=== PATIENT | male | born 1955 | race Caucasian/White ===

== ENCOUNTER 2021-11-27 12:26 | Emergency (ER) | payer BC, SELFPAY ==
[2021-11-27 13:10] VITALS: BP 161/82; PULSE 70; RESP 22; TEMP 36.5; O2SAT 97
--- NOTE | 2021-11-27 13:33 | DI.US.S_ITS ---
PROCEDURE: US PERIPH VENOUS LOW EXTREM LT INDICATIONS: Lt Leg swelling, hx DVT TECHNIQUE: Real-time imaging, as well as color and pulse Doppler interrogation, were performed of the lower extremity deep veins from the inguinal ligament to the popliteal fossa. COMPARISON: None. FINDINGS: There is extensive intraluminal filling defects seen in proximal left superficial femoral vein extending to left popliteal vein with poor compressibility. 5.3 x 2.5 x 2.6 cm fluid collection in posterior medial popliteal fossa is seen. IMPRESSION: 1. Extensive deep venous thrombosis involving left superficial femoral vein to left popliteal vein. 2. Popliteal cyst as above. Dictated by: Virgil Melendrez M.D. on 11/27/2021 at 14:31 Approved by: Virgil Melendrez M.D. on 11/27/2021 at 14:34
--- NOTE | 2021-11-27 15:10 | ED_ITS ---
HPI - Extremity Problem <IZABEL Swift - Last Filed: 11/27/21 20:43> General Chief complaint: Extremity Problem,Nontraumatic Stated complaint: Swollen left leg with pain Time Seen by Provider: 11/27/21 13:33 Source: patient Mode of arrival: Ambulatory History of Present Illness HPI Narrative: 66-year-old male presents to the emergency department with increased swelling of his left leg over the last 3 days with a lump on the medial aspect of his left calf which is warm to touch. He has a history of a DVT in the past in his right leg, he says that was in 2000 and he subsequently developed a pulmonary embolism. At that time he was started on warfarin. He has been on warfarin daily ever since without interruption. He reports he takes 10 mg 1 day and takes 15 mg the next day and alternates every day. He is a patient of [facility] [place], and was trying to transfer to [facility] but his last INR was 1 [facility] ago at the [facility]. 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 He denies any shortness of breath, cough, chest pain, difficulty breathing, fever, or any other symptom. He reports that it is mildly painful on over the medial aspect of his left calf where there is a lump and warmth. Related Data Home Medications Medication Instructions Recorded Confirmed aspirin 81 mg tablet,delayed 81 mg PO QDAY #0 10/16/16 release warfarin 1 mg tablet (Coumadin) 12 mg OR QDAY #0 10/16/16 Previous Rx's Medication Instructions Recorded apixaban 5 mg tablet (Eliquis) 5 mg PO BID 14 Days #28 tab 11/27/21 Allergies Allergy/AdvReac Type Severity Reaction Status Date / Time No Known Drug Allergies Allergy Verified 11/27/21 17:20 Review of Systems <IZABEL Swift - Last Filed: 11/27/21 20:43> Review of Systems Narrative: General: denies fever, chills Head/Neck: denies headache, neck pain Eyes: denies visual changes, eye pain Cardio: denies chest pain, palpitations Respiratory: denies shortness of breath, cough GI: denies abdominal pain, nausea, vomiting, or diarrhea : denies dysuria, hematuria MSK: denies joint pain, muscle weakness Skin: denies rash, itching Neuro: denies numbness, tingling Patient History <IZABEL Swift - Last Filed: 11/27/21 20:43> Social History Smoking Status: Former smoker Smoking Status: Former smoker Exam <IZABEL Swift - Last Filed: 11/27/21 20:43> Narrative Exam Narrative: Independently reviewed vitals signs and nursing notes. General: Awake, alert, nontoxic, no cardiorespiratory distress Head/Neck: Atraumatic, neck full range of motion Eyes: EOMI, conjunctiva normal Nose: nares patent, no rhinorrhea Mouth/Throat: moist mucus membranes, posterior pharynx normal, no oral lesions Cardio: Regular rate and rhythm, left lower extremity with 2+ peripheral edema, redness and erythema over the medial aspect of his left calf, mildly swollen surrounding redness and erythema. Does not appear to be cellulitic. No fl uctuance Respiratory: respirations unlabored without wheezing, stridor, or rales. No retractions. GI: Abdomen soft, nontender MSK: Moves all extremities, neurovascularly intact Skin: Normal capillary refill, no rash Neuro: Normal speech and cognition, normal gait Initial Vital Signs Initial Vital Signs: Vital Signs Temperature 97.7 F 11/27/21 13:10 Pulse Rate 70 11/27/21 13:10 Respiratory Rate 22 11/27/21 13:10 Blood Pressure 161/82 H 11/27/21 13:10 Pulse Oximetry 97 11/27/21 13:10 <Ivan Belcher DO - Last Filed: 12/05/21 04:45> Initial Vital Signs Initial Vital Signs: Vital Signs Temperature 97.7 F 11/27/21 13:10 Pulse Rate 70 11/27/21 13:10 Respiratory Rate 22 11/27/21 13:10 Blood Pressure 161/82 H 11/27/21 13:10 Pulse Oximetry 97 11/27/21 13:10 Scores <IZABEL Swift - Last Filed: 11/27/21 20:43> Wells' Criteria for DVT Active Cancer (Treatment within 6 months): No Bedridden recently >3 days or major surgery within 4 weeks: No Calf Swelling >3cm compared to other leg: Yes Collateral (nonvericose) superficial veins present: Yes Entire leg swollen: Yes Localized tenderness along the deep vein system: Yes Pitting edema, confined to symtomatic leg: Yes Paralysis, paresis, or recent plaster immobilization of ext: No Previously documented DVT: Yes Alternative dx to DVT as likely or more likely: Yes Dylan' criteria for DVT: 4 <Ivan Belcher DO - Last Filed: 12/05/21 04:45> Wells' Criteria for DVT Wells' criteria for DVT: 4 Course <IZABEL Swift - Last Filed: 11/27/21 20:43> Orders Ordered: Discontinued Medications Apixaban (Apixaban 5 Mg Tablet) 5 mg PO NOW ONE Stop: 11/27/21 17:19 Last Admin: 11/27/21 17:29 Dose: 5 mg Documented by: GRZEGORZ Consultations Consultation #1: Consultation with Dr. Wade from Hematology and stopping warfarin, starting patient on Eliquis, patient was given a coupon for this at the pharmacy. He was prescribed 7 days of Eliquis 10 mg twice a day, 5 mg twice a day thereafter, he was also referred to Dr. Wade who will follow up with him in a week. Vital Signs Vital signs: Vital Signs - 8 hr 11/27/21 13:10 11/27/21 15:57 11/27/21 15:58 Temperature 97.7 F Pulse Rate 70 68 Respiratory Rate 22 20 Blood Pressure 161/82 H 161/79 H Pulse Oximetry 97 98 98 11/27/21 16:00 11/27/21 16:30 11/27/21 17:50 Temperature Pulse Rate 68 71 65 Respiratory Rate 20 20 Blood Pressure 150/84 H 152/85 H 160/82 H Pulse Oximetry 99 97 100 <Ivan Belcher DO - Last Filed: 12/05/21 04:45> Orders Ordered: Discontinued Medications Apixaban (Apixaban 5 Mg Tablet) 5 mg PO NOW ONE Stop: 11/27/21 17:19 Last Admin: 11/27/21 17:29 Dose: 5 mg Documented by: GRZEGORZ Vital Signs Vital signs: Vital Signs - 8 hr 11/27/21 13:10 11/27/21 15:57 11/27/21 15:58 Temperature 97.7 F Pulse Rate 70 68 Respiratory Rate 22 20 Blood Pressure 161/82 H 161/79 H Pulse Oximetry 97 98 98 11/27/21 16:00 11/27/21 16:30 11/27/21 17:50 Temperature Pulse Rate 68 71 65 Respiratory Rate 20 20 Blood Pressure 150/84 H 152/85 H 160/82 H Pulse Oximetry 99 97 100 MDM - Extremity (Nontraumatic) <Mary Jane Rachel, [facility] - Last Filed: 11/27/21 20:43> Lab Data Result diagrams: 11/27/21 16:07 11/27/21 16:07 Labs: Lab Results 11/27/21 11/27/21 11/27/21 Range/Units 16:07 16:07 16:07 WBC 6.4 (4.5-11.0) X10^3/uL RBC 4.46 L (4.5-5.9) X10^6/uL Hgb 13.9 (13.5-17.5) g/dL Hct 41.9 (41-53) % MCV 93.8 (80-100) fL MCH 31.2 (26-34) PG MCHC 33.3 (30-36) % RDW 13.9 (11.6-14.8) % Plt Count 249 (150-400) X10^3/uL Neut % (Auto) 62.9 (50-75) % Lymph % (Auto) 24.1 L (25-40) % [place] % (Auto) 9.2 (3-14) % Eos % (Auto) 2.5 (2-4) % Baso % (Auto) 1.3 (0-2) % Neut # (Auto) 4000 (6763-0502) /uL Lymph # (Auto) 1500 (0520-3642) /uL [place] # (Auto) 600 (0-900) /uL Eos # (Auto) 200 (0-450) /uL Baso # (Auto) 100 (0-100) /uL PT 12.7 (10.1-12.7) SECONDS INR 1.1 (0.9-1.3) Sodium 141 (137-145) mmol/L Potassium 4.2 (3.4-5.1) mmol/L Chloride 108 H (98-107) mmol/L Carbon Dioxide 28 (22-32) mmol/L BUN 12 (9-20) mg/dL Creatinine 0.97 (0.66-1.25) mg/dL Estimated GFR > 60.0 (>60) mL/min BUN/Creatinine Ratio 12.4 (6-22) Glucose 104 (80-110) mg/dL Calcium 9.6 (8.4-10.2) mg/dL Imaging Data US - DVT: Radiologist's Impression: PROCEDURE:? US PERIPH VENOUS LOW EXTREM LT ? INDICATIONS:? Lt Leg swelling, hx DVT ? TECHNIQUE:? Real-time imaging, as well as color and pulse Doppler interrogation, were performed of the lower extremity deep veins from the inguinal ligament to the popliteal fossa.? ? COMPARISON:? None. ? FINDINGS:? There is extensive intraluminal filling defects seen in proximal left superficial femoral vein extending to left popliteal vein with poor compressibility.? 5.3 x 2.5 x 2.6 cm fluid collection in posterior medial popliteal fossa is seen. ? IMPRESSION:? 1. Extensive deep venous thrombosis involving left superficial femoral vein to left popliteal vein. 2. Popliteal cyst as above. ? ? Dictated by: Virgil Melendrez M.D. on 11/27/2021 at 14:31 ? ? Approved by: Virgil Melendrez M.D. on 11/27/2021 at 14:34 ? [facility] Narrative Medical decision making narrative: 66-year-old male with history of factor 5 Leiden and protein C deficiency who presents to the emergency department for left lower extremity swelling which started 3 days ago. Patient has a remote history of a DVT and subsequent PE in 2000 for which he was started on warfarin at the time. Patient reports he religiously takes 10 mg of warfarin alternating daily with 15 mg of warfarin, followed by another 10 mg vice versa. The last time he had his INR checked was a month ago at [facility] [place]. 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 Left lower extremity venous Doppler shows extensive DVT involving the left superficial femoral vein down to the left popliteal vein, incidentally a popliteal cyst was also seen. A 5.3 x 2.5 x 2.6 cm fluid collection is visible in the posterior medial popliteal fossa. [facility], his last INR was 3.4 on 10/08/21. Patient denies missing any of his doses of medication. He also endorses that he does not have a regular clinic director who prescribes his medication, he recently moved up here and has not seen anybody up here, and has not established is anticoagulation clinic to follow-up with. Dr. Wade from Hematology was consulted and recommended discontinuing warfarin, starting patient on Eliquis with 10 mg b.i.d. dosing for 7 days followed by 5 mg thereafter and following up with him in the clinic. Patient has a wells DVT score of 4. Patient denies any respiratory symptoms, shortness of breath, difficulty breathing, cough, hemoptysis, or any other cardiopulmonary symptom. All other lab work was unremarkable. Patient understands to follow-up with Dr. Wade, and to return to the emergency department for any new, worsening, or concerning symptoms. Patient is appropriate and amenable to discharge home. Vital signs are stable on repeat examination is unremarkable. Patient has been informed of results. Patient has been given strict return to ER precautions for any new or worsening symptoms. Patient understands to follow up closely with outpatient providers as instructed. Patient understands plan and agrees to discharge home. All questions and concerns answered at this time. <Ivan Belcher, DO - Last Filed: 12/05/21 04:45> Lab Data Labs: Lab Results 11/27/21 11/27/21 11/27/21 Range/Units 16:07 16:07 16:07 WBC 6.4 (4.5-11.0) X10^3/uL RBC 4.46 L (4.5-5.9) X10^6/uL Hgb 13.9 (13.5-17.5) g/dL Hct 41.9 (41-53) % MCV 93.8 (80-100) fL MCH 31.2 (26-34) PG MCHC 33.3 (30-36) % RDW 13.9 (11.6-14.8) % Plt Count 249 (150-400) X10^3/uL Neut % (Auto) 62.9 (50-75) % Lymph % (Auto) 24.1 L (25-40) % [place] % (Auto) 9.2 (3-14) % Eos % (Auto) 2.5 (2-4) % Baso % (Auto) 1.3 (0-2) % Neut # (Auto) 4000 (1077-4016) /uL Lymph # (Auto) 1500 (6624-4623) /uL [place] # (Auto) 600 (0-900) /uL Eos # (Auto) 200 (0-450) /uL Baso # (Auto) 100 (0-100) /uL PT 12.7 (10.1-12.7) SECONDS INR 1.1 (0.9-1.3) Sodium 141 (137-145) mmol/L Potassium 4.2 (3.4-5.1) mmol/L Chloride 108 H (98-107) mmol/L Carbon Dioxide 28 (22-32) mmol/L BUN 12 (9-20) mg/dL Creatinine 0.97 (0.66-1.25) mg/dL Estimated GFR > 60.0 (>60) mL/min BUN/Creatinine Ratio 12.4 (6-22) Glucose 104 (80-110) mg/dL Calcium 9.6 (8.4-10.2) mg/dL Discharge Plan Departure Patient Disposition: Home Clinical Impression: Deep vein thrombosis of lower extremity, Factor 5 Leiden mutation, heterozygous, Deficiency, protein C Activity Restrictions/Additional Instructions: *You have been diagnosed with a large DVT in your left lower extremity. Please stop taking your warfarin. Please start taking Eliquis and get your prescription filled tomorrow morning. Please take 10 mg (2 tablets) twice a day for 7 days followed by 5 mg twice a day thereafter. [facility]. If you have any shortness of breath, cough, worsening of your pain beyond tolerable, weakness, or any other concerning symptom for a pulmonary embolism or stroke please return to the emergency department immediately. *What to do: *Please continue to take your regular medications as directed. [x ] New medication prescriptions sent to your pharmacy: [ [facility]] [ ] New medication written as a paper prescription [ ] No new medications given *Please follow up with your primary care provider in 2-3 days, call for an appointment. Let them know you were seen in the Emergency Department and that we ask that you be seen in follow up. We will electronically transmit a record of today's note if your PCP is in our system *If you do not have a primary care provider please contact the [facility] Resource line at [phone]. They will ask some questions about your medical history and help get you set up with a doctor in the community. *Return to Emergency Department if you should have any new, worsening or concerning symptoms, such as [fever greater than 101F, chills, worsening pain, persistent vomiting or other bothersome symptoms] Prescriptions: New Eliquis 5 mg tablet 5 mg PO BID 14 Days Qty: 28 0RF No Action aspirin 81 MG tablet,delayed release (DR/EC) 81 mg PO QDAY Qty: 0 0RF warfarin [Coumadin] 1 MG tablet 12 mg OR QDAY Qty: 0 0RF Referrals: Ajay Wade MD [Physician] - 3-5 days <Ivan Belcher DO - Last Filed: 12/05/21 04:45> Cosign ED Attending Cosignature Attestation: I was immediately available in the department for consultation. This documentation has been reviewed and I agree with assessment and plan. Supervised by Ivan Belcher DO
[2021-11-27 15:57] VITALS: O2SAT 98
[2021-11-27 15:58] VITALS: BP 161/79; PULSE 68; RESP 20; O2SAT 98
[2021-11-27 16:00] VITALS: BP 150/84; PULSE 68; O2SAT 99
[2021-11-27 16:12] LABS: Add Manual Diff / Slide Review NO; Basophils Absolute Auto 100 /uL (0-100); Basophils Percent Auto 1.3 % (0-2); Eosinophils Absolute Auto 200 /uL (0-450); Eosinophils Percent Auto 2.5 % (2-4); Hematocrit 41.9 % (41-53); Hemoglobin 13.9 g/dL (13.5-17.5); Lymphocytes Absolute Auto 1500 /uL (1100-4500); Lymphocytes Percent Auto 24.1 % (25-40); Mean Corpuscular HGB Conc 33.3 % (30-36); Mean Corpuscular Hemoglobin 31.2 PG (26-34); Mean Corpuscular Volume 93.8 fL (80-100); Monocytes Absolute Auto 600 /uL (0-900); Monocytes Percent Auto 9.2 % (3-14); Neutrophils Absolute Auto 4000 /uL (1500-7000); Neutrophils Percent Auto 62.9 % (50-75); Platelet Count 249 X10^3/uL (150-400); Red Blood Cell Count 4.46 X10^6/uL (4.5-5.9); Red Cell Distribution Width 13.9 % (11.6-14.8); White Blood Cell Count 6.4 X10^3/uL (4.5-11.0)
[2021-11-27 16:23] LABS: INR 1.1 (0.9-1.3); Prothrombin Time 12.7 SECONDS (10.1-12.7)
[2021-11-27 16:27] LABS: BUN Creatinine Ratio 12.4 (6-22); Blood Urea Nitrogen 12 mg/dL (9-20); Calcium 9.6 mg/dL (8.4-10.2); Carbon Dioxide 28 mmol/L (22-32); Chloride 108 mmol/L (98-107); Estimated Glomerular Filt Rate > 60.0 mL/min (>60); Glucose 104 mg/dL (80-110); HEMOLYSIS < 15 (0-50); Potassium 4.2 mmol/L (3.4-5.1); Sodium 141 mmol/L (137-145)
[2021-11-27 16:30] VITALS: BP 152/85; PULSE 71; RESP 20; O2SAT 97
[2021-11-27] MEDS: APIXABAN 5 MG TABLET PO (17:29)
[2021-11-27 17:50] VITALS: BP 160/82; PULSE 65; RESP 20; O2SAT 100
== END 2021-11-27 17:50 | disposition home or self-care (01) ==
PROVIDERS: Emergency Provider Nurse Practitioner Critical Care Medicine
DX: I82.412 Acute embolism and thrombosis of left femoral vein (principal); I82.432 Acute embolism and thrombosis of left popliteal vein; D68.51 Activated protein C resistance
CPT/HCPCS: 80048; 85025; 85610; 93971; 99283; 99284

== ENCOUNTER 2022-05-09 12:26 | Inpatient (IN) | payer BC, SELFPAY ==
[2022-05-09] VITALS (7 sets, daily range): BP systolic 86–119; BP diastolic 58–72; PULSE 71–95; RESP 16–21; TEMP 36.2–36.6; O2SAT 95–98; BMI 29.9; BMI 29.3
--- NOTE | 2022-05-09 12:59 | DI.RAD.S_ITS ---
PROCEDURE: XR CHEST 2V INDICATIONS: shortness of breath TECHNIQUE: 2 views of the chest were acquired. COMPARISON: None. FINDINGS: Surgical changes and devices: None. Lungs and pleura: Lungs are clear. No pleural effusions or pneumothorax. Mediastinum: Mediastinal contours are normal. Heart size is normal. Bones and chest wall: No suspicious bony abnormalities. Soft tissues appear unremarkable. IMPRESSION: No acute cardiopulmonary pathology. Dictated by: Virgil Melendrez M.D. on 05/09/2022 at 13:42 Approved by: Virgil Melendrez M.D. on 05/09/2022 at 13:42
[2022-05-09 13:19] LABS: Add Manual Diff / Slide Review NO; Basophils Absolute Auto 0 /uL (0-100); Basophils Percent Auto 0.4 % (0-2); Eosinophils Absolute Auto 0 /uL (0-450); Eosinophils Percent Auto 0.1 % (2-4); Hematocrit 39.9 % (41-53); Hemoglobin 13.7 g/dL (13.5-17.5); Lymphocytes Absolute Auto 700 /uL (1100-4500); Lymphocytes Percent Auto 6.7 % (25-40); Mean Corpuscular HGB Conc 34.4 % (30-36); Mean Corpuscular Hemoglobin 32.2 PG (26-34); Mean Corpuscular Volume 93.6 fL (80-100); Monocytes Absolute Auto 1000 /uL (0-900); Monocytes Percent Auto 9.5 % (3-14); Neutrophils Absolute Auto 8500 /uL (1500-7000); Neutrophils Percent Auto 83.3 % (50-75); Platelet Count 147 X10^3/uL (150-400); Red Blood Cell Count 4.26 X10^6/uL (4.5-5.9); White Blood Cell Count 10.3 X10^3/uL (4.5-11.0)
[2022-05-09 13:28] LABS: COVID19 -Nasal RAPID Negative (Negative)
[2022-05-09 13:56] LABS: Potassium 5.2 mmol/L (3.4-5.1); Sodium 134 mmol/L (137-145)
[2022-05-09 13:57] LABS: Blood Urea Nitrogen 24 mg/dL (9-20); Carbon Dioxide 21 mmol/L (22-32); Chloride 100 mmol/L (98-107)
[2022-05-09 13:58] LABS: BUN Creatinine Ratio 19.2 (6-22); Estimated Glomerular Filt Rate > 60 mL/min (>60); Glucose 149 mg/dL (80-110)
[2022-05-09 14:00] LABS: Alanine Aminotransferase 43 IU/L (<50); Alkaline Phosphatase 53 U/L (38-126); Aspartate Aminotransferase 25 IU/L (17-59); Bilirubin Total 1.3 mg/dL (0.2-1.3); Calcium 9.1 mg/dL (8.4-10.2)
[2022-05-09 14:01] LABS: Albumin 4.6 g/dL (3.5-5.0); Albumin Globulin Ratio 1.5 (1.0-2.8); Globulin 3.1 g/dL (1.7-4.1); HEMOLYSIS < 15 (0-50); Total Protein 7.7 g/dL (6.3-8.2)
[2022-05-09 14:05] LABS: Lactate (Lactic Acid) 1.7 mmol/L (0.7-2.1)
--- NOTE | 2022-05-09 15:00 | ED_ITS ---
HPI - SOB/Dyspnea General Chief Complaint: Shortness of Breath/Dyspnea Stated Complaint: Extreme Fatigue/Sweaty/Sepsis Time Seen by Provider: 05/09/22 13:52 Source: patient Mode of arrival: Family Vehicle Limitations: no limitations History of Present Illness HPI Narrative: This is a 66-year-old male comes emergency department with complaint of fatigue that started the last 12-24 hours and shortness of breath with exertion. Patient is resting he does not feel short of breath. He denies fevers or chills. No chest pain or pressure. No nausea or vomiting. No swelling in his extremities. No issues with bowel movements itchy diarrhea constipation or black or bloody stools. He noted that he has not really been able to urinate today. Patient states he urinated a little this morning. He does not a sensat ion that he needs to go but states he just has not made more. He denies abdominal, back or flank pain. No suprapubic discomfort. No rash. Patient is on Xarelto for protein C deficiency and prior pulmonary emboli he had a thrombi like to me 20 years ago. He developed a DVT 6 months ago while on warfarin and was transition to Xarelto. He takes medication for hypertension, Flomax and atorvastatin. He does have an IVC filter placed. Prior sinus surgery. No known drug allergies. No tobacco, 3 alcoholic drinks daily, no illicit. Primary care is [place] at [facility]. Related Data Home Medications Medication Instructions Recorded Confirmed rivaroxaban 15 mg tablet (Xarelto) 15 mg PO DAILY 12/12/21 05/09/22 amlodipine 10 mg tablet 1 tab PO DAILY 05/09/22 05/09/22 atorvastatin 80 mg tablet 80 tab PO DAILY 05/09/22 05/09/22 lisinopril 10 mg tablet 1 tab PO DAILY 05/09/22 05/09/22 tamsulosin 0.4 mg capsule 2 cap PO DAILY 05/09/22 05/09/22 venlafaxine 37.5 mg 1 cap PO DAILY 05/09/22 05/09/22 capsule,extended release 24 hr Allergies Allergy/AdvReac Type Severity Reaction Status Date / Time No Known Drug Allergies Allergy Verified 11/27/21 17:20 Review of Systems Review of Systems ROS Unobtainable: All systems reviewed & are unremarkable except as noted in HPI and below Patient History Medical History (Updated 05/09/22 @ 22:25 by Inderjit Torres MD) BPH (benign prostatic hyperplasia) Depression DVT (deep venous thrombosis) History of tongue cancer Hyperlipidemia Hypertension Presence of IVC filter Protein C deficiency Pulmonary embolism Sleep apnea Stroke Surgical History (Updated 05/09/22 @ 22:24 by Inderjit Torres MD) S/P coil embolization of cerebral aneurysm S/P sinus surgery Family History (Updated 05/09/22 @ 22:23 by Inderjit Torres MD) Mother Fall Father Fall Social History household members: spouse Smoking Status: Former smoker alcohol intake: current substance use type: does not use Smoking Status: Former smoker alcohol intake frequency: 0-2 drinks per day Alcohol type: wine Substance Use Type: does not use Exam Narrative Exam Narrative: GENERAL: Alert and oriented x three, mild distress. HEENT: Head normocephalic, atraumatic, EOMI, pupils reactive, face symmetric, moist mucous membranes NECK: Supple, full range of motion CARDIOVASCULAR: Regular rate and rhythm without murmurs, rubs or gallops. RESPIRATORY: Breath sounds equal bilaterally, no wheezes rales or rhonchi. ABDOMEN: Soft, nontender. Normoactive bowel sounds all 4 quadrants. No guarding or rebound, rigidity, no mass : No CVA tenderness EXTREMITIES: Normal range of motion, no clubbing. Patient has bilateral lower extremity swelling. Neurovascularly intact NEUROLOGICAL: Cranial nerves II through XII grossly intact. Moving all extremities SKIN: Warm, dry, no petechiae, no rashes or lesions. Initial Vital Signs Initial Vital Signs: Vital Signs Pulse Rate 86 05/09/22 12:49 Pulse Oximetry 97 05/09/22 12:49 Course Orders Ordered: Amlodipine Besylate (Amlodipine 5 Mg Tablet) 10 mg PO DAILY [facility] Last Admin: 05/10/22 09:51 Dose: 10 mg Documented By: MARÍA Apixaban (Apixaban 5 Mg Tablet) 10 mg PO BID [facility] Stop: 05/22/22 21:01 Last Admin: 05/10/22 10:07 Dose: Not Given Documented By: MARÍA Atorvastatin Calcium (Atorvastatin 20 Mg Tablet) 80 mg PO BEDTIME [facility] Last Admin: 05/10/22 20:36 Dose: 80 mg Documented By: Admin: 05/09/22 23:47 Dose: 80 mg Documented By: KORTNEY Enoxaparin Sodium (Enoxaparin 150 Mg/Ml Syringe) 105 mg SUBCUT BID [facility] Last Admin: 05/10/22 20:36 Dose: 105 mg Documented By: Admin: 05/10/22 09:52 Dose: 105 mg Documented By: TROYF Finasteride (Finasteride 5 Mg Tablet) 5 mg PO DAILY [facility] Last Admin: 05/10/22 09:51 Dose: 5 mg Documented By: TROYF Lisinopril (Lisinopril 10 Mg Tablet) 10 mg PO DAILY [facility] Last Admin: 05/10/22 09:51 Dose: 10 mg Documented By: TROYF Naloxone HCl (Naloxone 0.4 Mg/Ml Vial) 0.2 mg IV Q2MIN PRN PRN Reason: Opiate Reversal Tamsulosin HCl (Tamsulosin 0.4 Mg Capsule) 0.8 mg PO DAILY [facility] Last Admin: 05/10/22 09:51 Dose: 0.8 mg Documented By: MARÍA Venlafaxine HCl (Venlafaxine Er 37.5 Mg Cap) 37.5 mg PO DAILY [facility] Last Admin: 05/10/22 09:51 Dose: 37.5 mg Documented By: TROYF Discontinued Medications Atorvastatin Calcium (Atorvastatin 20 Mg Tablet) 6,400 mg PO DAILY [facility] Enoxaparin Sodium (Enoxaparin 40 Mg/0.4 Ml Syringe) 110 mg 1 mg/kg (110 mg) SUBCUT NOW ONE Stop: 05/09/22 17:12 Last Admin: 05/09/22 17:47 Dose: 110 mg Documented By: CLARISSA Sodium Chloride (Normal Saline 0.9%) 1,000 mls @ 1,000 mls/hr IV BOLUS ONE Stop: 05/09/22 16:15 Last Infusion: 05/09/22 16:42 Dose: 0 mls/hr Documented By: Admin: 05/09/22 15:34 Dose: 1,000 mls/hr Documented By: CLARISSA Phenazopyridine HCl (Phenazopyridine 100 Mg Tablet) 200 mg PO NOW ONE Stop: 05/09/22 18:53 Last Admin: 05/09/22 19:04 Dose: 200 mg Documented By: CLARISSA Vital Signs Vital signs: Vital Signs - 8 hr 05/09/22 13:00 05/09/22 12:49 05/09/22 13:00 Temperature 97.2 F L Pulse Rate 85 86 83 Respiratory Rate 18 18 Blood Pressure 103/63 Pulse Oximetry 96 97 98 Oxygen Delivery Method Room Air 05/09/22 13:30 05/09/22 13:30 05/09/22 14:00 Temperature Pulse Rate 71 Respiratory Rate 18 Blood Pressure 96/63 97/60 Pulse Oximetry 95 Oxygen Delivery Method 05/09/22 14:00 05/09/22 14:30 05/09/22 14:30 Temperature Pulse Rate 74 81 Respiratory Rate 18 21 Blood Pressure 96/60 Pulse Oximetry 97 96 Oxygen Delivery Method 05/09/22 15:00 05/09/22 15:00 Temperature Pulse Rate 82 Respiratory Rate 19 Blood Pressure 86/58 L Pulse Oximetry 98 Oxygen Delivery Method MDM - SOB/Dyspnea Lab Data Result diagrams: 05/10/22 05:20 05/10/22 05:20 Labs: Lab Results 05/09/22 05/09/22 05/09/22 Range/Units 12:45 13:02 13:02 WBC 10.3 (4.5-11.0) X10^3/uL RBC 4.26 L (4.5-5.9) X10^6/uL Hgb 13.7 (13.5-17.5) g/dL Hct 39.9 L (41-53) % MCV 93.6 (80-100) fL MCH 32.2 (26-34) PG MCHC 34.4 (30-36) % RDW 14.0 (11.6-14.8) % Plt Count 147 L (150-400) X10^3/uL Neut % (Auto) 83.3 H (50-75) % Lymph % (Auto) 6.7 L (25-40) % Bell % (Auto) 9.5 (3-14) % Eos % (Auto) 0.1 L (2-4) % Baso % (Auto) 0.4 (0-2) % Neut # (Auto) 8500 H (0110-7686) /uL Lymph # (Auto) 700 L (1329-8680) /uL Bell # (Auto) 1000 H (0-900) /uL Eos # (Auto) 0 (0-450) /uL Baso # (Auto) 0 (0-100) /uL Sodium 134 L (137-145) mmol/L Potassium 5.2 H (3.4-5.1) mmol/L Chloride 100 (98-107) mmol/L Carbon Dioxide 21 L (22-32) mmol/L BUN 24 H (9-20) mg/dL Creatinine 1.25 (0.66-1.25) mg/dL Estimated GFR > 60 (>60) mL/min BUN/Creatinine Ratio 19.2 (6-22) Glucose 149 H (80-110) mg/dL Lactate (0.7-2.1) mmol/L Calcium 9.1 (8.4-10.2) mg/dL Total Bilirubin 1.3 (0.2-1.3) mg/dL AST 25 (17-59) IU/L ALT 43 (<50) IU/L Alkaline Phosphatase 53 (38-126) U/L Total Creatine Kinase (55-170) U/L CK-MB (CK-2) CK-MB (CK-2) Rel Index Troponin I (0.01-0.034) ng/mL NT-Pro-B Natriuret Pep (<125) pg/mL Total Protein 7.7 (6.3-8.2) g/dL Albumin 4.6 (3.5-5.0) g/dL Globulin 3.1 (1.7-4.1) g/dL Albumin/Globulin Ratio 1.5 (1.0-2.8) Urine Color Urine Appearance Urine pH (4.5-8.0) Ur Specific [place] (1.000-1.035) Urine Protein (Negative) Urine Glucose (UA) (Negative) g/dL Urine Ketones (NEGATIVE) Urine Occult Blood (Negative) Urine Nitrate (Negative) Urine Bilirubin (NEGATIVE) Urine Urobilinogen (0.2) E.U./dL Ur Leukocyte Esterase (NEGATIVE) Urine RBC (0-5/HPF) Urine WBC (0-5/HPF) Ur Squamous Epith Cells (0-5/HPF) Urine Bacteria (None) Urine Yeast (None) Ur Culture Indicated? SARS-CoV-2 (PCR) Negative (Negative) 05/09/22 05/09/22 05/09/22 Range/Units 13:02 14:32 15:53 WBC (4.5-11.0) X10^3/uL RBC (4.5-5.9) X10^6/uL Hgb (13.5-17.5) g/dL Hct (41-53) % MCV (80-100) fL MCH (26-34) PG MCHC (30-36) % RDW (11.6-14.8) % Plt Count (150-400) X10^3/uL Neut % (Auto) (50-75) % Lymph % (Auto) (25-40) % Bell % (Auto) (3-14) % Eos % (Auto) (2-4) % Baso % (Auto) (0-2) % Neut # (Auto) (8552-4532) /uL Lymph # (Auto) (7218-8238) /uL Bell # (Auto) (0-900) /uL Eos # (Auto) (0-450) /uL Baso # (Auto) (0-100) /uL Sodium (137-145) mmol/L Potassium (3.4-5.1) mmol/L Chloride (98-107) mmol/L Carbon Dioxide (22-32) mmol/L BUN (9-20) mg/dL Creatinine (0.66-1.25) mg/dL Estimated GFR (>60) mL/min BUN/Creatinine Ratio (6-22) Glucose (80-110) mg/dL Lactate 1.7 (0.7-2.1) mmol/L Calcium (8.4-10.2) mg/dL Total Bilirubin (0.2-1.3) mg/dL AST (17-59) IU/L ALT (<50) IU/L Alkaline Phosphatase (38-126) U/L Total Creatine Kinase 37 L (55-170) U/L CK-MB (CK-2) TNP CK-MB (CK-2) Rel Index TNP Troponin I < 0.012 (0.01-0.034) ng/mL NT-Pro-B Natriuret Pep 86 (<125) pg/mL Total Protein (6.3-8.2) g/dL Albumin (3.5-5.0) g/dL Globulin (1.7-4.1) g/dL Albumin/Globulin Ratio (1.0-2.8) Urine Color Yellow Urine Appearance Clear Urine pH 5.5 (4.5-8.0) Ur Specific [place] 1.020 (1.000-1.035) Urine Protein Trace H (Negative) Urine Glucose (UA) Negative (Negative) g/dL Urine Ketones Negative (NEGATIVE) Urine Occult Blood Trace-intact (Negative) Urine Nitrate Negative (Negative) Urine Bilirubin Negative (NEGATIVE) Urine Urobilinogen 0.2 (0.2) E.U./dL Ur Leukocyte Esterase Negative (NEGATIVE) Urine RBC 0-1/hpf (0-5/HPF) Urine WBC 5-10/hpf H (0-5/HPF) Ur Squamous Epith Cells 1-5 /hpf (0-5/HPF) Urine Bacteria None seen (None) Urine Yeast 5-10/hpf H (None) Ur Culture Indicated? Specimen cultured SARS-CoV-2 (PCR) (Negative) Imaging Data Chest x-ray: Radiologist's Impression: [address] [address] XRay Report Signed Patient: Bill Juares MR#: [id number] : 1955 Acct:[id number] Age/Sex: 66 / M Date of Service: 05/09/22 Loc: ED Accession Number: [id number] ?? Procedure: XR chest 2V Ordering Provider: Melita Goode D.O. PROCEDURE:? XR CHEST 2V ? INDICATIONS:? shortness of breath ? TECHNIQUE:? 2 views of the chest were acquired.? ? COMPARISON:? None. ? FINDINGS:? ? Surgical changes and devices:? None.? ? Lungs and pleura:? Lungs are clear.? No pleural effusions or pneumothorax.? ? Mediastinum:? Mediastinal contours are normal.? Heart size is normal.? ? Bones and chest wall:? No suspicious bony abnormalities.? Soft tissues appear unremarkable.? ? IMPRESSION:? No acute cardiopulmonary pathology. ? ? Dictated by: Virgil Melendrez M.D. on 05/09/2022 at 13:42 ? ? Approved by: Virgil Melendrez M.D. on 05/09/2022 at 13:42?? CT scan - chest: Radiologist's Impression: Close Chest CTA (Signed) Susan Welch - 05/09/22 Chest X-Ray (Signed) Virgil Melendrez - 05/09/22 Launch?Image [address] [address] [address] Scan Report Signed Patient: Bill Juares MR#: [id number] : 1955 Acct:[id number] Age/Sex: 66 / M Date of Service: 05/09/22 Loc: ED Accession Number: [id number] ?? Procedure: CT angio chest PE protocol Ordering Provider: Melita Goode D.O. PROCEDURE:? CT ANGIO CHEST PE PROTOCOL ? INDICATIONS:? sob, low BP, hx of PEs ? TECHNIQUE:? After the administration of intravenous contrast, 2 mm thick sections acquired from the pulmonary apices to the posterior costophrenic angles.? 3-dimensional maximum intensity projection (MIP) coronal and sagittal reformats were then acquired through the thorax.? For radiation dose reduction, the following was used:? automated exposure control, adjustment of mA and/or kV according to patient size.? ? COMPARISON:? None. ? FINDINGS:? Image quality:? Excellent.? ? Pulmonary arteries:? Pulmonary arteries are normal in size.? There is a solitary region of filling defect within a segmental branch of the right lower lobe (series 4/image 84).? No other suspicious filling defects. ? Lungs and pleura:? There is mild centrilobular emphysema with an apical predominance.? Learning there is mild atelectasis within the dependent lung bases bilaterally.? No pleural effusion or pneumothorax. ? Mediastinum:? Heart size is normal, without pericardial effusion.? No findings to suggest right heart strain.? No mediastinal or hilar adenopathy.? Thoracic aorta is normal in caliber and enhancement.? Esophagus is normal in caliber, without hiatal hernia.? ? Bones and chest wall:? No suspicious bony lesions.? Ribs and thoracic spine appear intact throughout.? Thyroid gland is unremarkable.? No axillary or supraclavicular adenopathy.? ? Abdomen:? A low-density 1.3 cm left adrenal gland nodule is present suggesting the presence of a small adrenal adenoma.? There are likely bilateral punctate renal calculi which are incompletely characterized.? Visualized upper abdominal solid organs appear otherwise normal in the early arterial phase of enhancement.? ? IMPRESSION:? ? 1. Segmental pulmonary embolus within a branch of the right lower lobe.? No other filling defects visualized.? No findings to suggest right heart strain. ? These findings were discussed with IZABEL Uriostegui at 3:52 p.m. On May 09, 2022. ? 2. No acute pulmonary findings.? ? ? Dictated by: Susan Welch M.D. on 05/09/2022 at 15:47 ? ? Approved by: Susan Welch M.D. on 05/09/2022 at 15:53?? ECG Data Attestation: I personally reviewed and interpreted this ECG as follows: Interpretation: Sinus rhythm, occasional premature atrial complex. Rate 84 TN 166, QRS is 78 QTC [address]. No acute ST elevation or depression noted. MDM Narrative Medical decision making narrative: This is a 66-year-old male comes emergency department with complaint of fatigue and shortness of breath with exertion that started the last 12 hours. Patient does have a history significant for PE with Jorje elect 20 years ago secondary to protein C deficiency. Patient developed a DVT on warfarin but he states he was not always therapeutic and was transitioned to Xarelto 6 months ago. He does have an IVC filter placed with his prior pulmonary emboli. He has just felt fatigued he has blood pressure as he is not tachycardic. He is on a medication for blood pressure but is unsure if it is a beta-carlito or calcium channel carlito which might be decreasing his ability to have reflux tachycardia. Patient had CT angio found have a right lower lobe segmental pulmonary emboli. He is adamant that he only missed 1 dose so far and this was because he had run out of pharmacy did not have any enough for placement. Patient was persistently hypotensive upon arrival did have some improvement with fluids but still 110-100 systolic. He otherwise does not high risk factors. Discussed with Oncology/Hematology, Dr. Bhatia who recommends Lovenox subQ x1 week and then transition to Eliquis orally and outpatient follow-up for repeat hematology evaluation. Discussed with hospitalist for observation, echo to fully evaluate for any right heart strain although none is appreciated on his imaging or EKG. Patient did have urinary retention he has had issues in the past he is supposed to be on Flomax. He had 700 cc out, UA was obtained shows possible infection but not clearly an urine culture is pending. This is likely unrelated but renal ultrasound was ordered and does not show any acute changes or obstructions. Discharge Plan Departure Patient Disposition: Admitted as Observation Clinical Impression: Pulmonary embolism, Acute urinary retention Admit Date/Time: 05/09/22 19:21 Admit Provider: Inderjit Torres
--- NOTE | 2022-05-09 15:13 | DI.CT.S_ITS ---
PROCEDURE: CT ANGIO CHEST PE PROTOCOL INDICATIONS: sob, low BP, hx of PEs TECHNIQUE: After the administration of intravenous contrast, 2 mm thick sections acquired from the pulmonary apices to the posterior costophrenic angles. 3-dimensional maximum intensity projection (MIP) coronal and sagittal reformats were then acquired through the thorax. For radiation dose reduction, the following was used: automated exposure control, adjustment of mA and/or kV according to patient size. COMPARISON: None. FINDINGS: Image quality: Excellent. Pulmonary arteries: Pulmonary arteries are normal in size. There is a solitary region of filling defect within a segmental branch of the right lower lobe (series 4/image 84). No other suspicious filling defects. Lungs and pleura: There is mild centrilobular emphysema with an apical predominance. Learning there is mild atelectasis within the dependent lung bases bilaterally. No pleural effusion or pneumothorax. Mediastinum: Heart size is normal, without pericardial effusion. No findings to suggest right heart strain. No mediastinal or hilar adenopathy. Thoracic aorta is normal in caliber and enhancement. Esophagus is normal in caliber, without hiatal hernia. Bones and chest wall: No suspicious bony lesions. Ribs and thoracic spine appear intact throughout. Thyroid gland is unremarkable. No axillary or supraclavicular adenopathy. Abdomen: A low-density 1.3 cm left adrenal gland nodule is present suggesting the presence of a small adrenal adenoma. There are likely bilateral punctate renal calculi which are incompletely characterized. Visualized upper abdominal solid organs appear otherwise normal in the early arterial phase of enhancement. IMPRESSION: 1. Segmental pulmonary embolus within a branch of the right lower lobe. No other filling defects visualized. No findings to suggest right heart strain. These findings were discussed with IZABEL Uriostegui at 3:52 p.m. On May 09, 2022. 2. No acute pulmonary findings. Dictated by: Susan Welch M.D. on 05/09/2022 at 15:47 Approved by: Susan Welch M.D. on 05/09/2022 at 15:53
[2022-05-09] MEDS: SODIUM CHLORIDE 0.9% 1,000 ML 1000 ML IV (15:34)
--- NOTE | 2022-05-09 15:34 | DI.US.S_ITS ---
PROCEDURE: US RENAL COMPLETE INDICATIONS: urinary retention TECHNIQUE: Real-time scanning was performed of the kidneys and bladder, with image documentation. COMPARISON: None. FINDINGS: Kidneys: Kidneys are normal in size. Right kidney measures 11.0 cm long; left kidney measures 11.2 cm long. Right renal cortical thickness is 1.5 cm; left renal cortical thickness is 1.1 cm. Renal cortical echotexture is normal. No hydronephrosis or nephrolithiasis. No suspicious solid mass lesions. Bladder: A Cheek catheter is present within the bladder and the bladder is decompressed. Miscellaneous: No free pelvic fluid. IMPRESSION: No hydronephrosis. Dictated by: Susan Welch M.D. on 05/09/2022 at 16:31 Approved by: Susan Welch M.D. on 05/09/2022 at 16:32
[2022-05-09 15:59] LABS: Appearance Urine UA CLEAR; Bilirubin Urine UA NEGATIVE (NEGATIVE); Color Urine UA YELLOW; Glucose Urine UA NEGATIVE (Negative); Ketones Urine UA NEGATIVE (NEGATIVE); Leukocyte Esterase Urine UA NEGATIVE (NEGATIVE); Nitrite Urine UA NEGATIVE (Negative); Occult Blood Urine UA TRACE-INTACT (Negative); Protein Urine UA TRACE (Negative); Urobilinogen Urine UA 0.2 E.U./dL (0.2); pH Urine UA 5.5 (4.5-8.0)
[2022-05-09 16:11] LABS: Bacteria Urine None Seen; RBC Urine 0-1/HPF (0-5/HPF); Squamous Epithelial Cell Urine 1-5 /HPF (0-5/HPF)
[2022-05-09 16:12] LABS: Culture Indicated Urine Specimen Cultured
[2022-05-09 16:13] LABS: WBC Urine 5-10/HPF (0-5/HPF)
[2022-05-09 16:45] LABS: Creatine Kinase 37 U/L (55-170); NT-proBNP (BNP-Adult 18+) 86 pg/mL (<125); Troponin I < 0.012 ng/mL (0.01-0.034)
[2022-05-09] MEDS: ENOXAPARIN 40 MG/0.4 ML SYRINGE 110 MG SUBCUT (17:47)
[2022-05-09] MEDS: PHENAZOPYRIDINE 100 MG TABLET 200 MG PO (19:04)
--- NOTE | 2022-05-09 21:37 | P.HP_ITS ---
History of Present Illness History of Present Illness Date Patient Seen: 05/09/22 Time Patient Seen: 21:37 Chief complaint: Extreme Fatigue/Sweaty/Sepsis Narrative: This is a 66-year-old male with protein C deficiency, recurrent PE/DVT, hypertension, BPH pending TURP, hyperlipidemia and depression who presents with sudden exhaustion beginning last night and persisting today. His CTA of the chest shows a right lower lobe segmental pulmonary embolus. He was hypotensive when he presented, requiring 1 L of IV fluid to recover. He has no shortness of breath, coughing or chest pain. He is not tachypneic. He has had at least 2 prior DVTs, the 1st one 20 years ago when the protein C deficiency was diagnosed and then another one 6 months ago. At that time the Coumadin he had been on was changed to Xarelto. He also has an IVC filter in place. He had his usual Xarelto dose yesterday but says that this morning he did not have his daily dose. His symptoms started last night, however. Per Dr. Bhatia, his digital recruiter the plan will be to change him to Eliquis and to treat him with 1 week of Lovenox. He will need to be monitored inpatient to make sure this is effective and he will need an echocardiogram. He also has BPH with urinary dysfunction and on presentation has a postvoid scan residual of 700 cc requiring catheter placement. 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 Patient History Medical History (Updated 05/09/22 @ 22:25 by Inderjit Torres MD) BPH (benign prostatic hyperplasia) Depression DVT (deep venous thrombosis) History of tongue cancer Hyperlipidemia Hypertension Presence of IVC filter Protein C deficiency Pulmonary embolism Sleep apnea Stroke Surgical History (Updated 05/09/22 @ 22:24 by Inderjit Torres MD) S/P coil embolization of cerebral aneurysm S/P sinus surgery Family & Social History Family History (Updated 05/09/22 @ 22:23 by Inderjit Torres MD) Mother Fall Father Fall Social History: household members spouse Prior Living Arrangements House Safety & Behavioral: Feels Safe in Current Yes Environment Been Physically Hurt or No Threatened By a Person Tobacco & Substance use: Smoking Status Former smoker alcohol intake current alcohol intake frequency 0-2 drinks per day Substance Use Type does not use Meds Home Medications and Allergies Home Medications Medication Instructions Recorded Confirmed Type rivaroxaban 15 mg tablet (Xarelto) 15 mg PO DAILY 12/12/21 05/09/22 History amlodipine 10 mg tablet 1 tab PO DAILY 05/09/22 05/09/22 History atorvastatin 80 mg tablet 80 tab PO DAILY 05/09/22 05/09/22 History lisinopril 10 mg tablet 1 tab PO DAILY 05/09/22 05/09/22 History tamsulosin 0.4 mg capsule 2 cap PO DAILY 05/09/22 05/09/22 History venlafaxine 37.5 mg 1 cap PO DAILY 05/09/22 05/09/22 History capsule,extended release 24 hr Allergies Allergy/AdvReac Type Severity Reaction Status Date / Time No Known Drug Allergies Allergy Verified 11/27/21 17:20 Review of Systems Review of Systems Narrative: Positive for exhaustion/fatigue and difficulty urinating. Negative for fevers, chills, sweats, shortness of breath, coughing, chest pain, abdominal pain, nausea, vomiting, dysuria, rash, seizures, headaches, sore throat, new allergies. Exam Vital Signs (past 8 hours): - 05/09/22 14:00 05/09/22 14:00 05/09/22 14:30 Temperature Pulse Rate 74 Respiratory Rate 18 Blood Pressure 97/60 96/60 Pulse Oximetry 97 Oxygen Flow Rate 05/09/22 14:30 05/09/22 15:00 05/09/22 15:00 Temperature Pulse Rate 81 82 Respiratory Rate 21 19 Blood Pressure 86/58 L Pulse Oximetry 96 98 Oxygen Flow Rate 05/09/22 20:46 Temperature 97.8 F Pulse Rate 95 H Respiratory Rate 16 Blood Pressure 119/72 Pulse Oximetry 97 Oxygen Flow Rate 0 Oxygen Delivery Method Room Air Oxygen Flow Rate 0 Narrative Exam Narrative: He is alert and oriented x3. No apparent distress. His manner of speaking is somewhat ponderous Pupils are equally round and reactive to light and accommodation. Extraocular muscles are intact Sclerae are pink and nonicteric Throat looks normal No lymph nodes are felt head, neck, supraclavicular area There is no thyromegaly JVD is less than 6 cm No carotid bruits are heard Heart is regular rate and rhythm without murmur Lungs are clear to auscultation bilaterally Abdomen is soft, bowel sounds positive, nontender, no organomegaly Extremities have no ankle edema Skin has no rash or jaundice Neurological exam: Cranial nerves 2-12 test intact There is no tremor Motor function is 5/5 except for interface developer strength which is 4/5 bilaterally symmetric. A Cheek catheter is in place. Objective Labs Result Diagrams: 05/09/22 13:02 05/09/22 13:02 Labs: Laboratory Results - last 24 hr 05/09/22 05/09/22 05/09/22 12:45 13:02 13:02 WBC 10.3 RBC 4.26 L Hgb 13.7 Hct 39.9 L MCV 93.6 MCH 32.2 MCHC 34.4 RDW 14.0 Plt Count 147 L Neut % (Auto) 83.3 H Lymph % (Auto) 6.7 L [place] % (Auto) 9.5 Eos % (Auto) 0.1 L Baso % (Auto) 0.4 Neut # (Auto) 8500 H Lymph # (Auto) 700 L [place] # (Auto) 1000 H Eos # (Auto) 0 Baso # (Auto) 0 Sodium 134 L Potassium 5.2 H Chloride 100 Carbon Dioxide 21 L BUN 24 H Creatinine 1.25 Estimated GFR > 60 BUN/Creatinine Ratio 19.2 Glucose 149 H Lactate Calcium 9.1 Total Bilirubin 1.3 AST 25 ALT 43 Alkaline Phosphatase 53 Total Creatine Kinase CK-MB (CK-2) CK-MB (CK-2) Rel Index Troponin I NT-Pro-B Natriuret Pep Total Protein 7.7 Albumin 4.6 Globulin 3.1 Albumin/Globulin Ratio 1.5 Urine Color Urine Appearance Urine pH Ur Specific [place] Urine Protein Urine Glucose (UA) Urine Ketones Urine Occult Blood Urine Nitrate Urine Bilirubin Urine Urobilinogen Ur Leukocyte Esterase Urine RBC Urine WBC Ur Squamous Epith Cells Urine Bacteria Urine Yeast Ur Culture Indicated? SARS-CoV-2 (PCR) Negative 05/09/22 05/09/22 05/09/22 13:02 14:32 15:53 WBC RBC Hgb Hct MCV MCH MCHC RDW Plt Count Neut % (Auto) Lymph % (Auto) [place] % (Auto) Eos % (Auto) Baso % (Auto) Neut # (Auto) Lymph # (Auto) [place] # (Auto) Eos # (Auto) Baso # (Auto) Sodium Potassium Chloride Carbon Dioxide BUN Creatinine Estimated GFR BUN/Creatinine Ratio Glucose Lactate 1.7 Calcium Total Bilirubin AST ALT Alkaline Phosphatase Total Creatine Kinase 37 L CK-MB (CK-2) TNP CK-MB (CK-2) Rel Index TNP Troponin I < 0.012 NT-Pro-B Natriuret Pep 86 Total Protein Albumin Globulin Albumin/Globulin Ratio Urine Color Yellow Urine Appearance Clear Urine pH 5.5 Ur Specific [place] 1.020 Urine Protein Trace H Urine Glucose (UA) Negative Urine Ketones Negative Urine Occult Blood Trace-intact Urine Nitrate Negative Urine Bilirubin Negative Urine Urobilinogen 0.2 Ur Leukocyte Esterase Negative Urine RBC 0-1/hpf Urine WBC 5-10/hpf H Ur Squamous Epith Cells 1-5 /hpf Urine Bacteria None seen Urine Yeast 5-10/hpf H Ur Culture Indicated? Specimen cultured SARS-CoV-2 (PCR) Assessment & Plan Assessment & Plan narrative: This is a 66-year-old male with protein C deficiency, recurrent PE/DVT, hypertension, BPH pending TURP, hyperlipidemia and depression who presents with sudden exhaustion beginning last night and persisting today. His CTA of the chest shows a right lower lobe segmental pulmonary embolus. Acute right lower lobe pulmonary embolus, present on admission. Active. -per ED discussion with Dr. Bhatia patient will be changed from Xarelto to Eliquis and will be on Lovenox for the 1st week. -he will need close monitoring for several days to ensure that this change in treatment is effective and will need an echocardiogram. -he may need repeat coagulopathy evaluation as an outpatient. -he has documented protein C deficiency with IVC filter and recurrent DVT (while on warfarin) diagnosed 6 months ago. Protein C deficiency, present on admission. Chronic. -repeat coagulopathy workup with Hematology as an outpatient -Lovenox and Eliquis planned per Hematology recommendation Benign prostatic hypertrophy with bladder outlet obstruction, present on admission. Active. -patient was unable to urinate and had 700 mL postvoid residual on admission. -renal ultrasound shows no hydronephrosis -the patient is already on high-dose tamsulosin. -add finasteride and follow-up with Urology who he was already establish with locally. -Cheek catheter for now and remove as soon as possible. Hypertension, present on admission. Chronic. -the patient was hypotensive on admission and is pending echocardiogram -lisinopril Hyperlipidemia, present on admission. Chronic. -continue atorvastatin. Depression, present on admission. Chronic. -continue venlafaxine Obstructive sleep apnea, present on admission. Chronic. -CPAP -Lovenox and Eliquis for ongoing coagulopathy -backup decision maker is his Bertha Juares. Time Spent With Patient Critical Care time: I spent a total of [] minutes of critical care time on this patient's care today; this time is exclusive of procedural time. Quality VTE Deep Vein Thrombosis/Pulmonary Embolism Present on Admission: Yes
[2022-05-09] MEDS: ATORVASTATIN 20 MG TABLET 80 MG PO (23:47)
[2022-05-10] VITALS (7 sets, daily range): BP systolic 97–114; BP diastolic 59–75; PULSE 68–100; RESP 16–20; TEMP 36.3–37; O2SAT 97–98
[2022-05-10 05:57] LABS: Add Manual Diff / Slide Review NO; Basophils Absolute Auto 100 /uL (0-100); Basophils Percent Auto 0.6 % (0-2); Eosinophils Absolute Auto 200 /uL (0-450); Hemoglobin 12.5 g/dL (13.5-17.5); Lymphocytes Absolute Auto 1300 /uL (1100-4500); Mean Corpuscular HGB Conc 34.6 % (30-36); Mean Corpuscular Hemoglobin 32.5 PG (26-34); Mean Corpuscular Volume 93.9 fL (80-100); Monocytes Absolute Auto 1000 /uL (0-900); Monocytes Percent Auto 11.5 % (3-14); Neutrophils Absolute Auto 6200 /uL (1500-7000); Neutrophils Percent Auto 70.9 % (50-75); Platelet Count 125 X10^3/uL (150-400); Red Blood Cell Count 3.84 X10^6/uL (4.5-5.9); Red Cell Distribution Width 14.4 % (11.6-14.8); White Blood Cell Count 8.8 X10^3/uL (4.5-11.0)
[2022-05-10 06:01] LABS: BUN Creatinine Ratio 27.8 (6-22); Blood Urea Nitrogen 27 mg/dL (9-20); Calcium 8.7 mg/dL (8.4-10.2); Carbon Dioxide 22 mmol/L (22-32); Chloride 104 mmol/L (98-107); Estimated Glomerular Filt Rate > 60 mL/min (>60); Glucose 114 mg/dL (80-110); HEMOLYSIS < 15 (0-50); Potassium 4.5 mmol/L (3.4-5.1); Sodium 135 mmol/L (137-145)
[2022-05-10] MEDS: TAMSULOSIN 0.4 MG CAPSULE 0.8 MG PO (09:51)
[2022-05-10] MEDS: VENLAFAXINE ER 37.5 MG CAP PO (09:51)
[2022-05-10] MEDS: AMLODIPINE 5 MG TABLET 10 MG PO (09:51)
[2022-05-10] MEDS: lisinopriL 10 MG TABLET PO (09:51)
[2022-05-10] MEDS: FINASTERIDE 5 MG TABLET PO (09:51)
[2022-05-10] MEDS: ENOXAPARIN 150 MG/ML SYRINGE 105 MG SUBCUT ×2 (09:52→20:36)
--- NOTE | 2022-05-10 10:55 | PM.PN.1 ---
Subjective Subjective Interval history: pt has no new compllaints, denies chest pain, shortness of breath Exam Vital Signs (past 8 hours): - 05/10/22 05:00 05/10/22 07:30 05/10/22 09:51 Temperature 97.4 F L 98.6 F Pulse Rate 68 71 71 Respiratory Rate 17 20 Blood Pressure 102/72 114/70 114/70 Pulse Oximetry 98 97 Oxygen Flow Rate 0 0 Oxygen Delivery Method Room Air Oxygen Flow Rate 0 Const General: cooperative and well developed Orientation: alert, awake and oriented x3 HENMT Head: normal to inspection Ears: external ears normal Mouth: oral mucosae normal Eyes Pupils: PERRL EOM: EOM intact bilaterally Neck Neck: normal visual inspection and full ROM Resp Effort & Inspection: normal respiratory effort Auscultation: clear to auscultation bilaterally Cardio Rate: regular rate Rhythm: regular rhythm GI Palpation: soft and no hepatosplenomegaly Auscultation: normal bowel sounds Skin General: no rashes or lesions noted Neuro General: patient alert, patient awake, patient oriented x3, moves all extremities and no focal motor deficits Speech: speech normal Extrem General: normal to inspection, full ROM and no pedal edema Psych Appearance: grossly normal Objective Labs Result Diagrams: 05/10/22 05:20 05/10/22 05:20 Labs: Laboratory Results - last 24 hr 05/09/22 05/09/22 05/09/22 12:45 13:02 13:02 WBC 10.3 RBC 4.26 L Hgb 13.7 Hct 39.9 L MCV 93.6 MCH 32.2 MCHC 34.4 RDW 14.0 Plt Count 147 L Neut % (Auto) 83.3 H Lymph % (Auto) 6.7 L [place] % (Auto) 9.5 Eos % (Auto) 0.1 L Baso % (Auto) 0.4 Neut # (Auto) 8500 H Lymph # (Auto) 700 L [place] # (Auto) 1000 H Eos # (Auto) 0 Baso # (Auto) 0 Sodium 134 L Potassium 5.2 H Chloride 100 Carbon Dioxide 21 L BUN 24 H Creatinine 1.25 Estimated GFR > 60 BUN/Creatinine Ratio 19.2 Glucose 149 H Lactate Calcium 9.1 Total Bilirubin 1.3 AST 25 ALT 43 Alkaline Phosphatase 53 Total Creatine Kinase CK-MB (CK-2) CK-MB (CK-2) Rel Index Troponin I NT-Pro-B Natriuret Pep Total Protein 7.7 Albumin 4.6 Globulin 3.1 Albumin/Globulin Ratio 1.5 Urine Color Urine Appearance Urine pH Ur Specific [place] Urine Protein Urine Glucose (UA) Urine Ketones Urine Occult Blood Urine Nitrate Urine Bilirubin Urine Urobilinogen Ur Leukocyte Esterase Urine RBC Urine WBC Ur Squamous Epith Cells Urine Bacteria Urine Yeast Ur Culture Indicated? SARS-CoV-2 (PCR) Negative 05/09/22 05/09/22 05/09/22 13:02 14:32 15:53 WBC RBC Hgb Hct MCV MCH MCHC RDW Plt Count Neut % (Auto) Lymph % (Auto) [place] % (Auto) Eos % (Auto) Baso % (Auto) Neut # (Auto) Lymph # (Auto) [place] # (Auto) Eos # (Auto) Baso # (Auto) Sodium Potassium Chloride Carbon Dioxide BUN Creatinine Estimated GFR BUN/Creatinine Ratio Glucose Lactate 1.7 Calcium Total Bilirubin AST ALT Alkaline Phosphatase Total Creatine Kinase 37 L CK-MB (CK-2) TNP CK-MB (CK-2) Rel Index TNP Troponin I < 0.012 NT-Pro-B Natriuret Pep 86 Total Protein Albumin Globulin Albumin/Globulin Ratio Urine Color Yellow Urine Appearance Clear Urine pH 5.5 Ur Specific [place] 1.020 Urine Protein Trace H Urine Glucose (UA) Negative Urine Ketones Negative Urine Occult Blood Trace-intact Urine Nitrate Negative Urine Bilirubin Negative Urine Urobilinogen 0.2 Ur Leukocyte Esterase Negative Urine RBC 0-1/hpf Urine WBC 5-10/hpf H Ur Squamous Epith Cells 1-5 /hpf Urine Bacteria None seen Urine Yeast 5-10/hpf H Ur Culture Indicated? Specimen cultured SARS-CoV-2 (PCR) 05/10/22 05/10/22 05:20 05:20 WBC 8.8 RBC 3.84 L Hgb 12.5 L Hct 36.0 L MCV 93.9 MCH 32.5 MCHC 34.6 RDW 14.4 Plt Count 125 L Neut % (Auto) 70.9 Lymph % (Auto) 15.0 L [place] % (Auto) 11.5 Eos % (Auto) 2.0 Baso % (Auto) 0.6 Neut # (Auto) 6200 Lymph # (Auto) 1300 [place] # (Auto) 1000 H Eos # (Auto) 200 Baso # (Auto) 100 Sodium 135 L Potassium 4.5 Chloride 104 Carbon Dioxide 22 BUN 27 H Creatinine 0.97 Estimated GFR > 60 BUN/Creatinine Ratio 27.8 H Glucose 114 H Lactate Calcium 8.7 Total Bilirubin AST ALT Alkaline Phosphatase Total Creatine Kinase CK-MB (CK-2) CK-MB (CK-2) Rel Index Troponin I NT-Pro-B Natriuret Pep Total Protein Albumin Globulin Albumin/Globulin Ratio Urine Color Urine Appearance Urine pH Ur Specific [place] Urine Protein Urine Glucose (UA) Urine Ketones Urine Occult Blood Urine Nitrate Urine Bilirubin Urine Urobilinogen Ur Leukocyte Esterase Urine RBC Urine WBC Ur Squamous Epith Cells Urine Bacteria Urine Yeast Ur Culture Indicated? SARS-CoV-2 (PCR) [facility] Medical History (Updated 05/09/22 @ 22:25 by Inderjit Torres MD) BPH (benign prostatic hyperplasia) Depression DVT (deep venous thrombosis) History of tongue cancer Hyperlipidemia Hypertension Presence of IVC filter Protein C deficiency Pulmonary embolism Sleep apnea Stroke Surgical History (Updated 05/09/22 @ 22:24 by Inderjit Torres MD) S/P coil embolization of cerebral aneurysm S/P sinus surgery Family History (Updated 05/09/22 @ 22:23 by Inderjit Torres MD) Mother Fall Father Fall Social History household members: spouse Smoking Status: Former smoker alcohol intake: current substance use type: does not use Assessment & Plan Assessment & Plan narrative: Acute RLL PE secondary to protein C deficiency h/o IVC filter and recurrent DVT (while on warfarin) diagnosed 6 months ago, then failed Xarelto - was discussed with hematology -recommended to continue lovenox BID -then transfer to [facility] and f/u in outpatient Protein C deficiency Chronic.? - workup with Hematology as an outpatient -continue lovenox BID BPH -continue tamsulosin and Finasteride -continue Cheek for now Hypertension? -continue lisinopril Hyperlipidemia? -continue atorvastatin. Depression? -continue venlafaxine Obstructive sleep apnea? -CPAP -DVT prophylaxis: Lovenox POA Bertha Juares. Time Spent With Patient Critical Care time: I spent a total of [] minutes of critical care time on this patient's care today; this time is exclusive of procedural time. Quality VTE Deep Vein Thrombosis/Pulmonary Embolism Present on Admission: Yes
--- NOTE | 2022-05-10 11:36 | PC.NURSE ---
alert and oriented, conversant. Follows commands. easily makes needs known.
--- NOTE | 2022-05-10 12:59 | CM.DANOTE ---
Initial Discharge Planning Assessment Note: Case received, EMR reviewed and met with patient. Introduced self and role. 66 year old alert and oriented male admitted yesterday evening to care of hospitalist team. PCP: Dani Payne Payer: out of [place] [employer] Patient was admitted with sudden exhaustion persisting. He has h/o protein C deficiency, diagonsed with RLL P.E. (recurrent PE/DVT, IVC filter), has been on anticoagulation, h/o CVA with minimal right sided weakness, urinary retention due to BPH, urinary catheter placed. Patient lives in own home with supportive spouse Bertha. Patient currently works from home at to be. Patient is independent in ADLs. P: Patient wishes to return home upon discharge with prior living arrangements. Care management will continue to follow. GERMAINE Discharge Planning/Care Management CM Discharge Assessment Start: 05/10/22 12:57 Freq: Status: Active Protocol: Document 05/10/22 12:58 (Rec: 05/10/22 12:59 [id number]) Discharge Planning Assessment Assigned Paper Goods Machine Set Up Operator Anna Ramos RN/ADDYP Advance Directives? No History Provided By Patient,Medical Record Prior Living Arrangements House Household Members spouse Type of transporation used prior to Drives own vehicle admit Independent with ADL's Yes Is patient alert and oriented? Yes Needs Assistance With Home Chores / Shopping Barriers to Discharge No Discharge Plan Home Whiteboard Updated in Patient Room with Yes name and ext. # of Paper Goods Machine Set Up Operator Review Status In Process Next Review Type Continued Stay Review
[2022-05-10] MEDS: ATORVASTATIN 20 MG TABLET 80 MG PO (20:36)
--- NOTE | 2022-05-10 22:18 | DI.ECHO.S_ITS ---
[facility] +---------+ Hospital +---------+ : : [address] : : : : [id number] : : : : Phone: [phone]---------+ Echocardiogram Report + + :Name: JHON DEL ANGEL Study Date: 05/10/2022 Height: 75 in : :[facility] ReadingLocation: Weight: 234 lb : : Gender: Male BSA: 2.3 m2 : :: 1955 Age: 66 yrs BP: 109/75 mmHg: :Reason For Study: Pulmonary- Embolism : : Performed By: Myra Kenny : :Referring: JERARDO LING E : + + Interpretation Summary The left ventricle is normal in size and wall thickness. The ejection fraction is estimated to be 60-65%. The right ventricle is normal in size and function. No significant valvular pathology seen. The IVC is of normal diameter and collapses greater than 50% with a sniff. This suggests a low right atrial pressure of 3 mm Hg. The ascending aorta is mildly enlarged. Procedure: A two-dimensional transthoracic echocardiogram with color flow and Doppler was performed. The study quality was technically adequate. There is no prior echocardiogram noted for this patient. The patient was in normal sinus rhythm during the exam. The patient had occasional PACs during the exam. Left Ventricle: The left ventricle is normal in size and wall thickness. There is no thrombus. The ejection fraction is estimated to be 60-65%. There are no obvious focal wall motion abnormalities noted but poor endocardial definition reduces the sensitivity for the detection of such. Diastolic parameters suggest a relaxation abnormality of the left ventricle, consistent with probable normal filling pressures. Right Ventricle: The right ventricle is normal in size and function. Atria: Both atria are normal in size. There is no Doppler evidence for an interatrial shunt. Mitral Valve: There is mild mitral annular calcification. There is no mitral regurgitation noted. Aortic Valve: The aortic valve is trileaflet. The aortic valve opens well. There is no aortic valve stenosis. No aortic regurgitation is present. Tricuspid Valve: The tricuspid valve is not well visualized, but is grossly normal. Pulmonary artery pressures cannot be estimated because of the lack of a measurable TR jet velocity but the IVC suggests a CVP of around 3 mmHg. Pulmonic Valve: The pulmonic valve is not well visualized. There is trace pulmonic regurgitation. Great Vessels: The aortic root is borderline dilated. The ascending aorta is mildly enlarged. The aortic arch could not be visualized. The IVC is of normal diameter and collapses greater than 50% with a sniff. This suggests a low right atrial pressure of 3 mm Hg. Pericardium/ Pleura There is no pericardial effusion. MMode/2D Measurements & Calculations LVIDd: 4.5 cm LVOT diam: 2.4 cm LVIDs: 3.0 cm Ao root diam: 4.2 cm FS: 33.3 % asc Aorta Diam: 4.0 cm IVSd: 0.81 cm LVPWd: 0.67 cm LV nguyen. diameter/BSA (cm/m^2): 1.9 LV sys. diameter/BSA (cm/m^2): 1.3 LA A2 area: 18.4 cm2 RA long axis: 5.6 cm LA A4 area: 19.1 cm2 RA area: 17.0 cm2 LA length (vol): 5.0 cm RA vol: 43.4 ml LA vol: 59.8 ml RA : 18.5 ml/m2 LA vol index: 25.5 ml/m2 IVC diam: 1.1 cm RVD1 (basal): 3.7 cm TAPSE: 1.8 cm Doppler Measurements & Calculations Ao V2 max: 106.3 cm/sec LVOT Max Cali: 111.8 cm/sec Ao V2 mean: 79.4 cm/sec LV V1 max P.0 mmHg Ao max P.5 mmHg LV V1 VTI: 14.5 cm Ao mean P.8 mmHg AMBER(I,D): 4.5 cm2 Ao V2 VTI: 15.1 cm AMBER(V,D): 4.9 cm2 sev ratio: 0.96 AMBER indexed to BSA (cm^2/m^2): 1.9 MV E max cali: 49.3 cm/sec PA V2 max: 80.8 cm/sec MV A max cali: 61.9 cm/sec PA V2 mean: 61.0 cm/sec MV E/A: 0.80 PA mean P.6 mmHg Med Peak E' Cali: 6.2 cm/sec PA pr(Accel): 41.3 mmHg E/E' med: 7.9 Lat Peak E' Cali: 7.4 cm/sec E/E' lat: 6.6 E/e' average: 7.3 MV dec time: 0.39 sec SV(LVOT): 68.0 ml Reading Physician:03:40 PM
[2022-05-11] VITALS (8 sets, daily range): BP systolic 103–122; BP diastolic 66–73; PULSE 74–94; RESP 16; TEMP 36.6–37.1; O2SAT 94–97
[2022-05-11] MEDS: ACETAMINOPHEN 325 MG TABLET 650 MG PO ×2 (01:29→20:48)
--- NOTE | 2022-05-11 01:49 | PC.NURSE ---
Pt complained of pain in legs and back, asked for Tylenol. Called Dr Torres, telephone order given for 650mg Acetaminophen, PRN. Order placed. Will monitor pt for improvement.
[2022-05-11] MEDS: ENOXAPARIN 150 MG/ML SYRINGE 105 MG SUBCUT ×2 (09:55→20:46)
[2022-05-11] MEDS: FINASTERIDE 5 MG TABLET PO (09:56)
[2022-05-11] MEDS: VENLAFAXINE ER 37.5 MG CAP PO (09:56)
[2022-05-11] MEDS: lisinopriL 10 MG TABLET PO (09:56)
[2022-05-11] MEDS: TAMSULOSIN 0.4 MG CAPSULE 0.8 MG PO (09:56)
[2022-05-11] MEDS: AMLODIPINE 5 MG TABLET 10 MG PO (09:57)
--- NOTE | 2022-05-11 10:52 | PM.PN.1 ---
Subjective Subjective Interval history: pt denies chest pain, shortness of breath, c/o mild weakness, did not walk in the room yet Exam Vital Signs (past 8 hours): - 05/11/22 05:00 05/11/22 09:00 05/11/22 09:56 Temperature 98.0 F 97.8 F Pulse Rate 80 91 H 91 H Respiratory Rate 16 16 Blood Pressure 113/73 116/72 116/72 Pulse Oximetry 95 95 Oxygen Flow Rate 0 0 Oxygen Delivery Method Room Air Oxygen Flow Rate 0 Const General: cooperative and well developed Orientation: alert, awake and oriented x3 HENMT Head: normal to inspection Ears: external ears normal Mouth: oral mucosae normal Eyes Pupils: PERRL EOM: EOM intact bilaterally Neck Neck: normal visual inspection and full ROM Resp Effort & Inspection: normal respiratory effort Auscultation: clear to auscultation bilaterally Cardio Rate: regular rate Rhythm: regular rhythm GI Palpation: soft and no hepatosplenomegaly Auscultation: normal bowel sounds Skin General: no rashes or lesions noted Neuro General: patient alert, patient awake, patient oriented x3, moves all extremities and no focal motor deficits Speech: speech normal Extrem General: normal to inspection, full ROM and no pedal edema Psych Appearance: grossly normal Objective Labs Result Diagrams: 05/10/22 05:20 05/10/22 05:20 [facility] Medical History (Updated 05/09/22 @ 22:25 by Inderjit Torres MD) BPH (benign prostatic hyperplasia) Depression DVT (deep venous thrombosis) History of tongue cancer Hyperlipidemia Hypertension Presence of IVC filter Protein C deficiency Pulmonary embolism Sleep apnea Stroke Surgical History (Updated 05/09/22 @ 22:24 by Inderjit Torres MD) S/P coil embolization of cerebral aneurysm S/P sinus surgery Family History (Updated 05/09/22 @ 22:23 by Inderjit Torres MD) Mother Fall Father Fall Social History household members: spouse Smoking Status: Former smoker alcohol intake: current substance use type: does not use Assessment & Plan Assessment & Plan narrative: Acute RLL PE secondary to protein C deficiency h/o IVC filter and recurrent DVT (while on warfarin) diagnosed 6 months ago, then failed Xarelto - per hematology recs needs 1 week lovenox then transfer to [facility] and f/u in outpatient -continue IV therapeutic lovenox BID Protein C deficiency Chronic.? - workup with Hematology as an outpatient -continue lovenox BID BPH -continue tamsulosin and Finasteride -continue Cheek Hypertension? -continue lisinopril Hyperlipidemia? -continue atorvastatin. Depression? -continue venlafaxine Obstructive sleep apnea? -CPAP -DVT prophylaxis: Lovenox POA Bertha Juares. discussed with pt and rn Time Spent With Patient Critical Care time: I spent a total of [] minutes of critical care time on this patient's care today; this time is exclusive of procedural time. Quality VTE Deep Vein Thrombosis/Pulmonary Embolism Present on Admission: Yes
--- NOTE | 2022-05-11 16:25 | CM.DPC ---
Discharge Plan Note: In for PE. Echo done. Clotting disorder, per hospitalist, needs outpatient hematology consult per hospitalist. Has catheter for retention. P: Possible dc home tomorrow with spouse Anna Ramso RN/DCP
[2022-05-11] MEDS: ATORVASTATIN 20 MG TABLET 80 MG PO (20:45)
[2022-05-11] MEDS: SODIUM CHLORIDE 0.9% FLUSH 10 ML IV (20:46)
--- NOTE | 2022-05-11 22:52 | PC.NURSE ---
Patient is alert and oriented. Breath sounds diminished in right mid/lower lobes but patient denies chest pain or SOB and RA sat was 94%. HR irregular and tachy with telemetry reading of afib RVR w/rate of 107. Denied nausea. BT present and is passing flatus. Indwelling catheter is patent and urine is clear yellow. Is able to move himself in bed. Gait not assessed but patient reports he has been out of bed with cane and 1 assist but has only walked in room. Is wearing bilateral calf SCD's. Has 2+ bilateral LE edema. Complained of back and leg discomfort as well as discomfort related to catheter and was medicated with Tylenol and is currently asleep. Fall risk score is high and bed alarm is activated.
[2022-05-12 01:00] VITALS: BP 118/71; PULSE 91; RESP 16; TEMP 36.9; O2SAT 95
[2022-05-12 05:00] VITALS: BP 98/69; PULSE 82; RESP 16; TEMP 36.3; O2SAT 95
[2022-05-12 09:00] VITALS: BP 97/76; PULSE 84; RESP 18; TEMP 36.7; O2SAT 96
[2022-05-12] MEDS: ENOXAPARIN 150 MG/ML SYRINGE 105 MG SUBCUT ×2 (09:45→20:48)
[2022-05-12] MEDS: AMLODIPINE 5 MG TABLET 10 MG PO (09:45)
[2022-05-12] MEDS: SODIUM CHLORIDE 0.9% FLUSH 10 ML IV ×2 (09:46→20:59)
[2022-05-12] MEDS: FINASTERIDE 5 MG TABLET PO (09:46)
[2022-05-12] MEDS: TAMSULOSIN 0.4 MG CAPSULE 0.8 MG PO (09:46)
[2022-05-12] MEDS: VENLAFAXINE ER 37.5 MG CAP PO (09:47)
--- NOTE | 2022-05-12 11:19 | CM.DPC ---
Addendum entered by Carmen Ocampo R.N. 05/12/22 15:56: Confirmed with [facility] Cantrell that meds will not be ready until tomorrow. Confirmed that patient is not discharging today secondary to new onset of afib. Addendum entered by Carmen Ocampo R.N. 05/12/22 12:42: Faxed updated script for Eliquis, and Lovenox. Did follow up with a phone call. chief radiologic technologist stated, her fax ran out of paper, but will give this to the pharmacist. Let her know that progress note had been faxed as well showing why patient needs these medications. Gave her this case checker's number, and she will call back. Original Note: DCP Cont: Spoke to hospitalist, and she is attempting to get patient on Eliquis, versus Xarelto. Stated, the Xarelto does not work, will need to be on the Xarelto, due to his clotting. Had her complete RX, and faxed over to [facility] Cantrell here in [place]. Included latest progress note indicating reason that patient needs to be on this med. Will follow up with a phone call. P: DCP to continue to follow. Sent RX over to [facility]. Carmen Ocampo RN/[employer]
[2022-05-12] MEDS: LIDOCAINE 2% (GLYDO) 6 ML GEL TOP (12:37)
[2022-05-12 13:00] VITALS: BP 104/77; PULSE 91; RESP 20; TEMP 36.7; O2SAT 95
[2022-05-12] MEDS: ACETAMINOPHEN 325 MG TABLET 650 MG PO (14:18)
--- NOTE | 2022-05-12 15:28 | PT.IIE ---
Addendum entered and electronically signed by Justa Patel PT 05/12/22 16:18: After evaluation, LIQUEFACTION AND REGASIFICATION HELPER reported pt's HR had risen to 130's with a fib during ambulation per telemetry. Original Note: Current Diagnoses Other pulmonary embolism without acute cor pulmonale (05/09/22) Surgical History (Last Updated 05/09/22 @ 22:24 by Inderjit Torres MD) S/P coil embolization of cerebral aneurysm S/P sinus surgery Medical History (Last Updated 05/09/22 @ 22:25 by Inderjit Torres MD) BPH (benign prostatic hyperplasia) Depression DVT (deep venous thrombosis) History of tongue cancer Hyperlipidemia Hypertension Presence of IVC filter Protein C deficiency Pulmonary embolism Sleep apnea Stroke Physical Therapy Inpatient Evaluation/Re-Eval M1 PT/OT-IP Prior Functional Status Start: 05/12/22 14:17 Freq: NEEDED Status: Active Protocol: Document 05/12/22 15:28 AW (Rec: 05/12/22 16:17 AW [id number]) Medical Review Prior Functional Status Medical History Reviewed Yes Communication Pt is an effective verbal communicator. Mobility and Gait Pt walks with or without a cane depending on distance, terrain, and whether or not he is having knee pain. 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 He went to acute rehab and then to outpatient therapy. Activities of Daily Living and IADL's Independent with ADL's. Pt drives and manages his own medications. Social History Household Members spouse Living Arrangements House Number of Floors (Floors) One Floor Number of Stairs To Enter/Railing? 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 M2 PT-IP Current Condition Start: 05/12/22 14:17 Freq: NEEDED Status: Active Protocol: Document 05/12/22 15:28 AW (Rec: 05/12/22 16:17 AW [id number]) Physical Therapy Current Condition Current Condition Evaluation Date 05/12/22 Treatment Diagnosis R pulm embolus; history of CVA ; general weakness; impaired mobility/gait Onset Date 05/09/22 M3 PT-IP Subjective Start: 05/12/22 14:17 Freq: NEEDED Status: Active Protocol: Document 05/12/22 15:28 AW (Rec: 05/12/22 16:17 AW [id number]) Subjective Physical Therapy Visit Type Type Initial Evaluation Visit Start Time 15:10 Visit Stop Time 15:28 Total Visit Minutes 18 Notes Pt's spouse was present throughout evaluation Number of YARD JOCKEY Visits 0 Physical Therapy Visit Comments Patient Comments Pt is willing to participate with PT Therapy Pain Assessment Pain When Pain Assessed During Mobility Pain Present Pain Present Denied Pain M4 PT-IP Mobility and Gait Start: 05/12/22 14:17 Freq: NEEDED Status: Active Protocol: Document 05/12/22 15:28 AW (Rec: 05/12/22 16:17 AW [id number]) PT-Bed Mobility Assessment Supine to Sit Supine to Sit Standby Assistance Sit to Supine Sit to Supine Standby Assistance PT-Transfer Assessment Sit to and From Stand Sit to and from Stand Contact Guard Assistance Equipment Transfer Assistive Device Gait Belt,Straight Cane Orthotic/Prosthetic Devices or Brace: No Transfers Transfer Destination Bed,Chair Transfer Technique Stand Step Pivot Transfer Ability Level of Assist Standby Assistance Comments Mobility Comments Pt was lying inbed as PT arrived. SpO2 was 99% on room air. He was able to sit up on the right side of bed, stand, and transfer to chair CGA. He was mildly unsteady without AD . He stood again and ambulated with SPC a total of 50 feet SBA>CGA with increased distance. Pt became significantly SOB and needed to sit on return to the room. SpO2 was 99%. Pt was fatigued and completed sit to supine SBA as ECG tech arrived. Gait Assessment Gait Gait Assistance Required: Standby Assistance,Contact Guard Assist Distance (Feet) 50 Assistive Devices Assistive Device Gait Belt,Straight Cane Orthotic/Prosthetic Devices or Brace: No Gait Deviations General Gait Pattern Decreased Stride Length, Decreased Feet Clearance, Flexed Trunk,Wide Based Gait Factors Limiting Gait Function Factors Limiting Gait Function Decreased Activity Tolerance, Decreased Strength,Poor Balance,Respiratory Distress Comments Gait Comments See mobility comments for details. Stair Climbing Assessment Comments Stair Climbing Comments Not assessed due to poor activity tolerance. PT-Balance Assessment Sitting Balance and Reactions Static Sitting Balance Ability Good Dynamic Sitting Balance Ability Good Standing Balance and Reactions Static Standing Balance Ability Fair Dynamic Standing Balance Ability Fair Device Used pt's own SPC M5 PT-IP Objective Assessments Start: 05/12/22 14:17 Freq: NEEDED Status: Active Protocol: Document 05/12/22 15:28 AW (Rec: 05/12/22 16:17 AW [id number]) Orientation Orientation/Cognition Level of Alertness Alert Orientation Name,Day of Week,Place, Situation Language Function Ability No Deficits Noted Safety Awareness Understands Safety Issues Gross Range of Motion Lower Extremity ROM Assessment Within Functional Limits Strength Lower Extremity Strength Assessment Bilaterally Impaired Hip 4/5 Knee 4+/5 Ankle 4/5 Sensation Assessment Sensation Gross Sensation WNL Muscle Tone Muscle Tone WNL Yes M6 PT-IP Treatment Start: 05/12/22 14:17 Freq: NEEDED Status: Active Protocol: Document 05/12/22 15:28 AW (Rec: 05/12/22 16:17 AW [id number]) Physical Therapy Treatment Education Education Provided Safety Other Treatments Other Treatment Performed Educated pt and his on recommendation for FWW or 4WW at this time to conserve energy, improve safety, and reduce falls risk. M7 PT-IP Assessment and Plan Start: 05/12/22 14:17 Freq: NEEDED Status: Active Protocol: Document 05/12/22 15:28 AW (Rec: 05/12/22 16:17 AW [id number]) PT Summary Assessment and Plan Potential Rehabilitation Potential Good Status of Condition at Evaluation Evolving Summary Impairments Strength,Balance,Transfers, Gait,Activity Tolerance Assessment Summary Bill is a 66 yo man with remote history of CVA currently admitted with RLL pulmonary embolus secondary to protein C deficiency. He is independent to modified independent at baseline with use of SPC. He required SBA to CGA for mobility with FWW at this encounter and was limited by shortness of breath and fatigue. Pt would benefit from use of FWW or 4WW to conserve energy and reduce risk of falls. Will continue to assess for safe discharge plan but PT anticipates he will be safe to discharge home with spouse assist once medically stable. Goals Bed Mobility Goal Independent Transfer Goal Independent,Front Wheeled Walker Gait Goal Independent,Front Wheel Walker Gait Distance 200 Other Goals - up/down 4 steps with unilateral rail SBA - improve gait and transfers to SBA with SPC Days to Meet Goals 3 Frequency of Treatment Frequency Of Treatment Once a Day Treatment Plan Physical Therapy Treatment Plan Bed Mobility Training,Transfer Training,Gait Training, Therapeutic Exercise,Balance Retraining,Discharge Planning, Hot or Cold Pack,Neuromuscular Re-ed Other Recommendations and Next Treatment gait and stair training with Focus FWW or 4WW; training for pt's as needed Recommendations To Nursing Amount of Assist Needed Standby Assistance,1 Person Assist Discharge Recommendations PT Discharge Recommendations Home with Assistance,Home Health Transportation Needs at Discharge Private Vehicle
--- NOTE | 2022-05-12 15:49 | PM.PN.1 ---
Subjective Subjective Interval history: a fib on ecg, sob Exam Vital Signs (past 8 hours): - 05/12/22 09:00 Temperature 98.1 F Pulse Rate 84 Respiratory Rate 18 Blood Pressure 97/76 Pulse Oximetry 96 Oxygen Flow Rate 0 Oxygen Delivery Method Room Air Oxygen Flow Rate 0 Const General: cooperative and well developed Orientation: alert, awake and oriented x3 HENMT Head: normal to inspection Ears: external ears normal Mouth: oral mucosae normal Eyes Pupils: PERRL EOM: EOM intact bilaterally Neck Neck: normal visual inspection and full ROM Resp Effort & Inspection: normal respiratory effort Auscultation: clear to auscultation bilaterally Cardio Other: irregular rhythm GI Palpation: soft and no hepatosplenomegaly Auscultation: normal bowel sounds Skin General: no rashes or lesions noted Neuro General: patient alert, patient awake, patient oriented x3, moves all extremities and no focal motor deficits Speech: speech normal Extrem General: normal to inspection, full ROM and no pedal edema Psych Appearance: grossly normal Objective Labs Result Diagrams: 05/10/22 05:20 05/10/22 05:20 [facility] Medical History (Updated 05/09/22 @ 22:25 by Inderjit Torres MD) BPH (benign prostatic hyperplasia) Depression DVT (deep venous thrombosis) History of tongue cancer Hyperlipidemia Hypertension Presence of IVC filter Protein C deficiency Pulmonary embolism Sleep apnea Stroke Surgical History (Updated 05/09/22 @ 22:24 by Inderjit Torres MD) S/P coil embolization of cerebral aneurysm S/P sinus surgery Family History (Updated 05/09/22 @ 22:23 by Inderjit Torres MD) Mother Fall Father Fall Social History household members: spouse Smoking Status: Former smoker alcohol intake: current substance use type: does not use Assessment & Plan Assessment & Plan narrative: Acute RLL PE secondary to protein C deficiency h/o IVC filter and 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 - workup with Hematology as an outpatient -continue lovenox BID BPH -continue tamsulosin and Finasteride -continue Cheek Hypertension? -continue lisinopril Hyperlipidemia? -continue atorvastatin. Depression? -continue venlafaxine Obstructive sleep apnea? -CPAP -DVT prophylaxis: Lovenox POA Bertha Juares. discussed with pt and rn pt was not discharged today due to new A fib Time Spent With Patient Critical Care time: I spent a total of [] minutes of critical care time on this patient's care today; this time is exclusive of procedural time. Quality VTE Deep Vein Thrombosis/Pulmonary Embolism Present on Admission: Yes
[2022-05-12] MEDS: METOPROLOL TARTRATE 5 MG/5 ML INJ IV (16:19)
[2022-05-12 17:00] VITALS: BP 119/65; PULSE 107; RESP 17; TEMP 37.1; O2SAT 96
[2022-05-12 19:40] VITALS: BP 117/76; PULSE 100; RESP 18; TEMP 37.3; O2SAT 95
[2022-05-12] MEDS: ATORVASTATIN 20 MG TABLET 80 MG PO (20:47)
[2022-05-12] MEDS: METOPROLOL IR 25 MG TABLET PO (20:48)
[2022-05-13] VITALS (9 sets, daily range): BP systolic 102–124; BP diastolic 71–77; PULSE 70–112; RESP 16–18; TEMP 36.6–37.1; O2SAT 94–96
[2022-05-13] MEDS: TAMSULOSIN 0.4 MG CAPSULE 0.8 MG PO (08:43)
[2022-05-13] MEDS: VENLAFAXINE ER 37.5 MG CAP PO (08:43)
[2022-05-13] MEDS: METOPROLOL IR 25 MG TABLET PO ×2 (08:43→21:31)
[2022-05-13] MEDS: FINASTERIDE 5 MG TABLET PO (08:43)
[2022-05-13] MEDS: SODIUM CHLORIDE 0.9% FLUSH 10 ML IV ×2 (08:45→21:38)
--- NOTE | 2022-05-13 10:40 | PT-IP ANOTE ---
Attempted to see pt at 10:40, per RN hold PT d/t pt still in A-fib after ambulating hallway this morning and pending EKG.
[2022-05-13] MEDS: ENOXAPARIN 150 MG/ML SYRINGE 105 MG SUBCUT ×2 (10:44→21:31)
--- NOTE | 2022-05-13 14:17 | PM.PN.1 ---
Subjective Subjective Interval history: c/o shortness of breath on walking Exam Vital Signs (past 8 hours): - 05/13/22 06:40 05/13/22 08:11 05/13/22 10:18 Temperature 97.8 F Pulse Rate 96 H 86 Respiratory Rate 18 Blood Pressure 117/71 102/75 Pulse Oximetry 96 94 Oxygen Flow Rate 0 05/13/22 10:00 05/13/22 13:05 Temperature 98.2 F Pulse Rate 110 H 85 Respiratory Rate 16 Blood Pressure 102/75 116/71 Pulse Oximetry 96 Oxygen Flow Rate 0 Oxygen Delivery Method Room Air Oxygen Flow Rate 0 Const General: cooperative and well developed Orientation: alert, awake and oriented x3 HENMT Head: normal to inspection Ears: external ears normal Mouth: oral mucosae normal Eyes Pupils: PERRL EOM: EOM intact bilaterally Neck Neck: normal visual inspection and full ROM Resp Effort & Inspection: normal respiratory effort Auscultation: clear to auscultation bilaterally Cardio Other: irregular rhythm GI Palpation: soft and no hepatosplenomegaly Auscultation: normal bowel sounds Skin General: no rashes or lesions noted Neuro General: patient alert, patient awake, patient oriented x3, moves all extremities and no focal motor deficits Speech: speech normal Extrem General: normal to inspection, full ROM and no pedal edema Psych Appearance: grossly normal Objective Labs Result Diagrams: 05/10/22 05:20 05/10/22 05:20 COUNTS INCLUDE 234 BEDS AT THE [facility] Medical History (Updated 05/09/22 @ 22:25 by Inderjit Torres MD) BPH (benign prostatic hyperplasia) Depression DVT (deep venous thrombosis) History of tongue cancer Hyperlipidemia Hypertension Presence of IVC filter Protein C deficiency Pulmonary embolism Sleep apnea Stroke Surgical History (Updated 05/09/22 @ 22:24 by Inderjit Torres MD) S/P coil embolization of cerebral aneurysm S/P sinus surgery Family History (Updated 05/09/22 @ 22:23 by Inderjit Torres MD) Mother Fall Father Fall Social History household members: spouse Smoking Status: Former smoker alcohol intake: current substance use type: does not use Assessment & Plan Assessment & Plan narrative: Acute RLL PE secondary to protein C deficiency h/o IVC filter and 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 - workup with Hematology as an outpatient - continue lovenox BID BPH -continue tamsulosin and Finasteride Hypertension? -continue lisinopril Hyperlipidemia? -continue atorvastatin. Depression? -continue venlafaxine Obstructive sleep apnea? -CPAP -DVT prophylaxis: Lovenox POA Bertha Juares. discussed with pt and rn dispo: when stable, rate controlled Time Spent With Patient Critical Care time: I spent a total of [] minutes of critical care time on this patient's care today; this time is exclusive of procedural time. Quality VTE Deep Vein Thrombosis/Pulmonary Embolism Present on Admission: Yes
[2022-05-13] MEDS: ATORVASTATIN 20 MG TABLET 80 MG PO (21:30)
[2022-05-14] VITALS: BP 102/78; PULSE 87; RESP 18; TEMP 37.3; O2SAT 95
[2022-05-14 04:00] VITALS: BP 107/76; PULSE 100; RESP 18; TEMP 36.3; O2SAT 95
[2022-05-14 08:00] VITALS: BP 114/79; PULSE 67; RESP 17; TEMP 36.4; O2SAT 96
[2022-05-14] MEDS: FINASTERIDE 5 MG TABLET PO (09:19)
[2022-05-14] MEDS: METOPROLOL IR 25 MG TABLET 50 MG PO (09:19)
[2022-05-14] MEDS: VENLAFAXINE ER 37.5 MG CAP PO (09:19)
[2022-05-14] MEDS: TAMSULOSIN 0.4 MG CAPSULE 0.8 MG PO (09:20)
[2022-05-14] MEDS: ENOXAPARIN 150 MG/ML SYRINGE 105 MG SUBCUT (09:20)
[2022-05-14] MEDS: SODIUM CHLORIDE 0.9% FLUSH 10 ML IV (09:23)
[2022-05-14] MEDS: lisinopriL 5 MG TABLET 2.5 MG PO (10:02)
--- NOTE | 2022-05-14 10:22 | PT-IP ANOTE ---
Per RN, hold for AM d/t pt w/ A-fib after ambulating to restroom. Will check back in PM.
[2022-05-14 11:14] VITALS: BP 105/68; PULSE 93; RESP 18; TEMP 36.5; O2SAT 97
--- NOTE | 2022-05-14 14:00 | PT.IPTN ---
Current Diagnoses Other pulmonary embolism without acute cor pulmonale (05/09/22) Physical Therapy Treatment Note M2 PT-IP Current Condition Start: 05/12/22 14:17 Freq: NEEDED Status: Active Protocol: Document 05/12/22 15:28 AW (Rec: 05/12/22 16:17 AW [id number]) Physical Therapy Current Condition Current Condition Evaluation Date 05/12/22 Treatment Diagnosis R pulm embolus; history of CVA ; general weakness; impaired mobility/gait Onset Date 05/09/22 M3 PT-IP Subjective Start: 05/12/22 14:17 Freq: NEEDED Status: Active Protocol: Document 05/14/22 13:46 KS (Rec: 05/14/22 14:45 KS [id number]) Subjective Physical Therapy Visit Type Type Treatment Note Visit Start Time 13:46 Visit Stop Time 14:00 Total Visit Minutes 14 Notes Pt's spouse was present throughout evaluation. RN monitored HR during tx. Number of FAMILY SERVICES ASSISTANT Visits 1 Physical Therapy Visit Comments Patient Comments Pt is willing to participate with PT M4 PT-IP Mobility and Gait Start: 05/12/22 14:17 Freq: NEEDED Status: Active Protocol: Document 05/14/22 13:46 KS (Rec: 05/14/22 14:45 KS [id number]) PT-Bed Mobility Assessment Supine to Sit Supine to Sit Standby Assistance Sit to Supine Sit to Supine Standby Assistance Scooting Scooting to Edge of Bed Standby Assistance PT-Transfer Assessment Sit to and From Stand Sit to and from Stand Contact Guard Assistance Equipment Transfer Assistive Device Gait Belt,Straight Cane Orthotic/Prosthetic Devices or Brace: No Transfers Transfer Destination Bed Transfer Technique Pt ambulated w/ SPC. Transfer Ability Level of Assist Standby Assistance,Contact Guard Assistance,1 Person Assistance Comments Mobility Comments Pt in bed upon arrival and agreeable to working w/ therapy. RN agreeable to monitor HR during mobility. Pt SBA for sup<>sit and scooting EOB. Pt sit<>stand w/ SPC And HR mid 90's. He then ambulated ~40 ft around room and quickly became fatigued and stated I gotta sit back down HR following ambulation in 60's and O2 94%. Pt too fatigued to perform stair training, but states he has not had issues ascending stairs into home prior. Pt left in bed w/ all needs in reach. Gait Assessment Gait Gait Assistance Required: Standby Assistance,Contact Guard Assist Distance (Feet) 40 Assistive Devices Assistive Device Gait Belt,Straight Cane Orthotic/Prosthetic Devices or Brace: No Gait Deviations General Gait Pattern Decreased Stride Length, Decreased Feet Clearance, Flexed Trunk,Wide Based Gait Factors Limiting Gait Function Factors Limiting Gait Function Decreased Activity Tolerance, Decreased Strength,Poor Balance,Respiratory Distress Comments Gait Comments Very quick approach to fatigue w/ shortness of breath. HR prior to ambulation reading 90s viz pulse ox, and 60's following. Stair Climbing Assessment Comments Stair Climbing Comments Not assessed due to poor activity tolerance. PT-Balance Assessment Sitting Balance and Reactions Static Sitting Balance Ability Good Dynamic Sitting Balance Ability Good Standing Balance and Reactions Static Standing Balance Ability Fair Dynamic Standing Balance Ability Fair Device Used pt's own SPC M5 PT-IP Objective Assessments Start: 05/12/22 14:17 Freq: NEEDED Status: Active Protocol: Document 05/12/22 15:28 AW (Rec: 05/12/22 16:17 AW [id number]) Orientation Orientation/Cognition Level of Alertness Alert Orientation Name,Day of Week,Place, Situation Language Function Ability No Deficits Noted Safety Awareness Understands Safety Issues Gross Range of Motion Lower Extremity ROM Assessment Within Functional Limits Strength Lower Extremity Strength Assessment Bilaterally Impaired Hip 4/5 Knee 4+/5 Ankle 4/5 Sensation Assessment Sensation Gross Sensation WNL Muscle Tone Muscle Tone WNL Yes M6 PT-IP Treatment Start: 05/12/22 14:17 Freq: NEEDED Status: Active Protocol: Document 05/14/22 13:46 KS (Rec: 05/14/22 14:45 KS [id number]) Physical Therapy Treatment Education Education Provided Safety Other Treatments Other Treatment Performed Reccommend FWW for energy conservation. M7 PT-IP Assessment and Plan Start: 05/12/22 14:17 Freq: NEEDED Status: Active Protocol: Document 05/14/22 13:46 KS (Rec: 05/14/22 14:45 KS [id number]) PT Summary Assessment and Plan Potential Rehabilitation Potential Good Status of Condition at Evaluation Evolving Summary Impairments Strength,Balance,Transfers, Gait,Activity Tolerance Assessment Summary Pt continues to be limited by very poor activity tolerance and SOB. O2 stable in 90's, HR reading 90's prior to mobilization and 60's following ambulation w/ pt reporting high level of fatigue. Able to tolerate only ~40 ft ambulation w/ SPC before needing to get back into bed. Pt may benefit from FWW if going home for energy conservation. Did not assess stairs d/t pt being too fatigued and SOB, however did discuss stairs and pt feels he can complete but very hesitant after seeing level of fatigue following ambulation. Goals Bed Mobility Goal Independent Transfer Goal Independent,Front Wheeled Walker Gait Goal Independent,Front Wheel Walker Gait Distance 200 Other Goals - up/down 4 steps with unilateral rail SBA - improve gait and transfers to SBA with SPC Days to Meet Goals 3 Frequency of Treatment Frequency Of Treatment Once a Day Treatment Plan Physical Therapy Treatment Plan Bed Mobility Training,Transfer Training,Gait Training, Therapeutic Exercise,Balance Retraining,Discharge Planning, Hot or Cold Pack,Neuromuscular Re-ed Other Recommendations and Next Treatment gait and stair training with Focus FWW or 4WW; training for pt's as needed Recommendations To Nursing Amount of Assist Needed Standby Assistance,1 Person Assist Discharge Recommendations PT Discharge Recommendations Home with Assistance,Home Health Transportation Needs at Discharge Private Vehicle
[2022-05-14 16:00] VITALS: BP 107/66; PULSE 94; RESP 16; TEMP 36.4; O2SAT 97
--- NOTE | 2022-05-14 18:48 | PC.NURSE ---
patient worked with PT today and HR was in the 90's when he was ambulating. he was sob at 40ft of ambulation. his O2 remained 94%. at rest 97%. patient aware he needs to get an appointment with PCP. med doses are changed and I gave them instructions. patient demonstrated lovanox self administration. outpatient PT script written by provider. patient has been ambulating SBA w/cane.
--- NOTE | 2022-05-14 20:23 | P.DS_ITS ---
History of Present Illness History of Present Illness Date Patient Seen: 05/09/22 Time Patient Seen: 21:37 Chief complaint: Extreme Fatigue/Sweaty/Sepsis Narrative: Per admitting provider: This is a 66-year-old male with protein C deficiency, recurrent PE/DVT, hyp ertension, BPH pending TURP, hyperlipidemia and depression who presents with sudden exhaustion beginning last night and persisting today. His CTA of the chest shows a right lower lobe segmental pulmonary embolus. He was hypotensive when he presented, requiring 1 L of IV fluid to recover. He has no shortness of breath, coughing or chest pain. He is not tachypneic. He has had at least 2 prior DVTs, the 1st one 20 years ago when the protein C deficiency was diagnosed and then another one 6 months ago. At that time the Coumadin he had been on was changed to Xarelto. He also has an IVC filter in place. He had his usual Xarelto dose yesterday but says that this morning he did not have his daily dose. His symptoms started last night, however. Per Dr. 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 He will need to be monitored inpatient to make sure this is effective and he will need an echocardiogram. He also has BPH with urinary dysfunction and on presentation has a postvoid scan residual of 700 cc requiring catheter placement. 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 Discharge Providers Provider Date of admission: 05/09/22 19:21 Discharge Date: 05/14/22 Primary care physician: Dani Fabian PA-C Consults: 05/12/22 09:23 Consult to Physical Therapy Evaluate & Treat Comment: Physician Instructions: Evaluate and Treat 05/12/22 13:08 Consult to Physician Routine Comment: Consulting Provider: Jane Peters Reason for consultation: phimosis Has provider been notified: Yes 05/12/22 13:13 Consult to Physician Routine Comment: Consulting Provider: Chandrakant Gee Reason for consultation: phimosis Has provider been notified: No Discharge provider: Anselmo Gonzalez MD Summary Hospital Course Discharge Diagnosis: 1. Acute pulmonary embolism 2. Protein C deficiency 3. history of IVC filter 4. history of DVT 5. New atrial fibrillation with RVR 6. BPH 7. HTN 8. Hyperlipidemia 9. Depression 10. VALERIE 11. Acute urinary retention Hospital Course: Mr. Juares was admitted with shortness of breath. He was found to have a PE. He was started on lovenox. He was referred to hematology/oncology. He was previously on coumadin and xarelto but did have VTE through this. He was on lovenox in the hospital but switched to apixaban on discharge. He did develop atrial fibrillation with RVR in the hospital which improved with metoprolol. ECHO was done showing a preserved EF. On day of discharge he was feeling improved. He was able to ambulate, he did develop some shortness of breath and fatigue, but did not desaturate. He was told this is likely to improve with treatment of his PE. He did not develop RVR with ambulation. He was referred to hematology, and should follow up with his PCP within one week. Exam Vital Signs (past 8 hours): - 05/14/22 16:00 Temperature 97.5 F L Pulse Rate 94 H Respiratory Rate 16 Blood Pressure 107/66 Pulse Oximetry 97 Oxygen Flow Rate 0 Oxygen Delivery Method Room Air Oxygen Flow Rate 0 Narrative Exam Narrative: GEN: no acute distress CV: irregular, rate controlled PULM: clear bilaterally EXT: warm and well perfused with no edema Objective Labs Result Diagrams: 05/10/22 05:20 05/10/22 05:20 [facility] Medical History (Updated 05/09/22 @ 22:25 by Inderjit Torres MD) BPH (benign prostatic hyperplasia) Depression DVT (deep venous thrombosis) History of tongue cancer Hyperlipidemia Hypertension Presence of IVC filter Protein C deficiency Pulmonary embolism Sleep apnea Stroke Surgical History (Updated 05/09/22 @ 22:24 by Inderjit Torres MD) S/P coil embolization of cerebral aneurysm S/P sinus surgery Family History (Updated 05/09/22 @ 22:23 by Inderjit Torres MD) Mother Fall Father Fall Social History household members: spouse Smoking Status: Former smoker alcohol intake: current substance use type: does not use Discharge Plan Discharge Plan Patient Disposition: Home Provider Discharge Comment: Mr. Juares was admitted to the hospital shortness of breath and he was found to have a PE. He was placed on lovenox which he will take for one week. He will then be switched to eliquis after this. He also had atrial fibrillation and was started on metoprolol. He should follow up with oncology and his PCP. Discharge orders & Medications Prescriptions: New Eliquis 5 mg tablet 5 mg PO BID Qty: 46 0RF metoprolol tartrate 25 mg Tablet 50 mg PO BID Qty: 60 0RF lisinopril 5 mg Tablet 2.5 mg PO DAILY Qty: 30 0RF apixaban 5 mg tablet 10 mg PO BID Qty: 28 0RF Continued atorvastatin 80 mg tablet 80 tab PO DAILY Label Comments: take 1 tablet by mouth once daily tamsulosin 0.4 mg capsule 2 cap PO DAILY Label Comments: take 2 capsule by mouth every evening venlafaxine 37.5 mg capsule,extended release 24hr 1 cap PO DAILY Label Comments: take 1 capsule by mouth once daily amlodipine 10 mg tablet 1 tab PO DAILY Label Comments: take 1 tablet by mouth once daily Discontinued Xarelto 15 mg Tablet 15 mg PO DAILY Rx Instructions: must administer with evening meal lisinopril 10 mg tablet 1 tab PO DAILY Label Comments: take 1 tablet by mouth once daily Follow up/Referrals: Dani Fabian PA-C [Primary Care Provider] - 1 Week (* Dani fabian PA-C office will call patient to follow up and set up appt. 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
== END 2022-05-14 18:22 | disposition home or self-care (01) | DRG 176 ==
LOC: ED 19:20 → AC 05-10 12:59
PROVIDERS: Admitting Provider Family Medicine; Emergency Provider Emergency Medicine; PCP Physician Assistant; Referring Provider Emergency Medicine; Visit Provider Family Medicine
DX: I26.99 Other pulmonary embolism without acute cor pulmonale (principal); D68.59 Other primary thrombophilia; I69.951 Hemiplegia and hemiparesis following unspecified cerebrovascular disease affecting right dominant side; N40.1 Benign prostatic hyperplasia with lower urinary tract symptoms; R33.8 Other retention of urine; I48.91 Unspecified atrial fibrillation; I10 Essential (primary) hypertension; F32.A Depression, unspecified; G47.33 Obstructive sleep apnea (adult) (pediatric); E78.5 Hyperlipidemia, unspecified; Z86.718 Personal history of other venous thrombosis and embolism; Z20.822 Contact with and (suspected) exposure to COVID-19; Z87.891 Personal history of nicotine dependence; Z79.01 Long term (current) use of anticoagulants
CPT/HCPCS: 36415; 51798; 71046; 71275; 76770; 80048; 80053; 81001; 82550; 83605; 83880; 84484; 85025; 87077; 87086; 87635; 93005; 93010; 93306; 96372; 97162; 97530; 99285; C9803; J1650; Q9967

== ENCOUNTER → 2022-06-04 15:30 | Outpatient (CLI) | payer BC, SELFPAY ==
[2022-05-09 20:40] VITALS: BMI 29.3
--- NOTE | 2022-06-04 15:31 | DI.US.S_ITS ---
PROCEDURE: US SCROTUM INDICATIONS: LOWER URINARY TRACT SYMPTOMS/SPERMATOCELE TECHNIQUE: Real-time scanning was performed of the scrotum and testicles, with image documentation. Color and pulse Doppler interrogation was performed of both testicles. COMPARISON: None. FINDINGS: Right: Testicle is normal in size at 3.8 x 3.0 x 2.4 cm, and homogenous in echotexture. There is a small collection of interest testicular cysts and adjacent tubules, altogether measuring 0.4 x 0.9 x 0.6 cm along the medial mid right testis. There is a cluster of cysts adjacent to the epididymis. Several punctate calcifications in the right epididymal tail. Small right-sided varicocele. Left: Testicle is normal in size at 4.8 x 2.6 x 2.8 cm, and homogeneous in echotexture. There is a tiny intratesticular cyst adjacent to the mediastinum testis measuring 3 mm. The left epididymis was not seen. Along the lateral aspect of the left scrotum, there are several cysts or multi septated cystic mass measuring 5.1 x 5.5 x 3.8 cm and 3.3 x 3.2 x 2.4 cm more superiorly. Cystic mass is largely anechoic without evidence of internal echoes. Doppler: Color and pulse Doppler demonstrate normal and symmetric arterial flow in both testicles. IMPRESSION: 1. Septated, multiloculated, or numerous adjacent cysts in the lateral left scrotum which are largely anechoic. This may represent a multiloculated hydrocele, organizing hematoma, or spermatocele though no spermatozoa are seen. 2. Small , multiloculated right epididymal head cyst/spermatocele. 3. Small bilateral intra testicular cysts, less likely tubular ectasias of rete testes. 4. Small right varicocele. Dictated by: Ericka Colni M.D. on 06/05/2022 at 13:24 Approved by: Ericka Colin M.D. on 06/05/2022 at 14:39
--- NOTE | 2022-06-04 15:31 | DI.US.S_ITS ---
PROCEDURE: US RENAL COMPLETE INDICATIONS: LOWER URINARY TRACT SYMPTOMS/SPERMATOCELE TECHNIQUE: Real-time scanning was performed of the kidneys and bladder, with image documentation. COMPARISON: None. FINDINGS: Kidneys: Kidneys are normal in size. Right kidney measures 11.2 cm long; left kidney measures 11.5 cm long. Right renal cortical thickness is 3.0 cm; left renal cortical thickness is 2.3 cm. Renal cortical echotexture is normal. No hydronephrosis or nephrolithiasis. No suspicious solid mass lesions. 2.3 x 2.0 x 1.8 centimeter left renal cyst. Bladder: Pre-void bladder volume is 531 mL. Post-void residual is 534 mL. Pre-void images demonstrate no intraluminal masses or stones. Bilateral bladder diverticuli. Urinary bladder wall is mildly thickened and irregular. On pre-void images, both the right and left ureteral jets are noted with color Doppler interrogation. (Of note, ureteral jets may not be detectable in up to 25% of cases due to insufficient differences in specific gravity between ureteral and bladder urine). Prostate is mildly enlarged measuring 4.5 x 4.7 x 3.9 centimeters Miscellaneous: No free pelvic fluid. IMPRESSION: 1. No hydronephrosis. 2. Bladder diverticuli. 3. Diffuse urinary bladder wall thickening and irregularity which could be due to chronic cystitis, however infiltrating neoplasm is not excluded by ultrasound imaging. Recommend correlation with urinalysis data and urology consultation. 4. Large postvoid residual urinary bladder volume. Dictated by: Debbie Saldaña MD, PhD on 06/05/2022 at 9:50 Approved by: Debbie Saldaña MD, PhD on 06/05/2022 at 9:54
== END ==
PROVIDERS: PCP Physician Assistant; Referring Provider Urology; Visit Provider Urology
DX: R39.9 Unspecified symptoms and signs involving the genitourinary system (principal); N43.40 Spermatocele of epididymis, unspecified; L72.9 Follicular cyst of the skin and subcutaneous tissue, unspecified; N44.2 Benign cyst of testis; I86.1 Scrotal varices
CPT/HCPCS: 76770; 76870

== ENCOUNTER → 2022-07-29 11:28 | Outpatient (CLI) | payer BC, SELFPAY ==
[2022-05-09 20:40] VITALS: BMI 29.3
[2022-07-29 12:56] LABS: BUN Creatinine Ratio 15.3 (6-22); Blood Urea Nitrogen 17 mg/dL (9-20); Carbon Dioxide 29 mmol/L (22-32); Chloride 103 mmol/L (98-107); Estimated Glomerular Filt Rate > 60 mL/min (>60); Glucose 93 mg/dL (80-110); HEMOLYSIS < 15 (0-50); Potassium 4.3 mmol/L (3.4-5.1); Sodium 139 mmol/L (137-145)
== END ==
PROVIDERS: PCP Physician Assistant; Referring Provider Nurse Practitioner Acute Care; Visit Provider Nurse Practitioner Acute Care
DX: I50.21 Acute systolic (congestive) heart failure (principal)
CPT/HCPCS: 36415; 80048

== ENCOUNTER → 2022-12-17 14:57 | Outpatient (CLI) | payer BC, SELFPAY ==
[2022-05-09 20:40] VITALS: BMI 29.3
[2022-12-17 15:59] LABS: COVID19 -Nasal RAPID Negative (Negative)
== END ==
PROVIDERS: PCP Physician Assistant; Referring Provider Internal Medicine; Visit Provider Internal Medicine
DX: Z20.822 Contact with and (suspected) exposure to COVID-19 (principal)
CPT/HCPCS: 87635; C9803

== ENCOUNTER → 2022-12-18 09:17 | Outpatient (CLI) | payer BC, SELFPAY ==
[2022-05-09 20:40] VITALS: BMI 29.3
--- NOTE | 2022-12-24 09:49 | PM.PFT.1 ---
Pulmonary Function Test Referral & Results Date Patient Seen: 12/18/22 Requesting provider: Alvarado Huang Results: The spirometry demonstrates an FVC of 5.91 L which is 109% of predicted. The FEV1 was measured at 3.81 L which is 94% of predicted. The FEV1/FVC ratio was 65 which is 87% of predicted. Following the administration of bronchodilator there was no appreciable change to above normal numbers. Lung volumes show an SVC of 5.91 L which is 110% of predicted. The diffusing capacity was measured at 21.12 which is 54% of predicted. No hemoglobin value was provided, so no correction for potential anemia could be made, if appropriate. The maximum voluntary ventilation was significantly reduced Interpretation: This study demonstrates probably normal spirometry There is a moderate reduction diffusing capacity suggesting disease at the capillary alveolar level In addition there is a notable reduction in maximum voluntary ventilation which in the absence of abnormalities of spirometry suggest the presence of significant neuromuscular disease Clinical correlation suggested
== END ==
PROVIDERS: PCP Physician Assistant; Referring Provider Internal Medicine Cardiovascular Disease; Visit Provider Internal Medicine Cardiovascular Disease
DX: R06.02 Shortness of breath (principal); Z87.891 Personal history of nicotine dependence; J98.8 Other specified respiratory disorders
CPT/HCPCS: 94060; 94726; 94729

== ENCOUNTER → 2022-12-19 12:27 | Outpatient (CLI) | payer BC, SELFPAY ==
[2022-05-09 20:40] VITALS: BMI 29.3
[2022-12-19 14:03] LABS: BUN Creatinine Ratio 17.6 (6-22); Blood Urea Nitrogen 21 mg/dL (9-20); Calcium 9.1 mg/dL (8.4-10.2); Carbon Dioxide 28 mmol/L (22-32); Chloride 102 mmol/L (98-107); Estimated Glomerular Filt Rate > 60 mL/min (>60); Glucose 93 mg/dL (80-110); HEMOLYSIS < 15 (0-50); Sodium 140 mmol/L (137-145)
== END ==
PROVIDERS: PCP Physician Assistant; Referring Provider Nurse Practitioner Family; Visit Provider Nurse Practitioner Family
DX: I50.21 Acute systolic (congestive) heart failure (principal)
CPT/HCPCS: 36415; 80048

== ENCOUNTER → 2023-02-05 13:21 | Outpatient (CLI) | payer BC, SELFPAY ==
[2022-05-09 20:40] VITALS: BMI 29.3
--- NOTE | 2023-02-05 13:23 | DI.ECHO.S_ITS ---
Version: 1 Study ID: [id number] [address] [place] [address] Name: JHON DEL ANGEL Study Date: 02/05/2023, 1: 38 PM HR: 65 bpm : 1955 BP: 115 / 67 mmHg Gender: Male Height: 74 in Age: 67 Years Weight: 229.004 lb BSA: 2.30 mA? Ordering: CATALINA MARIE Referring: CATALINA MARIE Clinician: MELISSA GRAY Reason For Study: HISTORY OF CARDIAC ARREST History: Summary Statements Normal sinus rhythm. Normal LV size and wall thickness. Normal wall motion and LV systolic function. Ejection fraction is 60-65%. No significant valvular abnormalities. Mild left atrial enlargement, otherwise normal chamber sizes. There is a defibrillator lead traversing the tricuspid valve. Compared to prior study May 10, 2022, defibrillator lead traversing the tricuspid valve is newly described. Otherwise no significant changes have occurred. Procedure: A two-dimensional transthoracic echocardiogram with color flow and Doppler was performed. The study quality was technically adequate. Comparison is made with the echocardiogram of 06/05/2022. The patient was in normal sinus rhythm during the exam. Left Ventricle: The left ventricle is normal in size and wall thickness. Left ventricular systolic function is normal. The ejection fraction is estimated to be 60-65%. Right Ventricle: The right ventricle is normal in size and function. Atria: The left atrium is mildly dilated. The right atrium is normal in size. There is no Doppler evidence for an interatrial shunt. Mitral Valve: There is mild mitral annular calcification. There is mild mitral regurgitation. Aortic Valve: The aortic valve is trileaflet. The aortic valve opens well. There is no aortic valve stenosis. No aortic regurgitation is present. Tricuspid Valve: The tricuspid valve is normal in structure and function. The right ventricular systolic pressure is estimated to be at least 28 mmHg based on an estimated right atrial pressure of 15 mm Hg. Pulmonic Valve: The pulmonic valve is normal in structure and function. There is no pulmonic valvular regurgitation. Great Vessels: The aortic root is borderline dilated. The ascending aorta is mildly enlarged. The IVC is dilated (diameter is greater than 2.1 cm) yet it collapses greater than 50% with a sniff. This suggests a right atrial pressure of 8 mm Hg. Pericardium/ Pleura: There is no pericardial effusion. There is no pleural effusion. 2D and M-Mode Measurements and Calculations LVIDd: 5.2 cm LVOT diam: 2.30 cm LVIDs: 3.2 cm Ao root diam: 4.0 cm IVSd: 1.00 cm asc Aorta Diam: 4.0 cm LVPWd: 1.10 cm LV nguyen. diameter/BSA (cm/m^2): 2.26 LV sys. 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 RA long axis: 6.6 cm LA A2 area: 23.9 optical goods drill operator? LA length (vol): 5.9 cm LA vol: 89.9 ml LA vol index: 39.1 ml/mA? Doppler Measurements and Calculations Ao V2 max: 140.0 cm/sec LVOT Max Cali: 129.0 cm/sec Ao V2 mean: 91.7 cm/sec LV V1 max P.7 mmHg Ao V2 VTI: 24.1 cm LV V1 VTI: 22.7 cm Ao max P.0 mmHg SV(LVOT): 94.3 ml Ao mean P.0 mmHg AMBER(I,D): 3.9 optical goods drill operator? AMBER(V,D): 3.8 optical goods drill operator? AMBER indexed to BSA (cm^2/m^2): 1.70 sev ratio: 0.94 MV E max cali: 77.6 cm/sec MV dec time: 0.26 sec MV A max cali: 65.1 cm/sec MV E/A: 1.19 Med Peak E' Cali: 7.4 cm/sec Lat Peak E' Cali: 8.3 cm/sec E/e' average: 9.9 TR max cali: 235.0 cm/sec PA mean P.00 mmHg TR max P.1 mmHg PA V2 max: 89.4 cm/sec Electronically signed by: Iris Meadows.D. 02/05/2023, 10: 46 PM
== END ==
PROVIDERS: PCP Physician Assistant; Referring Provider Nurse Practitioner Family; Visit Provider Nurse Practitioner Family
DX: I34.81 Nonrheumatic mitral (valve) annulus calcification (principal); I77.89 Other specified disorders of arteries and arterioles; I34.0 Nonrheumatic mitral (valve) insufficiency; I25.119 Atherosclerotic heart disease of native coronary artery with unspecified angina pectoris; R06.02 Shortness of breath; Z86.74 Personal history of sudden cardiac arrest; Z95.810 Presence of automatic (implantable) cardiac defibrillator
CPT/HCPCS: 93306

== ENCOUNTER 2024-11-30 08:15 | Outpatient (RCR) | payer MEDICARE, SELFPAY ==
[2022-05-09 20:40] VITALS: BMI 29.3
--- NOTE | 2024-10-12 14:00 | PT.OIE ---
Current Diagnoses Unilateral primary osteoarthritis, right knee (10/12/24) Past Medical History (Last Updated 05/09/22 @ 22:25 by Inderjit Torres MD) BPH (benign prostatic hyperplasia) Depression DVT (deep venous thrombosis) History of tongue cancer Hyperlipidemia Hypertension Presence of IVC filter Protein C deficiency Pulmonary embolism Sleep apnea Stroke Past Surgical History (Last Updated 05/09/22 @ 22:24 by Inderjit Torres MD) S/P coil embolization of cerebral aneurysm S/P sinus surgery Visit Care Team Role Provider Type Dani Payne PA-C Primary Care Provider Non-Staff Specialty: Medical Address: [address] [place] [address], [place], [address] Email: Susan Lowe PA-C Attending Provider Non-Staff Referring Provider Specialty: General Surgery Address: [address] [place] [address], [id number] Email: Physical Therapy Initial Evaluation PT-OP-A Visit Information Start: 10/06/24 07:40 Freq: Status: Active Protocol: Document 10/12/24 12:54 MB (Rec: 10/12/24 13:59 MB [id number]) Out-Patient Physical Therapy Visit Information Visit Information Visit Type Initial Evaluation Visit Note Medicare AARP Progress note by 11/11/24 Visit Start Time 12:56 Visit Stop Time 13:36 Visit Number 1 Number of ESTHETICIAN PERMANENT MAKEUP ARTIST Visits 0 Evaluation Information Evaluation Date 10/12/24 Precautions Precautions R medial partial knee replacement 09/26/24, defibrillator, on blood thinners, recent AVM, cardiac stents, monitor HR and BP with biking/cardio work PT-OP-B Current Condition Start: 10/06/24 07:40 Freq: Status: Active Protocol: Document 10/12/24 12:54 MB (Rec: 10/12/24 13:59 MB [id number]) Current Condition History of Current Condition Onset Date Right medial partial knee replacement 09/26/24 Current Complaints Post-op PT, right knee stiffness and 6/10 pain History of Current Condition PMH includes stroke in 2019 that affected his right side, in 2021, he had a cardiac arrest and they implanted a defibrillator, recent gamma knife procedure for AVM and he reports ongoing left sided paresthesia. Previous cardiac stents. He got a call from warehouse pricing and inventory clerk after they monitored defibrillator and they increased a few of his medications. He was not asked to go in for a check-up. Before knee surgery, pt was using cane in right hand. He lives in [place] with his and he gets most medical care at [facility] because warehouse pricing and inventory clerk is there. Pt is wearing thigh high compression on right leg and has long pants on. Treatment Goals Patient/Caregiver Goals To get back to walks with , in [facility] and near [place], to increase right knee range and decrease stiffness. PT-OP-C Subjective Start: 10/06/24 07:40 Freq: Status: Active Protocol: Document 10/12/24 12:54 MB (Rec: 10/12/24 13:59 MB [id number]) OP-PT Subjective Patient Comments Patient Comments See history of current condition Patient Questionnaires Lower Extremity Functional Scale LEFS Score 34 LEFS Impairment 40 to 59% Impaired (Score 32- 47) PT-OP-G Mobility & Gait Start: 10/06/24 07:40 Freq: Status: Active Protocol: Document 10/12/24 12:54 MB (Rec: 10/12/24 13:59 MB [id number]) OP Gait Assessment Comments Gait Comments Antalgic gait favoring the right leg and pt enters with walking stick/cane in right hand and ed to switch to left hand to allow support and pt con't with antalgic pattern with slow marixa and step-to pattern with long step-length PT-OP-J Posture/Palpation/Skin Start: 10/06/24 07:40 Freq: Status: Active Protocol: Document 10/12/24 12:54 MB (Rec: 10/12/24 13:59 MB [id number]) Posture Evaluation Comments Posture Comments Standing posture without cane: left shoulder is much lower than the right and thoracic convexity to the left, rounded shoulders, forward head, reduced lumbar lordosis and flattened lumbar and lumbosacral spinal curvature, right iliac crest higher than the left, more knee varus on the left and forefoot WB, less WB on the right in standing. In supine, right leg is more swollen than the left, vertical incision scab grossly 4.5 and small incision scars lower on toth, ecchymosis on the lower leg and skin dry and flaky and ed pt about keeping skin moist with lotion PT-OP-K Range of Motion Start: 10/06/24 07:40 Freq: Status: Active Protocol: Document 10/12/24 12:54 MB (Rec: 10/12/24 13:59 MB [id number]) Knee Goniometric Range of Motion Knee Left Knee ROM WFL No Patient Position Supine Comments 10-122 deg Right Knee ROM WFL No Patient Position Supine Comments 0-95 deg PT-OP-M Strength Start: 10/06/24 07:40 Freq: Status: Active Protocol: Document 10/12/24 12:54 MB (Rec: 10/12/24 13:59 MB [id number]) Hip Strength Hip Manual Muscle Testing Left Flexion (L2) 5 Normal Abduction 5 Normal Right Flexion (L2) 4+ Good+ Abduction 4+ Good+ Knee Strength Knee Manual Muscle Testing Left Flexion (S2) 5 Normal Extension (L3) 5 Normal Right Flexion (S2) 3- Fair- Extension (L3) 2+ Poor+ Ankle/Foot Strength Ankle and Foot Manual Muscle Testing Left Dorsiflexion (L4) 5 Normal Right Dorsiflexion (L4) 4+ Good+ Toe Strength Toe Manual Muscle Testing Left Great Toe Extension 5 Normal Right Great Toe Extension 4+ Good+ PT-OP-Q Treatments Start: 10/06/24 07:40 Freq: Status: Active Protocol: Document 10/12/24 12:54 MB (Rec: 10/12/24 13:59 MB [id number]) Therapeutic Exercises Supine Exercises Pelvic realignment exercises Supine Exercise Name HEP and HO Side bilateral Reps/Minutes 5 reps, 3 sec hold all exercises in order Comments Feet together ball squeeze, knee opp ankle iso, thigh press down iso TKR exercises Supine Exercise Name HEP and HO Side bilateral Comments B APs, GS, right quad set, HS Self-Care/Home Management Treatment Education Patient Education Body Mechanics,Home Exercise Program,Joint Protection,Pain Management Other Education Con't icing, pillow between knees if on side sleeping, moisturize leg, gait training with walker to work on step- through PT-OP-T Assessment and Plan Start: 10/06/24 07:40 Freq: Status: Active Protocol: Document 10/12/24 12:54 MB (Rec: 10/12/24 13:59 MB [id number]) Physical Therapy Assessment Rehab Potential Rehabilitation Potential Good Evaluation Complexity Number of Personal Factors/Comorbidities 1-2 Number of Body Systems Impaired 3 Clinical Presentation at Evaluation Evolving Impairments Impairments Activity Tolerance,Balance, Coordination,Edema,Functional Activities,Functional Mobility ,Gait,Integument,Pain,Posture, ROM,Sensation,Soft Tissue Mobility,Strength,Transfers Goals 5 Impairment R hip and knee weakness Longterm Goal (LTG) Pt will present with at least 4+/5 strength right hip flexion and abduction and knee flexion and extension to improve gait and balance. LTG Duration 12 weeks 4 Impairment Reduced right knee ROM post-op Longterm Goal (LTG) Pt will present with improved AROM right knee in supine from at least 5-120 deg to improve functional range for transfers and gait. LTG Duration 12 weeks 3 Impairment Lack of HEP Longterm Goal (LTG) Pt will perform progressive HEP with I including pelvic realignment, flexibility, strengthening, balance and gait activities to improve range and function. LTG Duration 12 weeks 2 Impairment Impaired gait School Guard Goal (LTG) Pt will gait train at least 1500 feet in 6 minutes with LRAD to improve community ambulation. Pt will not likely reach age norm of 1716 feet in 6 minutes d/t cardiac history. LTG Duration 12 weeks 1 Impairment LEF score reflects over 57% impairment School Guard Goal (LTG) Pt will present with a LEF score reflecting no more than 30% impairment to improve pain and quality of life. LTG Duration 12 weeks Assessment Summary Assessment Pt is a 69 y/o male presenting 16 days post-op right partial TKR with pt reports of medial femoral and tibial replacement. Op report not sent and PT could not hold for extended time to be connected for report when PT attempted to call surgeon office. PT reports history of stroke affecting right side and recent AVM and history of ND and stenting. This may limit cardiac ability with upright biking and increased gait marixa. Pt presents with decreased ROM B knees, greater on the right, R LE edema and ecchymosis and right LE weakness. His gait pattern is antalgic with cane. He will benefit from PT to improve range, flexibility, balance and strength. Pt also presents with severe spinal curvature changes and pelvic obliquities and will try to address pelvic alignment in PT to promote lower extremity function. PT sets PT plan for a little longer at 12 weeks d/ t medical history including cardiac co-morbidities, history of stroke and postural changes. Physical Therapy Plan Frequency and Duration Frequency of Treatment 2x/Week Duration of treatment (weeks) 12 Plan of Care Start Date 10/12/24 Plan of Care End Date 01/12/25 Therapeutic Interventions Therapeutic Interventions Balance Training,Canalithic Repositioning,Gait Training, Home Exercise Program,Joint Mobilizations,Manual Therapy, Neuromuscular Re-education, Patient/Caregiver Education, Self-Care/Home Management,Soft Tissue Mobilization,Taping, Therapeutic Activities, Therapeutic Exercises Modalities Cold Pack/Ice Massage,Hot Packs Next Visit Focus/Plan Next Note Type Treatment Note Next Visit Plan Review pelvic realignment exercises, attempt recumbent bike for knee ROM vs recumbent stepper and monitor cardiac response, initiate manual assessment and work, attempt SLR and STS exercises
--- NOTE | 2024-10-12 14:00 | PT.OPPOC ---
Physical, Occupational & Speech Therapy At [facility] Current Diagnoses Unilateral primary osteoarthritis, right knee (10/12/24) Visit Care Team Role Provider Type Dani Payne PA-C Primary Care Provider Non-Staff Specialty: Medical Address: [address] [place] [address], [place], [address] Email: Susan Lowe PA-C Attending Provider Non-Staff Referring Provider Specialty: General Surgery Address: [address] [place] [address], [id number] Email: Plan Of Care PT-OP-B Current Condition Start: 10/06/24 07:40 Freq: Status: Active Protocol: Document 10/12/24 12:54 MB (Rec: 10/12/24 13:59 MB [id number]) Current Condition History of Current Condition Onset Date Right medial partial knee replacement 09/26/24 Current Complaints Post-op PT, right knee stiffness and 6/10 pain History of Current Condition PMH includes stroke in 2019 that affected his right side, in 2021, he had a cardiac arrest and they implanted a defibrillator, recent gamma knife procedure for AVM and he reports ongoing left sided paresthesia. Previous cardiac stents. He got a call from flatwork catcher after they monitored defibrillator and they increased a few of his medications. He was not asked to go in for a check-up. Before knee surgery, pt was using cane in right hand. He lives in [place] with his and he gets most medical care at [facility] because flatwork catcher is there. Pt is wearing thigh high compression on right leg and has long pants on. Treatment Goals Patient/Caregiver Goals To get back to walks with , in [facility] and near [place], to increase right knee range and decrease stiffness. PT-OP-T Assessment and Plan Start: 10/06/24 07:40 Freq: Status: Active Protocol: Document 10/12/24 12:54 MB (Rec: 10/12/24 13:59 MB [id number]) Physical Therapy Assessment Rehab Potential Rehabilitation Potential Good Evaluation Complexity Number of Personal Factors/Comorbidities 1-2 Number of Body Systems Impaired 3 Clinical Presentation at Evaluation Evolving Impairments Impairments Activity Tolerance,Balance, Coordination,Edema,Functional Activities,Functional Mobility ,Gait,Integument,Pain,Posture, ROM,Sensation,Soft Tissue Mobility,Strength,Transfers Goals 5 Impairment R hip and knee weakness Partner Alliance Manager Goal (LTG) Pt will present with at least 4+/5 strength right hip flexion and abduction and knee flexion and extension to improve gait and balance. LTG Duration 12 weeks 4 Impairment Reduced right knee ROM post-op Partner Alliance Manager Goal (LTG) Pt will present with improved AROM right knee in supine from at least 5-120 deg to improve functional range for transfers and gait. LTG Duration 12 weeks 3 Impairment Lack of HEP Custodial Goal (LTG) Pt will perform progressive HEP with I including pelvic realignment, flexibility, strengthening, balance and gait activities to improve range and function. LTG Duration 12 weeks 2 Impairment Impaired gait Custodial Goal (LTG) Pt will gait train at least 1500 feet in 6 minutes with LRAD to improve community ambulation. Pt will not likely reach age norm of 1716 feet in 6 minutes d/t cardiac history. LTG Duration 12 weeks 1 Impairment LEF score reflects over 57% impairment Partner Alliance Manager Goal (LTG) Pt will present with a LEF score reflecting no more than 30% impairment to improve pain and quality of life. LTG Duration 12 weeks Assessment Summary Assessment Pt is a 69 y/o male presenting 16 days post-op right partial TKR with pt reports of medial femoral and tibial replacement. Op report not sent and PT could not hold for extended time to be connected for report when PT attempted to call surgeon office. PT reports history of stroke affecting right side and recent AVM and history of FL and stenting. This may limit cardiac ability with upright biking and increased gait marixa. Pt presents with decreased ROM B knees, greater on the right, R LE edema and ecchymosis and right LE weakness. His gait pattern is antalgic with cane. He will benefit from PT to improve range, flexibility, balance and strength. Pt also presents with severe spinal curvature changes and pelvic obliquities and will try to address pelvic alignment in PT to promote lower extremity function. PT sets PT plan for a little longer at 12 weeks d/ t medical history including cardiac co-morbidities, history of stroke and postural changes. Physical Therapy Plan Frequency and Duration Frequency of Treatment 2x/Week Duration of treatment (weeks) 12 Plan of Care Start Date 10/12/24 Plan of Care End Date 01/12/25 Therapeutic Interventions Therapeutic Interventions Balance Training,Canalithic Repositioning,Gait Training, Home Exercise Program,Joint Mobilizations,Manual Therapy, Neuromuscular Re-education, Patient/Caregiver Education, Self-Care/Home Management,Soft Tissue Mobilization,Taping, Therapeutic Activities, Therapeutic Exercises Modalities Cold Pack/Ice Massage,Hot Packs Next Visit Focus/Plan Next Note Type Treatment Note Next Visit Plan Review pelvic realignment exercises, attempt recumbent bike for knee ROM vs recumbent stepper and monitor cardiac response, initiate manual assessment and work, attempt SLR and STS exercises Plan of Care Dates Plan of Care Start Date 10/12/24 Plan of Care End Date 01/12/25 Electronically Signed by: Belia Bean, PT 10/12/24 1400 If you are in agreement with this Plan of Care, please return a signed and dated copy. I have reviewed this Plan of Care and certify that the skilled therapy services above are required to meet the patient?s needs. Physician Signature Date Printed Name and Credentials Clinical Instructor Signature Printed Name and Credentials
--- NOTE | 2024-10-19 13:40 | PT.OTN ---
Current Diagnoses Unilateral primary osteoarthritis, right knee (10/19/24) Physical Therapy Treatment Note PT-OP-A Visit Information Start: 10/06/24 07:40 Freq: Status: Active Protocol: Document 10/19/24 13:02 MB (Rec: 10/19/24 13:26 MB [id number]) Out-Patient Physical Therapy Visit Information Visit Information Visit Type Treatment Note Visit Note Medicare AARP Progress note by 11/11/24 Visit Start Time 13:02 Visit Stop Time 13:42 Visit Number 2 Number of BOX LINER Visits 0 Evaluation Information Evaluation Date 10/12/24 Precautions Precautions R medial partial knee replacement 09/26/24, defibrillator, on blood thinners, recent AVM, cardiac stents, monitor HR and BP with biking/cardio work PT-OP-B Current Condition Start: 10/06/24 07:40 Freq: Status: Active Protocol: Document 10/12/24 12:54 MB (Rec: 10/12/24 13:59 MB [id number]) Current Condition History of Current Condition Onset Date Right medial partial knee replacement 09/26/24 Current Complaints Post-op PT, right knee stiffness and 6/10 pain History of Current Condition PMH includes stroke in 2019 that affected his right side, in 2021, he had a cardiac arrest and they implanted a defibrillator, recent gamma knife procedure for AVM and he reports ongoing left sided paresthesia. Previous cardiac stents. He got a call from clinical data analyst after they monitored defibrillator and they increased a few of his medications. He was not asked to go in for a check-up. Before knee surgery, pt was using cane in right hand. He lives in [place] with his and he gets most medical care at [facility] because clinical data analyst is there. Pt is wearing thigh high compression on right leg and has long pants on. Treatment Goals Patient/Caregiver Goals To get back to walks with , in [facility] and near [place], to increase right knee range and decrease stiffness. PT-OP-C Subjective Start: 10/06/24 07:40 Freq: Status: Active Protocol: Document 10/19/24 13:02 MB (Rec: 10/19/24 13:26 MB [id number]) OP-PT Subjective Patient Comments Patient Comments Pt started driving today as his is sick. He is feeling okay. PT-OP-G Mobility & Gait Start: 10/06/24 07:40 Freq: Status: Active Protocol: Document 10/12/24 12:54 MB (Rec: 10/12/24 13:59 MB [id number]) OP Gait Assessment Comments Gait Comments Antalgic gait favoring the right leg and pt enters with walking stick/cane in right hand and ed to switch to left hand to allow support and pt con't with antalgic pattern with slow marixa and step-to pattern with long step-length PT-OP-J Posture/Palpation/Skin Start: 10/06/24 07:40 Freq: Status: Active Protocol: Document 10/12/24 12:54 MB (Rec: 10/12/24 13:59 MB [id number]) Posture Evaluation Comments Posture Comments Standing posture without cane: left shoulder is much lower than the right and thoracic convexity to the left, rounded shoulders, forward head, reduced lumbar lordosis and flattened lumbar and lumbosacral spinal curvature, right iliac crest higher than the left, more knee varus on the left and forefoot WB, less WB on the right in standing. In supine, right leg is more swollen than the left, vertical incision scab grossly 4.5 and small incision scars lower on toth, ecchymosis on the lower leg and skin dry and flaky and ed pt about keeping skin moist with lotion PT-OP-K Range of Motion Start: 10/06/24 07:40 Freq: Status: Active Protocol: Document 10/12/24 12:54 MB (Rec: 10/12/24 13:59 MB [id number]) Knee Goniometric Range of Motion Knee Left Knee ROM WFL No Patient Position Supine Comments 10-122 deg Right Knee ROM WFL No Patient Position Supine Comments 0-95 deg PT-OP-M Strength Start: 10/06/24 07:40 Freq: Status: Active Protocol: Document 10/12/24 12:54 MB (Rec: 10/12/24 13:59 MB [id number]) Hip Strength Hip Manual Muscle Testing Left Flexion (L2) 5 Normal Abduction 5 Normal Right Flexion (L2) 4+ Good+ Abduction 4+ Good+ Knee Strength Knee Manual Muscle Testing Left Flexion (S2) 5 Normal Extension (L3) 5 Normal Right Flexion (S2) 3- Fair- Extension (L3) 2+ Poor+ Ankle/Foot Strength Ankle and Foot Manual Muscle Testing Left Dorsiflexion (L4) 5 Normal Right Dorsiflexion (L4) 4+ Good+ Toe Strength Toe Manual Muscle Testing Left Great Toe Extension 5 Normal Right Great Toe Extension 4+ Good+ PT-OP-Q Treatments Start: 10/06/24 07:40 Freq: Status: Active Protocol: Document 10/19/24 13:02 MB (Rec: 10/19/24 13:26 MB [id number]) Cardio Equipment Bicycle (Upright) Duration (Minutes) 10 Resistance 5-8 Seat Position 9 Therapeutic Exercises Supine Exercises SLR, opp leg bent Supine Exercise Name HEP and HO Side bilateral Reps/Minutes Several reps Comments [place] leg bent, cues to slow down and count slowly up and down Pelvic realignment exercises Supine Exercise Name Performed today for review, cues to make sure feet are even Side bilateral Equipment Used Blue ball Reps/Minutes 5 reps, 3 sec hold all exercises in order Comments Feet together ball squeeze, knee opp ankle iso, thigh press down iso TKR exercises Supine Exercise Name Quick review today Side bilateral Comments B APs, GS, right quad set, HS Manual Therapy Treatment Consent Patient gave verbal consent for manual Yes treatment Other Other Manual Treatments Pt supine with head and legs supported and use of therapy cream: STM right quads, hamstrings, adductors and PFs, TrP right rectus femoris. Pt with pitting edema right calf and discoloration toth and he reports history of edema and blood clots and so monitor response to manual work. PT-OP-T Assessment and Plan Start: 10/06/24 07:40 Freq: Status: Active Protocol: Document 10/19/24 13:02 MB (Rec: 10/19/24 13:26 MB [id number]) Physical Therapy Assessment Rehab Potential Rehabilitation Potential Good Evaluation Complexity Number of Personal Factors/Comorbidities 1-2 Number of Body Systems Impaired 3 Clinical Presentation at Evaluation Evolving Impairments Impairments Activity Tolerance,Balance, Coordination,Edema,Functional Activities,Functional Mobility ,Gait,Integument,Pain,Posture, ROM,Sensation,Soft Tissue Mobility,Strength,Transfers Goals 5 Impairment R hip and knee weakness Vinyl Top Installer Goal (LTG) Pt will present with at least 4+/5 strength right hip flexion and abduction and knee flexion and extension to improve gait and balance. LTG Duration 12 weeks 4 Impairment Reduced right knee ROM post-op Vinyl Top Installer Goal (LTG) Pt will present with improved AROM right knee in supine from at least 5-120 deg to improve functional range for transfers and gait. LTG Duration 12 weeks 3 Impairment Lack of HEP Vinyl Top Installer Goal (LTG) Pt will perform progressive HEP with I including pelvic realignment, flexibility, strengthening, balance and gait activities to improve range and function. LTG Duration 12 weeks 2 Impairment Impaired gait Vinyl Top Installer Goal (LTG) Pt will gait train at least 1500 feet in 6 minutes with LRAD to improve community ambulation. Pt will not likely reach age norm of 1716 feet in 6 minutes d/t cardiac history. LTG Duration 12 weeks 1 Impairment LEF score reflects over 57% impairment Vinyl Top Installer Goal (LTG) Pt will present with a LEF score reflecting no more than 30% impairment to improve pain and quality of life. LTG Duration 12 weeks Assessment Summary Assessment Progressed to upright bike and SLR and con't to need to check for form. It is possible that seat height on bike needs to go up to 10. Con't progression per below. Physical Therapy Plan Frequency and Duration Frequency of Treatment 2x/Week Duration of treatment (weeks) 12 Plan of Care Start Date 10/12/24 Plan of Care End Date 01/12/25 Therapeutic Interventions Therapeutic Interventions Balance Training,Canalithic Repositioning,Gait Training, Home Exercise Program,Joint Mobilizations,Manual Therapy, Neuromuscular Re-education, Patient/Caregiver Education, Self-Care/Home Management,Soft Tissue Mobilization,Taping, Therapeutic Activities, Therapeutic Exercises Modalities Cold Pack/Ice Massage,Hot Packs Next Visit Focus/Plan Next Note Type Treatment Note Next Visit Plan Start upright bike seat height 9. Review SLR Progress knee exercises including SLS and STS, [place] stretch, hamstring stretch with AP, TFL and hip rotator stretches and standing calf stretches
--- NOTE | 2024-10-25 11:26 | PT.OTN ---
Current Diagnoses Unilateral primary osteoarthritis, right knee (10/25/24) Physical Therapy Treatment Note PT-OP-A Visit Information Start: 10/06/24 07:40 Freq: Status: Active Protocol: Document 10/25/24 10:46 MB (Rec: 10/25/24 11:23 MB [id number]) Out-Patient Physical Therapy Visit Information Visit Information Visit Type Treatment Note Visit Note Medicare AARP Progress note by 11/11/24 Visit Start Time 10:46 Visit Stop Time 11:26 Visit Number 3 Number of UPPER CUTTER MACHINE Visits 0 Evaluation Information Evaluation Date 10/12/24 Precautions Precautions R medial partial knee replacement 09/26/24, defibrillator, on blood thinners, recent AVM, cardiac stents, monitor HR and BP with biking/cardio work PT-OP-B Current Condition Start: 10/06/24 07:40 Freq: Status: Active Protocol: Document 10/12/24 12:54 MB (Rec: 10/12/24 13:59 MB [id number]) Current Condition History of Current Condition Onset Date Right medial partial knee replacement 09/26/24 Current Complaints Post-op PT, right knee stiffness and 6/10 pain History of Current Condition PMH includes stroke in 2019 that affected his right side, in 2021, he had a cardiac arrest and they implanted a defibrillator, recent gamma knife procedure for AVM and he reports ongoing left sided paresthesia. Previous cardiac stents. He got a call from mate fishing vessel after they monitored defibrillator and they increased a few of his medications. He was not asked to go in for a check-up. Before knee surgery, pt was using cane in right hand. He lives in [place] with his and he gets most medical care at [facility] because mate fishing vessel is there. Pt is wearing thigh high compression on right leg and has long pants on. Treatment Goals Patient/Caregiver Goals To get back to walks with , in [facility] and near [place], to increase right knee range and decrease stiffness. PT-OP-C Subjective Start: 10/06/24 07:40 Freq: Status: Active Protocol: Document 10/25/24 10:46 MB (Rec: 10/25/24 11:23 MB [id number]) OP-PT Subjective Patient Comments Patient Comments Pt did well over the holiday and he did his exercises. PT-OP-G Mobility & Gait Start: 10/06/24 07:40 Freq: Status: Active Protocol: Document 10/12/24 12:54 MB (Rec: 10/12/24 13:59 MB [id number]) OP Gait Assessment Comments Gait Comments Antalgic gait favoring the right leg and pt enters with walking stick/cane in right hand and ed to switch to left hand to allow support and pt con't with antalgic pattern with slow marixa and step-to pattern with long step-length PT-OP-J Posture/Palpation/Skin Start: 10/06/24 07:40 Freq: Status: Active Protocol: Document 10/12/24 12:54 MB (Rec: 10/12/24 13:59 MB [id number]) Posture Evaluation Comments Posture Comments Standing posture without cane: left shoulder is much lower than the right and thoracic convexity to the left, rounded shoulders, forward head, reduced lumbar lordosis and flattened lumbar and lumbosacral spinal curvature, right iliac crest higher than the left, more knee varus on the left and forefoot WB, less WB on the right in standing. In supine, right leg is more swollen than the left, vertical incision scab grossly 4.5 and small incision scars lower on toth, ecchymosis on the lower leg and skin dry and flaky and ed pt about keeping skin moist with lotion PT-OP-K Range of Motion Start: 10/06/24 07:40 Freq: Status: Active Protocol: Document 10/12/24 12:54 MB (Rec: 10/12/24 13:59 MB [id number]) Knee Goniometric Range of Motion Knee Left Knee ROM WFL No Patient Position Supine Comments 10-122 deg Right Knee ROM WFL No Patient Position Supine Comments 0-95 deg PT-OP-M Strength Start: 10/06/24 07:40 Freq: Status: Active Protocol: Document 10/12/24 12:54 MB (Rec: 10/12/24 13:59 MB [id number]) Hip Strength Hip Manual Muscle Testing Left Flexion (L2) 5 Normal Abduction 5 Normal Right Flexion (L2) 4+ Good+ Abduction 4+ Good+ Knee Strength Knee Manual Muscle Testing Left Flexion (S2) 5 Normal Extension (L3) 5 Normal Right Flexion (S2) 3- Fair- Extension (L3) 2+ Poor+ Ankle/Foot Strength Ankle and Foot Manual Muscle Testing Left Dorsiflexion (L4) 5 Normal Right Dorsiflexion (L4) 4+ Good+ Toe Strength Toe Manual Muscle Testing Left Great Toe Extension 5 Normal Right Great Toe Extension 4+ Good+ PT-OP-Q Treatments Start: 10/06/24 07:40 Freq: Status: Active Protocol: Document 10/25/24 10:46 MB (Rec: 10/25/24 11:23 MB [id number]) Cardio Equipment Bicycle (Upright) Duration (Minutes) 10 Resistance 8 Seat Position 9 Therapeutic Exercises Supine Exercises [place] stretch Supine Exercise Name HEP and HO Side bilateral Reps/Minutes 30-45 sec Comments [place] knee to chest SLR, opp leg bent Side right Reps/Minutes Several reps Comments Cues to perform slowly and smoothly Sitting Exercises STS Sitting Exercise Name HEP and HO Comments 30 sec STS: 7; ed to perform twice a day Standing Exercises Gastroc and soleus stretches and active DF Standing Exercise Name HEP and HO Side bilateral Reps/Minutes 1 rep each, 20 sec hold each leg, 10 reps DF AROM Manual Therapy Treatment Consent Patient gave verbal consent for manual Yes treatment Other Other Manual Treatments Pt supine with head and legs supported: STM right quads, hamstrings, adductors, PFs, TrP right vastus lateralis, MWM with pressure proximal gastroc and pt performing AP PT-OP-T Assessment and Plan Start: 10/06/24 07:40 Freq: Status: Active Protocol: Document 10/25/24 10:46 MB (Rec: 10/25/24 11:23 MB [id number]) Physical Therapy Assessment Rehab Potential Rehabilitation Potential Good Evaluation Complexity Number of Personal Factors/Comorbidities 1-2 Number of Body Systems Impaired 3 Clinical Presentation at Evaluation Evolving Impairments Impairments Activity Tolerance,Balance, Coordination,Edema,Functional Activities,Functional Mobility ,Gait,Integument,Pain,Posture, ROM,Sensation,Soft Tissue Mobility,Strength,Transfers Goals 5 Impairment R hip and knee weakness Chcf Goal (LTG) Pt will present with at least 4+/5 strength right hip flexion and abduction and knee flexion and extension to improve gait and balance. LTG Duration 12 weeks 4 Impairment Reduced right knee ROM post-op Chcf Goal (LTG) Pt will present with improved AROM right knee in supine from at least 5-120 deg to improve functional range for transfers and gait. LTG Duration 12 weeks 3 Impairment Lack of HEP Chcf Goal (LTG) Pt will perform progressive HEP with I including pelvic realignment, flexibility, strengthening, balance and gait activities to improve range and function. LTG Duration 12 weeks 2 Impairment Impaired gait Rug Scratcher Goal (LTG) Pt will gait train at least 1500 feet in 6 minutes with LRAD to improve community ambulation. Pt will not likely reach age norm of 1716 feet in 6 minutes d/t cardiac history. LTG Duration 12 weeks 1 Impairment LEF score reflects over 57% impairment Chcf Goal (LTG) Pt will present with a LEF score reflecting no more than 30% impairment to improve pain and quality of life. LTG Duration 12 weeks Assessment Summary Assessment Pt con't to use cane and would like to progress off the cane in future treatments. Progressed STS and flexibility today. Con't per plan below. Physical Therapy Plan Frequency and Duration Frequency of Treatment 2x/Week Duration of treatment (weeks) 12 Plan of Care Start Date 10/12/24 Plan of Care End Date 01/12/25 Therapeutic Interventions Therapeutic Interventions Balance Training,Canalithic Repositioning,Gait Training, Home Exercise Program,Joint Mobilizations,Manual Therapy, Neuromuscular Re-education, Patient/Caregiver Education, Self-Care/Home Management,Soft Tissue Mobilization,Taping, Therapeutic Activities, Therapeutic Exercises Modalities Cold Pack/Ice Massage,Hot Packs Next Visit Focus/Plan Next Note Type Treatment Note Next Visit Plan Start upright bike seat height 9. Con't manual work. Progress knee exercises including hamstring stretch with AP, TFL and hip rotator stretches, balance such as SLS . Progress strengthening in standing and work on walking pattern, hopefully getting rid of cane, 6MWT
--- NOTE | 2024-10-28 15:16 | PT.OTN ---
Current Diagnoses Unilateral primary osteoarthritis, right knee (10/28/24) Physical Therapy Treatment Note PT-OP-A Visit Information Start: 10/06/24 07:40 Freq: Status: Active Protocol: Document 10/28/24 14:36 SP (Rec: 10/28/24 16:18 SP [id number]) Out-Patient Physical Therapy Visit Information Visit Information Visit Type Treatment Note Visit Note Medicare AARP Progress note by 11/11/24 Visit Start Time 14:36 Visit Stop Time 15:16 Visit Number 4 Number of DISTRICT WIRE CHIEF Visits 1 Evaluation Information Evaluation Date 10/12/24 Precautions Precautions R medial partial knee replacement 09/26/24, defibrillator, on blood thinners, recent AVM, cardiac stents, monitor HR and BP with biking/cardio work PT-OP-B Current Condition Start: 10/06/24 07:40 Freq: Status: Active Protocol: Document 10/12/24 12:54 MB (Rec: 10/12/24 13:59 MB [id number]) Current Condition History of Current Condition Onset Date Right medial partial knee replacement 09/26/24 Current Complaints Post-op PT, right knee stiffness and 6/10 pain History of Current Condition PMH includes stroke in 2019 that affected his right side, in 2021, he had a cardiac arrest and they implanted a defibrillator, recent gamma knife procedure for AVM and he reports ongoing left sided paresthesia. Previous cardiac stents. He got a call from global sales director after they monitored defibrillator and they increased a few of his medications. He was not asked to go in for a check-up. Before knee surgery, pt was using cane in right hand. He lives in [place] with his and he gets most medical care at [facility] because global sales director is there. Pt is wearing thigh high compression on right leg and has long pants on. Treatment Goals Patient/Caregiver Goals To get back to walks with , in [facility] and near [place], to increase right knee range and decrease stiffness. PT-OP-C Subjective Start: 10/06/24 07:40 Freq: Status: Active Protocol: Document 10/28/24 14:36 SP (Rec: 10/28/24 16:18 SP [id number]) OP-PT Subjective Patient Comments Patient Comments Pt reports has follow up with ortho 11/09. PT-OP-G Mobility & Gait Start: 10/06/24 07:40 Freq: Status: Active Protocol: Document 10/12/24 12:54 MB (Rec: 10/12/24 13:59 MB [id number]) OP Gait Assessment Comments Gait Comments Antalgic gait favoring the right leg and pt enters with walking stick/cane in right hand and ed to switch to left hand to allow support and pt con't with antalgic pattern with slow marixa and step-to pattern with long step-length PT-OP-J Posture/Palpation/Skin Start: 10/06/24 07:40 Freq: Status: Active Protocol: Document 10/12/24 12:54 MB (Rec: 10/12/24 13:59 MB [id number]) Posture Evaluation Comments Posture Comments Standing posture without cane: left shoulder is much lower than the right and thoracic convexity to the left, rounded shoulders, forward head, reduced lumbar lordosis and flattened lumbar and lumbosacral spinal curvature, right iliac crest higher than the left, more knee varus on the left and forefoot WB, less WB on the right in standing. In supine, right leg is more swollen than the left, vertical incision scab grossly 4.5 and small incision scars lower on toth, ecchymosis on the lower leg and skin dry and flaky and ed pt about keeping skin moist with lotion PT-OP-K Range of Motion Start: 10/06/24 07:40 Freq: Status: Active Protocol: Document 10/28/24 14:36 SP (Rec: 10/28/24 16:18 SP [id number]) Knee Goniometric Range of Motion Knee Right Knee ROM WFL No Patient Position Supine Comments 10/28/24 AROM: 0-118deg post manual PT-OP-M Strength Start: 10/06/24 07:40 Freq: Status: Active Protocol: Document 10/12/24 12:54 MB (Rec: 10/12/24 13:59 MB [id number]) Hip Strength Hip Manual Muscle Testing Left Flexion (L2) 5 Normal Abduction 5 Normal Right Flexion (L2) 4+ Good+ Abduction 4+ Good+ Knee Strength Knee Manual Muscle Testing Left Flexion (S2) 5 Normal Extension (L3) 5 Normal Right Flexion (S2) 3- Fair- Extension (L3) 2+ Poor+ Ankle/Foot Strength Ankle and Foot Manual Muscle Testing Left Dorsiflexion (L4) 5 Normal Right Dorsiflexion (L4) 4+ Good+ Toe Strength Toe Manual Muscle Testing Left Great Toe Extension 5 Normal Right Great Toe Extension 4+ Good+ PT-OP-Q Treatments Start: 10/06/24 07:40 Freq: Status: Active Protocol: Document 10/28/24 14:36 SP (Rec: 10/28/24 16:18 SP [id number]) Cardio Equipment Bicycle (Upright) Duration (Minutes) 10 Resistance 8 Seat Position 9 (6 min)> 8 (4 min) Other 53 RPMs Therapeutic Exercises Supine Exercises Stretching Supine Exercise Name HS- added toHEP /c HO, Trialed hip rotation:pirifirmis and fig 4- disc knee Side right Equipment Used strap Reps/Minutes HS /c AP Comments Cued TKE 20 APs [place] stretch Supine Exercise Name Reviewed today Side bilateral Reps/Minutes 30-45 sec Comments [place] knee to chest SLR, opp leg bent Supine Exercise Name Reviewed Side right Reps/Minutes x10 reps Comments Improved slowly and smoothly, cued no higher than top crew sock maintainTKE Sitting Exercises STS Sitting Exercise Name Reviewed today Equipment Used 20> 18 table, hands front Reps/Minutes 7 reps (BID) before tired Comments cues hip hinge slower descend Standing Exercises Gastroc and soleus stretches and active DF Standing Exercise Name HEP and HO Side bilateral Equipment Used contact upper window ledge Reps/Minutes 1 rep each, 20 sec hold each leg, 10 reps DF AROM Comments gastroc then Soleus, DF AROM, cued not wt shfit pelvis back Gait Training Gait Activity gait Device Used no AD Distance/Duration around gym and 170 ft around clinic Treatment Focus TKE RLE stance time, midline, heel toe, foot alignment Comments Cues for upight posture, quad engagement TKE [place] stance time , heel toe, R foot little more EV neutral (improved correction), arm swing. Improved knee extension and ankle mobility with distance. End tx use of cane, noted leaning on it in RUE provided ed only use balance contact support fir midline. Manual Therapy Treatment Consent Patient gave verbal consent for manual Yes treatment Other Other Manual Treatments Pt supine with head and legs supported: STM right quads, hamstrings, calf, adductors, ended retro grade massage compression ankle toward thigh , decrease swelling foot/ankle . Self-Care/Home Management Treatment Education Patient Education Body Mechanics,Posture,Safety Other Education Continue ed: elevate RLE for swelling return with CP and APs. Gait: cues end tx for decreased leaning onto SPC in LUE, use for contact balance. PT-OP-T Assessment and Plan Start: 10/06/24 07:40 Freq: Status: Active Protocol: Document 10/28/24 14:36 SP (Rec: 10/28/24 16:18 SP [id number]) Physical Therapy Assessment Goals 5 Impairment R hip and knee weakness Correction Goal (LTG) Pt will present with at least 4+/5 strength right hip flexion and abduction and knee flexion and extension to improve gait and balance. LTG Duration 12 weeks 4 Impairment Reduced right knee ROM post-op Correction Goal (LTG) Pt will present with improved AROM right knee in supine from at least 5-120 deg to improve functional range for transfers and gait. 10/28/24: 0-118 deg AROM LTG Duration 12 weeks progressing 10/28/24 3 Impairment Lack of HEP Gun Numberer Goal (LTG) Pt will perform progressive HEP with I including pelvic realignment, flexibility, strengthening, balance and gait activities to improve range and function. LTG Duration 12 weeks 2 Impairment Impaired gait Gun Numberer Goal (LTG) Pt will gait train at least 1500 feet in 6 minutes with LRAD to improve community ambulation. Pt will not likely reach age norm of 1716 feet in 6 minutes d/t cardiac history. LTG Duration 12 weeks 1 Impairment LEF score reflects over 57% impairment Gun Numberer Goal (LTG) Pt will present with a LEF score reflecting no more than 30% impairment to improve pain and quality of life. LTG Duration 12 weeks Assessment Summary Assessment Pt improved gait mechanics post manual with cuing posture , heel toe and R foot EV neutral and TKE during stance time R>L LE improved gait phases with no AD during tx. Ed not leaning into cane in LUE longer distances when leaving just contact stability with good form through demonstrated. Progressed active HS with AP this tx for decrease posterior chain tightness. Physical Therapy Plan Frequency and Duration Frequency of Treatment 2x/Week Duration of treatment (weeks) 12 Plan of Care Start Date 10/12/24 Plan of Care End Date 01/12/25 Therapeutic Interventions Therapeutic Interventions Balance Training,Canalithic Repositioning,Gait Training, Home Exercise Program,Joint Mobilizations,Manual Therapy, Neuromuscular Re-education, Patient/Caregiver Education, Self-Care/Home Management,Soft Tissue Mobilization,Taping, Therapeutic Activities, Therapeutic Exercises Modalities Cold Pack/Ice Massage,Hot Packs Next Visit Focus/Plan Next Note Type Treatment Note Next Visit Plan Start upright bike seat height 9. Con't manual work. Next: Progress knee exercises reassess tolerance hip rotator stretches, balance such as SLS, recheck walking pattern with/out SPC. Progress strengthening in standing, hopefully getting rid of cane, 6MWT
--- NOTE | 2024-11-02 13:42 | PT.OTN ---
Current Diagnoses Unilateral primary osteoarthritis, right knee (11/02/24) Physical Therapy Treatment Note PT-OP-A Visit Information Start: 10/06/24 07:40 Freq: Status: Active Protocol: Document 11/02/24 13:03 MB (Rec: 11/02/24 13:42 MB [id number]) Out-Patient Physical Therapy Visit Information Visit Information Visit Type Treatment Note Visit Note Medicare AARP Progress note by 11/11/24 Visit Start Time 13:03 Visit Stop Time 13:43 Visit Number 5 Number of INSULATION CUTTER AND FORMER Visits 0 Evaluation Information Evaluation Date 10/12/24 Precautions Precautions R medial partial knee replacement 09/26/24, defibrillator, on blood thinners, recent AVM, cardiac stents, monitor HR and BP with biking/cardio work PT-OP-B Current Condition Start: 10/06/24 07:40 Freq: Status: Active Protocol: Document 10/12/24 12:54 MB (Rec: 10/12/24 13:59 MB [id number]) Current Condition History of Current Condition Onset Date Right medial partial knee replacement 09/26/24 Current Complaints Post-op PT, right knee stiffness and 6/10 pain History of Current Condition PMH includes stroke in 2019 that affected his right side, in 2021, he had a cardiac arrest and they implanted a defibrillator, recent gamma knife procedure for AVM and he reports ongoing left sided paresthesia. Previous cardiac stents. He got a call from collar padder blindstitch after they monitored defibrillator and they increased a few of his medications. He was not asked to go in for a check-up. Before knee surgery, pt was using cane in right hand. He lives in [place] with his and he gets most medical care at [facility] because collar padder blindstitch is there. Pt is wearing thigh high compression on right leg and has long pants on. Treatment Goals Patient/Caregiver Goals To get back to walks with , in [facility] and near [place], to increase right knee range and decrease stiffness. PT-OP-C Subjective Start: 10/06/24 07:40 Freq: Status: Active Protocol: Document 11/02/24 13:03 MB (Rec: 11/02/24 13:42 MB [id number]) OP-PT Subjective Patient Comments Patient Comments Pt reports that his right knee is doing better but his left knee is bothering him more. He arrives with SPC in right hand. He is walking some without the cane at home. He has ortho and PCP appointments soon. He is going to ask for a vascular consult. PT-OP-G Mobility & Gait Start: 10/06/24 07:40 Freq: Status: Active Protocol: Document 10/12/24 12:54 MB (Rec: 10/12/24 13:59 MB [id number]) OP Gait Assessment Comments Gait Comments Antalgic gait favoring the right leg and pt enters with walking stick/cane in right hand and ed to switch to left hand to allow support and pt con't with antalgic pattern with slow marixa and step-to pattern with long step-length PT-OP-J Posture/Palpation/Skin Start: 10/06/24 07:40 Freq: Status: Active Protocol: Document 10/12/24 12:54 MB (Rec: 10/12/24 13:59 MB [id number]) Posture Evaluation Comments Posture Comments Standing posture without cane: left shoulder is much lower than the right and thoracic convexity to the left, rounded shoulders, forward head, reduced lumbar lordosis and flattened lumbar and lumbosacral spinal curvature, right iliac crest higher than the left, more knee varus on the left and forefoot WB, less WB on the right in standing. In supine, right leg is more swollen than the left, vertical incision scab grossly 4.5 and small incision scars lower on toth, ecchymosis on the lower leg and skin dry and flaky and ed pt about keeping skin moist with lotion PT-OP-K Range of Motion Start: 10/06/24 07:40 Freq: Status: Active Protocol: Document 10/28/24 14:36 SP (Rec: 10/28/24 16:18 SP [id number]) Knee Goniometric Range of Motion Knee Right Knee ROM WFL No Patient Position Supine Comments 10/28/24 AROM: 0-118deg post manual PT-OP-M Strength Start: 10/06/24 07:40 Freq: Status: Active Protocol: Document 10/12/24 12:54 MB (Rec: 10/12/24 13:59 MB [id number]) Hip Strength Hip Manual Muscle Testing Left Flexion (L2) 5 Normal Abduction 5 Normal Right Flexion (L2) 4+ Good+ Abduction 4+ Good+ Knee Strength Knee Manual Muscle Testing Left Flexion (S2) 5 Normal Extension (L3) 5 Normal Right Flexion (S2) 3- Fair- Extension (L3) 2+ Poor+ Ankle/Foot Strength Ankle and Foot Manual Muscle Testing Left Dorsiflexion (L4) 5 Normal Right Dorsiflexion (L4) 4+ Good+ Toe Strength Toe Manual Muscle Testing Left Great Toe Extension 5 Normal Right Great Toe Extension 4+ Good+ PT-OP-Q Treatments Start: 10/06/24 07:40 Freq: Status: Active Protocol: Document 11/02/24 13:03 MB (Rec: 11/02/24 13:42 [id number]) Cardio Equipment Bicycle (Upright) Duration (Minutes) 11 Resistance 7-8 Seat Position 9 Therapeutic Exercises Supine Exercises Hip abduction clam with band Supine Exercise Name HEP and HO Side bilateral Resistance Green TB Reps/Minutes 10 reps Comments Feet together, cues for pelvic tilt and abd draw in Hip rotator stretch Supine Exercise Name HEP and HO Side bilateral Reps/Minutes Several reps for practice Comments Cues to hold 30-45 sec at home Stretching Comments Reviewed today SLR, opp leg bent Side bilateral Comments A few reps on each leg today Sitting Exercises STS Sitting Exercise Name Added green TB around knees Equipment Used Green TB Comments Several reps Gait Training Gait Activity gait Comments Worked on arm swing, heel strike and normal larger stride s for pt; ascend and descend standard height and shorter steps with reciprocal gait and B rails descend, slower gait and pain in left knee with descent PT-OP-T Assessment and Plan Start: 10/06/24 07:40 Freq: Status: Active Protocol: Document 11/02/24 13:03 MB (Rec: 11/02/24 13:42 [id number]) Physical Therapy Assessment Rehab Potential Rehabilitation Potential Good Evaluation Complexity Number of Personal Factors/Comorbidities 1-2 Number of Body Systems Impaired 3 Clinical Presentation at Evaluation Evolving Impairments Impairments Activity Tolerance,Balance, Coordination,Edema,Functional Activities,Functional Mobility ,Gait,Integument,Pain,Posture, ROM,Sensation,Soft Tissue Mobility,Strength,Transfers Goals 5 Impairment R hip and knee weakness Wire Steward Goal (LTG) Pt will present with at least 4+/5 strength right hip flexion and abduction and knee flexion and extension to improve gait and balance. LTG Duration 12 weeks 4 Impairment Reduced right knee ROM post-op Wire Steward Goal (LTG) Pt will present with improved AROM right knee in supine from at least 5-120 deg to improve functional range for transfers and gait. LTG Duration 12 weeks 3 Impairment Lack of HEP Detention Goal (LTG) Pt will perform progressive HEP with I including pelvic realignment, flexibility, strengthening, balance and gait activities to improve range and function. LTG Duration 12 weeks 2 Impairment Impaired gait Wire Steward Goal (LTG) Pt will gait train at least 1500 feet in 6 minutes with LRAD to improve community ambulation. Pt will not likely reach age norm of 1716 feet in 6 minutes d/t cardiac history. LTG Duration 12 weeks 1 Impairment LEF score reflects over 57% impairment Detention Goal (LTG) Pt will present with a LEF score reflecting no more than 30% impairment to improve pain and quality of life. LTG Duration 12 weeks Assessment Summary Assessment Pt reports left knee issues and that he might need a left TKR. This is a complicating factor for right knee rehab as far as weaning from the cane and improving balance. Physical Therapy Plan Frequency and Duration Frequency of Treatment 2x/Week Duration of treatment (weeks) 12 Plan of Care Start Date 10/12/24 Plan of Care End Date 01/12/25 Therapeutic Interventions Therapeutic Interventions Balance Training,Canalithic Repositioning,Gait Training, Home Exercise Program,Joint Mobilizations,Manual Therapy, Neuromuscular Re-education, Patient/Caregiver Education, Self-Care/Home Management,Soft Tissue Mobilization,Taping, Therapeutic Activities, Therapeutic Exercises Modalities Cold Pack/Ice Massage,Hot Packs Next Visit Focus/Plan Next Note Type Treatment Note Next Visit Plan Start upright bike seat height 9. Con't manual work. Considser balance such as SLS, hip extension and abduction and LAQ with ankle weights ( [place]), recheck walking pattern with/out SPC, hopefully getting rid of cane, 6MWT
--- NOTE | 2024-11-04 14:30 | PT.OTN ---
Current Diagnoses Unilateral primary osteoarthritis, right knee (11/04/24) Physical Therapy Treatment Note PT-OP-A Visit Information Start: 10/06/24 07:40 Freq: Status: Active Protocol: Document 11/04/24 13:50 SP (Rec: 11/04/24 14:51 SP [id number]) Out-Patient Physical Therapy Visit Information Visit Information Visit Type Treatment Note Visit Note Medicare AARP Progress note by 11/11/24 Visit Start Time 13:50 Visit Stop Time 14:30 Visit Number 6 Number of PATIENT OFFICE REP Visits 1 Evaluation Information Evaluation Date 10/12/24 Precautions Precautions R medial partial knee replacement 09/26/24, defibrillator, on blood thinners, recent AVM, cardiac stents, monitor HR and BP with biking/cardio work PT-OP-B Current Condition Start: 10/06/24 07:40 Freq: Status: Active Protocol: Document 10/12/24 12:54 MB (Rec: 10/12/24 13:59 MB [id number]) Current Condition History of Current Condition Onset Date Right medial partial knee replacement 09/26/24 Current Complaints Post-op PT, right knee stiffness and 6/10 pain History of Current Condition PMH includes stroke in 2019 that affected his right side, in 2021, he had a cardiac arrest and they implanted a defibrillator, recent gamma knife procedure for AVM and he reports ongoing left sided paresthesia. Previous cardiac stents. He got a call from grocery carrier after they monitored defibrillator and they increased a few of his medications. He was not asked to go in for a check-up. Before knee surgery, pt was using cane in right hand. He lives in [place] with his and he gets most medical care at [facility] because grocery carrier is there. Pt is wearing thigh high compression on right leg and has long pants on. Treatment Goals Patient/Caregiver Goals To get back to walks with , in [facility] and near [place], to increase right knee range and decrease stiffness. PT-OP-C Subjective Start: 10/06/24 07:40 Freq: Status: Active Protocol: Document 11/04/24 13:50 SP (Rec: 11/04/24 14:51 SP [id number]) OP-PT Subjective Patient Comments Patient Comments Pt stated has follow up with Dr Ramachandran on Nov 10. PT-OP-G Mobility & Gait Start: 10/06/24 07:40 Freq: Status: Active Protocol: Document 10/12/24 12:54 MB (Rec: 10/12/24 13:59 MB [id number]) OP Gait Assessment Comments Gait Comments Antalgic gait favoring the right leg and pt enters with walking stick/cane in right hand and ed to switch to left hand to allow support and pt con't with antalgic pattern with slow marixa and step-to pattern with long step-length PT-OP-J Posture/Palpation/Skin Start: 10/06/24 07:40 Freq: Status: Active Protocol: Document 10/12/24 12:54 MB (Rec: 10/12/24 13:59 MB [id number]) Posture Evaluation Comments Posture Comments Standing posture without cane: left shoulder is much lower than the right and thoracic convexity to the left, rounded shoulders, forward head, reduced lumbar lordosis and flattened lumbar and lumbosacral spinal curvature, right iliac crest higher than the left, more knee varus on the left and forefoot WB, less WB on the right in standing. In supine, right leg is more swollen than the left, vertical incision scab grossly 4.5 and small incision scars lower on toth, ecchymosis on the lower leg and skin dry and flaky and ed pt about keeping skin moist with lotion PT-OP-K Range of Motion Start: 10/06/24 07:40 Freq: Status: Active Protocol: Document 10/28/24 14:36 SP (Rec: 10/28/24 16:18 SP [id number]) Knee Goniometric Range of Motion Knee Right Knee ROM WFL No Patient Position Supine Comments 10/28/24 AROM: 0-118deg post manual PT-OP-M Strength Start: 10/06/24 07:40 Freq: Status: Active Protocol: Document 10/12/24 12:54 MB (Rec: 10/12/24 13:59 MB [id number]) Hip Strength Hip Manual Muscle Testing Left Flexion (L2) 5 Normal Abduction 5 Normal Right Flexion (L2) 4+ Good+ Abduction 4+ Good+ Knee Strength Knee Manual Muscle Testing Left Flexion (S2) 5 Normal Extension (L3) 5 Normal Right Flexion (S2) 3- Fair- Extension (L3) 2+ Poor+ Ankle/Foot Strength Ankle and Foot Manual Muscle Testing Left Dorsiflexion (L4) 5 Normal Right Dorsiflexion (L4) 4+ Good+ Toe Strength Toe Manual Muscle Testing Left Great Toe Extension 5 Normal Right Great Toe Extension 4+ Good+ PT-OP-Q Treatments Start: 10/06/24 07:40 Freq: Status: Active Protocol: Document 11/04/24 13:50 SP (Rec: 11/04/24 14:51 SP [id number]) Cardio Equipment Bicycle (Upright) Duration (Minutes) 11 Resistance 8 Seat Position 8 Other 55 RPMs Therapeutic Exercises Sitting Exercises [place] LAQ Sitting Exercise Name added to HEP /c [place] HO Side bilateral Resistance AROM Reps/Minutes 20 reps alternating, slower pacing pause ext Comments cued TKE tolerant range L>R, quad engagement end feel STS Sitting Exercise Name /c TB Resistance Green 3#TB at thighs Equipment Used mesh chair Reps/Minutes x10 reps Comments reports little discomfort L knee, R knee fine Standing Exercises step ups Standing Exercise Name assessed in PT Equipment Used 6step, assess 1 step mgt home enterance Reps/Minutes 10 reps each LE leading Comments no UE support required, little discomfort L knee fine R, good stability. [place]ago Hip Extension Standing Exercise Name future [place]ago HS Curl Standing Exercise Name added to HEP /c [place] HO Side bilateral Resistance AROM Reps/Minutes x20 alternating Comments cued TKE stance LE, ROM pnfree OTAGO Abduction Standing Exercise Name added to HEP /c [place] HO Side bilateral Resistance aROM Reps/Minutes x20 alternating Comments Cued posture, TKE stance LE hip abd engagment, not SB Gastroc and soleus stretches and active DF Standing Exercise Name HEP and HO Side bilateral Equipment Used stair rail Reps/Minutes 1 rep 20 sec hold each leg, 10 reps DF AROM Comments gastroc then Soleus, DF AROM, cued not wt shfit pelvis back Gait Training Gait Activity gait Description End tx today post ex and manual. Device Used no AD Distance/Duration around gym and 170 ft around clinic Comments Gait: Worked on arm swing, heel toe, TKE stance time, normal larger stride Stair mgt: ascend and descend standard height reciprocal gait and B light rails descend , reports pain in left knee with descent Manual Therapy Treatment Consent Patient gave verbal consent for manual Yes treatment Other Other Manual Treatments Pt supine with head and legs supported: STM right quads, hamstrings, calf,ended retro grade massage compression ankle toward thigh, decrease swelling foot/ankle. R Tibfemoral A<>Ps, Tibfib PA PT-OP-T Assessment and Plan Start: 10/06/24 07:40 Freq: Status: Active Protocol: Document 11/04/24 13:50 SP (Rec: 11/04/24 14:51 SP [id number]) Physical Therapy Assessment Goals 5 Impairment R hip and knee weakness [employer] Library Clerk Goal (LTG) Pt will present with at least 4+/5 strength right hip flexion and abduction and knee flexion and extension to improve gait and balance. LTG Duration 12 weeks 4 Impairment Reduced right knee ROM post-op [employer] Library Clerk Goal (LTG) Pt will present with improved AROM right knee in supine from at least 5-120 deg to improve functional range for transfers and gait. 11/04/24: R knee AROM flexion 120 deg LTG Duration 12 weeks progressing 11/04/24 3 Impairment Lack of HEP [employer] Library Clerk Goal (LTG) Pt will perform progressive HEP with I including pelvic realignment, flexibility, strengthening, balance and gait activities to improve range and function. 11/04/24: added [place] HS curl, abd, STS, HS curl AROM LTG Duration 12 weeks progressing 11/04/24 2 Impairment Impaired gait [employer] Library Clerk Goal (LTG) Pt will gait train at least 1500 feet in 6 minutes with LRAD to improve community ambulation. Pt will not likely reach age norm of 1716 feet in 6 minutes d/t cardiac history. LTG Duration 12 weeks 1 Impairment LEF score reflects over 57% impairment Long-Term Goal (LTG) Pt will present with a LEF score reflecting no more than 30% impairment to improve pain and quality of life. LTG Duration 12 weeks Assessment Summary Assessment Pt reported L knee discomfort 3/10 during LAQ end feel ext and eccentric flexion descending stairs needing UE support. Cues for taller posturing back alignment during standing AROM ther ex, demonstrates improved TKE stance time alternating progression for home HEP. Pt demonstrates increased ROM 120 deg flexion measured end tx supine. Physical Therapy Plan Frequency and Duration Frequency of Treatment 2x/Week Duration of treatment (weeks) 12 Plan of Care Start Date 10/12/24 Plan of Care End Date 01/12/25 Therapeutic Interventions Therapeutic Interventions Balance Training,Canalithic Repositioning,Gait Training, Home Exercise Program,Joint Mobilizations,Manual Therapy, Neuromuscular Re-education, Patient/Caregiver Education, Self-Care/Home Management,Soft Tissue Mobilization,Taping, Therapeutic Activities, Therapeutic Exercises Modalities Cold Pack/Ice Massage,Hot Packs Next Visit Focus/Plan Next Note Type Treatment Note Next Visit Plan Continue warm up upright bike seat height 8>7. Con't manual work. Progress balance such as SLS, hip extension, review abduction and LAQ with ankle weights next (Kiana), recheck 6MWT next tx /s cane.
--- NOTE | 2024-11-09 15:39 | PT.OTN ---
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 Visits 0 Evaluation Information Evaluation Date 10/12/24 Precautions Precautions R medial partial knee replacement 09/26/24, defibrillator, on blood thinners, recent AVM, cardiac stents, monitor HR and BP with biking/cardio work PT-OP-B Current Condition Start: 10/06/24 07:40 Freq: Status: Active Protocol: Document 10/12/24 12:54 MB (Rec: 10/12/24 13:59 MB [id number]) Current Condition History of Current Condition Onset Date Right medial partial knee replacement 09/26/24 Current Complaints Post-op PT, right knee stiffness and 6/10 pain History of Current Condition PMH includes stroke in 2019 that affected his right side, in 2021, he had a cardiac arrest and they implanted a defibrillator, recent gamma knife procedure for AVM and he reports ongoing left sided paresthesia. Previous cardiac stents. He got a call from medical malpractice paralegal after they monitored defibrillator and they increased a few of his medications. He was not asked to go in for a check-up. Before knee surgery, pt was using cane in right hand. He lives in [place] with his and he gets most medical care at [facility] because medical malpractice paralegal is there. Pt is wearing thigh high compression on right leg and has long pants on. Treatment Goals Patient/Caregiver Goals To get back to walks with , in [facility] and near [place], to increase right knee range and decrease stiffness. PT-OP-C Subjective Start: 10/06/24 07:40 Freq: Status: Active Protocol: Document 11/09/24 13:47 MB (Rec: 11/09/24 14:30 MB [id number]) OP-PT Subjective Patient Comments Patient Comments Right knee is doing good and left knee is really giving him a hard time. He is using knee high compression hose. PT-OP-G Mobility & Gait Start: 10/06/24 07:40 Freq: Status: Active Protocol: Document 10/12/24 12:54 MB (Rec: 10/12/24 13:59 MB [id number]) OP Gait Assessment Comments Gait Comments Antalgic gait favoring the right leg and pt enters with walking stick/cane in right hand and ed to switch to left hand to allow support and pt con't with antalgic pattern with slow marixa and step-to pattern with long step-length PT-OP-J Posture/Palpation/Skin Start: 10/06/24 07:40 Freq: Status: Active Protocol: Document 10/12/24 12:54 MB (Rec: 10/12/24 13:59 MB [id number]) Posture Evaluation Comments Posture Comments Standing posture without cane: left shoulder is much lower than the right and thoracic convexity to the left, rounded shoulders, forward head, reduced lumbar lordosis and flattened lumbar and lumbosacral spinal curvature, right iliac crest higher than the left, more knee varus on the left and forefoot WB, less WB on the right in standing. In supine, right leg is more swollen than the left, vertical incision scab grossly 4.5 and small incision scars lower on toth, ecchymosis on the lower leg and skin dry and flaky and ed pt about keeping skin moist with lotion PT-OP-K Range of Motion Start: 10/06/24 07:40 Freq: Status: Active Protocol: Document 10/28/24 14:36 SP (Rec: 10/28/24 16:18 SP [id number]) Knee Goniometric Range of Motion Knee Right Knee ROM WFL No Patient Position Supine Comments 10/28/24 AROM: 0-118deg post manual PT-OP-M Strength Start: 10/06/24 07:40 Freq: Status: Active Protocol: Document 10/12/24 12:54 MB (Rec: 10/12/24 13:59 MB [id number]) Hip Strength Hip Manual Muscle Testing Left Flexion (L2) 5 Normal Abduction 5 Normal Right Flexion (L2) 4+ Good+ Abduction 4+ Good+ Knee Strength Knee Manual Muscle Testing Left Flexion (S2) 5 Normal Extension (L3) 5 Normal Right Flexion (S2) 3- Fair- Extension (L3) 2+ Poor+ Ankle/Foot Strength Ankle and Foot Manual Muscle Testing Left Dorsiflexion (L4) 5 Normal Right Dorsiflexion (L4) 4+ Good+ Toe Strength Toe Manual Muscle Testing Left Great Toe Extension 5 Normal Right Great Toe Extension 4+ Good+ PT-OP-Q Treatments Start: 10/06/24 07:40 Freq: Status: Active Protocol: Document 11/09/24 13:47 MB (Rec: 11/09/24 14:30 MB [id number]) Cardio Equipment Bicycle (Upright) Duration (Minutes) 15 Resistance 8 Seat Position 8 Therapeutic Exercises Supine Exercises AROM knee assessment Comments Right knee: 7-113 deg; left knee: 14-115 deg Other Exercises HEP review on progress note Other Exercise Name Performed this in review on progress note Gait Training Gait Activity 6MWT Comments Pt gait trains 881 feet in 6 minutes with cane in right hand and PT lowers it during gait training, his left hand tends to make a claw position and he has increasing antalgic pattern with left knee and he walks stiff-legged and because he is favoring left leg, his right knee flexion and heel strike is also limited and this affects his overall functional range gait Comments Pt arrives with walking stick in right hand and it is tall and limits his stride-length and knee flexion. Attempted to find rollator that is tall enough to help gait pattern but clinic does not have one. Ed pt on benefits of 4WRW to work on gait pattern Self-Care/Home Management Treatment Education Other Education Ed pt on benefits of thigh high compression hose as opposed to knee high compression s/p right knee replacement PT-OP-T Assessment and Plan Start: 10/06/24 07:40 Freq: Status: Active Protocol: Document 11/09/24 13:47 MB (Rec: 11/09/24 14:30 MB [id number]) Physical Therapy Assessment Rehab Potential Rehabilitation Potential Good Evaluation Complexity Number of Personal Factors/Comorbidities 1-2 Number of Body Systems Impaired 3 Clinical Presentation at Evaluation Evolving Impairments Impairments Activity Tolerance,Balance, Coordination,Edema,Functional Activities,Functional Mobility ,Gait,Integument,Pain,Posture, ROM,Sensation,Soft Tissue Mobility,Strength,Transfers Goals 5 Impairment R hip and knee weakness Customs Agent Goal (LTG) Pt will present with at least 4+/5 strength right hip flexion and abduction and knee flexion and extension to improve gait and balance. 11/09/24: Right hip flexion and abduction 4+/5; right knee flexion 3+/5, right knee extension 4/5; left hip flexion, abduction, knee flexion and extension all 4+ to 5/5 LTG Duration 12 weeks 4 Impairment Reduced right knee ROM post-op Customs Agent Goal (LTG) Pt will present with improved AROM right knee in supine from at least 5-120 deg to improve functional range for transfers and gait. 11/09/24: Right knee: 7-113 deg; left knee: 14-115 deg LTG Duration 12 weeks 3 Impairment Lack of HEP Customs Agent Goal (LTG) Pt will perform progressive HEP with I including pelvic realignment, flexibility, strengthening, balance and gait activities to improve range and function. 11/09/24: Pt is performing pelvic realignment exercises, hip abduction, STS with band around knees, SLR, hamstring stretch, standing calf stretch , hip rotator stretch LTG Duration 12 weeks 2 Impairment Impaired gait Alf Goal (LTG) Pt will gait train at least 1500 feet in 6 minutes with LRAD to improve community ambulation. Pt will not likely reach age norm of 1716 feet in 6 minutes d/t cardiac history. 11/09: Pt gait trains 881 feet in 6 minutes with SPC in right hand and antalgic gait favoring the left knee LTG Duration 12 weeks 1 Impairment LEF score reflects over 57% impairment Alf Goal (LTG) Pt will present with a LEF score reflecting no more than 30% impairment to improve pain and quality of life. 11/09/24: LEF score reflects 61.25% impairment and pt reports his left knee is really bothering him and this likely influences functional reports LTG Duration 12 weeks Assessment Summary Assessment Pt is slowly progressing towards goals. His range has not improved as much as PT would like at this point in therapy course but this is likely d/t left knee issues and he is carrying a walking stick/cane in right hand to support left knee and he favors his left knee with gait , shortening gait stride, speed, step-through and consquently, knee flexion and heel strike. With 6MWT, his gait distance is much shorter than what is expected for his age group and this is d/t left knee pain and stroke changes. His gait is antalgic as well. His LE strength is improving, though he con't with right hamstring weakness. Pt is talking about getting left TKR at the beginning of 2024 and PT encourages pt to complete at least a month more of PT to get right knee as strong as possible before left knee surgery. Finding the balance/ sweet spot of rehabilitating exercises that maximize right knee function but do not exacerbate left knee will con' t to be a challenge. Did educate pt in benefits of going to [employer] to get a rollator help work on reciprocal gait, better exercise, functional right knee range without exacerbating left knee. Physical Therapy Plan Frequency and Duration Frequency of Treatment 2x/Week Duration of treatment (weeks) 12 Plan of Care Start Date 10/12/24 Plan of Care End Date 01/12/25 Therapeutic Interventions Therapeutic Interventions Balance Training,Canalithic Repositioning,Gait Training, Home Exercise Program,Joint Mobilizations,Manual Therapy, Neuromuscular Re-education, Patient/Caregiver Education, Self-Care/Home Management,Soft Tissue Mobilization,Taping, Therapeutic Activities, Therapeutic Exercises Modalities Cold Pack/Ice Massage,Hot Packs Next Visit Focus/Plan Next Note Type Treatment Note Next Visit Plan Continue warm up upright bike seat height 8. Con't manual work. Progress balance such as SLS, hip extension, review abduction and LAQ with ankle weights next (Otago). If he gets a 4WRW, recommend 6MWT with it. Consider bridge with band around knees for hamstring and hip strengthening, or other bridge sequence.
--- NOTE | 2024-11-15 09:46 | PT.OTN ---
Current Diagnoses Unilateral primary osteoarthritis, right knee (11/15/24) Physical Therapy Treatment Note PT-OP-A Visit Information Start: 10/06/24 07:40 Freq: Status: Active Protocol: Document 11/15/24 09:08 SP (Rec: 11/15/24 09:52 SP [id number]) Out-Patient Physical Therapy Visit Information Visit Information Visit Type Treatment Note Visit Note Medicare AARP Progress note by 12/10/24 Visit Start Time 09:08 Visit Stop Time 09:46 Visit Number 8 Number of FIXTURE FABRICATOR REPAIRER Visits 1 Evaluation Information Evaluation Date 10/12/24 Precautions Precautions R medial partial knee replacement 09/26/24, defibrillator, on blood thinners, recent AVM, cardiac stents, monitor HR and BP with biking/cardio work PT-OP-B Current Condition Start: 10/06/24 07:40 Freq: Status: Active Protocol: Document 10/12/24 12:54 MB (Rec: 10/12/24 13:59 MB [id number]) Current Condition History of Current Condition Onset Date Right medial partial knee replacement 09/26/24 Current Complaints Post-op PT, right knee stiffness and 6/10 pain History of Current Condition PMH includes stroke in 2019 that affected his right side, in 2021, he had a cardiac arrest and they implanted a defibrillator, recent gamma knife procedure for AVM and he reports ongoing left sided paresthesia. Previous cardiac stents. He got a call from assembly machine feeder after they monitored defibrillator and they increased a few of his medications. He was not asked to go in for a check-up. Before knee surgery, pt was using cane in right hand. He lives in [place] with his and he gets most medical care at [facility] because assembly machine feeder is there. Pt is wearing thigh high compression on right leg and has long pants on. Treatment Goals Patient/Caregiver Goals To get back to walks with , in [facility] and near [place], to increase right knee range and decrease stiffness. PT-OP-C Subjective Start: 10/06/24 07:40 Freq: Status: Active Protocol: Document 11/15/24 09:08 SP (Rec: 11/15/24 09:52 SP [id number]) OP-PT Subjective Patient Comments Patient Comments Pt reports R knee is feeling stronger getting around. Awaiting return call from orthopedic about setting up surgery on his L knee helps pain reduction with mobility more lately. He reports more when wakes up and sits to long intiatially gets up. PT-OP-G Mobility & Gait Start: 10/06/24 07:40 Freq: Status: Active Protocol: Document 10/12/24 12:54 MB (Rec: 10/12/24 13:59 MB [id number]) OP Gait Assessment Comments Gait Comments Antalgic gait favoring the right leg and pt enters with walking stick/cane in right hand and ed to switch to left hand to allow support and pt con't with antalgic pattern with slow marixa and step-to pattern with long step-length PT-OP-J Posture/Palpation/Skin Start: 10/06/24 07:40 Freq: Status: Active Protocol: Document 10/12/24 12:54 MB (Rec: 10/12/24 13:59 MB [id number]) Posture Evaluation Comments Posture Comments Standing posture without cane: left shoulder is much lower than the right and thoracic convexity to the left, rounded shoulders, forward head, reduced lumbar lordosis and flattened lumbar and lumbosacral spinal curvature, right iliac crest higher than the left, more knee varus on the left and forefoot WB, less WB on the right in standing. In supine, right leg is more swollen than the left, vertical incision scab grossly 4.5 and small incision scars lower on toth, ecchymosis on the lower leg and skin dry and flaky and ed pt about keeping skin moist with lotion PT-OP-K Range of Motion Start: 10/06/24 07:40 Freq: Status: Active Protocol: Document 10/28/24 14:36 SP (Rec: 10/28/24 16:18 SP [id number]) Knee Goniometric Range of Motion Knee Right Knee ROM WFL No Patient Position Supine Comments 10/28/24 AROM: 0-118deg post manual PT-OP-M Strength Start: 10/06/24 07:40 Freq: Status: Active Protocol: Document 10/12/24 12:54 MB (Rec: 10/12/24 13:59 MB [id number]) Hip Strength Hip Manual Muscle Testing Left Flexion (L2) 5 Normal Abduction 5 Normal Right Flexion (L2) 4+ Good+ Abduction 4+ Good+ Knee Strength Knee Manual Muscle Testing Left Flexion (S2) 5 Normal Extension (L3) 5 Normal Right Flexion (S2) 3- Fair- Extension (L3) 2+ Poor+ Ankle/Foot Strength Ankle and Foot Manual Muscle Testing Left Dorsiflexion (L4) 5 Normal Right Dorsiflexion (L4) 4+ Good+ Toe Strength Toe Manual Muscle Testing Left Great Toe Extension 5 Normal Right Great Toe Extension 4+ Good+ PT-OP-Q Treatments Start: 10/06/24 07:40 Freq: Status: Active Protocol: Document 11/15/24 09:08 SP (Rec: 11/15/24 09:52 SP [id number]) Cardio Equipment Bicycle (Upright) Duration (Minutes) 8 Resistance 8 Seat Position 8 Other 54 RPMs Therapeutic Exercises Supine Exercises Stretching Supine Exercise Name HS Side bilateral Equipment Used strap on foot Reps/Minutes 60 SH Comments Reviewed today, cued range can maintain TKE TKR exercises Supine Exercise Name QS Side bilateral Equipment Used roll under ankle Reps/Minutes 10 SH x10 Comments Ed slow gentle quad set, improved inhibit calf & HS & glut Sitting Exercises Otago LAQ Sitting Exercise Name review [place] HO Side bilateral Resistance 2# leg wt Reps/Minutes 20 reps alternating, slower pacing pause ext Comments cued TKE tolerant range L>R, quad engagement end feel STS Sitting Exercise Name added [place] STS Equipment Used table Reps/Minutes x10 reps Comments reports no pain, cued slower hip hinge descend sit Standing Exercises [place] Hip Extension Standing Exercise Name added to HEP /c HO Side bilateral Resistance 2# leg wt Equipment Used elevated table contact Reps/Minutes 20 alternating [place] HS Curl Standing Exercise Name reviewed [place] HO Side bilateral Resistance AROM> 2# leg wt Reps/Minutes x20 alternating Comments cued TKE stance LE, ROM pnfree OTAGO Abduction Standing Exercise Name reveiwed /c [place] HO Side bilateral Resistance aROM Reps/Minutes x20 alternating Comments Cued posture, TKE stance LE hip abd engagment, not SB Gastroc and soleus stretches and active DF Standing Exercise Name HEP and HO Side bilateral Equipment Used elevated table Reps/Minutes 1 rep 20 sec hold each leg, 10 reps DF AROM Comments gastroc then Soleus, DF AROM, cued not wt shfit pelvis back Manual Therapy Treatment Consent Patient gave verbal consent for manual Yes treatment Other Other Manual Treatments Pt comfort positioning with head and legs supported: STM right quads supine, hamstrings & calf prone,ended retro grade massage compression ankle toward thigh, decrease swelling foot/ankle. Hooklying : R Tibfemoral A<>Ps, Tibfib PA Self-Care/Home Management Treatment Education Patient Education Home Exercise Program,Joint Protection,Safety Other Education Ed performance heel slides, LAQ before get up to prepare ROM before mobility. Discussed bringing 4WW next tx to assess height and use out walks, states isn't tall enough for him, recommended borrowing from [employer], will stop by today/Fri for taller one, understood good posture, gait mechanics form improvement support. Discussed CP for R knee swellign reduction and QS knee hand supine and sit for extension progression, verbalized will continue incorporation. PT-OP-T Assessment and Plan Start: 10/06/24 07:40 Freq: Status: Active Protocol: Document 11/15/24 09:08 SP (Rec: 11/15/24 09:52 SP [id number]) Physical Therapy Assessment Goals 5 Impairment R hip and knee weakness Telesales Agent Goal (LTG) Pt will present with at least 4+/5 strength right hip flexion and abduction and knee flexion and extension to improve gait and balance. 11/09/24: Right hip flexion and abduction 4+/5; right knee flexion 3+/5, right knee extension 4/5; left hip flexion, abduction, knee flexion and extension all 4+ to 5/5 LTG Duration 12 weeks 4 Impairment Reduced right knee ROM post-op Shelter Goal (LTG) Pt will present with improved AROM right knee in supine from at least 5-120 deg to improve functional range for transfers and gait. 11/09/24: Right knee: 7-113 deg; left knee: 14-115 deg LTG Duration 12 weeks 3 Impairment Lack of HEP Shelter Goal (LTG) Pt will perform progressive HEP with I including pelvic realignment, flexibility, strengthening, balance and gait activities to improve range and function. 11/09/24: Pt is performing pelvic realignment exercises, hip abduction, STS with band around knees, SLR, hamstring stretch, standing calf stretch , hip rotator stretch LTG Duration 12 weeks 2 Impairment Impaired gait Shelter Goal (LTG) Pt will gait train at least 1500 feet in 6 minutes with LRAD to improve community ambulation. Pt will not likely reach age norm of 1716 feet in 6 minutes d/t cardiac history. 11/09: Pt gait trains 881 feet in 6 minutes with SPC in right hand and antalgic gait favoring the left knee LTG Duration 12 weeks 1 Impairment LEF score reflects over 57% impairment Shelter Goal (LTG) Pt will present with a LEF score reflecting no more than 30% impairment to improve pain and quality of life. 11/09/24: LEF score reflects 61.25% impairment and pt reports his left knee is really bothering him and this likely influences functional reports LTG Duration 12 weeks Assessment Summary Assessment Pt improved form with cues for TKE stance time and mobility during [place] HEP, added extension today, cues for TKE kicking back. Good tolerance to added leg wt during HEP. Cues for slow/gentle QS and prop up lower leg for progression carryover knee extension and CP /c elevation for swelling reduction. Discussed acquiring proper height 4WW for outdoor walks proper alignment, will stop by [employer]. Physical Therapy Plan Frequency and Duration Frequency of Treatment 2x/Week Duration of treatment (weeks) 12 Plan of Care Start Date 10/12/24 Plan of Care End Date 01/12/25 Therapeutic Interventions Therapeutic Interventions Balance Training,Canalithic Repositioning,Gait Training, Home Exercise Program,Joint Mobilizations,Manual Therapy, Neuromuscular Re-education, Patient/Caregiver Education, Self-Care/Home Management,Soft Tissue Mobilization,Taping, Therapeutic Activities, Therapeutic Exercises Modalities Cold Pack/Ice Massage,Hot Packs Next Visit Focus/Plan Next Note Type Treatment Note Next Visit Plan Continue warm up upright bike seat height 8. Con't manual work. Progress balance such as SLS, hip extension, review abduction and LAQ with ankle weights next ([place]). If he gets a 4WRW, recommend 6MWT with it. Consider bridge with band around knees for hamstring and hip strengthening, or other bridge sequence.
--- NOTE | 2024-11-17 11:28 | PT.OTN ---
Current Diagnoses Unilateral primary osteoarthritis, right knee (11/17/24) Physical Therapy Treatment Note PT-OP-A Visit Information Start: 10/06/24 07:40 Freq: Status: Active Protocol: Document 11/17/24 10:48 SP (Rec: 11/17/24 12:04 SP [id number]) Out-Patient Physical Therapy Visit Information Visit Information Visit Type Treatment Note Visit Note Medicare AARP Progress note by 12/10/24 Visit Start Time 10:48 Visit Stop Time 11:28 Visit Number 9 (3/10 visits with PN) Number of METAL FABRICATING INSPECTOR Visits 2 Evaluation Information Evaluation Date 10/12/24 Precautions Precautions R medial partial knee replacement 09/26/24, defibrillator, on blood thinners, recent AVM, cardiac stents, monitor HR and BP with biking/cardio work PT-OP-B Current Condition Start: 10/06/24 07:40 Freq: Status: Active Protocol: Document 10/12/24 12:54 MB (Rec: 10/12/24 13:59 MB [id number]) Current Condition History of Current Condition Onset Date Right medial partial knee replacement 09/26/24 Current Complaints Post-op PT, right knee stiffness and 6/10 pain History of Current Condition PMH includes stroke in 2019 that affected his right side, in 2021, he had a cardiac arrest and they implanted a defibrillator, recent gamma knife procedure for AVM and he reports ongoing left sided paresthesia. Previous cardiac stents. He got a call from school secretary after they monitored defibrillator and they increased a few of his medications. He was not asked to go in for a check-up. Before knee surgery, pt was using cane in right hand. He lives in [place] with his and he gets most medical care at [facility] because school secretary is there. Pt is wearing thigh high compression on right leg and has long pants on. Treatment Goals Patient/Caregiver Goals To get back to walks with , in [facility] and near [place], to increase right knee range and decrease stiffness. PT-OP-C Subjective Start: 10/06/24 07:40 Freq: Status: Active Protocol: Document 11/17/24 10:48 SP (Rec: 11/17/24 12:04 SP [id number]) OP-PT Subjective Patient Comments Patient Comments Pt reports forgot his 4WW in 's car before she left for parents home. Also forgot SPC home but improved R LE stance time and balance arrival today. He stated felt good after last tx. Pt reports his low back gets sore within 10 min standing washing dishes, what can do to help this? PT-OP-G Mobility & Gait Start: 10/06/24 07:40 Freq: Status: Active Protocol: Document 10/12/24 12:54 MB (Rec: 10/12/24 13:59 MB [id number]) OP Gait Assessment Comments Gait Comments Antalgic gait favoring the right leg and pt enters with walking stick/cane in right hand and ed to switch to left hand to allow support and pt con't with antalgic pattern with slow marixa and step-to pattern with long step-length PT-OP-J Posture/Palpation/Skin Start: 10/06/24 07:40 Freq: Status: Active Protocol: Document 10/12/24 12:54 MB (Rec: 10/12/24 13:59 MB [id number]) Posture Evaluation Comments Posture Comments Standing posture without cane: left shoulder is much lower than the right and thoracic convexity to the left, rounded shoulders, forward head, reduced lumbar lordosis and flattened lumbar and lumbosacral spinal curvature, right iliac crest higher than the left, more knee varus on the left and forefoot WB, less WB on the right in standing. In supine, right leg is more swollen than the left, vertical incision scab grossly 4.5 and small incision scars lower on toth, ecchymosis on the lower leg and skin dry and flaky and ed pt about keeping skin moist with lotion PT-OP-K Range of Motion Start: 10/06/24 07:40 Freq: Status: Active Protocol: Document 10/28/24 14:36 SP (Rec: 10/28/24 16:18 SP [id number]) Knee Goniometric Range of Motion Knee Right Knee ROM WFL No Patient Position Supine Comments 10/28/24 AROM: 0-118deg post manual PT-OP-M Strength Start: 10/06/24 07:40 Freq: Status: Active Protocol: Document 10/12/24 12:54 MB (Rec: 10/12/24 13:59 MB [id number]) Hip Strength Hip Manual Muscle Testing Left Flexion (L2) 5 Normal Abduction 5 Normal Right Flexion (L2) 4+ Good+ Abduction 4+ Good+ Knee Strength Knee Manual Muscle Testing Left Flexion (S2) 5 Normal Extension (L3) 5 Normal Right Flexion (S2) 3- Fair- Extension (L3) 2+ Poor+ Ankle/Foot Strength Ankle and Foot Manual Muscle Testing Left Dorsiflexion (L4) 5 Normal Right Dorsiflexion (L4) 4+ Good+ Toe Strength Toe Manual Muscle Testing Left Great Toe Extension 5 Normal Right Great Toe Extension 4+ Good+ PT-OP-Q Treatments Start: 10/06/24 07:40 Freq: Status: Active Protocol: Document 11/17/24 10:48 SP (Rec: 11/17/24 12:04 SP [id number]) Cardio Equipment Bicycle (Upright) Duration (Minutes) 10 Resistance 8 Seat Position 8 Other 54 RPMs Therapeutic Exercises Supine Exercises Bridge Supine Exercise Name added to HEP /c HO Resistance /c #2 teal band at thighs Reps/Minutes 5 reps lift/lower, 5 SH x5 reps Comments cued TA and glut fac lift, hold, slower pace lower Hip abduction clam with band Supine Exercise Name 1. abd 2. bridge TKR exercises Supine Exercise Name QS Side bilateral Equipment Used roll under ankle Reps/Minutes 10 SH x10 Comments gentle PA with QS pressure, improved extenstion 4 deg post manual then QS. Sitting Exercises [place] LAQ Sitting Exercise Name review [place] HO Side bilateral Resistance 2# leg wt Reps/Minutes 20 reps alternating, slower pacing pause 1 sec ext Comments Improved range TKE tolerant range with reps, improved quad fac STS Sitting Exercise Name reviewed [facility] STS Equipment Used table 20 Reps/Minutes x10 reps Comments reports no pain, improved form slow hip hinge descend sit Standing Exercises Lumbar flexion sink stretch Standing Exercise Name trialed in PT QL stretch- declined HO Equipment Used grasp sink support Reps/Minutes 60 sec total Comments cued/ed hip hinge/lean back lumbar distraction then lat tilt 1- good stretc Muscle rolling ball wall Standing Exercise Name added to HEP declined HO: ES Side left Equipment Used tennis ball wall Reps/Minutes 30 sec Comments good feedback response, self massage OTAGO Heel Toe Raises Standing Exercise Name added to HEP on [place] HO Side bilateral Resistance aROM Equipment Used table support Reps/Minutes 20 reps alternating Comments improved [place] Hip Extension Standing Exercise Name reviewed HEP /c HO Side bilateral Resistance 2# leg wt Equipment Used elevated table contact Reps/Minutes 20 alternating Comments cued head up, taller posture Ot[place] HS Curl Standing Exercise Name reviewed [place] HO Side bilateral Resistance 2# leg wt Reps/Minutes x20 alternating Comments cued TKE stance LE, ROM pnfree OTAGO Abduction Standing Exercise Name reveiwed /c [place] HO Side bilateral Resistance 2# leg wt Reps/Minutes x20 alternating Comments Cued posture, TKE stance LE hip abd engagment, not SB Manual Therapy Treatment Consent Patient gave verbal consent for manual Yes treatment Other Other Manual Treatments Pt comfort positioning with head and legs supported: STM right quads supine, HS, calf Hooklying: R Tibfemoral A<>Ps during quad set and in flexion , Tibfib PA in flexion Neuro Re-Education Treatment Balance Activities OTAGO Details 1. tandem (add OTAGO HO) 2. SLS Comments tandem near stairs rail: R ft fwd- 5> 20 sec /c postural cues, even BLE WB /c little more knee ext awareness . L ft fwd- 30 sec SLS: Next tx. Self-Care/Home Management Treatment Education Patient Education Body Mechanics,Home Exercise Program,Joint Protection,Pain Management,Posture,Safety Other Education Ed for postural and PPT neutral alignment needed during standing ther ex and performing dishes put 1 foot on under sink shelf for lumbar alignment change and TA draw in with improvement performed under table frame, does help. Ed continue perform knee hang supine &sitting for progression extension support stance time stabiltiy during gait. PT-OP-T Assessment and Plan Start: 10/06/24 07:40 Freq: Status: Active Protocol: Document 11/17/24 10:48 SP (Rec: 11/17/24 12:04 SP [id number]) Physical Therapy Assessment Goals 5 Impairment R hip and knee weakness Long-Term Goal (LTG) Pt will present with at least 4+/5 strength right hip flexion and abduction and knee flexion and extension to improve gait and balance. 11/09/24: Right hip flexion and abduction 4+/5; right knee flexion 3+/5, right knee extension 4/5; left hip flexion, abduction, knee flexion and extension all 4+ to 5/5 LTG Duration 12 weeks 4 Impairment Reduced right knee ROM post-op Senior Sales Administrator Goal (LTG) Pt will present with improved AROM right knee in supine from at least 5-120 deg to improve functional range for transfers and gait. 11/09/24: Right knee: 7-113 deg; left knee: 14-115 deg 11/17/24: post manual R knee 4 -116 deg. LTG Duration 12 weeks 3 Impairment Lack of HEP Senior Sales Administrator Goal (LTG) Pt will perform progressive HEP with I including pelvic realignment, flexibility, strengthening, balance and gait activities to improve range and function. 11/09/24: Pt is performing pelvic realignment exercises, hip abduction, STS with band around knees, SLR, hamstring stretch, standing calf stretch , hip rotator stretch LTG Duration 12 weeks 2 Impairment Impaired gait Senior Sales Administrator Goal (LTG) Pt will gait train at least 1500 feet in 6 minutes with LRAD to improve community ambulation. Pt will not likely reach age norm of 1716 feet in 6 minutes d/t cardiac history. 11/09: Pt gait trains 881 feet in 6 minutes with SPC in right hand and antalgic gait favoring the left knee LTG Duration 12 weeks 1 Impairment LEF score reflects over 57% impairment Long-Term Goal (LTG) Pt will present with a LEF score reflecting no more than 30% impairment to improve pain and quality of life. 11/09/24: LEF score reflects 61.25% impairment and pt reports his left knee is really bothering him and this likely influences functional reports LTG Duration 12 weeks Assessment Summary Assessment Pt improved R knee AROM post manual 4-116 deg. Progressed LE strengthening with cues for TKE awareness: LAQ, HRTR, hip ABD and Ext standing and HS glut fac TB bridges added today. Educational cues for neutral PPT with upright postural awareness and TA draw if needed support back better response corrections to allow back health doing dishes. Introduced lumbar flexion QL sink stretch and self massage ES using tennsi ball at wall to support decreased L lumbar tension with good feeback response. Pt demonstrates improved stability during OTAGO tandem balance time after cuing education upright posture, TKE and even WB into front and back foot, tends to lean into back foot. DIscussed bringing HOs next tx to be sure wrote on OTAGO HOs new added: HR, STS, tandem stance. Physical Therapy Plan Frequency and Duration Frequency of Treatment 2x/Week Duration of treatment (weeks) 12 Plan of Care Start Date 10/12/24 Plan of Care End Date 01/12/25 Therapeutic Interventions Therapeutic Interventions Balance Training,Canalithic Repositioning,Gait Training, Home Exercise Program,Joint Mobilizations,Manual Therapy, Neuromuscular Re-education, Patient/Caregiver Education, Self-Care/Home Management,Soft Tissue Mobilization,Taping, Therapeutic Activities, Therapeutic Exercises Modalities Cold Pack/Ice Massage,Hot Packs Next Visit Focus/Plan Next Note Type Treatment Note Next Visit Plan Continue warm up upright bike seat height 8. Con't manual work. Progress balance such as SLS; review bridge band, hip ext, abduction and LAQ with ankle weights next ([place]). If he gets a 4WRW Fri, recommend 6MWT with it.
--- NOTE | 2024-11-22 11:26 | PT.OTN ---
Current Diagnoses Unilateral primary osteoarthritis, right knee (11/22/24) Physical Therapy Treatment Note PT-OP-A Visit Information Start: 10/06/24 07:40 Freq: Status: Active Protocol: Document 11/22/24 10:47 MB (Rec: 11/22/24 11:26 MB [id number]) Out-Patient Physical Therapy Visit Information Visit Information Visit Type Treatment Note Visit Note Medicare AARP Progress note by 12/10/24 Visit Start Time 10:47 Visit Stop Time 11:27 Visit Number 10 Number of IT SERVICE MANAGER Visits 0 Evaluation Information Evaluation Date 10/12/24 Precautions Precautions R medial partial knee replacement 09/26/24, defibrillator, on blood thinners, recent AVM, cardiac stents, monitor HR and BP with biking/cardio work PT-OP-B Current Condition Start: 10/06/24 07:40 Freq: Status: Active Protocol: Document 10/12/24 12:54 MB (Rec: 10/12/24 13:59 MB [id number]) Current Condition History of Current Condition Onset Date Right medial partial knee replacement 09/26/24 Current Complaints Post-op PT, right knee stiffness and 6/10 pain History of Current Condition PMH includes stroke in 2019 that affected his right side, in 2021, he had a cardiac arrest and they implanted a defibrillator, recent gamma knife procedure for AVM and he reports ongoing left sided paresthesia. Previous cardiac stents. He got a call from prepress stripper after they monitored defibrillator and they increased a few of his medications. He was not asked to go in for a check-up. Before knee surgery, pt was using cane in right hand. He lives in [place] with his and he gets most medical care at [facility] because prepress stripper is there. Pt is wearing thigh high compression on right leg and has long pants on. Treatment Goals Patient/Caregiver Goals To get back to walks with , in [facility] and near [place], to increase right knee range and decrease stiffness. PT-OP-C Subjective Start: 10/06/24 07:40 Freq: Status: Active Protocol: Document 11/22/24 10:47 MB (Rec: 11/22/24 11:26 MB [id number]) OP-PT Subjective Patient Comments Patient Comments Pt forgot his SPC. He is walking with the 4WRW outside. His left TKR is scheduled for January 25, 2025. He is not performing his exercises as much as he should. PT-OP-G Mobility & Gait Start: 10/06/24 07:40 Freq: Status: Active Protocol: Document 10/12/24 12:54 MB (Rec: 10/12/24 13:59 MB [id number]) OP Gait Assessment Comments Gait Comments Antalgic gait favoring the right leg and pt enters with walking stick/cane in right hand and ed to switch to left hand to allow support and pt con't with antalgic pattern with slow marixa and step-to pattern with long step-length PT-OP-J Posture/Palpation/Skin Start: 10/06/24 07:40 Freq: Status: Active Protocol: Document 10/12/24 12:54 MB (Rec: 10/12/24 13:59 MB [id number]) Posture Evaluation Comments Posture Comments Standing posture without cane: left shoulder is much lower than the right and thoracic convexity to the left, rounded shoulders, forward head, reduced lumbar lordosis and flattened lumbar and lumbosacral spinal curvature, right iliac crest higher than the left, more knee varus on the left and forefoot WB, less WB on the right in standing. In supine, right leg is more swollen than the left, vertical incision scab grossly 4.5 and small incision scars lower on toth, ecchymosis on the lower leg and skin dry and flaky and ed pt about keeping skin moist with lotion PT-OP-K Range of Motion Start: 10/06/24 07:40 Freq: Status: Active Protocol: Document 10/28/24 14:36 SP (Rec: 10/28/24 16:18 SP [id number]) Knee Goniometric Range of Motion Knee Right Knee ROM WFL No Patient Position Supine Comments 10/28/24 AROM: 0-118deg post manual PT-OP-M Strength Start: 10/06/24 07:40 Freq: Status: Active Protocol: Document 10/12/24 12:54 MB (Rec: 10/12/24 13:59 MB [id number]) Hip Strength Hip Manual Muscle Testing Left Flexion (L2) 5 Normal Abduction 5 Normal Right Flexion (L2) 4+ Good+ Abduction 4+ Good+ Knee Strength Knee Manual Muscle Testing Left Flexion (S2) 5 Normal Extension (L3) 5 Normal Right Flexion (S2) 3- Fair- Extension (L3) 2+ Poor+ Ankle/Foot Strength Ankle and Foot Manual Muscle Testing Left Dorsiflexion (L4) 5 Normal Right Dorsiflexion (L4) 4+ Good+ Toe Strength Toe Manual Muscle Testing Left Great Toe Extension 5 Normal Right Great Toe Extension 4+ Good+ PT-OP-Q Treatments Start: 10/06/24 07:40 Freq: Status: Active Protocol: Document 11/22/24 10:47 MB (Rec: 11/22/24 11:26 MB [id number]) Cardio Equipment Bicycle (Upright) Duration (Minutes) 10 Resistance 8 Seat Position 8 Manual Therapy Treatment Consent Patient gave verbal consent for manual Yes treatment Other Other Manual Treatments Pt side lying with head and legs supported: B rib recoil and STM and positional release QL, TFL, vastus lateralis and paraspinals. TrP left QL, a lot of manual work distal right vastus lateralis near distal attachment, TrP right vastus lateralis and rectus femoris PT-OP-T Assessment and Plan Start: 10/06/24 07:40 Freq: Status: Active Protocol: Document 11/22/24 10:47 MB (Rec: 11/22/24 11:26 MB [id number]) Physical Therapy Assessment Goals 5 Impairment R hip and knee weakness Sofa Inspector Goal (LTG) Pt will present with at least 4+/5 strength right hip flexion and abduction and knee flexion and extension to improve gait and balance. 11/09/24: Right hip flexion and abduction 4+/5; right knee flexion 3+/5, right knee extension 4/5; left hip flexion, abduction, knee flexion and extension all 4+ to 5/5 LTG Duration 12 weeks 4 Impairment Reduced right knee ROM post-op Alf Goal (LTG) Pt will present with improved AROM right knee in supine from at least 5-120 deg to improve functional range for transfers and gait. 11/09/24: Right knee: 7-113 deg; left knee: 14-115 deg 11/17/24: post manual R knee 4 -116 deg. LTG Duration 12 weeks 3 Impairment Lack of HEP Sofa Inspector Goal (LTG) Pt will perform progressive HEP with I including pelvic realignment, flexibility, strengthening, balance and gait activities to improve range and function. 11/09/24: Pt is performing pelvic realignment exercises, hip abduction, STS with band around knees, SLR, hamstring stretch, standing calf stretch , hip rotator stretch LTG Duration 12 weeks 2 Impairment Impaired gait Sofa Inspector Goal (LTG) Pt will gait train at least 1500 feet in 6 minutes with LRAD to improve community ambulation. Pt will not likely reach age norm of 1716 feet in 6 minutes d/t cardiac history. 11/09: Pt gait trains 881 feet in 6 minutes with SPC in right hand and antalgic gait favoring the left knee LTG Duration 12 weeks 1 Impairment LEF score reflects over 57% impairment Alf Goal (LTG) Pt will present with a LEF score reflecting no more than 30% impairment to improve pain and quality of life. 11/09/24: LEF score reflects 61.25% impairment and pt reports his left knee is really bothering him and this likely influences functional reports LTG Duration 12 weeks Assessment Summary Assessment Manual work today and plan is pretty similar for upcoming visits. Good response to manual work immediately after treatment and con't to monitor . Physical Therapy Plan Frequency and Duration Frequency of Treatment 2x/Week Duration of treatment (weeks) 12 Plan of Care Start Date 10/12/24 Plan of Care End Date 01/12/25 Therapeutic Interventions Therapeutic Interventions Balance Training,Canalithic Repositioning,Gait Training, Home Exercise Program,Joint Mobilizations,Manual Therapy, Neuromuscular Re-education, Patient/Caregiver Education, Self-Care/Home Management,Soft Tissue Mobilization,Taping, Therapeutic Activities, Therapeutic Exercises Modalities Cold Pack/Ice Massage,Hot Packs Next Visit Focus/Plan Next Note Type Treatment Note Next Visit Plan Continue warm up upright bike seat height 8. Progress balance such as SLS; review bridge band, hip ext, abduction and LAQ with ankle weights next ([place]), 6MWT if he brings in rollator, ongoing manual work
--- NOTE | 2024-11-24 08:58 | PT.OTN ---
Current Diagnoses Unilateral primary osteoarthritis, right knee (11/24/24) Physical Therapy Treatment Note PT-OP-A Visit Information Start: 10/06/24 07:40 Freq: Status: Active Protocol: Document 11/24/24 08:18 SP (Rec: 11/24/24 09:04 SP [id number]) Out-Patient Physical Therapy Visit Information Visit Information Visit Type Treatment Note Visit Note Medicare AARP Progress note by 12/10/24 Visit Start Time 08:18 Visit Stop Time 08:56 Visit Number 11 Number of INSTRUCTOR SUBSTITUTE COSMETOLOGY Visits 1 Evaluation Information Evaluation Date 10/12/24 Precautions Precautions R medial partial knee replacement 09/26/24, defibrillator, on blood thinners, recent AVM, cardiac stents, monitor HR and BP with biking/cardio work PT-OP-B Current Condition Start: 10/06/24 07:40 Freq: Status: Active Protocol: Document 10/12/24 12:54 MB (Rec: 10/12/24 13:59 MB [id number]) Current Condition History of Current Condition Onset Date Right medial partial knee replacement 09/26/24 Current Complaints Post-op PT, right knee stiffness and 6/10 pain History of Current Condition PMH includes stroke in 2020 that affected his right side, in 2021, he had a cardiac arrest and they implanted a defibrillator, recent gamma knife procedure for AVM and he reports ongoing left sided paresthesia. Previous cardiac stents. He got a call from glass furnace tender after they monitored defibrillator and they increased a few of his medications. He was not asked to go in for a check-up. Before knee surgery, pt was using cane in right hand. He lives in [place] with his and he gets most medical care at [facility] because glass furnace tender is there. Pt is wearing thigh high compression on right leg and has long pants on. Treatment Goals Patient/Caregiver Goals To get back to walks with , in [facility] and near [place], to increase right knee range and decrease stiffness. PT-OP-C Subjective Start: 10/06/24 07:40 Freq: Status: Active Protocol: Document 11/24/24 08:18 SP (Rec: 11/24/24 09:04 SP [id number]) OP-PT Subjective Patient Comments Patient Comments Pt reports more compliant with exercises standing curl, ext, abd excises and walked 2 laps around block with 4WW and standing HS stretch when out walk since last tx. He stated manual helped lessened tightness after last tx. PT-OP-G Mobility & Gait Start: 10/06/24 07:40 Freq: Status: Active Protocol: Document 10/12/24 12:54 MB (Rec: 10/12/24 13:59 MB [id number]) OP Gait Assessment Comments Gait Comments Antalgic gait favoring the right leg and pt enters with walking stick/cane in right hand and ed to switch to left hand to allow support and pt con't with antalgic pattern with slow marixa and step-to pattern with long step-length PT-OP-J Posture/Palpation/Skin Start: 10/06/24 07:40 Freq: Status: Active Protocol: Document 10/12/24 12:54 MB (Rec: 10/12/24 13:59 MB [id number]) Posture Evaluation Comments Posture Comments Standing posture without cane: left shoulder is much lower than the right and thoracic convexity to the left, rounded shoulders, forward head, reduced lumbar lordosis and flattened lumbar and lumbosacral spinal curvature, right iliac crest higher than the left, more knee varus on the left and forefoot WB, less WB on the right in standing. In supine, right leg is more swollen than the left, vertical incision scab grossly 4.5 and small incision scars lower on toth, ecchymosis on the lower leg and skin dry and flaky and ed pt about keeping skin moist with lotion PT-OP-K Range of Motion Start: 10/06/24 07:40 Freq: Status: Active Protocol: Document 10/28/24 14:36 SP (Rec: 10/28/24 16:18 SP [id number]) Knee Goniometric Range of Motion Knee Right Knee ROM WFL No Patient Position Supine Comments 10/28/24 AROM: 0-118deg post manual PT-OP-M Strength Start: 10/06/24 07:40 Freq: Status: Active Protocol: Document 10/12/24 12:54 MB (Rec: 10/12/24 13:59 MB [id number]) Hip Strength Hip Manual Muscle Testing Left Flexion (L2) 5 Normal Abduction 5 Normal Right Flexion (L2) 4+ Good+ Abduction 4+ Good+ Knee Strength Knee Manual Muscle Testing Left Flexion (S2) 5 Normal Extension (L3) 5 Normal Right Flexion (S2) 3- Fair- Extension (L3) 2+ Poor+ Ankle/Foot Strength Ankle and Foot Manual Muscle Testing Left Dorsiflexion (L4) 5 Normal Right Dorsiflexion (L4) 4+ Good+ Toe Strength Toe Manual Muscle Testing Left Great Toe Extension 5 Normal Right Great Toe Extension 4+ Good+ PT-OP-Q Treatments Start: 10/06/24 07:40 Freq: Status: Active Protocol: Document 11/24/24 08:18 SP (Rec: 11/24/24 09:04 SP [id number]) Cardio Equipment Bicycle (Upright) Duration (Minutes) 10 Resistance 8 Seat Position 8 Other 54 RPMs Therapeutic Exercises Supine Exercises Bridge Supine Exercise Name reviewed HEP Resistance #2 teal band at thighs Reps/Minutes 10reps lift/lower, 5 SH Comments Good form, no pain, tiring Hip rotator stretch Supine Exercise Name reviewed Side bilateral Equipment Used towel support, ankle over opp knee bent Reps/Minutes 45 sec hold Comments good posterolateral hip stretch [place] stretch Supine Exercise Name Reviewed today Side bilateral Equipment Used towel support: [place] knee to chest Reps/Minutes 30-45 sec Comments ed use towel suppor: stretch response Sitting Exercises [place] LAQ Sitting Exercise Name review [place] HO Side bilateral Resistance 2# leg wt Reps/Minutes 20 reps alternating, slower pacing pause 1 sec ext Comments cued scoot full back in chair, improved quad fac Standing Exercises OTAGO Heel Toe Raises Standing Exercise Name Reviewed HEP Side bilateral Resistance AROM Equipment Used contact taller window ledge Reps/Minutes 20 reps alternating Comments cued slower pacing, OK toe lift no rock back- improved form [place] Hip Extension Standing Exercise Name reviewed HEP Side bilateral Resistance 2# leg wt Equipment Used contact taller window ledge Reps/Minutes 20 alternating Comments cued head up, taller posture, improved TKE correction [place] HS Curl Standing Exercise Name reviewed HEP Side bilateral Resistance 2# leg wt Equipment Used contact taller window ledge Reps/Minutes x20 alternating Comments cued TKE stance LE, ROM pnfree OTAGO Abduction Standing Exercise Name reveiwed /c [place] HO Side bilateral Resistance 2# leg wt Equipment Used contact taller window ledge Reps/Minutes x20 alternating Comments Cued posture, TKE stance LE hip abd engagment, not SB Gait Training Gait Activity dynamic gait Comments Hallway: finger glide wall- fwd tandem, regular stepping backward, fwd EC- improved lessened finger glide tandem with 2nd set Neuro Re-Education Treatment Balance Activities OTAGO Details 1. tandem 2. SLS- add to OTAGO HEP HO next tx Comments tandem near stairs rail: R ft fwd- 30 sec /c postural L ft fwd- 7, 30 sec SLS: RLE 5 sec, LLE 9 sec cued wt shift COG over SHERRY, TKE PT-OP-T Assessment and Plan Start: 10/06/24 07:40 Freq: Status: Active Protocol: Document 11/24/24 08:18 SP (Rec: 11/24/24 09:04 SP [id number]) Physical Therapy Assessment Goals 5 Impairment R hip and knee weakness Project Architect Goal (LTG) Pt will present with at least 4+/5 strength right hip flexion and abduction and knee flexion and extension to improve gait and balance. 11/09/24: Right hip flexion and abduction 4+/5; right knee flexion 3+/5, right knee extension 4/5; left hip flexion, abduction, knee flexion and extension all 4+ to 5/5 LTG Duration 12 weeks 4 Impairment Reduced right knee ROM post-op Project Architect Goal (LTG) Pt will present with improved AROM right knee in supine from at least 5-120 deg to improve functional range for transfers and gait. 11/09/24: Right knee: 7-113 deg; left knee: 14-115 deg 11/17/24: post manual R knee 4 -116 deg. LTG Duration 12 weeks 3 Impairment Lack of HEP Project Architect Goal (LTG) Pt will perform progressive HEP with I including pelvic realignment, flexibility, strengthening, balance and gait activities to improve range and function. 11/09/24: Pt is performing pelvic realignment exercises, hip abduction, STS with band around knees, SLR, hamstring stretch, standing calf stretch , hip rotator stretch LTG Duration 12 weeks 2 Impairment Impaired gait Intermediate Goal (LTG) Pt will gait train at least 1500 feet in 6 minutes with LRAD to improve community ambulation. Pt will not likely reach age norm of 1716 feet in 6 minutes d/t cardiac history. 11/09: Pt gait trains 881 feet in 6 minutes with SPC in right hand and antalgic gait favoring the left knee LTG Duration 12 weeks 1 Impairment LEF score reflects over 57% impairment Project Architect Goal (LTG) Pt will present with a LEF score reflecting no more than 30% impairment to improve pain and quality of life. 11/09/24: LEF score reflects 61.25% impairment and pt reports his left knee is really bothering him and this likely influences functional reports LTG Duration 12 weeks Assessment Summary Assessment Pt improved stability during tandem and Lessened UE contact during LE wt ex with cues for head up wt shift more front foot even WB BLE up to 30 sec each LE today. Was ablet to lessen finger contact wall tandem with postural cues and head up scap fac. Slows down EC and retro stepping, needs finger contact at this time. Able to progress bridge holds with no adverse affects. Discussed bring 4ww and [place] HOs to remind tandem and SLS add next tx for home carryover . Physical Therapy Plan Frequency and Duration Frequency of Treatment 2x/Week Duration of treatment (weeks) 12 Plan of Care Start Date 10/12/24 Plan of Care End Date 01/12/25 Therapeutic Interventions Therapeutic Interventions Balance Training,Canalithic Repositioning,Gait Training, Home Exercise Program,Joint Mobilizations,Manual Therapy, Neuromuscular Re-education, Patient/Caregiver Education, Self-Care/Home Management,Soft Tissue Mobilization,Taping, Therapeutic Activities, Therapeutic Exercises Modalities Cold Pack/Ice Massage,Hot Packs Next Visit Focus/Plan Next Note Type Treatment Note Next Visit Plan Continue warm up upright bike seat height 8. Continue balance tandem, SLS; bridge band, hip ext, abduction and LAQ with ankle weights next ([place]), 6MWT if he brings in rollator, ongoing manual work
--- NOTE | 2024-11-28 08:55 | PT.OTN ---
Current Diagnoses Unilateral primary osteoarthritis, right knee (11/28/24) Physical Therapy Treatment Note PT-OP-A Visit Information Start: 10/06/24 07:40 Freq: Status: Active Protocol: Document 11/28/24 08:15 SP (Rec: 11/28/24 09:12 SP [id number]) Out-Patient Physical Therapy Visit Information Visit Information Visit Type Treatment Note Visit Note Medicare AARP Progress note by 12/10/24 Visit Start Time 08:15 Visit Stop Time 08:55 Visit Number 12 Number of BUSINESS OBJECTS DEVELOPER Visits 2 Evaluation Information Evaluation Date 10/12/24 Precautions Precautions R medial partial knee replacement 09/26/24, defibrillator, on blood thinners, recent AVM, cardiac stents, monitor HR and BP with biking/cardio work PT-OP-B Current Condition Start: 10/06/24 07:40 Freq: Status: Active Protocol: Document 10/12/24 12:54 MB (Rec: 10/12/24 13:59 MB [id number]) Current Condition History of Current Condition Onset Date Right medial partial knee replacement 09/26/24 Current Complaints Post-op PT, right knee stiffness and 6/10 pain History of Current Condition PMH includes stroke in 2019 that affected his right side, in 2021, he had a cardiac arrest and they implanted a defibrillator, recent gamma knife procedure for AVM and he reports ongoing left sided paresthesia. Previous cardiac stents. He got a call from sales recruiter after they monitored defibrillator and they increased a few of his medications. He was not asked to go in for a check-up. Before knee surgery, pt was using cane in right hand. He lives in [place] with his and he gets most medical care at [facility] because sales recruiter is there. Pt is wearing thigh high compression on right leg and has long pants on. Treatment Goals Patient/Caregiver Goals To get back to walks with , in [facility] and near [place], to increase right knee range and decrease stiffness. PT-OP-C Subjective Start: 10/06/24 07:40 Freq: Status: Active Protocol: Document 11/28/24 08:15 SP (Rec: 11/28/24 09:12 SP [id number]) OP-PT Subjective Patient Comments Patient Comments Pt reports is able to bend and get items off the floor now. He reports still pressure on his knees to get onto floor still not fully back to normal , eg water the tree. Has other knee surgery set up for January . His ANJUM's house has lots stairs and has been managing use HR. PT-OP-G Mobility & Gait Start: 10/06/24 07:40 Freq: Status: Active Protocol: Document 10/12/24 12:54 MB (Rec: 10/12/24 13:59 MB [id number]) OP Gait Assessment Comments Gait Comments Antalgic gait favoring the right leg and pt enters with walking stick/cane in right hand and ed to switch to left hand to allow support and pt con't with antalgic pattern with slow marixa and step-to pattern with long step-length PT-OP-J Posture/Palpation/Skin Start: 10/06/24 07:40 Freq: Status: Active Protocol: Document 10/12/24 12:54 MB (Rec: 10/12/24 13:59 MB [id number]) Posture Evaluation Comments Posture Comments Standing posture without cane: left shoulder is much lower than the right and thoracic convexity to the left, rounded shoulders, forward head, reduced lumbar lordosis and flattened lumbar and lumbosacral spinal curvature, right iliac crest higher than the left, more knee varus on the left and forefoot WB, less WB on the right in standing. In supine, right leg is more swollen than the left, vertical incision scab grossly 4.5 and small incision scars lower on toth, ecchymosis on the lower leg and skin dry and flaky and ed pt about keeping skin moist with lotion PT-OP-K Range of Motion Start: 10/06/24 07:40 Freq: Status: Active Protocol: Document 10/28/24 14:36 SP (Rec: 10/28/24 16:18 SP [id number]) Knee Goniometric Range of Motion Knee Right Knee ROM WFL No Patient Position Supine Comments 10/28/24 AROM: 0-118deg post manual PT-OP-M Strength Start: 10/06/24 07:40 Freq: Status: Active Protocol: Document 10/12/24 12:54 MB (Rec: 10/12/24 13:59 MB [id number]) Hip Strength Hip Manual Muscle Testing Left Flexion (L2) 5 Normal Abduction 5 Normal Right Flexion (L2) 4+ Good+ Abduction 4+ Good+ Knee Strength Knee Manual Muscle Testing Left Flexion (S2) 5 Normal Extension (L3) 5 Normal Right Flexion (S2) 3- Fair- Extension (L3) 2+ Poor+ Ankle/Foot Strength Ankle and Foot Manual Muscle Testing Left Dorsiflexion (L4) 5 Normal Right Dorsiflexion (L4) 4+ Good+ Toe Strength Toe Manual Muscle Testing Left Great Toe Extension 5 Normal Right Great Toe Extension 4+ Good+ PT-OP-Q Treatments Start: 10/06/24 07:40 Freq: Status: Active Protocol: Document 11/28/24 08:15 SP (Rec: 11/28/24 09:12 SP [id number]) Cardio Equipment Bicycle (Upright) Duration (Minutes) 10 Resistance 8 Seat Position 8 Other 54 RPMs Therapeutic Exercises Supine Exercises Bridge Supine Exercise Name reviewed HEP Resistance #2>3 [place]osh[place] greeb band at thighs Reps/Minutes 10reps lift/lower, 5 SH Comments Good form, no pain, tiring Hip rotator stretch Supine Exercise Name reviewed Side bilateral Equipment Used towel support, ankle over opp knee bent Reps/Minutes 30 sec hold Comments good posterolateral hip stretch Sitting Exercises [place] LAQ Sitting Exercise Name review [place] HO Side bilateral Resistance 2# leg wt Reps/Minutes 30 reps alternating, slower pacing pause 1 sec ext Comments cued scoot full back in chair, improved quad fac Standing Exercises OTAGO Heel Toe Raises Standing Exercise Name Reviewed HEP Side bilateral Resistance AROM Equipment Used contact elevated table Reps/Minutes 20 reps alternating Comments cued slower pacing, OK toe lift no rock back- improved form [place] Hip Extension Standing Exercise Name reviewed HEP Side bilateral Resistance 2# leg wt Equipment Used contact elevated table Reps/Minutes 30 alternating Comments cued head up, taller posture, improved TKE correction and less UE support [place] HS Curl Standing Exercise Name reviewed HEP Side bilateral Resistance 2# leg wt Equipment Used contact elevated table Reps/Minutes x30 alternating Comments cued TKE stance LE, ROM pnfree OTAGO Abduction Standing Exercise Name reveiwed /c [place] HO Side bilateral Resistance 2# leg wt Equipment Used contact elevated table Reps/Minutes x30 alternating Comments Cued posture, TKE stance LE hip abd engagment, not SB Gastroc and soleus stretches and active DF Standing Exercise Name HEP and HO Side bilateral Equipment Used elevated table Reps/Minutes 30 sec hold each and front knee mobiltiy, DF/PF Gait Training Gait Activity dynamic gait Comments Hallway: finger glide wall- fwd tandem, regular stepping backward, fwd/bwd EC, 2 sets 4 stairs 1 hand glide rail, receiprocal stepping over hurdles, uneven mat (add pods under future). gait Device Used 4WW Distance/Duration 2 laps around clinic Treatment Focus stride, foot clearance, posture, gait patterning Comments L foot caught floor x3, cues upright posture, knee flexion /c DF foot for safety allow clearance. Ed borrow taller 4WW from [employer] for outdoor gait, provided posture HO for awareness poundage play on body. Manual Therapy Treatment Consent Patient gave verbal consent for manual Yes treatment Other Other Manual Treatments Pt hooklying relaxed supported : R knee STMs to R VL, VM, quad, HS, calf, peroneals. Tibfib PA, Tibfemoral P<>A, R ankle Talocrual PA. AROM R knee 128 * flexion Neuro Re-Education Treatment Balance Activities OTA Details 1. tandem 2. SLS- add to OTAGO HEP HO next tx Comments tandem near stairs rail: R & L ft fwd 30 sec total, cotnact table approx 10 sec at time SLS: RLE 3 sec at time, total 15 sec sesar LLE 5 sec at time, 15 sec total sesar. *Cues for head up/upright posture, rhomboid & core fac for increased stabiltiy Self-Care/Home Management Treatment Education Patient Education Safety Other Education Continued ed borrow another taller 4WW for support posture , foot clearance, improved endurance. Verbalized will contant [employer] tomorror to borrow. PT-OP-T Assessment and Plan Start: 10/06/24 07:40 Freq: Status: Active Protocol: Document 11/28/24 08:15 SP (Rec: 11/28/24 09:12 SP [id number]) Physical Therapy Assessment Goals 5 Impairment R hip and knee weakness Football Scout Goal (LTG) Pt will present with at least 4+/5 strength right hip flexion and abduction and knee flexion and extension to improve gait and balance. 11/09/24: Right hip flexion and abduction 4+/5; right knee flexion 3+/5, right knee extension 4/5; left hip flexion, abduction, knee flexion and extension all 4+ to 5/5 LTG Duration 12 weeks 4 Impairment Reduced right knee ROM post-op Prison Goal (LTG) Pt will present with improved AROM right knee in supine from at least 5-120 deg to improve functional range for transfers and gait. 11/09/24: Right knee: 7-113 deg; left knee: 14-115 deg 11/17/24: post manual R knee 4 -116 deg. LTG Duration 12 weeks 3 Impairment Lack of HEP Prison Goal (LTG) Pt will perform progressive HEP with I including pelvic realignment, flexibility, strengthening, balance and gait activities to improve range and function. 11/09/24: Pt is performing pelvic realignment exercises, hip abduction, STS with band around knees, SLR, hamstring stretch, standing calf stretch , hip rotator stretch LTG Duration 12 weeks 2 Impairment Impaired gait Prison Goal (LTG) Pt will gait train at least 1500 feet in 6 minutes with LRAD to improve community ambulation. Pt will not likely reach age norm of 1716 feet in 6 minutes d/t cardiac history. 11/09: Pt gait trains 881 feet in 6 minutes with SPC in right hand and antalgic gait favoring the left knee LTG Duration 12 weeks 1 Impairment LEF score reflects over 57% impairment Prison Goal (LTG) Pt will present with a LEF score reflecting no more than 30% impairment to improve pain and quality of life. 11/09/24: LEF score reflects 61.25% impairment and pt reports his left knee is really bothering him and this likely influences functional reports LTG Duration 12 weeks Assessment Summary Assessment Pt improved tolerance increased resisted reps and decreased amount UE WB pressure this tx. Decreased stationary balance time during tandem & SLS, cues for taller posture, industrial pharmacist contact table. Progressed dynamic gait finger on wall and stepping over hurdles and uneven mat today CGA, cues for TKE allow improved midline posture over LE. Suggested pt borrow another 4WW to allow improved posture and LE clearance. Had 2 instances L foot caught floor. Pt in agrreement will look into taller 4WW. Physical Therapy Plan Frequency and Duration Frequency of Treatment 2x/Week Duration of treatment (weeks) 12 Plan of Care Start Date 10/12/24 Plan of Care End Date 01/12/25 Therapeutic Interventions Therapeutic Interventions Balance Training,Canalithic Repositioning,Gait Training, Home Exercise Program,Joint Mobilizations,Manual Therapy, Neuromuscular Re-education, Patient/Caregiver Education, Self-Care/Home Management,Soft Tissue Mobilization,Taping, Therapeutic Activities, Therapeutic Exercises Modalities Cold Pack/Ice Massage,Hot Packs Next Visit Focus/Plan Next Note Type Treatment Note Next Visit Plan Continue warm up upright bike seat height 8. Continue balance tandem, SLS; bridge band, weights: hip ext, abduction and LAQ ([place]), Assess if acquired taller 4WW 6MWT, ongoing manual work
--- NOTE | 2024-11-30 08:58 | PT.OTN ---
Current Diagnoses Unilateral primary osteoarthritis, right knee (11/30/24) Physical Therapy Treatment Note PT-OP-A Visit Information Start: 10/06/24 07:40 Freq: Status: Active Protocol: Document 11/30/24 08:15 MB (Rec: 11/30/24 08:33 MB [id number]) Out-Patient Physical Therapy Visit Information Visit Information Visit Type Discharge Summary Visit Note Medicare AARP Progress note by 12/10/24 Visit Start Time 08:15 Visit Stop Time 08:55 Visit Number 13 Number of CARDIAC CARE NURSE Visits 0 Evaluation Information Evaluation Date 10/12/24 Precautions Precautions R medial partial knee replacement 09/26/24, defibrillator, on blood thinners, recent AVM, cardiac stents, monitor HR and BP with biking/cardio work PT-OP-B Current Condition Start: 10/06/24 07:40 Freq: Status: Active Protocol: Document 10/12/24 12:54 MB (Rec: 10/12/24 13:59 MB [id number]) Current Condition History of Current Condition Onset Date Right medial partial knee replacement 09/26/24 Current Complaints Post-op PT, right knee stiffness and 6/10 pain History of Current Condition PMH includes stroke in 2019 that affected his right side, in 2021, he had a cardiac arrest and they implanted a defibrillator, recent gamma knife procedure for AVM and he reports ongoing left sided paresthesia. Previous cardiac stents. He got a call from front end developer designer after they monitored defibrillator and they increased a few of his medications. He was not asked to go in for a check-up. Before knee surgery, pt was using cane in right hand. He lives in [place] with his and he gets most medical care at [facility] because front end developer designer is there. Pt is wearing thigh high compression on right leg and has long pants on. Treatment Goals Patient/Caregiver Goals To get back to walks with , in [facility] and near [place], to increase right knee range and decrease stiffness. PT-OP-C Subjective Start: 10/06/24 07:40 Freq: Status: Active Protocol: Document 11/30/24 08:15 MB (Rec: 11/30/24 08:33 MB [id number]) OP-PT Subjective Patient Comments Patient Comments Pt states that his right knee is doing great and he left knee is doing worse. PT-OP-G Mobility & Gait Start: 10/06/24 07:40 Freq: Status: Active Protocol: Document 10/12/24 12:54 MB (Rec: 10/12/24 13:59 MB [id number]) OP Gait Assessment Comments Gait Comments Antalgic gait favoring the right leg and pt enters with walking stick/cane in right hand and ed to switch to left hand to allow support and pt con't with antalgic pattern with slow marixa and step-to pattern with long step-length PT-OP-J Posture/Palpation/Skin Start: 10/06/24 07:40 Freq: Status: Active Protocol: Document 10/12/24 12:54 MB (Rec: 10/12/24 13:59 MB [id number]) Posture Evaluation Comments Posture Comments Standing posture without cane: left shoulder is much lower than the right and thoracic convexity to the left, rounded shoulders, forward head, reduced lumbar lordosis and flattened lumbar and lumbosacral spinal curvature, right iliac crest higher than the left, more knee varus on the left and forefoot WB, less WB on the right in standing. In supine, right leg is more swollen than the left, vertical incision scab grossly 4.5 and small incision scars lower on toth, ecchymosis on the lower leg and skin dry and flaky and ed pt about keeping skin moist with lotion PT-OP-K Range of Motion Start: 10/06/24 07:40 Freq: Status: Active Protocol: Document 10/28/24 14:36 SP (Rec: 10/28/24 16:18 SP [id number]) Knee Goniometric Range of Motion Knee Right Knee ROM WFL No Patient Position Supine Comments 10/28/24 AROM: 0-118deg post manual PT-OP-M Strength Start: 10/06/24 07:40 Freq: Status: Active Protocol: Document 10/12/24 12:54 MB (Rec: 10/12/24 13:59 MB [id number]) Hip Strength Hip Manual Muscle Testing Left Flexion (L2) 5 Normal Abduction 5 Normal Right Flexion (L2) 4+ Good+ Abduction 4+ Good+ Knee Strength Knee Manual Muscle Testing Left Flexion (S2) 5 Normal Extension (L3) 5 Normal Right Flexion (S2) 3- Fair- Extension (L3) 2+ Poor+ Ankle/Foot Strength Ankle and Foot Manual Muscle Testing Left Dorsiflexion (L4) 5 Normal Right Dorsiflexion (L4) 4+ Good+ Toe Strength Toe Manual Muscle Testing Left Great Toe Extension 5 Normal Right Great Toe Extension 4+ Good+ PT-OP-Q Treatments Start: 10/06/24 07:40 Freq: Status: Active Protocol: Document 11/30/24 08:15 MB (Rec: 11/30/24 08:33 MB [id number]) Cardio Equipment Bicycle (Upright) Duration (Minutes) 25 Resistance 8 Seat Position 8 Therapeutic Exercises Supine Exercises Bridge Comments Verbally reviewed today AROM knee assessment Comments Performed today and see goals Hip abduction clam with band Comments Verbally reviewed today Hip rotator stretch Comments Verbally reviewed today [place] stretch Comments Verbally reviewed today SLR, opp leg bent Comments Verbally reviewed today Pelvic realignment exercises Comments Verbally reviewe today TKR exercises Supine Exercise Name Ed does not need to perform now, only after left TKR Sitting Exercises [place] LAQ Sitting Exercise Name Verbally reviewed today STS Sitting Exercise Name Verbally reviewed today, to perform with [place] exercises Standing Exercises OTAGO Heel Toe Raises Standing Exercise Name Verbally reviewed today, to use 2# ankle weight [place] Hip Extension Standing Exercise Name Verbally reviewed today, to use 2# ankle weight [place] HS Curl Standing Exercise Name Verbally reviewed today, to use 2# ankle weight OTAGO Abduction Standing Exercise Name Verbally reviewed today, to use 2# ankle weight Gastroc and soleus stretches and active DF Standing Exercise Name Verbally reviewed today and to con't Other Exercises HEP review on progress note Comments Performed in detail, went through all handouts on d/c Gait Training Gait Activity 6MWT Comments Performed today without AD and see goals for comments PT-OP-T Assessment and Plan Start: 10/06/24 07:40 Freq: Status: Active Protocol: Document 11/30/24 08:15 MB (Rec: 11/30/24 08:33 MB [id number]) Physical Therapy Assessment Goals 5 Impairment R hip and knee weakness Mechanical Maintenance Instructor Goal (LTG) Pt will present with at least 4+/5 strength right hip flexion and abduction and knee flexion and extension to improve gait and balance. 11/09/24: Right hip flexion and abduction 4+/5; right knee flexion 3+/5, right knee extension 4/5; left hip flexion, abduction, knee flexion and extension all 4+ to 5/5 11/30/24: Right hip flexion 3+/5 , right hip abduction 4+/5, right knee flexion 4+/5, right knee extension 4+/5; left hip flexion, hip abduction, knee flexion and extension 03/27 LTG Duration 12 weeks 4 Impairment Reduced right knee ROM post-op Mechanical Maintenance Instructor Goal (LTG) Pt will present with improved AROM right knee in supine from at least 5-120 deg to improve functional range for transfers and gait. 11/09/24: Right knee: 7-113 deg; left knee: 14-115 deg 11/17/24: post manual R knee 4 -116 deg. 11/30/24: AROM right knee 10-107 deg; left 9-121 deg LTG Duration 12 weeks 3 Impairment Lack of HEP Longterm Goal (LTG) Pt will perform progressive HEP with I including pelvic realignment, flexibility, strengthening, balance and gait activities to improve range and function. 11/09/24: Pt is performing pelvic realignment exercises, hip abduction, STS with band around knees, SLR, hamstring stretch, standing calf stretch , hip rotator stretch 11/30/24: Pt is performing progressive exercises at home, reviewed all exercises today and took out repetitive exercises and ed pt that he does not have to perform post- op exercises at this time, only after L TKR. Pt will start 2# ankle weights for [place]. LTG Duration 12 weeks 2 Impairment Impaired gait Mechanical Maintenance Instructor Goal (LTG) Pt will gait train at least 1500 feet in 6 minutes with LRAD to improve community ambulation. Pt will not likely reach age norm of 1716 feet in 6 minutes d/t cardiac history. 11/09: Pt gait trains 881 feet in 6 minutes with SPC in right hand and antalgic gait favoring the left knee 11/30/24: Pt gait trains 953 feet in 6 minutes without AD LTG Duration 12 weeks 1 Impairment LEF score reflects over 57% impairment Mechanical Maintenance Instructor Goal (LTG) Pt will present with a LEF score reflecting no more than 30% impairment to improve pain and quality of life. 11/09/24: LEF score reflects 61.25% impairment and pt reports his left knee is really bothering him and this likely influences functional reports 11/30/24: LEF score is improved and reflects 43.75% impairment LTG Duration 12 weeks Assessment Summary Assessment Pt has made a great effort with PT and has progressed towards goals. Range and strength goals have been limited with painful left knee that will be replaced in January. He has maximized HEP and will join the gym and perform stationary bike, he understands post-op exercises and use of AD, ready to d/c OPPT. Physical Therapy Plan Frequency and Duration Frequency of Treatment 2x/Week Duration of treatment (weeks) 12 Plan of Care Start Date 10/12/24 Plan of Care End Date 01/12/25 Therapeutic Interventions Therapeutic Interventions Balance Training,Canalithic Repositioning,Gait Training, Home Exercise Program,Joint Mobilizations,Manual Therapy, Neuromuscular Re-education, Patient/Caregiver Education, Self-Care/Home Management,Soft Tissue Mobilization,Taping, Therapeutic Activities, Therapeutic Exercises Modalities Cold Pack/Ice Massage,Hot Packs
== END 2024-12-01 13:26 | disposition home or self-care (01) ==
LOC: PHYS 08:15
PROVIDERS: PCP Physician Assistant; Referring Provider Physician Assistant; Visit Provider Physician Assistant
DX: M17.11 Unilateral primary osteoarthritis, right knee (principal)
CPT/HCPCS: 97110; 97112; 97116; 97140; 97161; 97535

== ENCOUNTER 2025-03-31 10:45 | Outpatient (RCR) | payer MEDICARE, SELFPAY ==
[2022-05-09 20:40] VITALS: BMI 29.3
--- NOTE | 2025-01-30 09:25 | PT.OIE ---
Current Diagnoses Unilateral primary osteoarthritis, left knee (01/30/25) Past Medical History (Last Updated 05/09/22 @ 22:25 by Inderjit Torres MD) BPH (benign prostatic hyperplasia) Depression DVT (deep venous thrombosis) History of tongue cancer Hyperlipidemia Hypertension Presence of IVC filter Protein C deficiency Pulmonary embolism Sleep apnea Stroke Past Surgical History (Last Updated 05/09/22 @ 22:24 by Inderjit Torres MD) S/P coil embolization of cerebral aneurysm S/P sinus surgery Visit Care Team Role Provider Type Dani Payne PA-C Family Provider Non-Staff Primary Care Provider Specialty: Medical Address: [address] [place] [address], [place], [address] Email: Susan Lowe PA-C Attending Provider Non-Staff Referring Provider Specialty: General Surgery Address: [address] [place] [address], [place], [address] Email: Physical Therapy Initial Evaluation PT-OP-A Visit Information Start: 01/29/25 08:43 Freq: Status: Active Protocol: Document 01/30/25 08:28 MB (Rec: 01/30/25 09:25 MB [id number]) Out-Patient Physical Therapy Visit Information Visit Information Visit Type Initial Evaluation Visit Note Medicare [facility] Pt arrives late to initial evaluation Visit Start Time 08:28 Visit Stop Time 09:18 Visit Number 1 Number of LOOM CONTROL CHAIN BUILDER Visits 0 Evaluation Information Evaluation Date 01/30/25 Precautions Precautions Pt is on two blood thinners and has significant cardiac history as well as stroke PT-OP-B Current Condition Start: 01/29/25 08:43 Freq: Status: Active Protocol: Document 01/30/25 08:28 MB (Rec: 01/30/25 09:25 MB [id number]) Current Condition History of Current Condition Onset Date 01/23/25 Left medial UKA Current Complaints Left knee pain and trouble walking History of Current Condition Pt arrives to clinic with cane in right hand and he is limping severely. Pt uses the walker in the house. Pt has 2 steps to enter home without rail. 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 Treatment Goals Patient/Caregiver Goals To improve pain and walking PT-OP-C Subjective Start: 01/29/25 08:43 Freq: Status: Active Protocol: Document 01/30/25 08:28 MB (Rec: 01/30/25 09:25 MB [id number]) OP-PT Subjective Patient Comments Patient Comments See history of current condition. Patient Questionnaires Lower Extremity Functional Scale LEFS Score 26 LEFS Impairment 60 to 79% Impaired (Score 17- 31) PT-OP-G Mobility & Gait Start: 01/29/25 08:43 Freq: Status: Active Protocol: Document 01/30/25 08:28 MB (Rec: 01/30/25 09:25 MB [id number]) OP Gait Assessment Comments Gait Comments Pt arrives with walking stick/ wooden cane that is too tall in right and and he presents with flexion at hips, trunk and knees and antalgic/limping step-to gait with decreased step-length and foot clearance . Obtained RW and cued pt to perform better step-through gait and upright posture and ed to use RW at all times currently PT-OP-K Range of Motion Start: 01/29/25 08:43 Freq: Status: Active Protocol: Document 01/30/25 08:28 MB (Rec: 01/30/25 09:25 MB [id number]) Knee Goniometric Range of Motion Knee Left Knee ROM WFL No Patient Position Supine Comments LLE edema in compression hose and dressing and bandage still on wound and PT can see under hose Limited extension with range 18-79 deg Right Knee ROM WFL No Patient Position Supine Comments 5-113 deg PT-OP-M Strength Start: 01/29/25 08:43 Freq: Status: Active Protocol: Document 01/30/25 08:28 MB (Rec: 01/30/25 09:25 MB [id number]) Hip Strength Hip Manual Muscle Testing Left Flexion (L2) 3+ Fair+ Extension (S1) 3+ Fair+ Abduction 3+ Fair+ Right Flexion (L2) 4+ Good+ Extension (S1) 4 Good Abduction 4+ Good+ Knee Strength Knee Manual Muscle Testing Left Flexion (S2) 4 Good Extension (L3) 4 Good Comments Can lift leg off plinth in SLR position but is painful, slow and limited and lacking some knee extension Right Flexion (S2) 5 Normal Extension (L3) 5 Normal Ankle/Foot Strength Ankle and Foot Manual Muscle Testing Left Dorsiflexion (L4) 5 Normal Comments Stranding PF MMT not performed today d/t pain and presentation post-op Right Dorsiflexion (L4) 5 Normal Comments Stranding PF MMT not performed today d/t pain and presentation post-op Toe Strength Toe Manual Muscle Testing Left Great Toe Flexion 5 Normal Right Great Toe Flexion 5 Normal PT-OP-Q Treatments Start: 01/29/25 08:43 Freq: Status: Active Protocol: Document 01/30/25 08:28 MB (Rec: 01/30/25 09:25 [id number]) Therapeutic Exercises Supine Exercises Post-op knee exercises Supine Exercise Name HEP: Pt already has from last surgery Side bilateral Reps/Minutes Several reps on each leg, to focus on LLE Comments APs, QS, GS and HS Self-Care/Home Management Treatment Education Patient Education Body Mechanics,Fall Risk,Home Exercise Program,Joint Protection,Pain Management Other Education Ongoing ed to ice more than twice a day, con't with compression hose, do post-op exercises, use RW and walk frequently with better posture and step-through PT-OP-T Assessment and Plan Start: 01/29/25 08:43 Freq: Status: Active Protocol: Document 01/30/25 08:28 MB (Rec: 01/30/25 09:25 [id number]) Physical Therapy Assessment Rehab Potential Rehabilitation Potential Good Evaluation Complexity Number of Personal Factors/Comorbidities 1-2 Number of Body Systems Impaired 3 Clinical Presentation at Evaluation Evolving Impairments Impairments Activity Tolerance,Balance, Coordination,Edema,Functional Activities,Functional Mobility ,Gait,Integument,Pain,Posture, ROM,Soft Tissue Mobility, Strength Goals 5 Impairment Lack of HEP Chief Engineer Waterworks Goal (LTG) Pt will perform HEP with I including ROM, flexibility, strengthening, balance and gait exercises to improve pain and to meet other goals. LTG Duration 8 weeks 4 Impairment Decreased left knee ROM Chief Engineer Waterworks Goal (LTG) Pt will perform left knee AROM in supine equal to right to improve functional transfers and marixa. LTG Duration 8 weeks 3 Impairment Evidence of imbalance Chief Engineer Waterworks Goal (LTG) Pt will perform TUG in no more than 9 sec to decrease fall risk. LTG Duration 8 weeks 2 Impairment Impaired and slow gait Chief Engineer Waterworks Goal (LTG) Pt will gait train at least 1700 feet in 6 minutes with or without LRAD to improve community ambulation. LTG Duration 8 weeks 1 Impairment LEF score reflects 67.5% impairment Skilled Nursing Goal (LTG) Pt will present with LEF score reflecting no more than 30% impairment to improve functional mobility and quality of life. LTG Duration 8 weeks Assessment Summary Assessment Pt is a 69 y/o male returning to PT after left UKC. Pt presents with slow and antalgic step-to gait with walking stick/cane in right hand and PT obtains clinic walker and his posture, step- length and step-through and marixa improve. Ed pt to only use his RW at this time and to work on walking pattern. Pt presents with LLE edema and he wears his thigh high compression to assessment. BP and HR in LUE in supine: 131/ 81, 68. Pt presents with decreased range and strength in LLE. He will benefit from PT to improve range, strength, balance, gait and function. Pt does have a significant cardiac history and is on blood thinners. Will con't to monitor any symptoms during exercise. Ed pt that PT will push him a little harder with good gait quality and balance this treatment course now that he has had both knees operated upon. Physical Therapy Plan Frequency and Duration Frequency of Treatment 2x/Week Duration of treatment (weeks) 8 Plan of Care Start Date 01/30/25 Plan of Care End Date 04/01/25 Therapeutic Interventions Therapeutic Interventions Balance Training,Canalithic Repositioning,Coordination Training,Gait Training,Home Exercise Program,Joint Mobilizations,Manual Therapy, Neuromuscular Re-education, Patient/Caregiver Education, Self-Care/Home Management, Sensory Integration,Soft Tissue Mobilization,Taping, Therapeutic Activities, Therapeutic Exercises Modalities Cold Pack/Ice Massage,Electric Stimulation,Ultrasound Next Visit Focus/Plan Next Note Type Treatment Note Next Visit Plan Pt to bring in HEP folder from last knee treatment course to start reviewing and add back exercises. Initiate manual work. Look at pelvis alignment .
--- NOTE | 2025-01-30 09:25 | PT.OIE ---
Current Diagnoses Unilateral primary osteoarthritis, left knee (01/30/25) Past Medical History (Last Updated 05/09/22 @ 22:25 by Inderjit Torres MD) BPH (benign prostatic hyperplasia) Depression DVT (deep venous thrombosis) History of tongue cancer Hyperlipidemia Hypertension Presence of IVC filter Protein C deficiency Pulmonary embolism Sleep apnea Stroke Past Surgical History (Last Updated 05/09/22 @ 22:24 by Inderjit Torres MD) S/P coil embolization of cerebral aneurysm S/P sinus surgery Visit Care Team Role Provider Type Dani Payne PA-C Family Provider Non-Staff Primary Care Provider Specialty: Medical Address: [address] [place] [address], [place], [address] Email: Susan Lowe PA-C Attending Provider Non-Staff Referring Provider Specialty: General Surgery Address: [address] [place] [address], [place], [address] Email: Physical Therapy Initial Evaluation PT-OP-A Visit Information Start: 01/29/25 08:43 Freq: Status: Active Protocol: Document 01/30/25 08:28 MB (Rec: 01/30/25 09:25 MB [id number]) Out-Patient Physical Therapy Visit Information Visit Information Visit Type Initial Evaluation Visit Note Medicare [facility] Pt arrives late to initial evaluation Visit Start Time 08:28 Visit Stop Time 09:18 Visit Number 1 Number of WINDER CONTORT OPERATOR Visits 0 Evaluation Information Evaluation Date 01/30/25 Precautions Precautions Pt is on two blood thinners and has significant cardiac history as well as stroke PT-OP-B Current Condition Start: 01/29/25 08:43 Freq: Status: Active Protocol: Document 01/30/25 08:28 MB (Rec: 01/30/25 09:25 MB [id number]) Current Condition History of Current Condition Onset Date 01/23/25 Left medial UKA Current Complaints Left knee pain and trouble walking History of Current Condition Pt arrives to clinic with cane in right hand and he is limping severely. Pt uses the walker in the house. Pt has 2 steps to enter home without rail. 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 Treatment Goals Patient/Caregiver Goals To improve pain and walking PT-OP-C Subjective Start: 01/29/25 08:43 Freq: Status: Active Protocol: Document 01/30/25 08:28 MB (Rec: 01/30/25 09:25 MB [id number]) OP-PT Subjective Patient Comments Patient Comments See history of current condition. Patient Questionnaires Lower Extremity Functional Scale LEFS Score 26 LEFS Impairment 60 to 79% Impaired (Score 17- 31) PT-OP-G Mobility & Gait Start: 01/29/25 08:43 Freq: Status: Active Protocol: Document 01/30/25 08:28 MB (Rec: 01/30/25 09:25 MB [id number]) OP Gait Assessment Comments Gait Comments Pt arrives with walking stick/ wooden cane that is too tall in right and and he presents with flexion at hips, trunk and knees and antalgic/limping step-to gait with decreased step-length and foot clearance . Obtained RW and cued pt to perform better step-through gait and upright posture and ed to use RW at all times currently PT-OP-K Range of Motion Start: 01/29/25 08:43 Freq: Status: Active Protocol: Document 01/30/25 08:28 MB (Rec: 01/30/25 09:25 MB [id number]) Knee Goniometric Range of Motion Knee Left Knee ROM WFL No Patient Position Supine Comments LLE edema in compression hose and dressing and bandage still on wound and PT can see under hose Limited extension with range 18-79 deg Right Knee ROM WFL No Patient Position Supine Comments 5-113 deg PT-OP-M Strength Start: 01/29/25 08:43 Freq: Status: Active Protocol: Document 01/30/25 08:28 MB (Rec: 01/30/25 09:25 MB [id number]) Hip Strength Hip Manual Muscle Testing Left Flexion (L2) 3+ Fair+ Extension (S1) 3+ Fair+ Abduction 3+ Fair+ Right Flexion (L2) 4+ Good+ Extension (S1) 4 Good Abduction 4+ Good+ Knee Strength Knee Manual Muscle Testing Left Flexion (S2) 4 Good Extension (L3) 4 Good Comments Can lift leg off plinth in SLR position but is painful, slow and limited and lacking some knee extension Right Flexion (S2) 5 Normal Extension (L3) 5 Normal Ankle/Foot Strength Ankle and Foot Manual Muscle Testing Left Dorsiflexion (L4) 5 Normal Comments Stranding PF MMT not performed today d/t pain and presentation post-op Right Dorsiflexion (L4) 5 Normal Comments Stranding PF MMT not performed today d/t pain and presentation post-op Toe Strength Toe Manual Muscle Testing Left Great Toe Flexion 5 Normal Right Great Toe Flexion 5 Normal PT-OP-Q Treatments Start: 01/29/25 08:43 Freq: Status: Active Protocol: Document 01/30/25 08:28 MB (Rec: 01/30/25 09:25 [id number]) Therapeutic Exercises Supine Exercises Post-op knee exercises Supine Exercise Name HEP: Pt already has from last surgery Side bilateral Reps/Minutes Several reps on each leg, to focus on LLE Comments APs, QS, GS and HS Self-Care/Home Management Treatment Education Patient Education Body Mechanics,Fall Risk,Home Exercise Program,Joint Protection,Pain Management Other Education Ongoing ed to ice more than twice a day, con't with compression hose, do post-op exercises, use RW and walk frequently with better posture and step-through PT-OP-T Assessment and Plan Start: 01/29/25 08:43 Freq: Status: Active Protocol: Document 01/30/25 08:28 MB (Rec: 01/30/25 09:25 [id number]) Physical Therapy Assessment Rehab Potential Rehabilitation Potential Good Evaluation Complexity Number of Personal Factors/Comorbidities 1-2 Number of Body Systems Impaired 3 Clinical Presentation at Evaluation Evolving Impairments Impairments Activity Tolerance,Balance, Coordination,Edema,Functional Activities,Functional Mobility ,Gait,Integument,Pain,Posture, ROM,Soft Tissue Mobility, Strength Goals 5 Impairment Lack of HEP Furniture Assembler Goal (LTG) Pt will perform HEP with I including ROM, flexibility, strengthening, balance and gait exercises to improve pain and to meet other goals. LTG Duration 8 weeks 4 Impairment Decreased left knee ROM Furniture Assembler Goal (LTG) Pt will perform left knee AROM in supine equal to right to improve functional transfers and marixa. LTG Duration 8 weeks 3 Impairment Evidence of imbalance Furniture Assembler Goal (LTG) Pt will perform TUG in no more than 9 sec to decrease fall risk. LTG Duration 8 weeks 2 Impairment Impaired and slow gait Furniture Assembler Goal (LTG) Pt will gait train at least 1700 feet in 6 minutes with or without LRAD to improve community ambulation. LTG Duration 8 weeks 1 Impairment LEF score reflects 67.5% impairment Correction Goal (LTG) Pt will present with LEF score reflecting no more than 30% impairment to improve functional mobility and quality of life. LTG Duration 8 weeks Assessment Summary Assessment Pt is a 69 y/o male returning to PT after left UKC. Pt presents with slow and antalgic step-to gait with walking stick/cane in right hand and PT obtains clinic walker and his posture, step- length and step-through and marixa improve. Ed pt to only use his RW at this time and to work on walking pattern. Pt presents with LLE edema and he wears his thigh high compression to assessment. BP and HR in LUE in supine: 131/ 81, 68. Pt presents with decreased range and strength in LLE. He will benefit from PT to improve range, strength, balance, gait and function. Pt does have a significant cardiac history and is on blood thinners. Will con't to monitor any symptoms during exercise. Ed pt that PT will push him a little harder with good gait quality and balance this treatment course now that he has had both knees operated upon. Physical Therapy Plan Frequency and Duration Frequency of Treatment 2x/Week Duration of treatment (weeks) 8 Plan of Care Start Date 01/30/25 Plan of Care End Date 04/01/25 Therapeutic Interventions Therapeutic Interventions Balance Training,Canalithic Repositioning,Coordination Training,Gait Training,Home Exercise Program,Joint Mobilizations,Manual Therapy, Neuromuscular Re-education, Patient/Caregiver Education, Self-Care/Home Management, Sensory Integration,Soft Tissue Mobilization,Taping, Therapeutic Activities, Therapeutic Exercises Modalities Cold Pack/Ice Massage,Electric Stimulation,Ultrasound Next Visit Focus/Plan Next Note Type Treatment Note Next Visit Plan Pt to bring in HEP folder from last knee treatment course to start reviewing and add back exercises. Initiate manual work. Look at pelvis alignment .
--- NOTE | 2025-01-30 09:26 | PT.OPPOC ---
Physical, Occupational & Speech Therapy At [facility] Current Diagnoses Unilateral primary osteoarthritis, left knee (01/30/25) Visit Care Team Role Provider Type Dani Payne PA-C Family Provider Non-Staff Primary Care Provider Specialty: Medical Address: [address] [facility], [place], [address] Email: Susan Lowe PA-C Attending Provider Non-Staff Referring Provider Specialty: General Surgery Address: [address] [place], [address] Email: Plan Of Care PT-OP-B Current Condition Start: 01/29/25 08:43 Freq: Status: Active Protocol: Document 01/30/25 08:28 MB (Rec: 01/30/25 09:25 MB [id number]) Current Condition History of Current Condition Onset Date 01/23/25 Left medial UKA Current Complaints Left knee pain and trouble walking History of Current Condition Pt arrives to clinic with cane in right hand and he is limping severely. Pt uses the walker in the house. Pt has 2 steps to enter home without rail. 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 Treatment Goals Patient/Caregiver Goals To improve pain and walking PT-OP-T Assessment and Plan Start: 01/29/25 08:43 Freq: Status: Active Protocol: Document 01/30/25 08:28 MB (Rec: 01/30/25 09:25 MB [id number]) Physical Therapy Assessment Rehab Potential Rehabilitation Potential Good Evaluation Complexity Number of Personal Factors/Comorbidities 1-2 Number of Body Systems Impaired 3 Clinical Presentation at Evaluation Evolving Impairments Impairments Activity Tolerance,Balance, Coordination,Edema,Functional Activities,Functional Mobility ,Gait,Integument,Pain,Posture, ROM,Soft Tissue Mobility, Strength Goals 5 Impairment Lack of HEP Rehabilitation Center Manager Goal (LTG) Pt will perform HEP with I including ROM, flexibility, strengthening, balance and gait exercises to improve pain and to meet other goals. LTG Duration 8 weeks 4 Impairment Decreased left knee ROM Half-Way Goal (LTG) Pt will perform left knee AROM in supine equal to right to improve functional transfers and marixa. LTG Duration 8 weeks 3 Impairment Evidence of imbalance Rehabilitation Center Manager Goal (LTG) Pt will perform TUG in no more than 9 sec to decrease fall risk. LTG Duration 8 weeks 2 Impairment Impaired and slow gait Half-Way Goal (LTG) Pt will gait train at least 1700 feet in 6 minutes with or without LRAD to improve community ambulation. LTG Duration 8 weeks 1 Impairment LEF score reflects 67.5% impairment Half-Way Goal (LTG) Pt will present with LEF score reflecting no more than 30% impairment to improve functional mobility and quality of life. LTG Duration 8 weeks Assessment Summary Assessment Pt is a 69 y/o male returning to PT after left UKC. Pt presents with slow and antalgic step-to gait with walking stick/cane in right hand and PT obtains clinic walker and his posture, step- length and step-through and marixa improve. Ed pt to only use his RW at this time and to work on walking pattern. Pt presents with LLE edema and he wears his thigh high compression to assessment. BP and HR in LUE in supine: 131/ 81, 68. Pt presents with decreased range and strength in LLE. He will benefit from PT to improve range, strength, balance, gait and function. Pt does have a significant cardiac history and is on blood thinners. Will con't to monitor any symptoms during exercise. Ed pt that PT will push him a little harder with good gait quality and balance this treatment course now that he has had both knees operated upon. Physical Therapy Plan Frequency and Duration Frequency of Treatment 2x/Week Duration of treatment (weeks) 8 Plan of Care Start Date 01/30/25 Plan of Care End Date 04/01/25 Therapeutic Interventions Therapeutic Interventions Balance Training,Canalithic Repositioning,Coordination Training,Gait Training,Home Exercise Program,Joint Mobilizations,Manual Therapy, Neuromuscular Re-education, Patient/Caregiver Education, Self-Care/Home Management, Sensory Integration,Soft Tissue Mobilization,Taping, Therapeutic Activities, Therapeutic Exercises Modalities Cold Pack/Ice Massage,Electric Stimulation,Ultrasound Next Visit Focus/Plan Next Note Type Treatment Note Next Visit Plan Pt to bring in HEP folder from last knee treatment course to start reviewing and add back exercises. Initiate manual work. Look at pelvis alignment . Plan of Care Dates Plan of Care Start Date 01/30/25 Plan of Care End Date 04/01/25 Electronically Signed by: Belia Bean, KIERAN 01/30/25 0926 If you are in agreement with this Plan of Care, please return a signed and dated copy. I have reviewed this Plan of Care and certify that the skilled therapy services above are required to meet the patient?s needs. Physician Signature Date Printed Name and Credentials Clinical Instructor Signature Printed Name and Credentials
--- NOTE | 2025-02-03 09:27 | PT.OTN ---
Current Diagnoses Unilateral primary osteoarthritis, left knee (02/03/25) Physical Therapy Treatment Note PT-OP-A Visit Information Start: 01/29/25 08:43 Freq: Status: Active Protocol: Document 02/03/25 08:34 SP (Rec: 02/03/25 09:48 SP [id number]) Out-Patient Physical Therapy Visit Information Visit Information Visit Type Initial Evaluation Visit Note Medicare AARP Pt arrives late to initial evaluation Visit Start Time 08:35 Visit Stop Time 09:27 Visit Number 2 Number of BELT MOLDER Visits 1 Evaluation Information Evaluation Date 01/30/25 Precautions Precautions Pt is on two blood thinners and has significant cardiac history as well as stroke PT-OP-B Current Condition Start: 01/29/25 08:43 Freq: Status: Active Protocol: Document 01/30/25 08:28 MB (Rec: 01/30/25 09:25 MB [id number]) Current Condition History of Current Condition Onset Date 01/23/25 Left medial UKA Current Complaints Left knee pain and trouble walking History of Current Condition Pt arrives to clinic with cane in right hand and he is limping severely. Pt uses the walker in the house. Pt has 2 steps to enter home without rail. 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 Treatment Goals Patient/Caregiver Goals To improve pain and walking PT-OP-C Subjective Start: 01/29/25 08:43 Freq: Status: Active Protocol: Document 02/03/25 08:34 SP (Rec: 02/03/25 09:48 SP [id number]) OP-PT Subjective Patient Comments Patient Comments Pt is trying to ice L knee 4- 6x/day per PT recommendation. Arrives with FWW low and compression stockings on B knees with report only been doing ice and APs. He sees candy forming machine operator Mon for foot maintence (nail clipping), Ortho follow up Tues. PT-OP-G Mobility & Gait Start: 01/29/25 08:43 Freq: Status: Active Protocol: Document 01/30/25 08:28 MB (Rec: 01/30/25 09:25 MB [id number]) OP Gait Assessment Comments Gait Comments Pt arrives with walking stick/ wooden cane that is too tall in right and and he presents with flexion at hips, trunk and knees and antalgic/limping step-to gait with decreased step-length and foot clearance . Obtained RW and cued pt to perform better step-through gait and upright posture and ed to use RW at all times currently PT-OP-K Range of Motion Start: 01/29/25 08:43 Freq: Status: Active Protocol: Document 01/30/25 08:28 MB (Rec: 01/30/25 09:25 MB [id number]) Knee Goniometric Range of Motion Knee Left Knee ROM WFL No Patient Position Supine Comments LLE edema in compression hose and dressing and bandage still on wound and PT can see under hose Limited extension with range 18-79 deg Right Knee ROM WFL No Patient Position Supine Comments 5-113 deg PT-OP-M Strength Start: 01/29/25 08:43 Freq: Status: Active Protocol: Document 01/30/25 08:28 MB (Rec: 01/30/25 09:25 MB [id number]) Hip Strength Hip Manual Muscle Testing Left Flexion (L2) 3+ Fair+ Extension (S1) 3+ Fair+ Abduction 3+ Fair+ Right Flexion (L2) 4+ Good+ Extension (S1) 4 Good Abduction 4+ Good+ Knee Strength Knee Manual Muscle Testing Left Flexion (S2) 4 Good Extension (L3) 4 Good Comments Can lift leg off plinth in SLR position but is painful, slow and limited and lacking some knee extension Right Flexion (S2) 5 Normal Extension (L3) 5 Normal Ankle/Foot Strength Ankle and Foot Manual Muscle Testing Left Dorsiflexion (L4) 5 Normal Comments Stranding PF MMT not performed today d/t pain and presentation post-op Right Dorsiflexion (L4) 5 Normal Comments Stranding PF MMT not performed today d/t pain and presentation post-op Toe Strength Toe Manual Muscle Testing Left Great Toe Flexion 5 Normal Right Great Toe Flexion 5 Normal PT-OP-Q Treatments Start: 01/29/25 08:43 Freq: Status: Active Protocol: Document 02/03/25 08:34 SP (Rec: 02/03/25 09:48 SP [id number]) Therapeutic Exercises Supine Exercises Active HS stretch Supine Exercise Name REviewed /c HO Side left Equipment Used strap on foot Reps/Minutes 15 AP Comments cued not push into pain, reports pretty tight, little comfortable Pelvic Realignment Ex Supine Exercise Name Reviewed: isometric adduction, pelvic lift, isometric HS /c HO Side bilateral Reps/Minutes 3 SH x5 reps each Comments cued breath allowance Post-op knee exercises Supine Exercise Name REviewed: QS, GS, Heel slide with strap, APs, added knee hang sitting &pic Side left Equipment Used /c HOs Reps/Minutes QS (13>10 deg) & GS 5 Sh x10, heel slide /c strap 92 deg x10 , AP x15 Comments Uncomfortable QS & end feel flexion but doable for progr. range Sitting Exercises knee hang Sitting Exercise Name verbal added knee hang - written on his HOs Side left Equipment Used prop foot up in ottoman/coffee table Reps/Minutes 2x30 SH, BID Comments ed passive support extension Standing Exercises Heel Raises Standing Exercise Name verbal review /c HO, is performing on own Side bilateral Resistance AROM Equipment Used rail support Reps/Minutes 10 Comments not performed, stated feels ok to do calf stretch Standing Exercise Name verbal review /c HO, is performing on own Side bilateral Reps/Minutes 30 sec x2 Comments not performed Gait Training Gait Activity 4WW Device Used 4WW Level of Assistance Mod I Distance/Duration 140 ft 1 lap Treatment Focus proper knee ankle gait phases Comments Improved L knee flexion/DF, cued little slower pacing. Discussion access proper height at [employer] today. FWW Device Used FWW Treatment Focus knee ROM/patterning normalize gait Comments adjusted FWW height 5 knotches proper height, discussed acquiring skis/tennis balls for back legs, ease glide. Improved patterning and posture. Used PT FWW 2nd lap due to hard plastic back legs bottoms. Manual Therapy Treatment Other Other Manual Treatments P PT-OP-T Assessment and Plan Start: 01/29/25 08:43 Freq: Status: Active Protocol: Document 02/03/25 08:34 SP (Rec: 02/03/25 09:48 SP [id number]) Physical Therapy Assessment Goals 5 Impairment Lack of HEP Farm Butcher Goal (LTG) Pt will perform HEP with I including ROM, flexibility, strengthening, balance and gait exercises to improve pain and to meet other goals. LTG Duration 8 weeks 4 Impairment Decreased left knee ROM [facility] Living Goal (LTG) Pt will perform left knee AROM in supine equal to right to improve functional transfers and marixa. LTG Duration 8 weeks 3 Impairment Evidence of imbalance Farm Butcher Goal (LTG) Pt will perform TUG in no more than 9 sec to decrease fall risk. LTG Duration 8 weeks 2 Impairment Impaired and slow gait [facility] Goal (LTG) Pt will gait train at least 1700 feet in 6 minutes with or without LRAD to improve community ambulation. LTG Duration 8 weeks 1 Impairment LEF score reflects 67.5% impairment [facility] Goal (LTG) Pt will present with LEF score reflecting no more than 30% impairment to improve functional mobility and quality of life. LTG Duration 8 weeks Assessment Summary Assessment Tx focused on adjustment proper personal FWW height, discussion don tennis balls/ ski for ease glide locomotion and higher 4WW at [employer] today. Used PT FWW and 4WW gait 1 laps around clinic with cuing for L knee & ankle ROM mobility, improved with distance. Reviewed previous HEP including post-op with cuing for mindful range tolerance ext (AROM) and flexion (assisted with strap support), progressed L knee 10 -92 deg today. Physical Therapy Plan Frequency and Duration Frequency of Treatment 2x/Week Duration of treatment (weeks) 8 Plan of Care Start Date 01/30/25 Plan of Care End Date 04/01/25 Therapeutic Interventions Therapeutic Interventions Balance Training,Canalithic Repositioning,Coordination Training,Gait Training,Home Exercise Program,Joint Mobilizations,Manual Therapy, Neuromuscular Re-education, Patient/Caregiver Education, Self-Care/Home Management, Sensory Integration,Soft Tissue Mobilization,Taping, Therapeutic Activities, Therapeutic Exercises Modalities Cold Pack/Ice Massage,Electric Stimulation,Ultrasound Next Visit Focus/Plan Next Note Type Treatment Note Next Visit Plan Continue HEP (QS, GS, AP, supported HS, pelvis alignment , added knee hang seated). Initiate manual work. Check post op appt response, progress HEP standing calf stretch and HR visual performance. Look at FWW back legs and proper height 4WW next arrival.
--- NOTE | 2025-02-08 13:37 | PT.OTN ---
Current Diagnoses Unilateral primary osteoarthritis, left knee (02/08/25) Physical Therapy Treatment Note PT-OP-A Visit Information Start: 01/29/25 08:43 Freq: Status: Active Protocol: Document 02/08/25 12:59 MB (Rec: 02/08/25 13:32 MB [id number]) Out-Patient Physical Therapy Visit Information Visit Information Visit Type Treatment Note Visit Note Medicare AARP Progress note by 03/02/25 Visit Start Time 12:59 Visit Stop Time 13:39 Visit Number 3 Number of TIN CAN FEEDER Visits 0 Evaluation Information Evaluation Date 01/30/25 Precautions Precautions Pt is on two blood thinners and has significant cardiac history as well as stroke PT-OP-B Current Condition Start: 01/29/25 08:43 Freq: Status: Active Protocol: Document 01/30/25 08:28 MB (Rec: 01/30/25 09:25 MB [id number]) Current Condition History of Current Condition Onset Date 01/23/25 Left medial UKA Current Complaints Left knee pain and trouble walking History of Current Condition Pt arrives to clinic with cane in right hand and he is limping severely. Pt uses the walker in the house. Pt has 2 steps to enter home without rail. 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 Treatment Goals Patient/Caregiver Goals To improve pain and walking PT-OP-C Subjective Start: 01/29/25 08:43 Freq: Status: Active Protocol: Document 02/08/25 12:59 MB (Rec: 02/08/25 13:32 MB [id number]) OP-PT Subjective Patient Comments Patient Comments Pt is icing and using his RW. He brings in exercises from previous PT course. PT-OP-G Mobility & Gait Start: 01/29/25 08:43 Freq: Status: Active Protocol: Document 01/30/25 08:28 MB (Rec: 01/30/25 09:25 MB [id number]) OP Gait Assessment Comments Gait Comments Pt arrives with walking stick/ wooden cane that is too tall in right and and he presents with flexion at hips, trunk and knees and antalgic/limping step-to gait with decreased step-length and foot clearance . Obtained RW and cued pt to perform better step-through gait and upright posture and ed to use RW at all times currently PT-OP-K Range of Motion Start: 01/29/25 08:43 Freq: Status: Active Protocol: Document 01/30/25 08:28 MB (Rec: 01/30/25 09:25 MB [id number]) Knee Goniometric Range of Motion Knee Left Knee ROM WFL No Patient Position Supine Comments LLE edema in compression hose and dressing and bandage still on wound and PT can see under hose Limited extension with range 18-79 deg Right Knee ROM WFL No Patient Position Supine Comments 5-113 deg PT-OP-M Strength Start: 01/29/25 08:43 Freq: Status: Active Protocol: Document 01/30/25 08:28 MB (Rec: 01/30/25 09:25 MB [id number]) Hip Strength Hip Manual Muscle Testing Left Flexion (L2) 3+ Fair+ Extension (S1) 3+ Fair+ Abduction 3+ Fair+ Right Flexion (L2) 4+ Good+ Extension (S1) 4 Good Abduction 4+ Good+ Knee Strength Knee Manual Muscle Testing Left Flexion (S2) 4 Good Extension (L3) 4 Good Comments Can lift leg off plinth in SLR position but is painful, slow and limited and lacking some knee extension Right Flexion (S2) 5 Normal Extension (L3) 5 Normal Ankle/Foot Strength Ankle and Foot Manual Muscle Testing Left Dorsiflexion (L4) 5 Normal Comments Stranding PF MMT not performed today d/t pain and presentation post-op Right Dorsiflexion (L4) 5 Normal Comments Stranding PF MMT not performed today d/t pain and presentation post-op Toe Strength Toe Manual Muscle Testing Left Great Toe Flexion 5 Normal Right Great Toe Flexion 5 Normal PT-OP-Q Treatments Start: 01/29/25 08:43 Freq: Status: Active Protocol: Document 02/08/25 12:59 MB (Rec: 02/08/25 13:32 MB [id number]) Cardio Equipment Bicycle (Upright) Duration (Minutes) 10 Resistance 8 Seat Position 8 Therapeutic Exercises Supine Exercises SLR Supine Exercise Name Pt already has handout, re- added to this session's program Side bilateral Comments Focused on LLE, opp knee bent, pelvic tilt and tummy tight [place] stretch Supine Exercise Name Pt already has handout, re- added to this session's program Side bilateral Comments 1 minute each side and opp knee bent Active HS stretch Comments Reviewed handouts today Pelvic Realignment Ex Comments Reviewed handouts today Post-op knee exercises Comments Reviewed handouts today Manual Therapy Treatment Consent Patient gave verbal consent for manual Yes treatment Other Other Manual Treatments Pt supine with head and legs supported: STM and positional release left vastus lateralis, rectus femoris, medial hamstrings, gastroc soleus, left TFL PT-OP-T Assessment and Plan Start: 01/29/25 08:43 Freq: Status: Active Protocol: Document 02/08/25 12:59 MB (Rec: 02/08/25 13:32 MB [id number]) Physical Therapy Assessment Rehab Potential Rehabilitation Potential Good Evaluation Complexity Number of Personal Factors/Comorbidities 1-2 Number of Body Systems Impaired 3 Clinical Presentation at Evaluation Evolving Impairments Impairments Activity Tolerance,Balance, Coordination,Edema,Functional Activities,Functional Mobility ,Gait,Integument,Pain,Posture, ROM,Soft Tissue Mobility, Strength Goals 5 Impairment Lack of HEP [facility] Goal (LTG) Pt will perform HEP with I including ROM, flexibility, strengthening, balance and gait exercises to improve pain and to meet other goals. LTG Duration 8 weeks 4 Impairment Decreased left knee ROM [facility] Goal (LTG) Pt will perform left knee AROM in supine equal to right to improve functional transfers and marixa. LTG Duration 8 weeks 3 Impairment Evidence of imbalance Jute Bag Sewer Goal (LTG) Pt will perform TUG in no more than 9 sec to decrease fall risk. LTG Duration 8 weeks 2 Impairment Impaired and slow gait Jute Bag Sewer Goal (LTG) Pt will gait train at least 1700 feet in 6 minutes with or without LRAD to improve community ambulation. LTG Duration 8 weeks 1 Impairment LEF score reflects 67.5% impairment Jute Bag Sewer Goal (LTG) Pt will present with LEF score reflecting no more than 30% impairment to improve functional mobility and quality of life. LTG Duration 8 weeks Assessment Summary Assessment Progressed exercises today and initiated manual work. Con't progression and eventually, gait training without AD. Physical Therapy Plan Frequency and Duration Frequency of Treatment 2x/Week Duration of treatment (weeks) 8 Plan of Care Start Date 01/30/25 Plan of Care End Date 04/01/25 Therapeutic Interventions Therapeutic Interventions Balance Training,Canalithic Repositioning,Coordination Training,Gait Training,Home Exercise Program,Joint Mobilizations,Manual Therapy, Neuromuscular Re-education, Patient/Caregiver Education, Self-Care/Home Management, Sensory Integration,Soft Tissue Mobilization,Taping, Therapeutic Activities, Therapeutic Exercises Modalities Cold Pack/Ice Massage,Electric Stimulation,Ultrasound Next Visit Focus/Plan Next Note Type Treatment Note Next Visit Plan Upright bike seat height 8 to warm-up Ongoing manual work LLE Next exercises to re-add from previous plan: hip rotator stretch, hook lying clam with band around knees, STS, [place] Progress gait without AD, 6MWT , FGA and exercises
--- NOTE | 2025-02-10 08:17 | PT.OTN ---
Current Diagnoses Unilateral primary osteoarthritis, left knee (02/10/25) Physical Therapy Treatment Note PT-OP-A Visit Information Start: 01/29/25 08:43 Freq: Status: Active Protocol: Document 02/10/25 07:31 SP (Rec: 02/10/25 08:19 SP [id number]) Out-Patient Physical Therapy Visit Information Visit Information Visit Type Treatment Note Visit Note Medicare AARP Progress note by 03/02/25 Visit Start Time 07:34 Visit Stop Time 08:17 Visit Number 4 Number of POSTAL TRANSPORTATION CLERK Visits 1 Evaluation Information Evaluation Date 01/30/25 Precautions Precautions Pt is on two blood thinners and has significant cardiac history as well as stroke PT-OP-B Current Condition Start: 01/29/25 08:43 Freq: Status: Active Protocol: Document 01/30/25 08:28 MB (Rec: 01/30/25 09:25 MB [id number]) Current Condition History of Current Condition Onset Date 01/23/25 Left medial UKA Current Complaints Left knee pain and trouble walking History of Current Condition Pt arrives to clinic with cane in right hand and he is limping severely. Pt uses the walker in the house. Pt has 2 steps to enter home without rail. 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 Treatment Goals Patient/Caregiver Goals To improve pain and walking PT-OP-C Subjective Start: 01/29/25 08:43 Freq: Status: Active Protocol: Document 02/10/25 07:31 SP (Rec: 02/10/25 08:19 SP [id number]) OP-PT Subjective Patient Comments Patient Comments Pt reports his L knee was more sore yesterday and into today at arrival. His follow up this past Tu with ortho went well, next is Mar 07, the PA was pleased with his progress and incision healing well and removed stitches in lower region with little leakage has bandaid covering but not concerning. Also saw Primary for his Medicare annual exam including hearing and was told seems ok, blood work and urine testing good. Next colonoscopy up coming in couple weeks, has been few years. Was cancelled couple times due to + covid and AVM. PT-OP-G Mobility & Gait Start: 01/29/25 08:43 Freq: Status: Active Protocol: Document 01/30/25 08:28 MB (Rec: 01/30/25 09:25 MB [id number]) OP Gait Assessment Comments Gait Comments Pt arrives with walking stick/ wooden cane that is too tall in right and and he presents with flexion at hips, trunk and knees and antalgic/limping step-to gait with decreased step-length and foot clearance . Obtained RW and cued pt to perform better step-through gait and upright posture and ed to use RW at all times currently PT-OP-K Range of Motion Start: 01/29/25 08:43 Freq: Status: Active Protocol: Document 01/30/25 08:28 MB (Rec: 01/30/25 09:25 MB [id number]) Knee Goniometric Range of Motion Knee Left Knee ROM WFL No Patient Position Supine Comments LLE edema in compression hose and dressing and bandage still on wound and PT can see under hose Limited extension with range 18-79 deg Right Knee ROM WFL No Patient Position Supine Comments 5-113 deg PT-OP-M Strength Start: 01/29/25 08:43 Freq: Status: Active Protocol: Document 01/30/25 08:28 MB (Rec: 01/30/25 09:25 MB [id number]) Hip Strength Hip Manual Muscle Testing Left Flexion (L2) 3+ Fair+ Extension (S1) 3+ Fair+ Abduction 3+ Fair+ Right Flexion (L2) 4+ Good+ Extension (S1) 4 Good Abduction 4+ Good+ Knee Strength Knee Manual Muscle Testing Left Flexion (S2) 4 Good Extension (L3) 4 Good Comments Can lift leg off plinth in SLR position but is painful, slow and limited and lacking some knee extension Right Flexion (S2) 5 Normal Extension (L3) 5 Normal Ankle/Foot Strength Ankle and Foot Manual Muscle Testing Left Dorsiflexion (L4) 5 Normal Comments Stranding PF MMT not performed today d/t pain and presentation post-op Right Dorsiflexion (L4) 5 Normal Comments Stranding PF MMT not performed today d/t pain and presentation post-op Toe Strength Toe Manual Muscle Testing Left Great Toe Flexion 5 Normal Right Great Toe Flexion 5 Normal PT-OP-Q Treatments Start: 01/29/25 08:43 Freq: Status: Active Protocol: Document 02/10/25 07:31 SP (Rec: 02/10/25 08:19 SP [id number]) Cardio Equipment Bicycle (Upright) Duration (Minutes) 10 Resistance 8 Seat Position 8 Therapeutic Exercises Supine Exercises Clamshell Supine Exercise Name readded to HEP: with TB Side bilateral Resistance TB #2 teal at lower thighs Reps/Minutes 2x10 Comments good form, no issues Hip Rotation Stretch Supine Exercise Name Readded to HEP: IR Side bilateral Equipment Used with strap vs BUEs support knee Reps/Minutes 30 SH x2 Comments cued breath, draw knee toward opp shoulder SLR Supine Exercise Name reviewed performance Side bilateral Resistance AROM /c TKE cues slow pacing to maintain ext Reps/Minutes x10 each LE Comments Focused on LLE , opp knee bent , pelvic tilt and tummy tight Active HS stretch Side left Equipment Used with strap on foot Reps/Minutes 3x 15 AP Post-op knee exercises Supine Exercise Name QS and heel slide: 2-118 deg AROM Comments AROM assessment Sitting Exercises STS Sitting Exercise Name readded to HEP Equipment Used 23 height table no UE support Reps/Minutes x5 Comments cued full TKE and glut engagement full stand, good control sit Manual Therapy Treatment Consent Patient gave verbal consent for manual Yes treatment Other Other Manual Treatments Pt supine with head and legs supported: STM and positional release left vastus lateralis, rectus femoris, medial hamstrings, gastroc soleus, left TFL PT-OP-T Assessment and Plan Start: 01/29/25 08:43 Freq: Status: Active Protocol: Document 02/10/25 07:31 SP (Rec: 02/10/25 08:19 SP [id number]) Physical Therapy Assessment Goals 5 Impairment Lack of HEP Care Home Goal (LTG) Pt will perform HEP with I including ROM, flexibility, strengthening, balance and gait exercises to improve pain and to meet other goals. LTG Duration 8 weeks 4 Impairment Decreased left knee ROM Care Home Goal (LTG) Pt will perform left knee AROM in supine equal to right to improve functional transfers and marixa. 02/10/25: 2-118 deg L knee AROM . LTG Duration 8 weeks progressing 02/10/25 3 Impairment Evidence of imbalance Care Home Goal (LTG) Pt will perform TUG in no more than 9 sec to decrease fall risk. LTG Duration 8 weeks 2 Impairment Impaired and slow gait Care Home Goal (LTG) Pt will gait train at least 1700 feet in 6 minutes with or without LRAD to improve community ambulation. LTG Duration 8 weeks 1 Impairment LEF score reflects 67.5% impairment Brass Burnisher Goal (LTG) Pt will present with LEF score reflecting no more than 30% impairment to improve functional mobility and quality of life. LTG Duration 8 weeks Progress Towards Goals Progress Comments Progression in supine AROM L knee: 2- 118 deg Assessment Summary Assessment Pt good tolerance to manual, less tension into L knee flexion progressed range 2-118 deg AROM. His progression return to stretching HEP for knee and hip mobility and strengthening resisted clamshell and STS for stability gait tolerated well, no issues. Suggested to patient to acquire tennis balls vs skis for back leg FWW , lifts back leg and walks FWW dueto rubber bottom very resistive. Physical Therapy Plan Frequency and Duration Frequency of Treatment 2x/Week Duration of treatment (weeks) 8 Plan of Care Start Date 01/30/25 Plan of Care End Date 04/01/25 Therapeutic Interventions Therapeutic Interventions Balance Training,Canalithic Repositioning,Coordination Training,Gait Training,Home Exercise Program,Joint Mobilizations,Manual Therapy, Neuromuscular Re-education, Patient/Caregiver Education, Self-Care/Home Management, Sensory Integration,Soft Tissue Mobilization,Taping, Therapeutic Activities, Therapeutic Exercises Modalities Cold Pack/Ice Massage,Electric Stimulation,Ultrasound Next Visit Focus/Plan Next Note Type Treatment Note Next Visit Plan Upright bike seat height 8 to warm-up Ongoing manual work LLE Next check gait FWW wtih tennis balls/skis vs trial trek poles. Recheck HEP: hip rotator stretch, hook lying clam with band around knees, STS; future add [place] Progress gait without AD, 6MWT , FGA and exercises
--- NOTE | 2025-02-15 14:26 | PT.OTN ---
Current Diagnoses Unilateral primary osteoarthritis, left knee (02/15/25) Physical Therapy Treatment Note PT-OP-A Visit Information Start: 01/29/25 08:43 Freq: Status: Active Protocol: Document 02/15/25 13:46 SP (Rec: 02/15/25 14:30 SP [id number]) Out-Patient Physical Therapy Visit Information Visit Information Visit Type Treatment Note Visit Note Medicare AARP Progress note by 03/02/25 (appt 03/01/25) Visit Start Time 13:46 Visit Stop Time 14:26 Visit Number 5 Number of SEARCH ENGINE MARKETING STRATEGIST Visits 2 Evaluation Information Evaluation Date 01/30/25 Precautions Precautions Pt is on two blood thinners and has significant cardiac history as well as stroke PT-OP-B Current Condition Start: 01/29/25 08:43 Freq: Status: Active Protocol: Document 01/30/25 08:28 MB (Rec: 01/30/25 09:25 MB [id number]) Current Condition History of Current Condition Onset Date 01/23/25 Left medial UKA Current Complaints Left knee pain and trouble walking History of Current Condition Pt arrives to clinic with cane in right hand and he is limping severely. Pt uses the walker in the house. Pt has 2 steps to enter home without rail. 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 Treatment Goals Patient/Caregiver Goals To improve pain and walking PT-OP-C Subjective Start: 01/29/25 08:43 Freq: Status: Active Protocol: Document 02/15/25 13:46 SP (Rec: 02/15/25 14:30 SP [id number]) OP-PT Subjective Patient Comments Patient Comments Pt reports has L knee while jt pain with initially stand and step when sitting and 1st wakes up in the am or durign the night. He continues arrive with rubber knobs on back leg FWWvs suggestion skis or tennis balls for normalizing receiprocal gait progression. PT-OP-G Mobility & Gait Start: 01/29/25 08:43 Freq: Status: Active Protocol: Document 01/30/25 08:28 MB (Rec: 01/30/25 09:25 MB [id number]) OP Gait Assessment Comments Gait Comments Pt arrives with walking stick/ wooden cane that is too tall in right and and he presents with flexion at hips, trunk and knees and antalgic/limping step-to gait with decreased step-length and foot clearance . Obtained RW and cued pt to perform better step-through gait and upright posture and ed to use RW at all times currently PT-OP-K Range of Motion Start: 01/29/25 08:43 Freq: Status: Active Protocol: Document 01/30/25 08:28 MB (Rec: 01/30/25 09:25 MB [id number]) Knee Goniometric Range of Motion Knee Left Knee ROM WFL No Patient Position Supine Comments LLE edema in compression hose and dressing and bandage still on wound and PT can see under hose Limited extension with range 18-79 deg Right Knee ROM WFL No Patient Position Supine Comments 5-113 deg PT-OP-M Strength Start: 01/29/25 08:43 Freq: Status: Active Protocol: Document 01/30/25 08:28 MB (Rec: 01/30/25 09:25 MB [id number]) Hip Strength Hip Manual Muscle Testing Left Flexion (L2) 3+ Fair+ Extension (S1) 3+ Fair+ Abduction 3+ Fair+ Right Flexion (L2) 4+ Good+ Extension (S1) 4 Good Abduction 4+ Good+ Knee Strength Knee Manual Muscle Testing Left Flexion (S2) 4 Good Extension (L3) 4 Good Comments Can lift leg off plinth in SLR position but is painful, slow and limited and lacking some knee extension Right Flexion (S2) 5 Normal Extension (L3) 5 Normal Ankle/Foot Strength Ankle and Foot Manual Muscle Testing Left Dorsiflexion (L4) 5 Normal Comments Stranding PF MMT not performed today d/t pain and presentation post-op Right Dorsiflexion (L4) 5 Normal Comments Stranding PF MMT not performed today d/t pain and presentation post-op Toe Strength Toe Manual Muscle Testing Left Great Toe Flexion 5 Normal Right Great Toe Flexion 5 Normal PT-OP-Q Treatments Start: 01/29/25 08:43 Freq: Status: Active Protocol: Document 02/15/25 13:46 SP (Rec: 02/15/25 14:30 SP [id number]) Cardio Equipment Bicycle (Upright) Duration (Minutes) 10 Resistance 8 Seat Position 8 Therapeutic Exercises Supine Exercises Hip Rotation Stretch Supine Exercise Name Reviewed: ER and IR Side bilateral Resistance ankle over opp knee Equipment Used UEs support knee Reps/Minutes 5 breathes (30 SH) Comments cued breath, draw knee toward opp shoulder, press away Active HS stretch Side left Equipment Used with strap on foot Reps/Minutes 3x 15 AP Post-op knee exercises Supine Exercise Name Heel slide Side left Reps/Minutes x10 reps Comments ed perform before get up and walk Sitting Exercises STS Sitting Exercise Name readded to HEP Equipment Used 23 height table no UE support , 21 x Reps/Minutes x10 Comments cued x1 full stand and good hip hinge slow sit Other Exercises shaheen stepping Other Exercise Name assist AROM: fwd and Lateral Equipment Used 1 rail support Reps/Minutes 4 hurdles receiprocal stepping Gait Training Gait Activity 6MWT Device Used 4WW (PT's) Distance/Duration 820 ft Treatment Focus baseline assessment Comments cue L foot clearance, occ scuff heard. trek poles Device Used cherelle Comments 30 ft cues for proper patterning Manual Therapy Treatment Consent Patient gave verbal consent for manual Yes treatment Other Other Manual Treatments Pt supine with head and legs supported: R LE STM and positional release left vastus lateralis, rectus femoris, medial hamstrings, gastroc soleus, left TFL PT-OP-T Assessment and Plan Start: 01/29/25 08:43 Freq: Status: Active Protocol: Document 02/15/25 13:46 SP (Rec: 02/15/25 14:30 SP [id number]) Physical Therapy Assessment Goals 5 Impairment Lack of HEP Fdc Goal (LTG) Pt will perform HEP with I including ROM, flexibility, strengthening, balance and gait exercises to improve pain and to meet other goals. LTG Duration 8 weeks 4 Impairment Decreased left knee ROM Construction Quality Control Manager Goal (LTG) Pt will perform left knee AROM in supine equal to right to improve functional transfers and marixa. 02/10/25: 2-118 deg L knee AROM . LTG Duration 8 weeks progressing 02/10/25 3 Impairment Evidence of imbalance Fdc Goal (LTG) Pt will perform TUG in no more than 9 sec to decrease fall risk. LTG Duration 8 weeks 2 Impairment Impaired and slow gait Fdc Goal (LTG) Pt will gait train at least 1700 feet in 6 minutes with or without LRAD to improve community ambulation. 3/26/25: 820 ft with 4WW in 6 min LTG Duration 8 weeks progressing 02/15/25 1 Impairment LEF score reflects 67.5% impairment Construction Quality Control Manager Goal (LTG) Pt will present with LEF score reflecting no more than 30% impairment to improve functional mobility and quality of life. LTG Duration 8 weeks Assessment Summary Assessment Pt tolerated progression endurance 820 ft use of 4WW for support in 6 min. Trialed gait with trek poles short distance to assess ready for LRAD, cues for patterning, will continue in future. Tolerated STS without UE support decreased surface 20 (height of bed) and shaheen stepping for functional AROM, light 1 rail contact. Physical Therapy Plan Frequency and Duration Frequency of Treatment 2x/Week Duration of treatment (weeks) 8 Plan of Care Start Date 01/30/25 Plan of Care End Date 04/01/25 Therapeutic Interventions Therapeutic Interventions Balance Training,Canalithic Repositioning,Coordination Training,Gait Training,Home Exercise Program,Joint Mobilizations,Manual Therapy, Neuromuscular Re-education, Patient/Caregiver Education, Self-Care/Home Management, Sensory Integration,Soft Tissue Mobilization,Taping, Therapeutic Activities, Therapeutic Exercises Modalities Cold Pack/Ice Massage,Electric Stimulation,Ultrasound Next Visit Focus/Plan Next Note Type Treatment Note Next Visit Plan Upright bike seat height 8 to warm-up Ongoing manual work LLE Next check gait FWW wtih tennis balls/skisf or normalize gait patterning& posture. Recheck HEP: hip rotator stretch, hook lying clam with band around knees, STS no UE support; future add [place] Progress gait without AD, 6MWT , FGA and exercises
--- NOTE | 2025-02-20 09:00 | PT.OTN ---
Current Diagnoses Unilateral primary osteoarthritis, left knee (02/20/25) Physical Therapy Treatment Note PT-OP-A Visit Information Start: 01/29/25 08:43 Freq: Status: Active Protocol: Document 02/20/25 08:17 SP (Rec: 02/20/25 09:04 SP [id number]) Out-Patient Physical Therapy Visit Information Visit Information Visit Type Treatment Note Visit Note Medicare AARP Progress note by 03/02/25 (appt 03/01/25) Visit Start Time 08:17 Visit Stop Time 09:00 Visit Number 6 Number of SIDE PANEL HANGER Visits 3 Evaluation Information Evaluation Date 01/30/25 Precautions Precautions Pt is on two blood thinners and has significant cardiac history as well as stroke PT-OP-B Current Condition Start: 01/29/25 08:43 Freq: Status: Active Protocol: Document 01/30/25 08:28 MB (Rec: 01/30/25 09:25 MB [id number]) Current Condition History of Current Condition Onset Date 01/23/25 Left medial UKA Current Complaints Left knee pain and trouble walking History of Current Condition Pt arrives to clinic with cane in right hand and he is limping severely. Pt uses the walker in the house. Pt has 2 steps to enter home without rail. 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 Treatment Goals Patient/Caregiver Goals To improve pain and walking PT-OP-C Subjective Start: 01/29/25 08:43 Freq: Status: Active Protocol: Document 02/20/25 08:17 SP (Rec: 02/20/25 09:04 SP [id number]) OP-PT Subjective Patient Comments Patient Comments Pt reports states better when 1st get up not as painful. Is compliant with heel slide and LAQ before gets up seems to help. He reports sleeping on his side doesn't work to well so sleeps on his back, challenging with CPAP due to continued snoring. PT-OP-G Mobility & Gait Start: 01/29/25 08:43 Freq: Status: Active Protocol: Document 01/30/25 08:28 MB (Rec: 01/30/25 09:25 MB [id number]) OP Gait Assessment Comments Gait Comments Pt arrives with walking stick/ wooden cane that is too tall in right and and he presents with flexion at hips, trunk and knees and antalgic/limping step-to gait with decreased step-length and foot clearance . Obtained RW and cued pt to perform better step-through gait and upright posture and ed to use RW at all times currently PT-OP-K Range of Motion Start: 01/29/25 08:43 Freq: Status: Active Protocol: Document 01/30/25 08:28 MB (Rec: 01/30/25 09:25 MB [id number]) Knee Goniometric Range of Motion Knee Left Knee ROM WFL No Patient Position Supine Comments LLE edema in compression hose and dressing and bandage still on wound and PT can see under hose Limited extension with range 18-79 deg Right Knee ROM WFL No Patient Position Supine Comments 5-113 deg PT-OP-M Strength Start: 01/29/25 08:43 Freq: Status: Active Protocol: Document 01/30/25 08:28 MB (Rec: 01/30/25 09:25 MB [id number]) Hip Strength Hip Manual Muscle Testing Left Flexion (L2) 3+ Fair+ Extension (S1) 3+ Fair+ Abduction 3+ Fair+ Right Flexion (L2) 4+ Good+ Extension (S1) 4 Good Abduction 4+ Good+ Knee Strength Knee Manual Muscle Testing Left Flexion (S2) 4 Good Extension (L3) 4 Good Comments Can lift leg off plinth in SLR position but is painful, slow and limited and lacking some knee extension Right Flexion (S2) 5 Normal Extension (L3) 5 Normal Ankle/Foot Strength Ankle and Foot Manual Muscle Testing Left Dorsiflexion (L4) 5 Normal Comments Stranding PF MMT not performed today d/t pain and presentation post-op Right Dorsiflexion (L4) 5 Normal Comments Stranding PF MMT not performed today d/t pain and presentation post-op Toe Strength Toe Manual Muscle Testing Left Great Toe Flexion 5 Normal Right Great Toe Flexion 5 Normal PT-OP-Q Treatments Start: 01/29/25 08:43 Freq: Status: Active Protocol: Document 02/20/25 08:17 SP (Rec: 02/20/25 09:04 SP [id number]) Cardio Equipment Bicycle (Upright) Duration (Minutes) 10 Resistance 8 Seat Position 8 Therapeutic Exercises Sitting Exercises [place] LAQ Sitting Exercise Name added to HEP /c HO Side bilateral Resistance 2# leg wt Reps/Minutes 20 alternating Comments cues for full extension slower pacing STS Sitting Exercise Name [place] Sit/Stand Equipment Used 18 mesh chair Reps/Minutes 4 reps arms across chest Comments cued x1 full stand and good hip hinge slow sit Standing Exercises [place] calf raises Standing Exercise Name added to HEP /c HO Side bilateral Resistance 2# leg wt Equipment Used rail support Reps/Minutes 20 reps [place] Extension Standing Exercise Name added to HEP /c HO Side bilateral Resistance 2# leg wt Equipment Used rail support Reps/Minutes 20 alternating [place] Abduction Standing Exercise Name added to HEP /c HO Side bilateral Resistance 2# leg wt Equipment Used rail support Reps/Minutes 20 alternating [place] HS curl Standing Exercise Name added to HEP /c HO Side bilateral Resistance 2# leg wt Equipment Used rail support Reps/Minutes 20 alternating Other Exercises shaheen stepping Other Exercise Name fwd (receiprocal stepping), Lateral Equipment Used no rail Reps/Minutes 6 hurdles - 3 laps each direction Comments support functional AROM Gait Training Gait Activity 6MWT Device Used Walldress pole Distance/Duration 819 ft Comments occcue L foot clearance and TKE during advancement, occ scuff heard . Manual Therapy Treatment Consent Patient gave verbal consent for manual Yes treatment Other Other Manual Treatments Pt supine with head and legs supported: R LE STM and positional release left vastus lateralis, rectus femoris, medial hamstrings, gastroc soleus, Mobes:A<>P tibia glides on femur and patellar glide med/lat/sup/inferior. Self-Care/Home Management Treatment Education Patient Education Body Mechanics Other Education Education use pillows between knees sidesleeping. ANd trail bibi/ anchor CPAP hose over head to allow side sleeping support for quality sleep. PT-OP-T Assessment and Plan Start: 01/29/25 08:43 Freq: Status: Active Protocol: Document 02/20/25 08:17 SP (Rec: 02/20/25 09:04 SP [id number]) Physical Therapy Assessment Goals 5 Impairment Lack of HEP Yield Clerk Goal (LTG) Pt will perform HEP with I including ROM, flexibility, strengthening, balance and gait exercises to improve pain and to meet other goals. LTG Duration 8 weeks 4 Impairment Decreased left knee ROM Yield Clerk Goal (LTG) Pt will perform left knee AROM in supine equal to right to improve functional transfers and marixa. 02/10/25: 2-118 deg L knee AROM . LTG Duration 8 weeks progressing 02/10/25 3 Impairment Evidence of imbalance Senior Care Goal (LTG) Pt will perform TUG in no more than 9 sec to decrease fall risk. LTG Duration 8 weeks 2 Impairment Impaired and slow gait Senior Care Goal (LTG) Pt will gait train at least 1700 feet in 6 minutes with or without LRAD to improve community ambulation. 02/15/25: 820 ft with 4WW in 6 min LTG Duration 8 weeks progressing 02/15/25 1 Impairment LEF score reflects 67.5% impairment Yield Clerk Goal (LTG) Pt will present with LEF score reflecting no more than 30% impairment to improve functional mobility and quality of life. LTG Duration 8 weeks Assessment Summary Assessment Pt tolerated progression in strength [place] exercises, provided HO. He was able to progress primarily no AD gait 819 ft 6MWT PRN trek pole in beginning. Discussed can discontinue use of FWW on level surfaces. Did purchase skis for back legs and lifts pushing, can be trip hazard. He states uses 1 trek pole walking his and gume's dog approx 1 block. Physical Therapy Plan Frequency and Duration Frequency of Treatment 2x/Week Duration of treatment (weeks) 8 Plan of Care Start Date 01/30/25 Plan of Care End Date 04/01/25 Therapeutic Interventions Therapeutic Interventions Balance Training,Canalithic Repositioning,Coordination Training,Gait Training,Home Exercise Program,Joint Mobilizations,Manual Therapy, Neuromuscular Re-education, Patient/Caregiver Education, Self-Care/Home Management, Sensory Integration,Soft Tissue Mobilization,Taping, Therapeutic Activities, Therapeutic Exercises Modalities Cold Pack/Ice Massage,Electric Stimulation,Ultrasound Next Visit Focus/Plan Next Note Type Treatment Note Next Visit Plan Upright bike seat height 8 to warm-up Ongoing manual work LLE Check height of his trek pole. Continue [place] HEP added and stretching PRN HEP: hip rotator stretch, hook lying clam with band around knees. Continue gait without AD, 6MWT for strength and endurance, FGA and exercises
--- NOTE | 2025-02-27 08:59 | PT.OTN ---
Current Diagnoses Unilateral primary osteoarthritis, left knee (02/27/25) Physical Therapy Treatment Note PT-OP-A Visit Information Start: 01/29/25 08:43 Freq: Status: Active Protocol: Document 02/27/25 08:14 MB (Rec: 02/27/25 08:59 MB Desktop) Out-Patient Physical Therapy Visit Information Visit Information Visit Type Progress Note Visit Note Medicare AARP Next progress note by 03/29 Visit Start Time 08:14 Visit Stop Time 08:54 Visit Number 7 Number of CIRCLE BEVELER Visits 0 Evaluation Information Evaluation Date 01/30/25 Precautions Precautions Pt is on two blood thinners and has significant cardiac history as well as stroke PT-OP-B Current Condition Start: 01/29/25 08:43 Freq: Status: Active Protocol: Document 01/30/25 08:28 MB (Rec: 01/30/25 09:25 MB [id number]) Current Condition History of Current Condition Onset Date 01/23/25 Left medial UKA Current Complaints Left knee pain and trouble walking History of Current Condition Pt arrives to clinic with cane in right hand and he is limping severely. Pt uses the walker in the house. Pt has 2 steps to enter home without rail. 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 Treatment Goals Patient/Caregiver Goals To improve pain and walking PT-OP-C Subjective Start: 01/29/25 08:43 Freq: Status: Active Protocol: Document 02/27/25 08:14 MB (Rec: 02/27/25 08:59 MB Desktop) OP-PT Subjective Patient Comments Patient Comments Pt is feeling better and is walking without AD. He is doing his exercises. Walking his ANJUM's dog is going okay. He is also walking his own dog . PT-OP-G Mobility & Gait Start: 01/29/25 08:43 Freq: Status: Active Protocol: Document 01/30/25 08:28 MB (Rec: 01/30/25 09:25 MB [id number]) OP Gait Assessment Comments Gait Comments Pt arrives with walking stick/ wooden cane that is too tall in right and and he presents with flexion at hips, trunk and knees and antalgic/limping step-to gait with decreased step-length and foot clearance . Obtained RW and cued pt to perform better step-through gait and upright posture and ed to use RW at all times currently PT-OP-K Range of Motion Start: 01/29/25 08:43 Freq: Status: Active Protocol: Document 01/30/25 08:28 MB (Rec: 01/30/25 09:25 MB [id number]) Knee Goniometric Range of Motion Knee Left Knee ROM WFL No Patient Position Supine Comments LLE edema in compression hose and dressing and bandage still on wound and PT can see under hose Limited extension with range 18-79 deg Right Knee ROM WFL No Patient Position Supine Comments 5-113 deg PT-OP-M Strength Start: 01/29/25 08:43 Freq: Status: Active Protocol: Document 01/30/25 08:28 MB (Rec: 01/30/25 09:25 MB [id number]) Hip Strength Hip Manual Muscle Testing Left Flexion (L2) 3+ Fair+ Extension (S1) 3+ Fair+ Abduction 3+ Fair+ Right Flexion (L2) 4+ Good+ Extension (S1) 4 Good Abduction 4+ Good+ Knee Strength Knee Manual Muscle Testing Left Flexion (S2) 4 Good Extension (L3) 4 Good Comments Can lift leg off plinth in SLR position but is painful, slow and limited and lacking some knee extension Right Flexion (S2) 5 Normal Extension (L3) 5 Normal Ankle/Foot Strength Ankle and Foot Manual Muscle Testing Left Dorsiflexion (L4) 5 Normal Comments Stranding PF MMT not performed today d/t pain and presentation post-op Right Dorsiflexion (L4) 5 Normal Comments Stranding PF MMT not performed today d/t pain and presentation post-op Toe Strength Toe Manual Muscle Testing Left Great Toe Flexion 5 Normal Right Great Toe Flexion 5 Normal PT-OP-Q Treatments Start: 01/29/25 08:43 Freq: Status: Active Protocol: Document 02/27/25 08:14 MB (Rec: 02/27/25 08:59 MB Desktop) Cardio Equipment Bicycle (Upright) Duration (Minutes) 10 Resistance 8 Seat Position 8 Therapeutic Exercises Supine Exercises ROM assessment Comments AROM in supine: left: 11-118 deg; right: 2-115 deg SLR Supine Exercise Name Re-added to HEP and provided a new handout Reps/Minutes Several reps, focus on form Comments Reviewed today and pt practiced, 4 count up and back Post-op knee exercises Comments Performs HS today Sitting Exercises knee hang Comments Talked about this today, could be irritating LB, could consider d/c Gait Training Gait Activity 6MWT Comments 02/27/25: 1189 feet in 6 minutes without AD today and he presents with functionally longer left leg than right, decreased toe push off, increased right knee flexion, spinal changes and decreased arm swing, more on the left PT-OP-T Assessment and Plan Start: 01/29/25 08:43 Freq: Status: Active Protocol: Document 02/27/25 08:14 MB (Rec: 02/27/25 08:59 MB Desktop) Physical Therapy Assessment Goals 5 Impairment Lack of HEP Drill Grinder Goal (LTG) Pt will perform HEP with I including ROM, flexibility, strengthening, balance and gait exercises to improve pain and to meet other goals. 02/27/25: Pt reports doing HS, standing hamstring curl, standing up abduction, standing hip extension, heel raises, stretches. D/cd leg hang today and re-added SLR to program. LTG Duration 8 weeks 4 Impairment Decreased left knee ROM Nursing Home Goal (LTG) Pt will perform left knee AROM in supine equal to right to improve functional transfers and marixa. 02/10/25: 2-118 deg L knee AROM . 02/27/25: AROM in supine: left: 11-118 deg; right: 2-115 deg. Pt states that left leg feels stiffer today. LTG Duration 8 weeks progressing 02/10/25 3 Impairment Evidence of imbalance Drill Grinder Goal (LTG) Pt will perform TUG in no more than 9 sec to decrease fall risk. 02/27/25: Did not perform LTG Duration 8 weeks 2 Impairment Impaired and slow gait Drill Grinder Goal (LTG) Pt will gait train at least 1700 feet in 6 minutes with or without LRAD to improve community ambulation. 02/15/25: 820 ft with 4WW in 6 min 02/27/25: 1189 feet in 6 minutes without AD today LTG Duration 8 weeks progressing 02/15/25 1 Impairment LEF score reflects 67.5% impairment Drill Grinder Goal (LTG) Pt will present with LEF score reflecting no more than 30% impairment to improve functional mobility and quality of life. 02/27/25: LEF score reflects 41. 25% impairment, greater than 20% improvement since evaluation LTG Duration 8 weeks Assessment Summary Assessment Pt is progressing well towards 6MWT and LEF goals. He con't with left knee extension limitations though left knee flexion is better than right knee flexion in supine today. Re-added SLR to help with knee extension and might consider terminal knee extension in standing if knee extension does not look better in future treatments. TUG to be performed in future treatments . Physical Therapy Plan Frequency and Duration Frequency of Treatment 2x/Week Duration of treatment (weeks) 8 Plan of Care Start Date 01/30/25 Plan of Care End Date 04/01/25 Therapeutic Interventions Therapeutic Interventions Balance Training,Canalithic Repositioning,Coordination Training,Gait Training,Home Exercise Program,Joint Mobilizations,Manual Therapy, Neuromuscular Re-education, Patient/Caregiver Education, Self-Care/Home Management, Sensory Integration,Soft Tissue Mobilization,Taping, Therapeutic Activities, Therapeutic Exercises Modalities Cold Pack/Ice Massage,Electric Stimulation,Ultrasound Next Visit Focus/Plan Next Note Type Treatment Note Next Visit Plan Upright bike seat height 8 TUG and record in goals Review of HEP and progression- -look at form for exercises given knee ROM deficits and progress and consider standing SLS versus terminal knee extension with band, manual work as needed, consider working on golf swing, con't [place] balance progression
--- NOTE | 2025-03-07 08:56 | PT.OTN ---
Current Diagnoses Unilateral primary osteoarthritis, left knee (03/07/25) Physical Therapy Treatment Note PT-OP-A Visit Information Start: 01/29/25 08:43 Freq: Status: Active Protocol: Document 03/07/25 08:16 MB (Rec: 03/07/25 08:52 MB Desktop) Out-Patient Physical Therapy Visit Information Visit Information Visit Type Treatment Note Visit Note Medicare AARP Next progress note by 03/29 Visit Start Time 08:16 Visit Stop Time 08:56 Visit Number 8 Number of ACID ADJUSTER Visits 0 Evaluation Information Evaluation Date 01/30/25 Precautions Precautions Pt is on two blood thinners and has significant cardiac history as well as stroke PT-OP-B Current Condition Start: 01/29/25 08:43 Freq: Status: Active Protocol: Document 01/30/25 08:28 MB (Rec: 01/30/25 09:25 MB [id number]) Current Condition History of Current Condition Onset Date 01/23/25 Left medial UKA Current Complaints Left knee pain and trouble walking History of Current Condition Pt arrives to clinic with cane in right hand and he is limping severely. Pt uses the walker in the house. Pt has 2 steps to enter home without rail. 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 Treatment Goals Patient/Caregiver Goals To improve pain and walking PT-OP-C Subjective Start: 01/29/25 08:43 Freq: Status: Active Protocol: Document 03/07/25 08:16 MB (Rec: 03/07/25 08:52 MB Desktop) OP-PT Subjective Patient Comments Patient Comments Pt has post-op appointment today and he has been working on SLR. PT-OP-G Mobility & Gait Start: 01/29/25 08:43 Freq: Status: Active Protocol: Document 01/30/25 08:28 MB (Rec: 01/30/25 09:25 MB [id number]) OP Gait Assessment Comments Gait Comments Pt arrives with walking stick/ wooden cane that is too tall in right and and he presents with flexion at hips, trunk and knees and antalgic/limping step-to gait with decreased step-length and foot clearance . Obtained RW and cued pt to perform better step-through gait and upright posture and ed to use RW at all times currently PT-OP-K Range of Motion Start: 01/29/25 08:43 Freq: Status: Active Protocol: Document 01/30/25 08:28 MB (Rec: 01/30/25 09:25 MB [id number]) Knee Goniometric Range of Motion Knee Left Knee ROM WFL No Patient Position Supine Comments LLE edema in compression hose and dressing and bandage still on wound and PT can see under hose Limited extension with range 18-79 deg Right Knee ROM WFL No Patient Position Supine Comments 5-113 deg PT-OP-M Strength Start: 01/29/25 08:43 Freq: Status: Active Protocol: Document 01/30/25 08:28 MB (Rec: 01/30/25 09:25 MB [id number]) Hip Strength Hip Manual Muscle Testing Left Flexion (L2) 3+ Fair+ Extension (S1) 3+ Fair+ Abduction 3+ Fair+ Right Flexion (L2) 4+ Good+ Extension (S1) 4 Good Abduction 4+ Good+ Knee Strength Knee Manual Muscle Testing Left Flexion (S2) 4 Good Extension (L3) 4 Good Comments Can lift leg off plinth in SLR position but is painful, slow and limited and lacking some knee extension Right Flexion (S2) 5 Normal Extension (L3) 5 Normal Ankle/Foot Strength Ankle and Foot Manual Muscle Testing Left Dorsiflexion (L4) 5 Normal Comments Stranding PF MMT not performed today d/t pain and presentation post-op Right Dorsiflexion (L4) 5 Normal Comments Stranding PF MMT not performed today d/t pain and presentation post-op Toe Strength Toe Manual Muscle Testing Left Great Toe Flexion 5 Normal Right Great Toe Flexion 5 Normal PT-OP-Q Treatments Start: 01/29/25 08:43 Freq: Status: Active Protocol: Document 03/07/25 08:16 MB (Rec: 03/07/25 08:52 MB Desktop) Cardio Equipment Bicycle (Upright) Duration (Minutes) 20 Resistance 8 Other Seat 8 and then 10 to get more extension Therapeutic Exercises Supine Exercises ROM assessment Comments AROM LLE in supine: 8-123 deg SLR Comments 4 slow reps today, cues to control Other Exercises Heel strike down steps left foot and terminal knee extension without band Other Exercise Name HEP and video made for pt Comments Pt performs several reps and to perform at ANJUM steps Manual Therapy Treatment Consent Patient gave verbal consent for manual Yes treatment Other Other Manual Treatments Pt supine with head and legs supported: STM and positional release left quads, gentle patellar mobs, distal scar massage, STM hamstrings Neuro Re-Education Treatment Balance Activities TUG Comments 12 sec, then 9 sec, see goal comments PT-OP-T Assessment and Plan Start: 01/29/25 08:43 Freq: Status: Active Protocol: Document 03/07/25 08:16 MB (Rec: 03/07/25 08:52 MB Desktop) Physical Therapy Assessment Goals 5 Impairment Lack of HEP Telesales Manager Goal (LTG) Pt will perform HEP with I including ROM, flexibility, strengthening, balance and gait exercises to improve pain and to meet other goals. 02/27/25: Pt reports doing HS, standing hamstring curl, standing up abduction, standing hip extension, heel raises, stretches. D/cd leg hang today and re-added SLR to program. LTG Duration 8 weeks 4 Impairment Decreased left knee ROM Telesales Manager Goal (LTG) Pt will perform left knee AROM in supine equal to right to improve functional transfers and marixa. 02/10/25: 2-118 deg L knee AROM . 02/27/25: AROM in supine: left: 11-118 deg; right: 2-115 deg. Pt states that left leg feels stiffer today. LTG Duration 8 weeks progressing 02/10/25 3 Impairment Evidence of imbalance Shelter Goal (LTG) Pt will perform TUG in no more than 9 sec to decrease fall risk. 02/27/25: Did not perform 03/07/25: TUG in 12 sec when not using hands to push up, 10 sec when using hands to push up LTG Duration 8 weeks 2 Impairment Impaired and slow gait Telesales Manager Goal (LTG) Pt will gait train at least 1700 feet in 6 minutes with or without LRAD to improve community ambulation. 02/15/25: 820 ft with 4WW in 6 min 02/27/25: 1189 feet in 6 minutes without AD today LTG Duration 8 weeks progressing 02/15/25 1 Impairment LEF score reflects 67.5% impairment Shelter Goal (LTG) Pt will present with LEF score reflecting no more than 30% impairment to improve functional mobility and quality of life. 02/27/25: LEF score reflects 41. 25% impairment, greater than 20% improvement since evaluation LTG Duration 8 weeks Assessment Summary Assessment Progressed terminal knee extension today and could consider band resistance with terminal knee extension in standing if heel step downs and standing terminal knee extension aren't as helpful. Consider raising bike seat height again. Physical Therapy Plan Frequency and Duration Frequency of Treatment 2x/Week Duration of treatment (weeks) 8 Plan of Care Start Date 01/30/25 Plan of Care End Date 04/01/25 Therapeutic Interventions Therapeutic Interventions Balance Training,Canalithic Repositioning,Coordination Training,Gait Training,Home Exercise Program,Joint Mobilizations,Manual Therapy, Neuromuscular Re-education, Patient/Caregiver Education, Self-Care/Home Management, Sensory Integration,Soft Tissue Mobilization,Taping, Therapeutic Activities, Therapeutic Exercises Modalities Cold Pack/Ice Massage,Electric Stimulation,Ultrasound Next Visit Focus/Plan Next Note Type Treatment Note Next Visit Plan Upright bike seat height 10 Review of HEP and progression- -look at form for exercises given knee ROM deficits and progress and consider standing SLS versus terminal knee extension with band, manual work as needed, consider working on golf swing, con't [place] balance progression
--- NOTE | 2025-03-09 15:32 | PT.OTN ---
Current Diagnoses Unilateral primary osteoarthritis, left knee (03/09/25) Physical Therapy Treatment Note PT-OP-A Visit Information Start: 01/29/25 08:43 Freq: Status: Active Protocol: Document 03/09/25 13:50 PG (Rec: 03/09/25 15:30 PG Laptop) Out-Patient Physical Therapy Visit Information Visit Information Visit Type Treatment Note Visit Note SPTA, Tabitha directed activities and applied manual therapy were consent from pt and direct supervision of Vikki SINGLETON. Visit Start Time 13:50 Visit Stop Time 14:35 Visit Number 9 Number of LIVESTOCK SALES REPRESENTATIVE Visits 1 Evaluation Information Evaluation Date 01/30/25 Precautions Precautions Pt is on two blood thinners and has significant cardiac history as well as stroke PT-OP-B Current Condition Start: 01/29/25 08:43 Freq: Status: Active Protocol: Document 01/30/25 08:28 MB (Rec: 01/30/25 09:25 MB [id number]) Current Condition History of Current Condition Onset Date 01/23/25 Left medial UKA Current Complaints Left knee pain and trouble walking History of Current Condition Pt arrives to clinic with cane in right hand and he is limping severely. Pt uses the walker in the house. Pt has 2 steps to enter home without rail. 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 Treatment Goals Patient/Caregiver Goals To improve pain and walking PT-OP-C Subjective Start: 01/29/25 08:43 Freq: Status: Active Protocol: Document 03/09/25 13:50 PG (Rec: 03/09/25 15:30 PG Laptop) OP-PT Subjective Patient Comments Patient Comments Pt reports he just had a 6m follow up on R and 2m follow up on L knee. Follow up went well but didn't get ROM measured. Walking ANJUM's dog about twice a day as well as his own once a day. PT-OP-G Mobility & Gait Start: 01/29/25 08:43 Freq: Status: Active Protocol: Document 01/30/25 08:28 MB (Rec: 01/30/25 09:25 MB [id number]) OP Gait Assessment Comments Gait Comments Pt arrives with walking stick/ wooden cane that is too tall in right and and he presents with flexion at hips, trunk and knees and antalgic/limping step-to gait with decreased step-length and foot clearance . Obtained RW and cued pt to perform better step-through gait and upright posture and ed to use RW at all times currently PT-OP-K Range of Motion Start: 01/29/25 08:43 Freq: Status: Active Protocol: Document 01/30/25 08:28 MB (Rec: 01/30/25 09:25 MB [id number]) Knee Goniometric Range of Motion Knee Left Knee ROM WFL No Patient Position Supine Comments LLE edema in compression hose and dressing and bandage still on wound and PT can see under hose Limited extension with range 18-79 deg Right Knee ROM WFL No Patient Position Supine Comments 5-113 deg PT-OP-M Strength Start: 01/29/25 08:43 Freq: Status: Active Protocol: Document 01/30/25 08:28 MB (Rec: 01/30/25 09:25 MB [id number]) Hip Strength Hip Manual Muscle Testing Left Flexion (L2) 3+ Fair+ Extension (S1) 3+ Fair+ Abduction 3+ Fair+ Right Flexion (L2) 4+ Good+ Extension (S1) 4 Good Abduction 4+ Good+ Knee Strength Knee Manual Muscle Testing Left Flexion (S2) 4 Good Extension (L3) 4 Good Comments Can lift leg off plinth in SLR position but is painful, slow and limited and lacking some knee extension Right Flexion (S2) 5 Normal Extension (L3) 5 Normal Ankle/Foot Strength Ankle and Foot Manual Muscle Testing Left Dorsiflexion (L4) 5 Normal Comments Stranding PF MMT not performed today d/t pain and presentation post-op Right Dorsiflexion (L4) 5 Normal Comments Stranding PF MMT not performed today d/t pain and presentation post-op Toe Strength Toe Manual Muscle Testing Left Great Toe Flexion 5 Normal Right Great Toe Flexion 5 Normal PT-OP-Q Treatments Start: 01/29/25 08:43 Freq: Status: Active Protocol: Document 03/09/25 13:50 PG (Rec: 03/09/25 15:30 PG Laptop) Cardio Equipment Bicycle (Upright) Duration (Minutes) 10 Resistance 8 Seat Position 10 Therapeutic Exercises Standing Exercises TKE Standing Exercise Name TKE added to HEP with HO Side left Resistance TB level 3 Reps/Minutes 2x10 3 SH Comments VC's to keep R LE straight and a step behind L LE, slow movements Other Exercises Heel strike down steps left foot and terminal knee extension without band Other Exercise Name reviewed Equipment Used BHR Reps/Minutes 4 x 4 steps (decending/ acending) Comments Required minimal to no VC's, emphasized focus on L knee ext . Manual Therapy Treatment Consent Patient gave verbal consent for manual Yes treatment Other Other Manual Treatments Pt supine with head and legs supported: STM left quads, gentle patellar mobs, hamstrings and gastroc. Neuro Re-Education Treatment Balance Activities SLS Details Single leg stance Reps/Duration 2x30 seconds each side Comments Pt maintained SLS on each LE for 4-5 seconds before requiring a hand on a supportive stationary. VC's for upright posture, and knee extension R better than L. Encouraged focusing on object straight ahead to maintain balance. PT-OP-T Assessment and Plan Start: 01/29/25 08:43 Freq: Status: Active Protocol: Document 03/09/25 13:50 PG (Rec: 03/09/25 15:30 PG Laptop) Physical Therapy Assessment Goals 5 Impairment Lack of HEP Impairment . Short Term Goal (STG) . Senior Care Goal (LTG) Pt will perform HEP with I including ROM, flexibility, strengthening, balance and gait exercises to improve pain and to meet other goals. 02/27/25: Pt reports doing HS, standing hamstring curl, standing up abduction, standing hip extension, heel raises, stretches. D/cd leg hang today and re-added SLR to program. LTG Duration 8 weeks 4 Impairment Decreased left knee ROM Impairment . Short Term Goal (STG) . Senior Care Goal (LTG) Pt will perform left knee AROM in supine equal to right to improve functional transfers and marixa. 02/10/25: 2-118 deg L knee AROM . 02/27/25: AROM in supine: left: 11-118 deg; right: 2-115 deg. Pt states that left leg feels stiffer today. LTG Duration 8 weeks progressing 02/10/25 3 Impairment Evidence of imbalance Impairment . Short Term Goal (STG) . Senior Care Goal (LTG) Pt will perform TUG in no more than 9 sec to decrease fall risk. 02/27/25: Did not perform 03/07/25: TUG in 12 sec when not using hands to push up, 10 sec when using hands to push up LTG Duration 8 weeks 2 Impairment Impaired and slow gait Impairment . Short Term Goal (STG) . Senior Care Goal (LTG) Pt will gait train at least 1700 feet in 6 minutes with or without LRAD to improve community ambulation. 02/15/25: 820 ft with 4WW in 6 min 02/27/25: 1189 feet in 6 minutes without AD today LTG Duration 8 weeks progressing 02/15/25 1 Impairment LEF score reflects 67.5% impairment Senior Care Goal (LTG) Pt will present with LEF score reflecting no more than 30% impairment to improve functional mobility and quality of life. 02/27/25: LEF score reflects 41. 25% impairment, greater than 20% improvement since evaluation LTG Duration 8 weeks Assessment Summary Assessment Pt tolerated standing TKE progression with level 3 TB well. Required minimal verbal cues for set up. Completed a full 10 minutes on the upright bike with seat level at 10. Pt was challenged with maintaining L knee extension during SLS L>R, required stationary support after 4-5 seconds. Pt would benefit from further skilled therapy to improve balance and continue progressing knee extension range of motion to support pt' s stability over uneven surfaces. Physical Therapy Plan Frequency and Duration Frequency of Treatment 2x/Week Duration of treatment (weeks) 8 Plan of Care Start Date 01/30/25 Plan of Care End Date 04/01/25 Therapeutic Interventions Therapeutic Interventions Balance Training,Canalithic Repositioning,Coordination Training,Gait Training,Home Exercise Program,Joint Mobilizations,Manual Therapy, Neuromuscular Re-education, Patient/Caregiver Education, Self-Care/Home Management, Sensory Integration,Soft Tissue Mobilization,Taping, Therapeutic Activities, Therapeutic Exercises Modalities Cold Pack/Ice Massage,Electric Stimulation,Ultrasound Next Visit Focus/Plan Next Note Type Treatment Note Next Visit Plan Review TKE with TB, add additional balance activities. Upright bike seat height 10 Review of HEP and progression- -look at form for exercises given knee ROM deficits and progress , manual work as needed, consider working on golf swing next appt, con't [place] balance progression
--- NOTE | 2025-03-09 16:16 | PT.OTN ---
Current Diagnoses Unilateral primary osteoarthritis, left knee (03/09/25) Physical Therapy Treatment Note PT-OP-A Visit Information Start: 01/29/25 08:43 Freq: Status: Active Protocol: Document 03/09/25 13:50 PG (Rec: 03/09/25 15:30 PG Laptop) Out-Patient Physical Therapy Visit Information Visit Information Visit Type Treatment Note Visit Note SPTA, Tabitha directed activities and applied manual therapy were consent from pt and direct supervision of Vikki SINGLETON. Visit Start Time 13:50 Visit Stop Time 14:35 Visit Number 9 Number of SOFTWARE TEST AUTOMATION ENGINEER Visits 1 Evaluation Information Evaluation Date 01/30/25 Precautions Precautions Pt is on two blood thinners and has significant cardiac history as well as stroke PT-OP-B Current Condition Start: 01/29/25 08:43 Freq: Status: Active Protocol: Document 01/30/25 08:28 MB (Rec: 01/30/25 09:25 MB [id number]) Current Condition History of Current Condition Onset Date 01/23/25 Left medial UKA Current Complaints Left knee pain and trouble walking History of Current Condition Pt arrives to clinic with cane in right hand and he is limping severely. Pt uses the walker in the house. Pt has 2 steps to enter home without rail. 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 Treatment Goals Patient/Caregiver Goals To improve pain and walking PT-OP-C Subjective Start: 01/29/25 08:43 Freq: Status: Active Protocol: Document 03/09/25 13:50 PG (Rec: 03/09/25 15:30 PG Laptop) OP-PT Subjective Patient Comments Patient Comments Pt reports he just had a 6m follow up on R and 2m follow up on L knee. Follow up went well but didn't get ROM measured. Walking ANJUM's dog about twice a day as well as his own once a day. PT-OP-G Mobility & Gait Start: 01/29/25 08:43 Freq: Status: Active Protocol: Document 01/30/25 08:28 MB (Rec: 01/30/25 09:25 MB [id number]) OP Gait Assessment Comments Gait Comments Pt arrives with walking stick/ wooden cane that is too tall in right and and he presents with flexion at hips, trunk and knees and antalgic/limping step-to gait with decreased step-length and foot clearance . Obtained RW and cued pt to perform better step-through gait and upright posture and ed to use RW at all times currently PT-OP-K Range of Motion Start: 01/29/25 08:43 Freq: Status: Active Protocol: Document 01/30/25 08:28 MB (Rec: 01/30/25 09:25 MB [id number]) Knee Goniometric Range of Motion Knee Left Knee ROM WFL No Patient Position Supine Comments LLE edema in compression hose and dressing and bandage still on wound and PT can see under hose Limited extension with range 18-79 deg Right Knee ROM WFL No Patient Position Supine Comments 5-113 deg PT-OP-M Strength Start: 01/29/25 08:43 Freq: Status: Active Protocol: Document 01/30/25 08:28 MB (Rec: 01/30/25 09:25 MB [id number]) Hip Strength Hip Manual Muscle Testing Left Flexion (L2) 3+ Fair+ Extension (S1) 3+ Fair+ Abduction 3+ Fair+ Right Flexion (L2) 4+ Good+ Extension (S1) 4 Good Abduction 4+ Good+ Knee Strength Knee Manual Muscle Testing Left Flexion (S2) 4 Good Extension (L3) 4 Good Comments Can lift leg off plinth in SLR position but is painful, slow and limited and lacking some knee extension Right Flexion (S2) 5 Normal Extension (L3) 5 Normal Ankle/Foot Strength Ankle and Foot Manual Muscle Testing Left Dorsiflexion (L4) 5 Normal Comments Stranding PF MMT not performed today d/t pain and presentation post-op Right Dorsiflexion (L4) 5 Normal Comments Stranding PF MMT not performed today d/t pain and presentation post-op Toe Strength Toe Manual Muscle Testing Left Great Toe Flexion 5 Normal Right Great Toe Flexion 5 Normal PT-OP-Q Treatments Start: 01/29/25 08:43 Freq: Status: Active Protocol: Document 03/09/25 13:50 PG (Rec: 03/09/25 15:30 PG Laptop) Cardio Equipment Bicycle (Upright) Duration (Minutes) 10 Resistance 8 Seat Position 10 Therapeutic Exercises Standing Exercises TKE Standing Exercise Name TKE added to HEP with HO Side left Resistance TB level 3 Reps/Minutes 2x10 3 SH Comments VC's to keep R LE straight and a step behind L LE, slow movements Other Exercises Heel strike down steps left foot and terminal knee extension without band Other Exercise Name reviewed Equipment Used BHR Reps/Minutes 4 x 4 steps (decending/ acending) Comments Required minimal to no VC's, emphasized focus on L knee ext . Manual Therapy Treatment Consent Patient gave verbal consent for manual Yes treatment Other Other Manual Treatments Pt supine with head and legs supported: STM left quads, gentle patellar mobs, hamstrings and gastroc. Neuro Re-Education Treatment Balance Activities SLS Details Single leg stance Reps/Duration 2x30 seconds each side Comments Pt maintained SLS on each LE for 4-5 seconds before requiring a hand on a supportive stationary. VC's for upright posture, and knee extension R better than L. Encouraged focusing on object straight ahead to maintain balance. PT-OP-T Assessment and Plan Start: 01/29/25 08:43 Freq: Status: Active Protocol: Document 03/09/25 13:50 PG (Rec: 03/09/25 15:30 PG Laptop) Physical Therapy Assessment Goals 5 Impairment Lack of HEP Impairment . Short Term Goal (STG) . Residential Goal (LTG) Pt will perform HEP with I including ROM, flexibility, strengthening, balance and gait exercises to improve pain and to meet other goals. 02/27/25: Pt reports doing HS, standing hamstring curl, standing up abduction, standing hip extension, heel raises, stretches. D/cd leg hang today and re-added SLR to program. LTG Duration 8 weeks 4 Impairment Decreased left knee ROM Impairment . Short Term Goal (STG) . Residential Goal (LTG) Pt will perform left knee AROM in supine equal to right to improve functional transfers and marixa. 02/10/25: 2-118 deg L knee AROM . 02/27/25: AROM in supine: left: 11-118 deg; right: 2-115 deg. Pt states that left leg feels stiffer today. LTG Duration 8 weeks progressing 02/10/25 3 Impairment Evidence of imbalance Impairment . Short Term Goal (STG) . Residential Goal (LTG) Pt will perform TUG in no more than 9 sec to decrease fall risk. 02/27/25: Did not perform 03/07/25: TUG in 12 sec when not using hands to push up, 10 sec when using hands to push up LTG Duration 8 weeks 2 Impairment Impaired and slow gait Impairment . Short Term Goal (STG) . Residential Goal (LTG) Pt will gait train at least 1700 feet in 6 minutes with or without LRAD to improve community ambulation. 02/15/25: 820 ft with 4WW in 6 min 02/27/25: 1189 feet in 6 minutes without AD today LTG Duration 8 weeks progressing 02/15/25 1 Impairment LEF score reflects 67.5% impairment Residential Goal (LTG) Pt will present with LEF score reflecting no more than 30% impairment to improve functional mobility and quality of life. 02/27/25: LEF score reflects 41. 25% impairment, greater than 20% improvement since evaluation LTG Duration 8 weeks Assessment Summary Assessment Pt tolerated standing TKE progression with level 3 TB well. Required minimal verbal cues for set up. Completed a full 10 minutes on the upright bike with seat level at 10. Pt was challenged with maintaining L knee extension during SLS L>R, required stationary support after 4-5 seconds. Pt would benefit from further skilled therapy to improve balance and continue progressing knee extension range of motion to support pt' s stability over uneven surfaces. Physical Therapy Plan Frequency and Duration Frequency of Treatment 2x/Week Duration of treatment (weeks) 8 Plan of Care Start Date 01/30/25 Plan of Care End Date 04/01/25 Therapeutic Interventions Therapeutic Interventions Balance Training,Canalithic Repositioning,Coordination Training,Gait Training,Home Exercise Program,Joint Mobilizations,Manual Therapy, Neuromuscular Re-education, Patient/Caregiver Education, Self-Care/Home Management, Sensory Integration,Soft Tissue Mobilization,Taping, Therapeutic Activities, Therapeutic Exercises Modalities Cold Pack/Ice Massage,Electric Stimulation,Ultrasound Next Visit Focus/Plan Next Note Type Treatment Note Next Visit Plan Review TKE with TB, add additional balance activities. Upright bike seat height 10 Review of HEP and progression- -look at form for exercises given knee ROM deficits and progress , manual work as needed, consider working on golf swing next appt, con't [place] balance progression
--- NOTE | 2025-03-14 16:15 | PT.OTN ---
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 Pt uses the walker in the house. Pt has 2 steps to enter home without rail. 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 Treatment Goals Patient/Caregiver Goals To improve pain and walking PT-OP-C Subjective Start: 01/29/25 08:43 Freq: Status: Active Protocol: Document 03/14/25 14:30 MB (Rec: 03/14/25 15:08 MB Desktop) OP-PT Subjective Patient Comments Patient Comments Pt feels that his knee range is doing pretty good. PT-OP-G Mobility & Gait Start: 01/29/25 08:43 Freq: Status: Active Protocol: Document 01/30/25 08:28 MB (Rec: 01/30/25 09:25 MB [id number]) OP Gait Assessment Comments Gait Comments Pt arrives with walking stick/ wooden cane that is too tall in right and and he presents with flexion at hips, trunk and knees and antalgic/limping step-to gait with decreased step-length and foot clearance . Obtained RW and cued pt to perform better step-through gait and upright posture and ed to use RW at all times currently PT-OP-K Range of Motion Start: 01/29/25 08:43 Freq: Status: Active Protocol: Document 01/30/25 08:28 MB (Rec: 01/30/25 09:25 MB [id number]) Knee Goniometric Range of Motion Knee Left Knee ROM WFL No Patient Position Supine Comments LLE edema in compression hose and dressing and bandage still on wound and PT can see under hose Limited extension with range 18-79 deg Right Knee ROM WFL No Patient Position Supine Comments 5-113 deg PT-OP-M Strength Start: 01/29/25 08:43 Freq: Status: Active Protocol: Document 01/30/25 08:28 MB (Rec: 01/30/25 09:25 MB [id number]) Hip Strength Hip Manual Muscle Testing Left Flexion (L2) 3+ Fair+ Extension (S1) 3+ Fair+ Abduction 3+ Fair+ Right Flexion (L2) 4+ Good+ Extension (S1) 4 Good Abduction 4+ Good+ Knee Strength Knee Manual Muscle Testing Left Flexion (S2) 4 Good Extension (L3) 4 Good Comments Can lift leg off plinth in SLR position but is painful, slow and limited and lacking some knee extension Right Flexion (S2) 5 Normal Extension (L3) 5 Normal Ankle/Foot Strength Ankle and Foot Manual Muscle Testing Left Dorsiflexion (L4) 5 Normal Comments Stranding PF MMT not performed today d/t pain and presentation post-op Right Dorsiflexion (L4) 5 Normal Comments Stranding PF MMT not performed today d/t pain and presentation post-op Toe Strength Toe Manual Muscle Testing Left Great Toe Flexion 5 Normal Right Great Toe Flexion 5 Normal PT-OP-Q Treatments Start: 01/29/25 08:43 Freq: Status: Active Protocol: Document 03/14/25 14:30 MB (Rec: 03/14/25 15:08 MB Desktop) Cardio Equipment Bicycle (Upright) Duration (Minutes) 13 Resistance 8-9 Seat Position 9-10 Therapeutic Exercises Supine Exercises ROM assessment Comments AROM with extension to -3 deg today Gait Training Gait Activity [id number] Comments Pt gait trains 1167 feet in 6 minutes with some decreased step-length, heel strike, knee bend and foot clearance, did gait up to 8' today in treatment session with similar gait pattern Manual Therapy Treatment Consent Patient gave verbal consent for manual Yes treatment Other Other Manual Treatments Pt supine with head and legs supported STM left quads and TrP left quads PT-OP-T Assessment and Plan Start: 01/29/25 08:43 Freq: Status: Active Protocol: Document 03/14/25 14:30 MB (Rec: 03/14/25 15:08 MB Desktop) Physical Therapy Assessment Goals 5 Impairment Lack of HEP Impairment . Short Term Goal (STG) . Senior Living Goal (LTG) Pt will perform HEP with I including ROM, flexibility, strengthening, balance and gait exercises to improve pain and to meet other goals. 02/27/25: Pt reports doing HS, standing hamstring curl, standing up abduction, standing hip extension, heel raises, stretches. D/cd leg hang today and re-added SLR to program. LTG Duration 8 weeks 4 Impairment Decreased left knee ROM Impairment . Short Term Goal (STG) . Automation Control Technician Goal (LTG) Pt will perform left knee AROM in supine equal to right to improve functional transfers and marixa. 02/10/25: 2-118 deg L knee AROM . 02/27/25: AROM in supine: left: 11-118 deg; right: 2-115 deg. Pt states that left leg feels stiffer today. LTG Duration 8 weeks progressing 02/10/25 3 Impairment Evidence of imbalance Impairment . Short Term Goal (STG) . Senior Living Goal (LTG) Pt will perform TUG in no more than 9 sec to decrease fall risk. 02/27/25: Did not perform 03/07/25: TUG in 12 sec when not using hands to push up, 10 sec when using hands to push up LTG Duration 8 weeks 2 Impairment Impaired and slow gait Impairment . Short Term Goal (STG) . Automation Control Technician Goal (LTG) Pt will gait train at least 1700 feet in 6 minutes with or without LRAD to improve community ambulation. 02/15/25: 820 ft with 4WW in 6 min 02/27/25: 1189 feet in 6 minutes without AD today 03/14/25 Pt gait trains 1167 feet today in 6 minutes LTG Duration 8 weeks progressing 02/15/25 1 Impairment LEF score reflects 67.5% impairment Senior Living Goal (LTG) Pt will present with LEF score reflecting no more than 30% impairment to improve functional mobility and quality of life. 02/27/25: LEF score reflects 41. 25% impairment, greater than 20% improvement since evaluation LTG Duration 8 weeks Assessment Summary Assessment Left knee extension is a little better today. Will con' t to work on extension, range. Physical Therapy Plan Frequency and Duration Frequency of Treatment 2x/Week Duration of treatment (weeks) 8 Plan of Care Start Date 01/30/25 Plan of Care End Date 04/01/25 Therapeutic Interventions Therapeutic Interventions Balance Training,Canalithic Repositioning,Coordination Training,Gait Training,Home Exercise Program,Joint Mobilizations,Manual Therapy, Neuromuscular Re-education, Patient/Caregiver Education, Self-Care/Home Management, Sensory Integration,Soft Tissue Mobilization,Taping, Therapeutic Activities, Therapeutic Exercises Modalities Cold Pack/Ice Massage,Electric Stimulation,Ultrasound Next Visit Focus/Plan Next Note Type Treatment Note Next Visit Plan Upright bike seat height 10 Review of HEP and progression- -look at form for exercises given knee ROM deficits and progress , manual work as needed, consider working on golf swing next appt, con't [place] balance progression
--- NOTE | 2025-03-16 08:14 | PT.OTN ---
Current Diagnoses Unilateral primary osteoarthritis, left knee (03/16/25) Physical Therapy Treatment Note PT-OP-A Visit Information Start: 01/29/25 08:43 Freq: Status: Active Protocol: Document 03/16/25 07:31 PG (Rec: 03/16/25 09:03 PG [id number]) Out-Patient Physical Therapy Visit Information Visit Information Visit Type Treatment Note Visit Note Medicare AARP Next Progress note by 03/29 SPTTabitha Lama Visit Start Time 07:31 Visit Stop Time 08:14 Visit Number 11 Number of LINE MECHANIC Visits 1 Precautions Precautions Pt is on two blood thinners and has significant cardiac history as well as stroke PT-OP-B Current Condition Start: 01/29/25 08:43 Freq: Status: Active Protocol: Document 01/30/25 08:28 MB (Rec: 01/30/25 09:25 MB [id number]) Current Condition History of Current Condition Onset Date 01/23/25 Left medial UKA Current Complaints Left knee pain and trouble walking History of Current Condition Pt arrives to clinic with cane in right hand and he is limping severely. Pt uses the walker in the house. Pt has 2 steps to enter home without rail. 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 Treatment Goals Patient/Caregiver Goals To improve pain and walking PT-OP-C Subjective Start: 01/29/25 08:43 Freq: Status: Active Protocol: Document 03/16/25 07:31 PG (Rec: 03/16/25 09:03 PG [id number]) OP-PT Subjective Patient Comments Patient Comments Pt states lower left back has been aggravating him while he walks. Left knee has felt good. He doesn't do anything for his back in the morning. PT-OP-G Mobility & Gait Start: 01/29/25 08:43 Freq: Status: Active Protocol: Document 01/30/25 08:28 MB (Rec: 01/30/25 09:25 MB [id number]) OP Gait Assessment Comments Gait Comments Pt arrives with walking stick/ wooden cane that is too tall in right and and he presents with flexion at hips, trunk and knees and antalgic/limping step-to gait with decreased step-length and foot clearance . Obtained RW and cued pt to perform better step-through gait and upright posture and ed to use RW at all times currently PT-OP-K Range of Motion Start: 01/29/25 08:43 Freq: Status: Active Protocol: Document 01/30/25 08:28 MB (Rec: 01/30/25 09:25 MB [id number]) Knee Goniometric Range of Motion Knee Left Knee ROM WFL No Patient Position Supine Comments LLE edema in compression hose and dressing and bandage still on wound and PT can see under hose Limited extension with range 18-79 deg Right Knee ROM WFL No Patient Position Supine Comments 5-113 deg PT-OP-M Strength Start: 01/29/25 08:43 Freq: Status: Active Protocol: Document 01/30/25 08:28 MB (Rec: 01/30/25 09:25 MB [id number]) Hip Strength Hip Manual Muscle Testing Left Flexion (L2) 3+ Fair+ Extension (S1) 3+ Fair+ Abduction 3+ Fair+ Right Flexion (L2) 4+ Good+ Extension (S1) 4 Good Abduction 4+ Good+ Knee Strength Knee Manual Muscle Testing Left Flexion (S2) 4 Good Extension (L3) 4 Good Comments Can lift leg off plinth in SLR position but is painful, slow and limited and lacking some knee extension Right Flexion (S2) 5 Normal Extension (L3) 5 Normal Ankle/Foot Strength Ankle and Foot Manual Muscle Testing Left Dorsiflexion (L4) 5 Normal Comments Stranding PF MMT not performed today d/t pain and presentation post-op Right Dorsiflexion (L4) 5 Normal Comments Stranding PF MMT not performed today d/t pain and presentation post-op Toe Strength Toe Manual Muscle Testing Left Great Toe Flexion 5 Normal Right Great Toe Flexion 5 Normal PT-OP-Q Treatments Start: 01/29/25 08:43 Freq: Status: Active Protocol: Document 03/16/25 07:31 PG (Rec: 03/16/25 09:03 PG [id number]) Cardio Equipment Bicycle (Upright) Duration (Minutes) 10 Resistance 8-9 Seat Position 10 Therapeutic Exercises Supine Exercises Hip Rotation Stretch Supine Exercise Name Piriformis and figure four stretch Side bilateral Equipment Used 2 pillows under head Reps/Minutes 30 seconds each Comments v/c's to engage core and keep head on table for better alignment Standing Exercises Kitchen Sink Stretch Standing Exercise Name Review self stretch Equipment Used Staircase used for UE support Reps/Minutes 30 seconds Comments v/c for hip hinge and to keep c/s alignment STS Standing Exercise Name ([facility] STS) Equipment Used mesh chair Reps/Minutes 2 x 5 continuous Comments V/c's to maintain c/s alignment and tall posture TKE Standing Exercise Name Verbally reviewed- reported getting easy Resistance increased to Lv 4 band next Manual Therapy Treatment Consent Patient gave verbal consent for manual Yes treatment Other Other Manual Treatments Pt SL with head supported and pillows between knees for leveled pelvis. STM to L quadratus. Neuro Re-Education Treatment Balance Activities [facility] Tandem Walking Equipment Single UE glide on wall railing Reps/Duration 1/2 wall railing dwn and back x 2 Comments V/c's to keep tall posture and vision up. [facility] Tandem Stance Details R LE and L LE in front with HO Surface floor Equipment Wall railing Reps/Duration 1 x 30 seconds each Comments V/c's to keep head up with tall posture and vision up. Pt able to maintain tandem stance with L LE in front for 4-5 seconds w/o UE stationary support Able to maintain tandem stance with R LE in front for 8-9 seconds w/o UE stationary support. SLS Details [facility] Single leg stance Equipment chair infront of pt Reps/Duration 2x30 seconds each side time spent Comments Pt able to do SLS on L LE for 4-5 seconds before requiring a hand on a supportive stationary, SLS on R LE for about 2-3 seconds before requiring a hand on a supportive stationary. Self-Care/Home Management Treatment Education Patient Education Body Mechanics,Joint Protection,Pain Management, Posture Other Education Educated pt on importance of head alignment while walking to help with lower back pain. The more forward the head the more strain and weight pulling on the posterior chain . Educated pt on TA brace and engaging core with activites to help protect the low back and prevent increased lumbar lordosis that contributes to back pain. PT-OP-T Assessment and Plan Start: 01/29/25 08:43 Freq: Status: Active Protocol: Document 03/16/25 07:31 PG (Rec: 03/16/25 09:03 PG [id number]) Physical Therapy Assessment Goals 5 Impairment Lack of HEP Impairment . Short Term Goal (STG) . Internal Audit Senior Manager Goal (LTG) Pt will perform HEP with I including ROM, flexibility, strengthening, balance and gait exercises to improve pain and to meet other goals. 02/27/25: Pt reports doing HS, standing hamstring curl, standing up abduction, standing hip extension, heel raises, stretches. D/cd leg hang today and re-added SLR to program. LTG Duration 8 weeks 4 Impairment Decreased left knee ROM Impairment . Short Term Goal (STG) . Jail Goal (LTG) Pt will perform left knee AROM in supine equal to right to improve functional transfers and marixa. 02/10/25: 2-118 deg L knee AROM . 02/27/25: AROM in supine: left: 11-118 deg; right: 2-115 deg. Pt states that left leg feels stiffer today. LTG Duration 8 weeks progressing 02/10/25 3 Impairment Evidence of imbalance Impairment . Short Term Goal (STG) . Jail Goal (LTG) Pt will perform TUG in no more than 9 sec to decrease fall risk. 02/27/25: Did not perform 03/07/25: TUG in 12 sec when not using hands to push up, 10 sec when using hands to push up LTG Duration 8 weeks 2 Impairment Impaired and slow gait Impairment . Short Term Goal (STG) . Jail Goal (LTG) Pt will gait train at least 1700 feet in 6 minutes with or without LRAD to improve community ambulation. 02/15/25: 820 ft with 4WW in 6 min 02/27/25: 1189 feet in 6 minutes without AD today 03/14/25 Pt gait trains 1167 feet today in 6 minutes LTG Duration 8 weeks progressing 02/15/25 1 Impairment LEF score reflects 67.5% impairment Jail Goal (LTG) Pt will present with LEF score reflecting no more than 30% impairment to improve functional mobility and quality of life. 02/27/25: LEF score reflects 41. 25% impairment, greater than 20% improvement since evaluation LTG Duration 8 weeks Assessment Summary Assessment Pt tolerated supine and standing stretches today to help relieve LBP while ambulating the community. Educated pt on benefits of holding stretch longer then 10 seconds (goal is 30 seconds) to ensure muscles have time to lengthen. Pt was able to complete 10 STS's with no arms on an 18 inch chairs, spoke about practicing on similar heights at home. Pt continues to be challenged with maintaining SLS, requiring stationary support after 4-5 seconds, provided cues for improvement progression. Physical Therapy Plan Frequency and Duration Frequency of Treatment 2x/Week Duration of treatment (weeks) 8 Plan of Care Start Date 01/30/25 Plan of Care End Date 04/01/25 Therapeutic Interventions Therapeutic Interventions Balance Training,Canalithic Repositioning,Coordination Training,Gait Training,Home Exercise Program,Joint Mobilizations,Manual Therapy, Neuromuscular Re-education, Patient/Caregiver Education, Self-Care/Home Management, Sensory Integration,Soft Tissue Mobilization,Taping, Therapeutic Activities, Therapeutic Exercises Modalities Cold Pack/Ice Massage,Electric Stimulation,Ultrasound Next Visit Focus/Plan Next Note Type Treatment Note Next Visit Plan Next; increase resistance of TKE, golf swing, recheck posture during all activities. Upright bike seat height 10 Review of HEP and progression- -look at form for exercises given knee ROM deficits and progress , manual work as needed, consider working on golf swing next appt, con't [place] balance progression
--- NOTE | 2025-03-16 08:14 | PT.OTN ---
Current Diagnoses Unilateral primary osteoarthritis, left knee (03/16/25) Physical Therapy Treatment Note PT-OP-A Visit Information Start: 01/29/25 08:43 Freq: Status: Active Protocol: Document 03/16/25 07:31 PG (Rec: 03/16/25 09:03 PG [id number]) Out-Patient Physical Therapy Visit Information Visit Information Visit Type Treatment Note Visit Note Medicare AARP Next Progress note by 03/29 Tabitha GLORIA led tx with permission from pt and direct supervision from Vikki SINGLETON. Visit Start Time 07:31 Visit Stop Time 08:14 Visit Number 11 Number of BILLET EXAMINER Visits 1 Precautions Precautions Pt is on two blood thinners and has significant cardiac history as well as stroke PT-OP-B Current Condition Start: 01/29/25 08:43 Freq: Status: Active Protocol: Document 01/30/25 08:28 MB (Rec: 01/30/25 09:25 MB [id number]) Current Condition History of Current Condition Onset Date 01/23/25 Left medial UKA Current Complaints Left knee pain and trouble walking History of Current Condition Pt arrives to clinic with cane in right hand and he is limping severely. Pt uses the walker in the house. Pt has 2 steps to enter home without rail. 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 Treatment Goals Patient/Caregiver Goals To improve pain and walking PT-OP-C Subjective Start: 01/29/25 08:43 Freq: Status: Active Protocol: Document 03/16/25 07:31 PG (Rec: 03/16/25 09:03 PG [id number]) OP-PT Subjective Patient Comments Patient Comments Pt states lower left back has been aggravating him while he walks. Left knee has felt good. He doesn't do anything for his back in the morning. PT-OP-G Mobility & Gait Start: 01/29/25 08:43 Freq: Status: Active Protocol: Document 01/30/25 08:28 MB (Rec: 01/30/25 09:25 MB [id number]) OP Gait Assessment Comments Gait Comments Pt arrives with walking stick/ wooden cane that is too tall in right and and he presents with flexion at hips, trunk and knees and antalgic/limping step-to gait with decreased step-length and foot clearance . Obtained RW and cued pt to perform better step-through gait and upright posture and ed to use RW at all times currently PT-OP-K Range of Motion Start: 01/29/25 08:43 Freq: Status: Active Protocol: Document 01/30/25 08:28 MB (Rec: 01/30/25 09:25 MB [id number]) Knee Goniometric Range of Motion Knee Left Knee ROM WFL No Patient Position Supine Comments LLE edema in compression hose and dressing and bandage still on wound and PT can see under hose Limited extension with range 18-79 deg Right Knee ROM WFL No Patient Position Supine Comments 5-113 deg PT-OP-M Strength Start: 01/29/25 08:43 Freq: Status: Active Protocol: Document 01/30/25 08:28 MB (Rec: 01/30/25 09:25 MB [id number]) Hip Strength Hip Manual Muscle Testing Left Flexion (L2) 3+ Fair+ Extension (S1) 3+ Fair+ Abduction 3+ Fair+ Right Flexion (L2) 4+ Good+ Extension (S1) 4 Good Abduction 4+ Good+ Knee Strength Knee Manual Muscle Testing Left Flexion (S2) 4 Good Extension (L3) 4 Good Comments Can lift leg off plinth in SLR position but is painful, slow and limited and lacking some knee extension Right Flexion (S2) 5 Normal Extension (L3) 5 Normal Ankle/Foot Strength Ankle and Foot Manual Muscle Testing Left Dorsiflexion (L4) 5 Normal Comments Stranding PF MMT not performed today d/t pain and presentation post-op Right Dorsiflexion (L4) 5 Normal Comments Stranding PF MMT not performed today d/t pain and presentation post-op Toe Strength Toe Manual Muscle Testing Left Great Toe Flexion 5 Normal Right Great Toe Flexion 5 Normal PT-OP-Q Treatments Start: 01/29/25 08:43 Freq: Status: Active Protocol: Document 03/16/25 07:31 PG (Rec: 03/16/25 09:03 PG [id number]) Cardio Equipment Bicycle (Upright) Duration (Minutes) 10 Resistance 8-9 Seat Position 10 Therapeutic Exercises Supine Exercises Hip Rotation Stretch Supine Exercise Name Piriformis and figure four stretch Side bilateral Equipment Used 2 pillows under head Reps/Minutes 30 seconds each Comments v/c's to engage core and keep head on table for better alignment Standing Exercises Kitchen Sink Stretch Standing Exercise Name Review self stretch Equipment Used Staircase used for UE support Reps/Minutes 30 seconds Comments v/c for hip hinge and to keep c/s alignment STS Standing Exercise Name ([facility] STS) Equipment Used mesh chair Reps/Minutes 2 x 5 continuous Comments V/c's to maintain c/s alignment and tall posture TKE Standing Exercise Name Verbally reviewed- reported getting easy Resistance increased to Lv 4 band next Manual Therapy Treatment Consent Patient gave verbal consent for manual Yes treatment Other Other Manual Treatments Pt SL with head supported and pillows between knees for leveled pelvis. STM to L quadratus. Neuro Re-Education Treatment Balance Activities [facility] Tandem Walking Equipment Single UE glide on wall railing Reps/Duration 1/2 wall railing dwn and back x 2 Comments V/c's to keep tall posture and vision up. [facility] Tandem Stance Details R LE and L LE in front with HO Surface floor Equipment Wall railing Reps/Duration 1 x 30 seconds each Comments V/c's to keep head up with tall posture and vision up. Pt able to maintain tandem stance with L LE in front for 4-5 seconds w/o UE stationary support Able to maintain tandem stance with R LE in front for 8-9 seconds w/o UE stationary support. SLS Details [facility] Single leg stance Equipment chair infront of pt Reps/Duration 2x30 seconds each side time spent Comments Pt able to do SLS on L LE for 4-5 seconds before requiring a hand on a supportive stationary, SLS on R LE for about 2-3 seconds before requiring a hand on a supportive stationary. Self-Care/Home Management Treatment Education Patient Education Body Mechanics,Joint Protection,Pain Management, Posture Other Education Educated pt on importance of head alignment while walking to help with lower back pain. The more forward the head the more strain and weight pulling on the posterior chain . Educated pt on TA brace and engaging core with activites to help protect the low back and prevent increased lumbar lordosis that contributes to back pain. PT-OP-T Assessment and Plan Start: 01/29/25 08:43 Freq: Status: Active Protocol: Document 03/16/25 07:31 PG (Rec: 03/16/25 09:03 PG [id number]) Physical Therapy Assessment Goals 5 Impairment Lack of HEP Impairment . Short Term Goal (STG) . Horseback Riding Instructor Goal (LTG) Pt will perform HEP with I including ROM, flexibility, strengthening, balance and gait exercises to improve pain and to meet other goals. 02/27/25: Pt reports doing HS, standing hamstring curl, standing up abduction, standing hip extension, heel raises, stretches. D/cd leg hang today and re-added SLR to program. LTG Duration 8 weeks 4 Impairment Decreased left knee ROM Impairment . Short Term Goal (STG) . Horseback Riding Instructor Goal (LTG) Pt will perform left knee AROM in supine equal to right to improve functional transfers and marixa. 02/10/25: 2-118 deg L knee AROM . 02/27/25: AROM in supine: left: 11-118 deg; right: 2-115 deg. Pt states that left leg feels stiffer today. LTG Duration 8 weeks progressing 02/10/25 3 Impairment Evidence of imbalance Impairment . Short Term Goal (STG) . [facility] Goal (LTG) Pt will perform TUG in no more than 9 sec to decrease fall risk. 02/27/25: Did not perform 03/07/25: TUG in 12 sec when not using hands to push up, 10 sec when using hands to push up LTG Duration 8 weeks 2 Impairment Impaired and slow gait Impairment . Short Term Goal (STG) . [facility] Goal (LTG) Pt will gait train at least 1700 feet in 6 minutes with or without LRAD to improve community ambulation. 02/15/25: 820 ft with 4WW in 6 min 02/27/25: 1189 feet in 6 minutes without AD today 03/14/25 Pt gait trains 1167 feet today in 6 minutes LTG Duration 8 weeks progressing 02/15/25 1 Impairment LEF score reflects 67.5% impairment [facility] Goal (LTG) Pt will present with LEF score reflecting no more than 30% impairment to improve functional mobility and quality of life. 02/27/25: LEF score reflects 41. 25% impairment, greater than 20% improvement since evaluation LTG Duration 8 weeks Assessment Summary Assessment Pt tolerated supine and standing stretches today to help relieve LBP while ambulating the community. Educated pt on benefits of holding stretch longer then 10 seconds (goal is 30 seconds) to ensure muscles have time to lengthen. Pt was able to complete 10 STS's with no arms on an 18 inch chairs, spoke about practicing on similar heights at home. Pt continues to be challenged with maintaining SLS, requiring stationary support after 4-5 seconds, provided cues for improvement progression. Physical Therapy Plan Frequency and Duration Frequency of Treatment 2x/Week Duration of treatment (weeks) 8 Plan of Care Start Date 01/30/25 Plan of Care End Date 04/01/25 Therapeutic Interventions Therapeutic Interventions Balance Training,Canalithic Repositioning,Coordination Training,Gait Training,Home Exercise Program,Joint Mobilizations,Manual Therapy, Neuromuscular Re-education, Patient/Caregiver Education, Self-Care/Home Management, Sensory Integration,Soft Tissue Mobilization,Taping, Therapeutic Activities, Therapeutic Exercises Modalities Cold Pack/Ice Massage,Electric Stimulation,Ultrasound Next Visit Focus/Plan Next Note Type Treatment Note Next Visit Plan Next; increase resistance of TKE, golf swing, recheck posture during all activities. Upright bike seat height 10 Review of HEP and progression- -look at form for exercises given knee ROM deficits and progress , manual work as needed, consider working on golf swing next appt, con't [place] balance progression
--- NOTE | 2025-03-21 08:53 | PT.OTN ---
Current Diagnoses Unilateral primary osteoarthritis, left knee (03/21/25) Physical Therapy Treatment Note PT-OP-A Visit Information Start: 01/29/25 08:43 Freq: Status: Active Protocol: Document 03/21/25 08:15 MB (Rec: 03/21/25 08:53 MB Desktop) Out-Patient Physical Therapy Visit Information Visit Information Visit Type Treatment Note Visit Note No KX Visit Start Time 08:15 Visit Stop Time 08:55 Visit Number 12 Number of WHITE GOODS APPLIANCE TECH Visits 0 Evaluation Information Evaluation Date 01/30/25 Precautions Precautions Pt is on two blood thinners and has significant cardiac history as well as stroke PT-OP-B Current Condition Start: 01/29/25 08:43 Freq: Status: Active Protocol: Document 01/30/25 08:28 MB (Rec: 01/30/25 09:25 MB [id number]) Current Condition History of Current Condition Onset Date 01/23/25 Left medial UKA Current Complaints Left knee pain and trouble walking History of Current Condition Pt arrives to clinic with cane in right hand and he is limping severely. Pt uses the walker in the house. Pt has 2 steps to enter home without rail. 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 Treatment Goals Patient/Caregiver Goals To improve pain and walking PT-OP-C Subjective Start: 01/29/25 08:43 Freq: Status: Active Protocol: Document 03/21/25 08:15 MB (Rec: 03/21/25 08:53 MB Desktop) OP-PT Subjective Patient Comments Patient Comments Pt's ANJUM is in the hospital. He is 89 y/o and may go on Hospice. Pt and currently have ANJUM's dog with their own dog. PT-OP-G Mobility & Gait Start: 01/29/25 08:43 Freq: Status: Active Protocol: Document 01/30/25 08:28 MB (Rec: 01/30/25 09:25 MB [id number]) OP Gait Assessment Comments Gait Comments Pt arrives with walking stick/ wooden cane that is too tall in right and and he presents with flexion at hips, trunk and knees and antalgic/limping step-to gait with decreased step-length and foot clearance . Obtained RW and cued pt to perform better step-through gait and upright posture and ed to use RW at all times currently PT-OP-K Range of Motion Start: 01/29/25 08:43 Freq: Status: Active Protocol: Document 01/30/25 08:28 MB (Rec: 01/30/25 09:25 MB [id number]) Knee Goniometric Range of Motion Knee Left Knee ROM WFL No Patient Position Supine Comments LLE edema in compression hose and dressing and bandage still on wound and PT can see under hose Limited extension with range 18-79 deg Right Knee ROM WFL No Patient Position Supine Comments 5-113 deg PT-OP-M Strength Start: 01/29/25 08:43 Freq: Status: Active Protocol: Document 01/30/25 08:28 MB (Rec: 01/30/25 09:25 MB [id number]) Hip Strength Hip Manual Muscle Testing Left Flexion (L2) 3+ Fair+ Extension (S1) 3+ Fair+ Abduction 3+ Fair+ Right Flexion (L2) 4+ Good+ Extension (S1) 4 Good Abduction 4+ Good+ Knee Strength Knee Manual Muscle Testing Left Flexion (S2) 4 Good Extension (L3) 4 Good Comments Can lift leg off plinth in SLR position but is painful, slow and limited and lacking some knee extension Right Flexion (S2) 5 Normal Extension (L3) 5 Normal Ankle/Foot Strength Ankle and Foot Manual Muscle Testing Left Dorsiflexion (L4) 5 Normal Comments Stranding PF MMT not performed today d/t pain and presentation post-op Right Dorsiflexion (L4) 5 Normal Comments Stranding PF MMT not performed today d/t pain and presentation post-op Toe Strength Toe Manual Muscle Testing Left Great Toe Flexion 5 Normal Right Great Toe Flexion 5 Normal PT-OP-Q Treatments Start: 01/29/25 08:43 Freq: Status: Active Protocol: Document 03/21/25 08:15 MB (Rec: 03/21/25 08:53 MB Desktop) Cardio Equipment Bicycle (Upright) Duration (Minutes) 10 Resistance 8-10 Seat Position 10 Therapeutic Exercises Standing Exercises Scapular retraction against wall Standing Exercise Name Declines photo Comments Discussion about posture and ed to perform with cooking, other tasks Wall slide for legs Standing Exercise Name HEP and handout today Side bilateral Resistance Level 4 blue latex band Reps/Minutes 8 reps Comments Cues for pelvic tilt, engage core, tall posture TKE Standing Exercise Name Increased band today Side left Resistance Level 4 latex band Reps/Minutes Several reps Comments Performed 15 reps today Therapeutic Activity Therapeutic Activity Golf swing Comments Pt is right-handed and practiced swinging and talked about ergonomics to help with posture and resting including using stool for lower surfaces at home, pt performs forward flexion holding club, SB and rotation Gait Training Gait Activity Backwards walking today Comments Performed today to improve knee extension, several reps and ed, also re-checked forward walking afterwards PT-OP-T Assessment and Plan Start: 01/29/25 08:43 Freq: Status: Active Protocol: Document 03/21/25 08:15 MB (Rec: 03/21/25 08:53 MB Desktop) Physical Therapy Assessment Goals 5 Impairment Lack of HEP Impairment . Short Term Goal (STG) . [place] Winder Goal (LTG) Pt will perform HEP with I including ROM, flexibility, strengthening, balance and gait exercises to improve pain and to meet other goals. 02/27/25: Pt reports doing HS, standing hamstring curl, standing up abduction, standing hip extension, heel raises, stretches. D/cd leg hang today and re-added SLR to program. LTG Duration 8 weeks 4 Impairment Decreased left knee ROM Impairment . Short Term Goal (STG) . Assisted Goal (LTG) Pt will perform left knee AROM in supine equal to right to improve functional transfers and marixa. 02/10/25: 2-118 deg L knee AROM . 02/27/25: AROM in supine: left: 11-118 deg; right: 2-115 deg. Pt states that left leg feels stiffer today. LTG Duration 8 weeks progressing 02/10/25 3 Impairment Evidence of imbalance Impairment . Short Term Goal (STG) . [place] Winder Goal (LTG) Pt will perform TUG in no more than 9 sec to decrease fall risk. 02/27/25: Did not perform 03/07/25: TUG in 12 sec when not using hands to push up, 10 sec when using hands to push up LTG Duration 8 weeks 2 Impairment Impaired and slow gait Impairment . Short Term Goal (STG) . [place] Winder Goal (LTG) Pt will gait train at least 1700 feet in 6 minutes with or without LRAD to improve community ambulation. 02/15/25: 820 ft with 4WW in 6 min 02/27/25: 1189 feet in 6 minutes without AD today 03/14/25 Pt gait trains 1167 feet today in 6 minutes LTG Duration 8 weeks progressing 02/15/25 1 Impairment LEF score reflects 67.5% impairment [place] Winder Goal (LTG) Pt will present with LEF score reflecting no more than 30% impairment to improve functional mobility and quality of life. 02/27/25: LEF score reflects 41. 25% impairment, greater than 20% improvement since evaluation LTG Duration 8 weeks Assessment Summary Assessment Progressing nicely, worked on posture, knee extension and backwards walking today and started some golf swinging. 5 more appointments should be perfect and pt to get to golf driving range as able and PT to review and condense all exercises from this and previous PT course, con't manual work as needed and measure knee ROM. Physical Therapy Plan Frequency and Duration Frequency of Treatment 2x/Week Duration of treatment (weeks) 8 Plan of Care Start Date 01/30/25 Plan of Care End Date 04/01/25 Therapeutic Interventions Therapeutic Interventions Balance Training,Canalithic Repositioning,Coordination Training,Gait Training,Home Exercise Program,Joint Mobilizations,Manual Therapy, Neuromuscular Re-education, Patient/Caregiver Education, Self-Care/Home Management, Sensory Integration,Soft Tissue Mobilization,Taping, Therapeutic Activities, Therapeutic Exercises Modalities Cold Pack/Ice Massage,Electric Stimulation,Ultrasound Next Visit Focus/Plan Next Note Type Treatment Note Next Visit Plan Bike height at 10 Pt to bring in handouts and can get rid of some as needed from this and previous treatment for other knee-- revise total HEP. Progress sidestepping and backwards stepping with theraband if safe
--- NOTE | 2025-03-24 09:01 | PT.OTN ---
Current Diagnoses Unilateral primary osteoarthritis, left knee (03/24/25) Physical Therapy Treatment Note PT-OP-A Visit Information Start: 01/29/25 08:43 Freq: Status: Active Protocol: Document 03/24/25 08:21 PG (Rec: 03/24/25 09:25 PG [id number]) Out-Patient Physical Therapy Visit Information Visit Information Visit Type Treatment Note Visit Note No KX Next progress note by 03/29 Tabitha GLORIA led tx with permission of pt and direct supervision from Vikki SINGLETON. Visit Start Time 08:21 Visit Stop Time 09:01 Visit Number 13 Number of COSMETIC CHEMIST Visits 1 Evaluation Information Evaluation Date 01/30/25 Precautions Precautions Pt is on two blood thinners and has significant cardiac history as well as stroke PT-OP-B Current Condition Start: 01/29/25 08:43 Freq: Status: Active Protocol: Document 01/30/25 08:28 MB (Rec: 01/30/25 09:25 MB [id number]) Current Condition History of Current Condition Onset Date 01/23/25 Left medial UKA Current Complaints Left knee pain and trouble walking History of Current Condition Pt arrives to clinic with cane in right hand and he is limping severely. Pt uses the walker in the house. Pt has 2 steps to enter home without rail. 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 Treatment Goals Patient/Caregiver Goals To improve pain and walking PT-OP-C Subjective Start: 01/29/25 08:43 Freq: Status: Active Protocol: Document 03/24/25 08:21 PG (Rec: 03/24/25 09:25 PG [id number]) OP-PT Subjective Patient Comments Patient Comments Pt's feeling okay. His ANJUM has recently passed, they will be having a memorial for him today. Daughter in town. PT-OP-G Mobility & Gait Start: 01/29/25 08:43 Freq: Status: Active Protocol: Document 01/30/25 08:28 MB (Rec: 01/30/25 09:25 MB [id number]) OP Gait Assessment Comments Gait Comments Pt arrives with walking stick/ wooden cane that is too tall in right and and he presents with flexion at hips, trunk and knees and antalgic/limping step-to gait with decreased step-length and foot clearance . Obtained RW and cued pt to perform better step-through gait and upright posture and ed to use RW at all times currently PT-OP-K Range of Motion Start: 01/29/25 08:43 Freq: Status: Active Protocol: Document 01/30/25 08:28 MB (Rec: 01/30/25 09:25 MB [id number]) Knee Goniometric Range of Motion Knee Left Knee ROM WFL No Patient Position Supine Comments LLE edema in compression hose and dressing and bandage still on wound and PT can see under hose Limited extension with range 18-79 deg Right Knee ROM WFL No Patient Position Supine Comments 5-113 deg PT-OP-M Strength Start: 01/29/25 08:43 Freq: Status: Active Protocol: Document 01/30/25 08:28 MB (Rec: 01/30/25 09:25 MB [id number]) Hip Strength Hip Manual Muscle Testing Left Flexion (L2) 3+ Fair+ Extension (S1) 3+ Fair+ Abduction 3+ Fair+ Right Flexion (L2) 4+ Good+ Extension (S1) 4 Good Abduction 4+ Good+ Knee Strength Knee Manual Muscle Testing Left Flexion (S2) 4 Good Extension (L3) 4 Good Comments Can lift leg off plinth in SLR position but is painful, slow and limited and lacking some knee extension Right Flexion (S2) 5 Normal Extension (L3) 5 Normal Ankle/Foot Strength Ankle and Foot Manual Muscle Testing Left Dorsiflexion (L4) 5 Normal Comments Stranding PF MMT not performed today d/t pain and presentation post-op Right Dorsiflexion (L4) 5 Normal Comments Stranding PF MMT not performed today d/t pain and presentation post-op Toe Strength Toe Manual Muscle Testing Left Great Toe Flexion 5 Normal Right Great Toe Flexion 5 Normal PT-OP-Q Treatments Start: 01/29/25 08:43 Freq: Status: Active Protocol: Document 03/24/25 08:21 PG (Rec: 03/24/25 09:25 PG [id number]) Cardio Equipment Bicycle (Upright) Duration (Minutes) 10 Resistance 8-10 Seat Position 10 Therapeutic Exercises Supine Exercises ROM assessment Supine Exercise Name AROM with knee extension 4deg today Standing Exercises Lateral Walking Side bilateral Resistance [place] (level 3) theraband Equipment Used UE wall railing for saftey, not used Reps/Minutes 15ft down and back x4 Comments cues for core engagement, looking fwrd, small bend in knees and hip hinge Scapular retraction against wall Standing Exercise Name Reviewed Reps/Minutes 10x Comments Used towel behind head for tactile cues/postural , cues for core engagement Wall slide for legs Standing Exercise Name Reviewed Side bilateral Resistance Level 4 blue latex band Reps/Minutes 10x Comments cues to look fwrd, engage pelvis, tall posture Gait Training Gait Activity Backwards walking today Level of Assistance SBA Distance/Duration 1 lap around clinic Treatment Focus knee extension Comments Cues to engage core, look forward and stand tall (pt tends to look down and flex c/ s as well as increase thoracic flexion) Manual Therapy Treatment Consent Patient gave verbal consent for manual Yes treatment Manual Techniques Self STM Type Tennis ball against wall Body Location L quadratus Body Position Back against wall Comments cues to roll out tension or tight muscles in low back against wall with tennis ball. Pillow case to prevent losing ball during activity. Other Other Manual Treatments Pt SL with head supported and pillows between knees for leveled pelvis. STM to L quadratus. Neuro Re-Education Treatment Balance Activities [place] Tandem Walking Details fwd/bckwrd Equipment Single UE glide on wall railing Reps/Duration 1/2 wall railing dwn and back x 4 Comments v/c's to engage core, look forward, slow pace. PT-OP-T Assessment and Plan Start: 01/29/25 08:43 Freq: Status: Active Protocol: Document 03/24/25 08:21 PG (Rec: 03/24/25 09:25 PG [id number]) Physical Therapy Assessment Goals 5 Impairment Lack of HEP Impairment . Short Term Goal (STG) . Steward/Stewardess Tourist Class Goal (LTG) Pt will perform HEP with I including ROM, flexibility, strengthening, balance and gait exercises to improve pain and to meet other goals. 02/27/25: Pt reports doing HS, standing hamstring curl, standing up abduction, standing hip extension, heel raises, stretches. D/cd leg hang today and re-added SLR to program. LTG Duration 8 weeks 4 Impairment Decreased left knee ROM Impairment . Short Term Goal (STG) . Steward/Stewardess Tourist Class Goal (LTG) Pt will perform left knee AROM in supine equal to right to improve functional transfers and marixa. 02/10/25: 2-118 deg L knee AROM . 02/27/25: AROM in supine: left: 11-118 deg; right: 2-115 deg. Pt states that left leg feels stiffer today. LTG Duration 8 weeks progressing 02/10/25 3 Impairment Evidence of imbalance Impairment . Short Term Goal (STG) . Steward/Stewardess Tourist Class Goal (LTG) Pt will perform TUG in no more than 9 sec to decrease fall risk. 02/27/25: Did not perform 03/07/25: TUG in 12 sec when not using hands to push up, 10 sec when using hands to push up LTG Duration 8 weeks 2 Impairment Impaired and slow gait Impairment . Short Term Goal (STG) . Steward/Stewardess Tourist Class Goal (LTG) Pt will gait train at least 1700 feet in 6 minutes with or without LRAD to improve community ambulation. 02/15/25: 820 ft with 4WW in 6 min 02/27/25: 1189 feet in 6 minutes without AD today 03/14/25 Pt gait trains 1167 feet today in 6 minutes LTG Duration 8 weeks progressing 02/15/25 1 Impairment LEF score reflects 67.5% impairment Longterm Goal (LTG) Pt will present with LEF score reflecting no more than 30% impairment to improve functional mobility and quality of life. 02/27/25: LEF score reflects 41. 25% impairment, greater than 20% improvement since evaluation LTG Duration 8 weeks Assessment Summary Assessment Continued to work on backward walking for focus on knee extension, pt tolerated well with few cues to stand tall, look fwrd and engage core to protect low back. Condenced HEP exercises during tx, progressed lateral side stepping with a TB around the thighs for lateral hip strengthening required for level pelvic alignment when ambulating through the community. Pt was challenged by tightrope walking fwrd/ bkwrd, required 1 UE on wall rail and was unable to walk with toe to heel completely ( about 2-3 inch difference) due to unsteady balance. Pt did report he felt discomfort in his low back with tandem walking activity, cued for core engagement, no discomfort with regular backward walking . Physical Therapy Plan Frequency and Duration Frequency of Treatment 2x/Week Duration of treatment (weeks) 8 Plan of Care Start Date 01/30/25 Plan of Care End Date 04/01/25 Therapeutic Interventions Therapeutic Interventions Balance Training,Canalithic Repositioning,Coordination Training,Gait Training,Home Exercise Program,Joint Mobilizations,Manual Therapy, Neuromuscular Re-education, Patient/Caregiver Education, Self-Care/Home Management, Sensory Integration,Soft Tissue Mobilization,Taping, Therapeutic Activities, Therapeutic Exercises Modalities Cold Pack/Ice Massage,Electric Stimulation,Ultrasound Next Visit Focus/Plan Next Note Type Treatment Note Next Visit Plan Bike height at 10 Next: Progress backwards stepping with theraband if safe. Reassess SLS and review [place] tightrope walking fwd/ bckwrd
--- NOTE | 2025-03-28 10:45 | PT.OTN ---
Current Diagnoses Unilateral primary osteoarthritis, left knee (03/28/25) Physical Therapy Treatment Note PT-OP-A Visit Information Start: 01/29/25 08:43 Freq: Status: Active Protocol: Document 03/28/25 07:24 AB (Rec: 03/28/25 10:44 AB Laptop) Out-Patient Physical Therapy Visit Information Visit Information Visit Type Treatment Note Visit Note No KX Next progress note by 03/29 Access Code: [email or web address] Visit Start Time 08:15 Visit Stop Time 09:01 Visit Number 15 Number of THERMAL SPRAY OPERATOR Visits 2 PT-OP-B Current Condition Start: 01/29/25 08:43 Freq: Status: Active Protocol: Document 01/30/25 08:28 MB (Rec: 01/30/25 09: MB [id number]) Current Condition History of Current Condition Onset Date 01/23/25 Left medial UKA Current Complaints Left knee pain and trouble walking History of Current Condition Pt arrives to clinic with cane in right hand and he is limping severely. Pt uses the walker in the house. Pt has 2 steps to enter home without rail. 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 Treatment Goals Patient/Caregiver Goals To improve pain and walking PT-OP-C Subjective Start: 01/29/25 08:43 Freq: Status: Active Protocol: Document 03/28/25 07:24 AB (Rec: 03/28/25 10:44 AB Laptop) OP-PT Subjective Patient Comments Patient Comments Patient reports the knee is pretty good, comments he is almost finished rehab. comments lower back L is getting, better but cannot walk a long distance. PT-OP-G Mobility & Gait Start: 01/29/25 08:43 Freq: Status: Active Protocol: Document 01/30/25 08:28 MB (Rec: 01/30/25 09:25 MB [id number]) OP Gait Assessment Comments Gait Comments Pt arrives with walking stick/ wooden cane that is too tall in right and and he presents with flexion at hips, trunk and knees and antalgic/limping step-to gait with decreased step-length and foot clearance . Obtained RW and cued pt to perform better step-through gait and upright posture and ed to use RW at all times currently PT-OP-K Range of Motion Start: 01/29/25 08:43 Freq: Status: Active Protocol: Document 01/30/25 08:28 MB (Rec: 01/30/25 09:25 MB [id number]) Knee Goniometric Range of Motion Knee Left Knee ROM WFL No Patient Position Supine Comments LLE edema in compression hose and dressing and bandage still on wound and PT can see under hose Limited extension with range 18-79 deg Right Knee ROM WFL No Patient Position Supine Comments 5-113 deg PT-OP-M Strength Start: 01/29/25 08:43 Freq: Status: Active Protocol: Document 01/30/25 08:28 MB (Rec: 01/30/25 09:25 MB [id number]) Hip Strength Hip Manual Muscle Testing Left Flexion (L2) 3+ Fair+ Extension (S1) 3+ Fair+ Abduction 3+ Fair+ Right Flexion (L2) 4+ Good+ Extension (S1) 4 Good Abduction 4+ Good+ Knee Strength Knee Manual Muscle Testing Left Flexion (S2) 4 Good Extension (L3) 4 Good Comments Can lift leg off plinth in SLR position but is painful, slow and limited and lacking some knee extension Right Flexion (S2) 5 Normal Extension (L3) 5 Normal Ankle/Foot Strength Ankle and Foot Manual Muscle Testing Left Dorsiflexion (L4) 5 Normal Comments Stranding PF MMT not performed today d/t pain and presentation post-op Right Dorsiflexion (L4) 5 Normal Comments Stranding PF MMT not performed today d/t pain and presentation post-op Toe Strength Toe Manual Muscle Testing Left Great Toe Flexion 5 Normal Right Great Toe Flexion 5 Normal PT-OP-Q Treatments Start: 01/29/25 08:43 Freq: Status: Active Protocol: Document 03/28/25 07:24 AB (Rec: 03/28/25 10:44 AB Laptop) Cardio Equipment Bicycle (Upright) Duration (Minutes) 6 Resistance 8-10 Seat Position 10 Therapeutic Exercises Supine Exercises ROM assessment Supine Exercise Name AROM lacking 10 deg ext to 124 deg flex AROM L knee Hip Rotation Stretch Supine Exercise Name Piriformis and figure four stretch Side bilateral Equipment Used 2 pillows under head Reps/Minutes 30 seconds each Comments Verbal cues for LE positioning Pelvic Realignment Ex Reps/Minutes 3 sec X 5 each Comments Reviewed handouts today Sitting Exercises seated knee extension stretch Side left Equipment Used 4lb above knee Reps/Minutes 5 min total Comments 1. instruct in self STM, 2. quad sets STS Sitting Exercise Name Sit/Stand Resistance level 4 band above knee Equipment Used 18 mesh chair Reps/Minutes 3X10 Comments Verbal cues for full knee ext when reaching upright Standing Exercises [place] Extension Standing Exercise Name hip ext with band/blue level for for HEP Side bilateral Resistance Level 4 band, below knees Equipment Used rail support Reps/Minutes 20 alternating Comments monitored for pain calf stretch Side bilateral Reps/Minutes 30 sec x2 Comments focus on knee ext Neuro Re-Education Treatment Balance Activities step up taps Details to 6 inch step standing on foam Reps/Duration X 12 Comments CGA hands above parallel bars [place] Tandem Walking Details hands above // bars when initiating each step Equipment hands above bars Reps/Duration X 3 fwd X 3 retro Comments CGA SLS Details 7 sec L LE start Reps/Duration 2 min Comments hands above parallel bars PT-OP-T Assessment and Plan Start: 01/29/25 08:43 Freq: Status: Active Protocol: Document 03/28/25 07:24 AB (Rec: 03/28/25 10:44 AB Laptop) Physical Therapy Assessment Goals 5 Impairment Lack of HEP Impairment . Short Term Goal (STG) . Training Engineer Goal (LTG) Pt will perform HEP with I including ROM, flexibility, strengthening, balance and gait exercises to improve pain and to meet other goals. 02/27/25: Pt reports doing HS, standing hamstring curl, standing up abduction, standing hip extension, heel raises, stretches. D/cd leg hang today and re-added SLR to program. LTG Duration 8 weeks 4 Impairment Decreased left knee ROM Impairment . Short Term Goal (STG) . Training Engineer Goal (LTG) Pt will perform left knee AROM in supine equal to right to improve functional transfers and marixa. 02/10/25: 2-118 deg L knee AROM . 02/27/25: AROM in supine: left: 11-118 deg; right: 2-115 deg. Pt states that left leg feels stiffer today. LTG Duration 8 weeks progressing 02/10/25 3 Impairment Evidence of imbalance Impairment . Short Term Goal (STG) . Training Engineer Goal (LTG) Pt will perform TUG in no more than 9 sec to decrease fall risk. 02/27/25: Did not perform 03/07/25: TUG in 12 sec when not using hands to push up, 10 sec when using hands to push up LTG Duration 8 weeks 2 Impairment Impaired and slow gait Impairment . Short Term Goal (STG) . Care Home Goal (LTG) Pt will gait train at least 1700 feet in 6 minutes with or without LRAD to improve community ambulation. 02/15/25: 820 ft with 4WW in 6 min 02/27/25: 1189 feet in 6 minutes without AD today 03/14/25 Pt gait trains 1167 feet today in 6 minutes LTG Duration 8 weeks progressing 02/15/25 1 Impairment LEF score reflects 67.5% impairment Training Engineer Goal (LTG) Pt will present with LEF score reflecting no more than 30% impairment to improve functional mobility and quality of life. 02/27/25: LEF score reflects 41. 25% impairment, greater than 20% improvement since evaluation LTG Duration 8 weeks Assessment Summary Assessment Patient ambulates and stands with bilateral knees increased flexion, Good return demonstration and reports of no pain post verbal cues to stand with knees straight for a moment prior to stand to sit when performing sit to stands . AROM L knee lacking 8 deg ext post exercise Physical Therapy Plan Frequency and Duration Frequency of Treatment 2x/Week Duration of treatment (weeks) 8 Plan of Care Start Date 01/30/25 Plan of Care End Date 04/01/25 Therapeutic Interventions Therapeutic Interventions Balance Training,Canalithic Repositioning,Coordination Training,Gait Training,Home Exercise Program,Joint Mobilizations,Manual Therapy, Neuromuscular Re-education, Patient/Caregiver Education, Self-Care/Home Management, Sensory Integration,Soft Tissue Mobilization,Taping, Therapeutic Activities, Therapeutic Exercises Modalities Cold Pack/Ice Massage,Electric Stimulation,Ultrasound Next Visit Focus/Plan Next Note Type Progress Note Next Visit Plan Bike height at 10 Next: Progress backwards stepping with theraband if safe in clinic/ not for HEP as has standing hip ext with band currently/ Possibly condense HEP. Reassess SLS , TUG
--- NOTE | 2025-03-31 11:23 | PT.OTN ---
Current Diagnoses Unilateral primary osteoarthritis, left knee (03/31/25) Physical Therapy Treatment Note PT-OP-A Visit Information Start: 01/29/25 08:43 Freq: Status: Active Protocol: Document 03/31/25 10:43 PG (Rec: 03/31/25 11:30 PG Laptop) Out-Patient Physical Therapy Visit Information Visit Information Visit Type Treatment Note Visit Note No KX SPTA, Tabitha led tx w permission of pt and direct supervision of Vikki SINGLETON. Visit Start Time 10:45 Visit Stop Time 11:23 Visit Number 16 Number of RUBBER TRIMMER Visits 3 Evaluation Information Evaluation Date 01/30/25 Precautions Precautions Pt is on two blood thinners and has significant cardiac history as well as stroke PT-OP-B Current Condition Start: 01/29/25 08:43 Freq: Status: Active Protocol: Document 01/30/25 08:28 MB (Rec: 01/30/25 09:25 MB [id number]) Current Condition History of Current Condition Onset Date 01/23/25 Left medial UKA Current Complaints Left knee pain and trouble walking History of Current Condition Pt arrives to clinic with cane in right hand and he is limping severely. Pt uses the walker in the house. Pt has 2 steps to enter home without rail. 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 Treatment Goals Patient/Caregiver Goals To improve pain and walking PT-OP-C Subjective Start: 01/29/25 08:43 Freq: Status: Active Protocol: Document 03/31/25 10:43 PG (Rec: 03/31/25 11:30 PG Laptop) OP-PT Subjective Patient Comments Patient Comments Pt would like to DC after today's tx. Works well for him since he has a lot going on family tariq. Patient Questionnaires Lower Extremity Functional Scale LEFS Score 52 LEFS Impairment 20 to 39% Impaired (Score 48- 62) PT-OP-G Mobility & Gait Start: 01/29/25 08:43 Freq: Status: Active Protocol: Document 01/30/25 08:28 MB (Rec: 01/30/25 09:25 MB [id number]) OP Gait Assessment Comments Gait Comments Pt arrives with walking stick/ wooden cane that is too tall in right and and he presents with flexion at hips, trunk and knees and antalgic/limping step-to gait with decreased step-length and foot clearance . Obtained RW and cued pt to perform better step-through gait and upright posture and ed to use RW at all times currently PT-OP-K Range of Motion Start: 01/29/25 08:43 Freq: Status: Active Protocol: Document 01/30/25 08:28 MB (Rec: 01/30/25 09:25 MB [id number]) Knee Goniometric Range of Motion Knee Left Knee ROM WFL No Patient Position Supine Comments LLE edema in compression hose and dressing and bandage still on wound and PT can see under hose Limited extension with range 18-79 deg Right Knee ROM WFL No Patient Position Supine Comments 5-113 deg PT-OP-M Strength Start: 01/29/25 08:43 Freq: Status: Active Protocol: Document 01/30/25 08:28 MB (Rec: 01/30/25 09:25 MB [id number]) Hip Strength Hip Manual Muscle Testing Left Flexion (L2) 3+ Fair+ Extension (S1) 3+ Fair+ Abduction 3+ Fair+ Right Flexion (L2) 4+ Good+ Extension (S1) 4 Good Abduction 4+ Good+ Knee Strength Knee Manual Muscle Testing Left Flexion (S2) 4 Good Extension (L3) 4 Good Comments Can lift leg off plinth in SLR position but is painful, slow and limited and lacking some knee extension Right Flexion (S2) 5 Normal Extension (L3) 5 Normal Ankle/Foot Strength Ankle and Foot Manual Muscle Testing Left Dorsiflexion (L4) 5 Normal Comments Stranding PF MMT not performed today d/t pain and presentation post-op Right Dorsiflexion (L4) 5 Normal Comments Stranding PF MMT not performed today d/t pain and presentation post-op Toe Strength Toe Manual Muscle Testing Left Great Toe Flexion 5 Normal Right Great Toe Flexion 5 Normal PT-OP-Q Treatments Start: 01/29/25 08:43 Freq: Status: Active Protocol: Document 03/31/25 10:43 PG (Rec: 03/31/25 11:30 PG Laptop) Therapeutic Exercises Supine Exercises ROM assessment Supine Exercise Name AROM supine: L 4-127 deg; R 3 -123deg Gait Training Gait Activity Obstacle Course Description Uneven terrain Level of Assistance SBA for precaution, not needed Surface 2 blue mats over foam pads & pods, hurdles Treatment Focus walking across uneven terrain w no AD Comments Pt required no assistance, walked across obstacle course back and forth x4 6MWT Comments Pt gait trains 1401 ft today in 6 minutes with some decreased knee bend and foot clearance. Neuro Re-Education Treatment Balance Activities TUG Comments 10 seconds, 9 seconds, 9 seconds. PT-OP-T Assessment and Plan Start: 01/29/25 08:43 Freq: Status: Active Protocol: Document 03/31/25 10:43 PG (Rec: 03/31/25 11:30 PG Laptop) Physical Therapy Assessment Goals 5 Impairment Lack of HEP Impairment . Short Term Goal (STG) . Fdc Goal (LTG) Pt will perform HEP with I including ROM, flexibility, strengthening, balance and gait exercises to improve pain and to meet other goals. 02/27/25: Pt reports doing HS, standing hamstring curl, standing up abduction, standing hip extension, heel raises, stretches. D/cd leg hang today and re-added SLR to program. 03/31/25: Feels comfortable with HEP he has, and is focusing on knee extension. Goal met LTG Duration 8 weeks Goal Met: 03/31/25 4 Impairment Decreased left knee ROM Impairment . Short Term Goal (STG) . Fdc Goal (LTG) Pt will perform left knee AROM in supine equal to right to improve functional transfers and marixa. 02/10/25: 2-118 deg L knee AROM . 02/27/25: AROM in supine: left: 11-118 deg; right: 2-115 deg. Pt states that left leg feels stiffer today. 03/31/25: AROM supine: L 4-127 deg; R 3-123deg LTG Duration 8 weeks Goal Met: 03/31/25 3 Impairment Evidence of imbalance Impairment . Short Term Goal (STG) . Casino Floor Walker Goal (LTG) Pt will perform TUG in no more than 9 sec to decrease fall risk. 02/27/25: Did not perform 03/07/25: TUG in 12 sec when not using hands to push up, 10 sec when using hands to push up 03/31/25: 10, 9, 9: av seconds LTG Duration 8 weeks Goal Met: 03/31/25 2 Impairment Impaired and slow gait Impairment . Short Term Goal (STG) . Casino Floor Walker Goal (LTG) Pt will gait train at least 1700 feet in 6 minutes with or without LRAD to improve community ambulation. 02/15/25: 820 ft with 4WW in 6 min 02/27/25: 1189 feet in 6 minutes without AD today 03/14/25 Pt gait trains 1167 feet today in 6 minutes 03/29/25: 1401 ft today in 6 minutes LTG Duration 8 weeks - Good goal progress 1 Impairment LEF score reflects 67.5% impairment Fdc Goal (LTG) Pt will present with LEF score reflecting no more than 30% impairment to improve functional mobility and quality of life. 02/27/25: LEF score reflects 41. 25% impairment, greater than 20% improvement since evaluation 03/31/25: LEF score: 52 - 20 to 39% Impaired (Score 48-62) LTG Duration 8 weeks - Good goal progress Progress Towards Goals Progress Comments Gained 7 degrees in L knee ext and 9 degrees in L knee flex. Gained 8 degrees in knee flex. Assessment Summary Assessment Pt met or progressed toward all of his goals today. Worked on walking through obstacle course to simulate pt trail or hiking with on uneven terrain and without an AD, pt tolerated well with no assistance. Physical Therapy Plan Frequency and Duration Frequency of Treatment 2x/Week Duration of treatment (weeks) 8 Plan of Care Start Date 01/30/25 Plan of Care End Date 04/01/25 Therapeutic Interventions Therapeutic Interventions Balance Training,Canalithic Repositioning,Coordination Training,Gait Training,Home Exercise Program,Joint Mobilizations,Manual Therapy, Neuromuscular Re-education, Patient/Caregiver Education, Self-Care/Home Management, Sensory Integration,Soft Tissue Mobilization,Taping, Therapeutic Activities, Therapeutic Exercises Modalities Cold Pack/Ice Massage,Electric Stimulation,Ultrasound Discharge Physical Therapy Discharge Reasons Goals Met Discharge Comments Pt met majority of goals, ready to continue on his own. Next Visit Focus/Plan Next Note Type Discharge Summary Next Visit Plan PT to complete discharge summary.
--- NOTE | 2025-04-02 07:54 | PT.OPDS ---
Current Diagnoses Unilateral primary osteoarthritis, left knee (03/31/25) Visit Care Team Role Provider Type Dain Payne PA-C Family Provider Non-Staff Primary Care Provider Specialty: Medical Address: [address] [place] [address], [place], [address] Email: Susan Lowe PA-C Attending Provider Non-Staff Referring Provider Specialty: General Surgery Address: [address] [place] [address], [place], [address] Email: Visit Number Visit Number 16 Discharge Summary PT-OP-B Current Condition Start: 01/29/25 08:43 Freq: Status: Active Protocol: Document 01/30/25 08:28 MB (Rec: 01/30/25 09: MB [id number]) Current Condition History of Current Condition Onset Date 01/23/25 Left medial UKA Current Complaints Left knee pain and trouble walking History of Current Condition Pt arrives to clinic with cane in right hand and he is limping severely. Pt uses the walker in the house. Pt has 2 steps to enter home without rail. 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 Treatment Goals Patient/Caregiver Goals To improve pain and walking PT-OP-C Subjective Start: 01/29/25 08:43 Freq: Status: Active Protocol: Document 03/31/25 10:43 PG (Rec: 03/31/25 11:30 PG Laptop) OP-PT Subjective Patient Comments Patient Comments Pt would like to DC after today's tx. Works well for him since he has a lot going on family tariq. Patient Questionnaires Lower Extremity Functional Scale LEFS Score 52 LEFS Impairment 20 to 39% Impaired (Score 48- 62) PT-OP-G Mobility & Gait Start: 01/29/25 08:43 Freq: Status: Active Protocol: Document 01/30/25 08:28 MB (Rec: 01/30/25 09:25 MB [id number]) OP Gait Assessment Comments Gait Comments Pt arrives with walking stick/ wooden cane that is too tall in right and and he presents with flexion at hips, trunk and knees and antalgic/limping step-to gait with decreased step-length and foot clearance . Obtained RW and cued pt to perform better step-through gait and upright posture and ed to use RW at all times currently PT-OP-K Range of Motion Start: 01/29/25 08:43 Freq: Status: Active Protocol: Document 01/30/25 08:28 MB (Rec: 01/30/25 09:25 MB [id number]) Knee Goniometric Range of Motion Knee Left Knee ROM WFL No Patient Position Supine Comments LLE edema in compression hose and dressing and bandage still on wound and PT can see under hose Limited extension with range 18-79 deg Right Knee ROM WFL No Patient Position Supine Comments 5-113 deg PT-OP-M Strength Start: 01/29/25 08:43 Freq: Status: Active Protocol: Document 01/30/25 08:28 MB (Rec: 01/30/25 09:25 MB [id number]) Hip Strength Hip Manual Muscle Testing Left Flexion (L2) 3+ Fair+ Extension (S1) 3+ Fair+ Abduction 3+ Fair+ Right Flexion (L2) 4+ Good+ Extension (S1) 4 Good Abduction 4+ Good+ Knee Strength Knee Manual Muscle Testing Left Flexion (S2) 4 Good Extension (L3) 4 Good Comments Can lift leg off plinth in SLR position but is painful, slow and limited and lacking some knee extension Right Flexion (S2) 5 Normal Extension (L3) 5 Normal Ankle/Foot Strength Ankle and Foot Manual Muscle Testing Left Dorsiflexion (L4) 5 Normal Comments Stranding PF MMT not performed today d/t pain and presentation post-op Right Dorsiflexion (L4) 5 Normal Comments Stranding PF MMT not performed today d/t pain and presentation post-op Toe Strength Toe Manual Muscle Testing Left Great Toe Flexion 5 Normal Right Great Toe Flexion 5 Normal PT-OP-T Assessment and Plan Start: 01/29/25 08:43 Freq: Status: Active Protocol: Document 04/02/25 07:53 MB (Rec: 04/02/25 07:54 MB Desktop) Physical Therapy Assessment Assessment Summary Assessment Bill progressed well with outpatient PT and is ready to d/c. He will con't HEP at home .
== END 2025-04-03 10:47 | disposition home or self-care (01) ==
LOC: PHYS 10:45
PROVIDERS: Family Provider Physician Assistant; PCP Physician Assistant; Referring Provider Physician Assistant; Visit Provider Physician Assistant
DX: M17.12 Unilateral primary osteoarthritis, left knee (principal)
CPT/HCPCS: 97110; 97116; 97140; 97162; 97530; 97535

== ENCOUNTER → 2025-10-16 12:00 | Outpatient (CLI) | payer MEDICARE, SELFPAY ==
[2022-05-09 20:40] VITALS: BMI 29.3
== END ==
PROVIDERS: Family Provider Physician Assistant; PCP Physician Assistant; Visit Provider Student in an Organized Health Care Education/Training Program
DX: R30.0 Dysuria (principal)
CPT/HCPCS: 87077; 87086